=== PATIENT | female | born 1960 | race Caucasian/White ===

== ENCOUNTER 2023-06-22 09:03 | Outpatient (OUT) | payer MEDICARE, SELFPAY ==
--- NOTE | 2023-06-22 09:53 | CA_ITS ---
Patient Name: JOSÉ ANTONIO SY MR#: [id number] : 1960 Exam Date: 06/22/2023 Ordering Doctor: BESS MARTIN ECHOCARDIOGRAM REPORT PROCEDURE: CA ECHO DOPPLER COMPLETE INDICATIONS: Atrial fibrillation, loop recorder, h/o ablation x2 COMPARISON: None. DESCRIPTION: COMPLETE ECHOCARDIOGRAM Real-time transthoracic echocardiography with 2D, M-mode, spectral and color flow Doppler performed. QUALITY: Technical quality was good. 63 , 238#, BSA 2.13 m2 LEFT VENTRICLE: Normal chamber size. Moderate concentric left ventricular hypertrophy. LV EF: Global left ventricular systolic function is normal; visually estimated ejection fraction is 55 to 60%. DIASTOLIC: Normal diastolic function. ATRIAL SEPTUM: Inadequately seen. LEFT ATRIUM: Normal chamber size. RIGHT ATRIUM: Normal chamber size. RIGHT VENTRICLE: Normal chamber size. Normal right ventricular systolic function. TRICUSPID VALVE: Normal mobility and thickness. No stenosis with no regurgitation. Unable to assess right-sided pressures due to lack of measurable tricuspid regurgitation. MITRAL VALVE: Normal mobility and thickness. No evidence of mitral valve stenosis. Mild mitral annular calcification. Trivial mitral regurgitation. AORTIC VALVE: Normal trileaflet appearance. Thickened aortic valve. Normal leaflet mobility. No evidence of aortic valve stenosis. No aortic regurgitation. AORTIC ROOT: Normal diameter and appearance. PULMONIC VALVE: Not well visualized. No stenosis. No regurgitation. PERICARDIUM: No evidence of pericardial effusion. IVC: Collapses with inspirations. CONCLUSION: 1. Global left ventricular systolic function is normal; visually estimated ejection fraction is 55 to 60% 2. Right ventricle is normal size and systolic function 3. Moderately increased left ventricular wall thickness 4. Normal diastolic function 5. No significant valvular abnormalities Adult Echocardiography Procedure Report Left Ventricle LVEDD (3.7 - 5.6 cm): 4.10 cm LVESD (2.2 - 4.0 cm): 3.08 cm LVIVS thickness (0.6 - 1.2 cm): 1.40 cm LVPW thickness (0.5 - 1.0 cm): 1.40 cm e': 0.06 m/s E - e': 9.65 LVOT Max Gradient: 3.05 mm[Hg] LVOT Area (cm2): 0.87 m/s Peak Velocity (LVOT): 0.87 m/s Mean Velocity (LVOT): 0.63 m/s LVOT Diameter 2.70 cm Left Atrium LA Volume Index (2D A2C): 38.49 ml/m2 Left Atrium Systolic Dimension: 3.70 cm Mitral Valve MV E to A Ratio: 0.77 Mitral Valve A-Wave Peak Velocity: 0.81 m/s Mitral Valve E-Wave Peak Velocity: 0.62 m/s Right Ventricle Aorta AO Root Diam: 3.42 cm Ascending Ao Diam: 3.29 cm Aortic Valve AoV Area (Peak Panflio): 3.44 cm2, 3.44 cm2 AoV Area (VTI): 3.60 cm2, 3.60 cm2 Peak Velocity(Antegrade Flow): 1.45 m/s Peak Gradient(Antegrade Flow): 8.44 mm[Hg] Mean Velocity(Antegrade Flow): 0.94 m/s Mean Gradient(Antegrade Flow): 4.10 mm[Hg] Velocity Time Integral: 29.57 cm Tricuspid Valve Pulmonic Valve Mean Gradient: 2.05 mm[Hg] Mean Velocity: 0.67 m/s Peak Velocity: 0.93 m/s, 1.11 m/s Peak Gradient: 4.93 mm[Hg], 3.47 mm[Hg] Right Atrium Dictated by: Manish Walton M.D. on 06/26/2023 at 11:22 Approved by: Manish Walton M.D. on 06/26/2023 at 11:25
== END 2023-06-22 09:04 | disposition home or self-care (01) ==
LOC: CARD 09:03
PROVIDERS: PCP Family Medicine; Visit Provider Nurse Practitioner
DX: I48.0 Paroxysmal atrial fibrillation (principal)
CPT/HCPCS: 93306

== ENCOUNTER 2023-07-25 08:32 | Outpatient (OUT) | payer MEDICARE, SELFPAY ==
--- OUTSIDE RECORDS SUMMARY | 2023-07-25 08:49 | XMS_ITS | CCD ---
Author Name Unknown Address [address] [facility] [address] [place] [id number] Organization [facility] Team Providers Care Netsuite Developer Name Role Phone SONNY ZAID Unavailable Unavailable KUNAL PATEL Unavailable Unavailable [place], EHAB A Attending Unavailable [place], EHAB A Admitting Unavailable SELF, REFERRED Referring Unavailable KUNAL PATEL Primary Care Unavailable Kunal Patel MD Primary Care Provider [phone] CURTIS LIMA Admitting Unavailable CURTIS LIMA Attending Unavailable KUNAL PATEL Primary Care Unavailable GARTH ANDREWS Admitting Unavailable GARTH ANDREWS Consulting Unavailable GARTH ANDREWS Attending Unavailable LEIGHTON Mandel, DR SYED Primary Care Unavailable RAI JAY Admitting Unavailable RAI JAY Attending Unavailable LEIGHTON ., DR SYED Primary Care Unavailable DELIA COKER Admitting Unavailable DELIA COKER Consulting Unavailable DELIA COKER Attending Unavailable LEIGHTON ., DR SYED Primary Care Unavailable RORO BARKLEY Consulting Unavailable SAQIB ANDREWSINDA Admitting Unavailable GARTH ANDREWS Attending Unavailable LEIGHTON ., DR SYED Primary Care Unavailable LEIGHTON ., DR SYED Admitting Unavailable LEIGHTON ., DR SYED Primary Care Unavailable LEIGHTON ., DR SYED Consulting Unavailable LEIGHTON ., DR SYED Attending Unavailable NAYELI FELIZ Attending Unavailable BESS MARTIN Attending Unavailable BESS MARTIN Attending Unavailable RAI JAY Attending Unavailable RAI JAY Admitting Unavailable RAI JAY Attending Unavailable RAI JAY Admitting Unavailable RAI JAY Attending Unavailable RAI JAY Admitting Unavailable RAI JAY Attending Unavailable BESS MARTIN Attending Unavailable BESS MARTIN Attending Unavailable RAI JAY Referring Unavailable RAI JAY Referring Unavailable RAI JAY Referring Unavailable RAI JAY Attending Unavailable RAI JAY Referring Unavailable RAI JAY Referring Unavailable Allergies Allergy Classification Reported Allergen(s) Allergy Type Date of Onset Reaction(s) Facility (2 sources) Acetaminophen / oxyCODONE; Translations: [OXYCODONE-ACETAMI NOPHEN] Drug Allergy 08-19-2013 [facility] Repository (3 sources) Acetaminophen / oxyCODONE Drug Allergy 01-24-2013 [facility] Repository Medications Current Medications Medication Drug Class(es) Dates Sig (Normalized) Sig (Original) apixaban 5 mg oral tablet (1 source) Factor Xa Inhibitor apixaban (EL IQUIS) 5 MG TABS tablet Take by mouth 2 times daily 0 Active atorvastatin 80 mg oral tablet (1 source) HMG-CoA Reductase Inhibitor take 1 tablet by mouth once daily atorvastatin (LIPITOR) 80 MG tablet Take 80 mg by mouth daily 0 Active Calcium Acetate, Phos Binder, (CALCIUM ACETATE PO) (1 source) Calcium Acetate, Phos Binder, (CALCIUM ACETATE PO) Take by mouth 0 Active carvedilol 25 mg oral tablet (1 source) alpha-Adrenergic Grady, beta-Adrenergic Grady take 1 tablet by mouth twice daily at mealtime carvedilol (COREG) 25 MG tablet Take 25 mg by mouth 2 times daily (with meals) 0 Active cetirizine hydrochloride 10 mg oral tablet (1 source) Histamine-1 Receptor Antagonist take 1 tablet by mouth once daily cetirizine (ZYRTEC) 10 MG tablet Take 10 mg by mouth daily 0 Active cloNIDine hydrochloride 0.1 mg oral tablet (1 source) Central alpha-2 Adrenergic Agonist take 1 tablet by mouth twice daily cloNIDine (CATAPRES) 0.1 MG tablet Take 0.1 mg by mouth 2 times daily 0 Active Diclofenac (1 source) Nonsteroidal Anti-inflammatory Drug DICLOFENAC POTASSIUM PO Take by mouth 0 Active 24 hr dilTIAZem hydrochloride 180 mg extended release oral capsule (1 source) Calcium Channel Grady take 1 capsule by mouth once daily dilTIAZem (DILACOR XR) 180 MG extended release capsule Take 180 mg by mouth daily 0 Active furosemide 20 mg oral tablet (1 source) Loop Diuretic take 1 tablet by mouth twice daily furosemide (LASIX) 20 MG tablet Take 20 mg by mouth 2 times daily 0 Active isosorbide dinitrate 20 mg oral tablet (1 source) Nitrate Vasodilator isosorbide dinitrate (ISORDIL) 20 MG tablet Take 30 mg by mouth 3 times daily 0 Active lisinopril 20 mg oral tablet (1 source) Angiotensin Converting Enzyme Inhibitor take 1 tablet by mouth once daily lisinopril (PRINIVIL;ZESTRIL) 20 MG tablet Take 20 mg by mouth daily 0 Active magnesium oxide 400 mg oral tablet (1 source) take 1 tablet by mouth once daily magnesium oxide (MAG-OX) 400 MG tablet Take 400 mg by mouth daily 0 Active Misc Natural Products (AIRBORNE ELDERBERRY) CHEW (1 source) Misc Natural Products (AIRBORNE ELDERBERRY) CHEW Take by mouth 0 Active pantoprazole 40 mg delayed release oral tablet (1 source) Proton Pump Inhibitor take 1 tablet by mouth once daily pantoprazole (PROTONIX) 40 MG tablet Take 40 mg by mouth daily 0 Active pregabalin 100 mg oral capsule (1 source) take 2 capsules by mouth twice daily pregabalin (LYRICA) 100 MG capsule Take 200 mg by mouth 2 times daily. 0 Active zinc gluconate 50 mg oral tablet (1 source) take 1 tablet by mouth once daily zinc gluconate 50 MG tablet Take 50 mg by mouth daily 0 Active Problems Active Problems Problem Classification Problem Date Documented Date Episodic/Chronic Cardiac dysrhythmias (4 sources) Paroxysmal atrial fibrillation; Translations: [Typical atrial flutter] Onset: 03-08-2022 Chronic Congestive heart failure; nonhypertensive (1 source) Unspecified diastolic (congestive) heart failure; Translations: [UNSPECIFIED DIASTOLIC HEART FAILURE] Onset: 07-26-2022 Chronic Coronary atherosclerosis and other heart disease (1 source) 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; Translations: [ASHD [place] W/O ANGINA PECTORIS] Onset: 03-08-2022 Chronic Deficiency and other anemia (1 source) Anemia, unspecified; Translations: [ANEMIA UNSPECIFIED] Onset: 07-26-2022 Episodic Diabetes mellitus without complication (4 sources) Type 2 diabetes mellitus without complications; Translations: [TYPE 2 DM WITHOUT COMPLICATIONS] Onset: 07-24-2022 Chronic Disorders of lipid metabolism (1 source) Hyperlipidemia, unspecified; Translations: [HYPERLIPIDEMIA UNSPECIFIED] Onset: 07-26-2022 Chronic Esophageal disorders (1 source) Gastro-esophageal reflux disease without esophagitis; Translations: [GERD WITHOUT ESOPHAGITIS] Onset: 12-21-2021 Chronic Essential hypertension (3 sources) Essential (primary) hypertension; Translations: [ESSENTIAL PRIMARY HYPERTENSION] Onset: 12-21-2021 Chronic Hypertension with complications and secondary hypertension (1 source) Hypertensive heart disease with heart failure; Translations: [HTN HEART DISEASE W/HEART FAIL] Onset: 07-26-2022 Chronic Mood disorders (1 source) Major depressive disorder, single episode, unspecified; Translations: [GAIL DEPRESS D/O SINGLE EPIS UNS] Onset: 12-21-2021 Chronic Nonspecific chest pain (1 source) Chest pain, unspecified; Translations: [CHEST PAIN UNSPECIFIED] Onset: 07-26-2022 Episodic Nutritional deficiencies (1 source) Vitamin D deficiency, unspecified; Translations: [VITAMIN D DEFICIENCY UNSPECIFIED] Onset: 07-26-2022 Chronic Other lower respiratory disease (1 source) Other forms of dyspnea; Translations: [OTHER FORMS OF DYSPNEA] Onset: 07-26-2022 Episodic Other nutritional; endocrine; and metabolic disorders (1 source) Morbid (severe) obesity due to excess calories; Translations: [MORBID SEVERE OBES D/T EXCESS ABNER] Onset: 12-21-2021 Chronic Other nutritional; endocrine; and metabolic disorders (1 source) Body mass index (BMI) 40.0-44.9, adult; Translations: [BODY MASS INDEX BMI 40.0-44.9 ADULT] Onset: 12-21-2021 Chronic Residual codes; unclassified (2 sources) Sleep apnea, unspecified; Translations: [Sleep apnea, unspecified] Onset: 12-27-2022 Chronic Unclassified (1 source) Unknown / UNK(Unknown) Onset: 06-24-2018 Past or Other Problems Problem Classification Problem Date Documented Da te Episodic/Chronic Cardiac dysrhythmias (2 sources) Palpitations; Translations: [Palpitations] Onset: 09-26-2022 Episodic E Codes: Overexertion (1 source) Slipping, tripping and stumbling without falling due to stepping into hole or opening, initial encounter; Translations: [SLIP STUMBL NO FALL STEP HOLE INIT] Onset: 12-21-2021 Episodic Other aftercare (1 source) 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 (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; Translations: [EMBOSSED OR IMPRESSED LETTERING PAINTER CURRENT USE OF ASPIRIN] Onset: 12-21-2021 Episodic Other aftercare (1 source) Other senior care (current) drug therapy; Translations: [OTH SENIOR CARE CURRENT DRUG THERAPY] Onset: 12-21-2021 Episodic Other circulatory disease (1 source) Personal history of transient ischemic attack (TIA), and cerebral infarction without residual deficits; Translations: [PERS HX TIA AND CI NO RESID DEFICIT] Onset: 12-21-2021 Episodic Other connective tissue disease (3 sources) Pain in right foot; Translations: [PAIN IN RIGHT FOOT] Onset: 12-18-2021 Episodic Residual codes; unclassified (1 source) Acquired absence of both cervix and uterus; Translations: [ACQUIRED ABSENCE BOTH CERVIX AND UTERUS] Onset: 12-21-2021 Episodic Sprains and strains (1 source) Unspecified sprain of right foot, initial encounter; Translations: [UNSPECIFIED SPRAIN RT FOOT INITIAL] Onset: 12-21-2021 Episodic Results Test Name Value Interpretation Reference Range Facility Office Visiton 06-26-2023 Follow-up visit [id number] BarthCarina Moraes 1960 Provider Department Center 06/26/2023 RAI BARROW Family History Problem Relation Age of Onset Heart failure Mother Hyperlipidemia Mother Hypertension Mother Heart failure Father Hypertension Father Heart failure Brother Hyperlipidemia Brother Hypertension Brother Family Status - Relation Status Age at Mother Father Brother Level of Service:96051 SD OFFICE/OUTPATIENT ESTABLISHED MOD MDM 30 MIN Normal [facility] Office Visiton 04-17-2023 Follow-up visit [id number] TabCarina Moraes 1960 Provider Department Center 04/17/2023 BESS PETER Family History Problem Relation Age of Onset Heart failure Mother Hyperlipidemia Mother Hypertension Mother Heart failure Father Hypertension Father Heart failure Brother Hyperlipidemia Brother Hypertension Brother Family Status - Relation Status Age at Mother Father Brother Level of Service:18783 SD OFFICE/OUTPATIENT ESTABLISHED MOD MDM 30-39 MIN Normal [facility] Orders Onlyon 02-12-2023 Orders Only [id number] TabCarina Moraes 1960 Provider Department Center 02/12/2023 BESS PETER [facility] Family History Problem Relation Age of Onset Heart failure Mother Hyperlipidemia Mother Hypertension Mother Heart failure Father Hypertension Father Heart failure Brother Hyperlipidemia Brother Hypertension Brother Family Status - Relation Status Age at Mother Father Brother [facility] Telephoneon 01-18-2023 Telephone [id number] Carina Barth 1960 Date Provider Department Prim 01/18/20231986-PATO CORONADO [facility] VASC LAB NE HeartVAS Family History Problem Relation Age of Onset Heart failure Mother Hyperlipidemia Mother Hypertension Mother Heart failure Father Hypertension Father Heart failure Brother Hyperlipidemia Brother Hypertension Brother Family Status - Relation Status Age at Mother Father Brother Reason for Visit and Comments: 3 week f/u post ablation [Other] [facility] Telephoneon 01-04-2023 Telephone [id number] Carina Barth 1960 Date Provider Department Center 01/04/20231986-PATO CORONADO [facility] CARD NE HeartVAS Family History Problem Relation Age of Onset Heart failure Mother Hyperlipidemia Mother Hypertension Mother Heart failure Father Hypertension Father Heart failure Brother Hyperlipidemia Brother Hypertension Brother Family Status - Relation Status Age at Mother Father Brother Reason for Visit and Comments: week f[facility]u [facility] ablation [facility] ---- -------- Attestation signed by Rai Jay MD at 12/28/2022 9:29 AM By using the attestations below, the signing clinician agrees that I have read and verify that the documentation has been personally reviewed by me and ensure that the documentation accurately reflects the encounter. GC: I personally saw this patient on the day of the encounter, performed the garza portion(s) of the service and participated in the management and confirm the resident's documentation. Please note there may be an additional personal documentation from me. -------- H&P reviewed. The patient was examined and there are no changes to the H&P. Normal [facility] POCT GLUCOSE METER UNSOLICIT ED RESULTSon 12-28-2022 Glucose [Mass/Vol] 219 mg/dL High 70-105 [facility] Comment on above: Order Comment: Waive d Testing in the ED is performed under the ED CLIA certificate #[id number]. Result Comment: aepp ink Performed By: #### L [id number] ####[facility] ([employer])[address] [place] [address] PROTIME-INRon 12-28-2022 INR IN PPP BY COAGULATION ASSAY 1.02 Normal 0.90-1.10 [facility] Comment on above: Result Comment: ACCC P RECOMMENDED INR FOR WARFARIN THERAPY CONDITION INR PROPHYLAXIS OF VENOUS THROMBOSIS 2-3 (HIGH-RISK SURGERY) TREATMENT OF VENOUS THROMBOSIS 2-3 TREATMENT OF PULMONARY EMBOLISM 2-3 PREVENTION OF SYSTEMIC EMBOLISM: 2-3 ACUTE MYOCARDIAL INFARCTION TISSUE HEART VALVES VALVULAR HEART DISEASE ATRIAL FIBRILLATION RECURRENT SYSTEMIC EMBOLISM MECHANICAL HEART VALVE 2.5-3.5 FROM: ORAL ANTICOAGULANTS. MECHANISM OF ACTION, CLINICAL EFFECTIVENESS, AND OPTIMAL THERAPEUTIC RANGE. CHEST 1995;108:231S-246S. Performed By: #### L [id number] ####[facility] ([employer])[address] [place] [place] [address] PROTHROMBIN TIME (PT) IN PPP BY COAGULATION ASSAY 13.4 Seconds Normal 12.3-14.8 [facility] Comment on above: Performed By: #### L [id number] ####[facility] (DANIEL)[address] [place] [address] HPon 12-27-2022 [facility] Electrophysiology Note [facility] Reason for Consultation: Aflutter s/p ablation 07/26/22, AFIB ablation HP and consent HPI: Patient here for A-fib ablation H&P and consent she previously had atrial flutter ablation and subsequently had a loop monitor placed Since loop placement she has had several frequent episodes of A-fib with some lasting up 2 to 3 hours. she has not felt these palpitations like she did with her for, they are very mild and infrequent for her. she was trialed on amiodarone and cannot tolerate side effects such as headaches and lightheadedness and affected her daily level so she discontinued amiodarone She denies chest pain, shortness of breath, PRICE, LE edema, orthopnea, lightheadedness, dizziness. ECG 12/28/2022 sinus rhythm 12/26/22 loop afib event PMH: mild to mod CAD per 07/2020 cath, pHTN, HTN, diastolic dysfunction, hx TIA 2008, atrial flutter s/p ablation 07/2022, atrial fib (was intolerant of amiodarone) [id number] at least 5 for gender, hypertension, TIA, HFpEF - on Eliquis 5mg BID medications. As needed nitroglycerin, lisinopril 20 mg daily, pregabalin, milligram twice daily, Coreg 25 mg twice daily, Cardizem 100 mg daily, Cymbalta, Imdur 30 mg daily, Protonix 40 mg daily, Jardiance 10 mg daily for chronic 0.1 mg twice daily, Lasix 20 mg daily, Lipitor 80 mg daily Prior HPI: Amparo Barth is a 62 y.o. 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 She was seen at [facility] ER with c/o palpitations and chest pain and found to be in a.flutter. She states that she has experienced this on and off for the past 5 years although no EKG was ever taken. She is becoming more active after receiving pain treatment on the back She denies CP, orthopnea, PND, LE edema, dizziness/LH, syncope, bleeding issues. -------- PMH: Past Medical History: Diagnosis Date Abnormal ECG Arrhythmia Atrial flutter (CMS/HCC) Hypertension Obesity BMI 41.10 As above PSH: Past Surgical History: Procedure Laterality Date CARDIAC CATHETERIZATION 07/22/2020 CHOLECYSTECTOMY HAND SURGERY HERNIA REPAIR x 2 HYSTERECTOMY KNEE SURGERY x 3 SH: Social Determinants of Health Tobacco Use: Low Risk (12/21/2022) Patient History Smoking Tobacco Use: Never Smokeless Tobacco Use: Never Passive Exposure: Not on file Alcohol Use: Not on file Financial Resource Strain: Not on file Food Insecurity: Not on file Transportation Needs: Not on file Physical Activity: Not on file Stress: Not on file Social Connections: Not on file Intimate Partner Violence: Not on file Depression: Not on file Housing Stability: Not on file Meds: Current Outpatient Medications on File Prior to Visit Medication Sig Dispense Refill apixaban (Eliquis) 5 mg tablet Take 1 tablet by mouth in the morning and at bedtime. atorvastatin (Lipitor) 80 mg tablet Take 1 tablet (80 mg) by mouth at bedtime. 90 tablet 3 carvedilol (Coreg) 25 mg tablet Take 1 tablet by mouth with breakfast and with evening meal. cloNIDine (Catapres) 0.1 mg tablet Take by mouth in the morning and at bedtime. dilTIAZem ER (Tiazac) 180 mg 24 hr capsule Take 1 tablet by mouth in the morning. DULoxetine (Cymbalta) [address] capsule Take 1 tablet by mouth in the morning. furosemide (Lasix) 20 mg tablet Take 1 tablet (20 mg) by mouth in the morning. 90 tablet 3 isosorbide mononitrate ER (Imdur) 30 mg 24 hr tablet Take 1 tablet by mouth in the morning. Jardiance 10 mg Take 10 mg by mouth in the morning. lisinopril 20 mg tablet Take 1 tablet by mouth in the morning and at bedtime. nitroglycerin (Nitrostat) 0.[address] 1 TABLET IN MOUTH EVERY 5 MINUTES 3 TIMES A DAY NEEDED FOR CHEST PAIN pantoprazole (ProtoNix) 40 mg EC tablet Take 1 tablet by mouth in the morning. pregabalin (Lyrica) 200 mg capsule TAKE 1 CAPSULE BY MOUTH EVERY DAY AT NIGHT amiodarone (Pacerone) 200 mg tablet Take 2 tablets (400 mg) by mouth in the morning and at bedtime for 14 days, THEN 1 tablet (200 mg) in the morning. 146 tablet 0 No current facility-administered medications on file prior to visit. ROS: Cardio Basic Cardiovascular Symptoms: no lightheadedness, no leg edema, no syncope, no orthopnea, no PND, no claudication, +palpitations Constitutional Constitutional: no fever, no night sweats, no significant weight gain, no significant weight loss, no exercise intolerance Eyes Eyes: no dry eyes, no irritation, no vision change ENMT Ears: no difficulty hearing, no ear pain Nose: no frequent nosebleeds, Mouth/Throat: no sore throat, no bleeding gums, no snoring, no dry mouth, no mouth ulcers, no oral abnormalities, no teeth problems Respiratory Respiratory: no cough, no wheezing, no coughing up blood, no sleep apnea Musculos (more content not included)... Normal [facility] Office Visiton 12-27-2022 Follow-up visit [id number] Carina Barth 1960 F Date Provider Department Center 12/27/2022 Torie-BESS MARTIN [facility] Family History Problem Relation Age of Onset Heart failure Mother Hyperlipidemia Mother Hypertension Mother Heart failure Father Hypertension Father Heart failure Brother Hyperlipidemia Brother Hypertension Brother Family Status - Relation Status Age at Mother Father Brother Level of Service:85617 SD OFFICE/OUTPATIENT ESTABLISHED HIGH MDM 40-54 MIN Normal [facility] BASIC METABOLIC PANELon 12-16 Anion gap [Moles/Vol] 12 mmol/L Normal 7-20 [facility] Comment on above: Performed By: #### L [id number] ####[facility] ([facility])[address] [place] [address] Calcium [Mass/Vol] 9.5 mg/dL Normal 8.6-10.3 [facility] Comment on above: Performed By: #### L [id number] ####[facility] ([facility])[address] [place] [address] Chloride [Moles/Vol] 105 mmol/L Normal 98-107 [facility] Comment on above: Performed By: #### L [id number] ####[facility] ([facility])[address] [place] [address] CO2 [Moles/Vol] 26 mmol/L Normal 21-31 [facility] Comment on above: Performed By: #### L [id number] ####[facility] ([facility])[address] [place] [address] Creatinine [Mass/Vol] 0.88 mg/dL Normal 0.60-1.20 [facility] Comment on above: Performed By: #### L [id number] ####[facility] ([facility])[address] [facility] [place] [address] GLOMERULAR FILTRATION RATE ML/MIN/1.73 SQ M.PREDICTED 73.3 mL/min/1.73m*2 Normal >60.0 [facility] Comment on above: Result Comment: The [facility]???s estimated glomerular filtration rate (eGFR) will no longer include consideration of race in its calculation. The National Kidney Foundation???s eGFR Task Force developed new recommendations for the estimation of the glomerular filtration rate in the [place] They recommend immediate implementation of the new equation refit without the race variable in all laboratories because the calculation does not include race. In addition to not including race in the calculation and reporting, it included diversity in its development, and has acceptable performance characteristics and potential consequences that do not disproportionately affect any one group of individuals. Performed By: #### L [id number] ####[facility] ([facility])[address] [place] [address] Glucose [Mass/Vol] 132 mg/dL High 70-100 [facility] Comment on above: Performed By: #### L [id number] ####[facility] ([facility])[address] [place] [address] Potassium [Moles/Vol] 4.1 mmol/L Normal 3.5-5.1 [facility] Comment on above: Performed By: #### L [id number] ####[facility] ([facility])[address] [place] [address] Sodium [Moles/Vol] 139 mmol/L Normal 136-145 [facility] Comment on above: Performed By: #### L [id number] ####[facility] ([facility])[address] [place] [address] Urea nitrogen [Mass/Vol] 11 mg/dL Normal 7-25 [facility] Comment on above: Performed By: #### L [id number] ####[facility] ([facility])[address] [place] [address] UREA NITROGEN/CREATININ E (MASS RATIO) IN SER/PLAS 12.5 Normal [facility] Comment on above: Performed By: #### L [id number] ####[facility] ([facility])[address] [place] [address] CBC WITH AUTO DIFFERENTIALon 12-25-2022 Basophils (Bld) [#/Vol] 0.04 10*3/uL Normal 0.00-0.20 [facility] Comment on above: Performed By: #### L [id number] #### [facility] ([facility]) [address] [place] [address] Basophils/100 WBC (Bld) 0.5 % Normal 0.0-1.0 [facility] Comment on above: Performed By: #### L [id number] #### [facility] ([facility]) [address] [place] [address] Eosinophils (Bld) [#/Vol] 0.19 10*3/uL Normal 0.00-0.50 [facility] Comment on above: Performed By: #### L [id number] #### [facility] ([facility] [address] [place] [address] Eosinophils/100 WBC (Bld) 2.4 % Normal 0.0-6.0 [facility] Comment on above: Performed By: #### L [id number] #### [facility] ([facility]) [address] [place] [address] Erythrocyte distribution width (RBC) [Ratio] 15.1 % High 11.5-15.0 [facility] Comment on above: Performed By: #### L [id number] #### [facility] ([facility]) [address] [place], [place] [address] ERYTHROCYTE MEAN CORPUSCULAR HEMOGLOBIN CONCENTRATION (G/DL) BY AUTOMATED 33.7 g/dL Normal 32.0-35.0 [facility] Comment on above: Performed By: #### L [id number] #### [facility] ([facility]) [address] [place] [address] Hematocrit (Bld) [Volume fraction] 40.9 % Normal 36.0-48.0 [facility] Comment on above: Performed By: #### L [id number] #### [facility] ([facility]) [address] [place] [address] Hemoglobin (Bld) [Mass/Vol] 13.8 g/dL Normal 12.0-15.0 [facility] Comment on above: Performed By: #### L [id number] #### [facility] ([facility]) [address] [place] [address] Immature granulocytes (Bld) [#/Vol] 0.10 10*3/uL Normal 0.00-0.20 [facility] Comment on above: Performed By: #### L [id number] #### [facility] ([facility]) [address] [place] [address] Immature granulocytes/100 WBC (Bld) 1.2 % High 0.0-1.0 [facility] Comment on above: Performed By: #### L [id number] #### [facility] ([facility]) [address] [place] [address] Lymphocytes (Bld) [#/Vol] 2.22 10*3/uL Normal 1.20-4.00 [facility] Comment on above: Performed By: #### L [id number] #### [facility] ([facility]) [address] [place] [address] Lymphocytes/100 WBC (Bld) 27.5 % Normal 20.0-45.0 [facility] Comment on above: Performed By: #### L [id number] #### [facility] ([facility]) [address] [place] [address] MCH (RBC) [Entitic mass] 29.3 pg Normal 27.0-33.0 [facility] Comment on above: Performed By: #### L [id number] #### [facility] ([facility]) [address] [place] [address] MCV (RBC) [Entitic vol] 86.8 fL Normal 82.0-98.0 [facility] Comment on above: Performed By: #### L [id number] #### [facility] ([facility]) [address] [place] [address] Monocytes (Bld) [#/Vol] 0.58 10*3/uL Normal 0.10-1.00 [facility] Comment on above: Performed By: #### L [id number] #### [facility] ([facility]) [address] [place] [address] Monocytes/100 WBC (Bld) 7.2 % Normal 5.0-12.0 [facility] Comment on above: Performed By: #### L [id number] #### [facility] ([facility]) [address] [place] [address] Neutrophils (Bld) [#/Vol] 4.94 10*3/uL Normal 1.60-7.60 [facility] Comment on above: Performed By: #### L [id number] #### [facility] ([facility]) [address] [place] [address] Neutrophils/100 WBC (Bld) 61.2 % Normal 40.0-72.0 [facility] Comment on above: Performed By: #### L [id number] #### [facility] ([facility]) [address] [place] [address] NRBC (PER 100 WBCS) BY AUTOMATED COUNT 0.0 % Normal 0 [facility] Comment on above: Performed By: #### L [id number] #### [facility] ([facility]) [address] [place] [address] PLATELETS (10*3/UL) IN BLOOD AUTOMATED COUNT 245 10*3/uL Normal 150-400 [facility] Comment on above: Performed By: #### L [id number] #### [facility] ([facility]) [address] [place] [address] RBC (Bld) [#/Vol] 4.71 10*6/uL Normal 3.80-5.00 [facility] Comment on above: Performed By: #### L [id number] #### [facility] ([facility]) [address] [place] [address] WBC (Bld) [#/Vol] 8.07 10*3/uL Normal 4.00-10.60 [facility] Comment on above: Performed By: #### L [id number] #### [facility] ([facility]) [address] [address] [place] 12-25-2022 Lab [id number] Carina Barth 1960 F Date Provider Department Prim 12/25/2022 2245-[facility] OPD LAB RESOURCE [facility] OPD [facility] Family History Problem Relation Age of Onset Heart failure Mother Hyperlipidemia Mother Hypertension Mother Heart failure Father Hypertension Father Heart failure Brother Hyperlipidemia Brother Hypertension Brother Family Status - Relation Status Age at Mother Father Brother Normal [facility] [id number] 12-21-2022 [id number] ARRIVAL TIME 0630 GI KRISTA MEDICATIONS TO TAKE DAY OF SURGERY WITH A SIP OF WATER CARVEDILOL CLONIDINE DILTIAZEM DULOXETINE ISOSORBIDE PROTONIX AGREES TO GET LABS DONE AT [facility] ON 12/25 IF YOU ARE GOING HOME AFTER YOUR SURGERY OR PROCEDURE, FOR YOUR SAFETY, YOUR SURGERY WILL BE CANCELLED IF BOTH OF THE FOLLOWING ARE NOT AVAILABLE: An adult trailer driver over the age of 18, that can receive information about your care after surgery, and drive you home. A responsible adult to stay with you for 24 hours in case of an emergency. Can be same as above. The highest risk of complications is within the first 24 hours after sedation/anesthesia. Nothing to eat or drink after midnight the night before surgery. This includes gum, candy, mints, and lozenges. No alcohol, marijuana, or tobacco products including vaping for 24 hours. Please brush your teeth; don't swallow the toothpaste or water. If you use dentures, wear them but do not use paste. Please leave any other removable dental hardware at home. Do not put in contact lenses. Do not wear perfume, make-up, nail tongan, or lotions on the day of your surgery or procedure. Follow skin-prep/wipe instructions as below if required. Bring with you: *Insurance card *Photo ID *Medication list *Co-pay for visit/prescriptions If applicable: *Rescue inhalers *Green bracelet from lab *CPAP or BiPAP machine, if staying overnight *Any braces, splints, or equipment ordered preoperatively *Remote controls for implanted devices Leave at home: *Purse/Wallet/[place]- unless needed for co-pay *Cell phone (can leave with family/friend or place in locker if needed) *Jewelry (including piercings and wedding bands) *If not possible, ask the person who is waiting with you to keep them Children under the age of 12 will not be allowed into patient care areas. We will call you between 3pm and 4pm the day before your surgery to give you an arrival time. If you do not receive this call, have any questions, or need to make any changes, please call [phone]. Notify your surgeon if you develop any illness such as a cold, cough, fever, sore throat or vomiting between now and your surgery. Thank you for entrusting us with your care. [facility] Surgical Services Team Normal [facility] CTA CHEST W AND/OR WO IV CON TRASTon 12-18-2022 CTA CHEST W AND/OR WO IV CONTRAST CTA CHEST W AND/OR WO IV CONTRAST 12/25/2022 3:24 PM CLINICAL INDICATIONS: Paroxysmal atrial fibrillation. Preablation planning CT. PROTOCOL: Gated cardiac CTA examination CONTRAST: 115 mL Omnipaque 350 TECHNIQUE: Multidetector CT axial slices of the chest were obtained with IV contrast. Multiplanar reformats were performed and viewed on a separate workstation and reviewed to further define anatomy and possible pathology. 3-D Volume rendered images of the left atrium, draining pulmonary veins and left atrial appendage are obtained in various projections and saved on the PACS. All CT scans at this facility use dose modulation, iterative reconstruction, and/or weight based dosing when appropriate to reduce radiation dose to as low as reasonably achievable. COMPARISON: None. FINDINGS: Lower neck: Thyroid gland subcentimeter low-attenuation nodule in the anterior left thyroid lobe, no supraclavicle adenopathy. Vessels: Satisfactory contrast opacification of the pulmonary arteries. No atherosclerotic changes in the aorta. and coronary arteries. Mediastinum and Yolanda: Within normal limits. Heart: Normal size. Trace pericardial effusion at the base and at the aortic reflection.. Airways: Within normal limits Lungs: Within normal limits with bilateral mild dependent atelectasis.. Pleura: Within normal limits. Chest Wall: Loop recorder is seen in the medial left upper hemithorax. Upper Abdomen: Within normal limits. Small hiatal hernia. Otherwise, unremarkable with metallic clips seen at the gallbladder fossa from prior cholecystectomy. Bones: Within normal limits. 3-D volume rendered images of the left atrium revealed normal size and configuration. The left atrium measures maximum transverse dimensions of 8.2 x 4.6 cm. The ostium of the left atrial appendage is 1.6 cm in diameter and left atrial appendage length is approximately 5.6 cm. The left superior pulmonary vein ostium is 1.7 cm and diameter and first branch is approximately 2.9 cm from the ostium. The left inferior pulmonary vein ostium is 1.5 cm in diameter and first branch is approximately 2.1 cm from the ostium. The right superior pulmonary vein ostium measures 1.1 cm and first branch is approximately 2.5 cm from the ostium. The right inferior pulmonary vein ostium is 1.4 cm and first branch is approximately one CM from the ostium. The esophagus is immediately posterior to the left inferior pulmonary vein. IMPRESSION: Normal size and configuration of the left atrium and 2 pulmonary veins are seen on each side with the esophagus seen in close proximity to the ostium of the left inferior pulmonary vein. Left atrial appendage is patent and contrast-filled. Otherwise, small low-attenuation lesion in the left thyroid lobe is visualized. Bilateral mild dependent atelectasis and trace pericardial effusion with loop recorder seen in the upper left medial hemithorax. Electronically signed: Azucena N[place]. [facility] Comment on above: Order Comment: Nasim rucker schedule prior to December 28 36on 12-12-2022 36 Patient called to jean paul adkins you aware that she is unable to tolerate amiodarone. She started it around 11/21. It's giving her headaches and lightheadedness. She states she isn't able to function even on 1 tablet daily. She is scheduled on 12/28/2022 for afib ablation. She doesn't plan on taking amiodarone tomorrow. Will this effect her procedure? Should she do something differently? Please advise. Thanks. [facility] Prep for Procedureon 023 Prep for Procedure [id number] Carina Barth 1960 F Date Provider Department Center 11/23/2022 1987-PATO CORONADO [facility] Family History Problem Relation Age of Onset Heart failure Mother Hyperlipidemia Mother Hypertension Mother Heart failure Father Hypertension Father Heart failure Brother Hyperlipidemia Brother Hypertension Brother Family Status - Relation Status Age at Mother Father Brother [facility] Office Visiton 11-21-2022 Follow-up visit [id number] Carina Barth 1960 F Date Provider Department Center 11/21/2022 Caitlyn-RAI JAY GOLD [place] Family History Problem Relation Age of Onset Heart failure Mother Hyperlipidemia Mother Hypertension Mother Heart failure Father Hypertension Father Heart failure Brother Hyperlipidemia Brother Hypertension Brother Family Status - Relation Status Age at Mother Father Brother Level of Service:47310 SD OFFICE/OUTPATIENT ESTABLISHED HIGH MDM 40-54 MIN [facility] Office Visiton 10-20-2022 Follow-up visit [id number] Carina Barth 1960 F Date Provider Department Center 10/20/2022 NAYELI CHAVIRA GOLD [place] Family History Problem Relation Age of Onset Heart failure Mother Hyperlipidemia Mother Hypertension Mother Heart failure Father Hypertension Father Heart failure Brother Hyperlipidemia Brother Hypertension Brother Family Status - Relation Status Age at Mother Father Brother Level of Service:22537 SD POSTOP FOLLOW UP VISIT RELATED TO ORIGINAL PX [facility] HPon 10-11-2022 H&P reviewed. The patient was examined and there are no changes to the H&P. She is S/p Atrial Flutter ablation. she does have history of TIA with no true known etiology. Proceed with Implantable loop monitor [facility] Electrophysiology Note [facility] Reason for Consultation: Aflutter s/p ablation 07/26/22 HPI: she is here for follow-up s/p flutter ablation EKG sinus rhythm. But she states has been feeling palpitations. She has not had a loop monitor per insurance but no appeal has been sent We took care of her flutter and she continues to have palpitations. she does have history of TIA with no true known cause. I discussed with her we should proceed with appealing for her loop monitor considering her history of TIA and continued palpitations. At times the palpitations are associated with lightheadedness but she denies chest pain, shortness of breath, syncope, price, orthopnea. -------- - HPI: Amparo is here for follow-up s/p typical a flutter ablation. She was mistakenly scheduled as a wound check and is here 1 week post ablation. States the first week she felt fatigued with some chest discomfort but that has now resolved and she feels great. She usually knows when she is in a-flutter and has not felt that since the ablation ECG sinus rhythm. Her right groin site has healed well with no concerns for hematoma or bleeding. She states her blood pressure is managed by her PCP. I discussed with her that she will likely need to come back in about 4 to 6 weeks for 1 month follow-up to do a repeat EKG and see how she is doing. She denies chest pain, lightheadedness, dizziness, syncope, palpitations. -------- Previous per Pierre 07/2022 HPI: Amparo Barth is a 62 y.o. 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 She was seen at [facility] ER with c/o palpitations and chest pain and found to be in a.flutter. She states that she has experienced this on and off for the past 5 years although no EKG was ever taken. She is becoming more active after receiving pain treatment on the back She denies CP, orthopnea, PND, LE edema, dizziness/LH, syncope, bleeding issues. -------- PMH: Past Medical History: Diagnosis Date Atrial flutter (CMS/HCC) Hypertension As above PSH: Past Surgical History: Procedure Laterality Date CARDIAC CATHETERIZATION 07/22/2020 CHOLECYSTECTOMY HAND SURGERY HERNIA REPAIR x 2 HYSTERECTOMY KNEE SURGERY x 3 SH: Social Determinants of Health Tobacco Use: Low Risk Smoking Tobacco Use: Never Smokeless Tobacco Use: Never Passive Exposure: Not on file Alcohol Use: Not on file Financial Resource Strain: Not on file Food Insecurity: Not on file Transportation Needs: Not on file Physical Activity: Not on file Stress: Not on file Social Connections: Not on file Intimate Partner Violence: Not on file Depression: Not on file Housing Stability: Not on file Meds: Current Outpatient Medications on File Prior to Visit Medication Sig Dispense Refill apixaban (Eliquis) 5 mg tablet Take 1 tablet by mouth in the morning and at bedtime. atorvastatin (Lipitor) 80 mg tablet Take 1 tablet (80 mg) by mouth at bedtime. 90 tablet 3 carvedilol (Coreg) 25 mg tablet Take 1 tablet by mouth with breakfast and with evening meal. cloNIDine (Catapres) 0.1 mg tablet in the morning, at noon, and at bedtime. diclofenac (Voltaren) 75 mg EC tablet Take 1 tablet every day by oral route for 30 days. dilTIAZem ER (Tiazac) 180 mg 24 hr capsule Take 1 tablet by mouth in the morning. DULoxetine (Cymbalta) [address] capsule Take 1 tablet by mouth in the morning. furosemide (Lasix) 20 mg tablet Take 1 tablet (20 mg) by mouth in the morning. 90 tablet 3 isosorbide mononitrate ER (Imdur) 30 mg 24 hr tablet Take 1 tablet by mouth in the morning. lisinopril 20 mg tablet Take 1 tablet by mouth in the morning and at bedtime. nitroglycerin (Nitrostat) 0.[address] 1 TABLET IN MOUTH EVERY 5 MINUTES 3 TIMES A DAY NEEDED FOR CHEST PAIN pantoprazole (ProtoNix) 40 mg EC tablet Take 1 tablet by mouth in the morning. pregabalin (Lyrica) 200 mg capsule TAKE 1 CAPSULE BY MOUTH EVERY DAY AT NIGHT Jardiance 10 mg Take 10 mg by mouth in the morning. No current facility-administered medications on file prior to visit. ROS: Cardio Basic Cardiovascular Symptoms: no lightheadedness, no leg edema, no syncope, no orthopnea, no PND, no claudication, +palpitations Constitutional Constitutional: no fever, no night sweats, no significant weight gain, no significant weight loss, no exercise intolerance Eyes Eyes: no dry eyes, no irritation, no vision change ENMT Ears: no difficulty hearing, no ear pain Nose: no frequent nosebleeds, Mouth/Throat: no sore throat, no bleeding gums, no snoring, no dry mouth, no m (more content not included)... Normal [facility] Office Visiton 09-12-2022 Follow-up visit [id number] Carina Barth 1960 Date Provider Department Center 09/12/2022 BESS PETER Family History Problem Relation Age of Onset Heart failure Mother Hyperlipidemia Mother Hypertension Mother Heart failure Father Hypertension Father Heart failure Brother Hyperlipidemia Brother Hypertension Brother Family Status - Relation Status Age at Mother Father Brother Level of Service:82604 SD OFFICE/OUTPATIENT ESTABLISHED LOW MDM 20-29 MIN Reason for Visit and Comments: Follow-up [134927] - 1 month follow up [facility] Follow-Upon 08-02-2022 Follow-Up [id number] Carina Barth A 1960 Date Provider Department Center 08/02/2022 BESS PETER Family History Problem Relation Age of Onset Heart failure Mother Hyperlipidemia Mother Hypertension Mother Heart failure Father Hypertension Father Heart failure Brother Hyperlipidemia Brother Hypertension Brother Family Status - Relation Status Age at Mother Father Brother Level of Service:22942 SD OFFICE/OUTPATIENT ESTABLISHED MDM 10-19 MIN [facility] DSon 07-26-2022 DS Admission Admitted 07/26/2022 for Typical atrial flutter (CMS/[facility]) Discharge Diagnosis S/p Atrial flutter ablation Discharge Disposition Home Discharge Medications Your medication list ASK your doctor about these medications Instructions Last Dose Given Next Dose Due apixaban 5 mg tablet Commonly known as: Eliquis atorvastatin 80 mg tablet Commonly known as: Lipitor Ask about: Which instructions should I use? Take 1 tablet (80 mg) by mouth at bedtime. carvedilol 25 mg tablet Commonly known as: Coreg cloNIDine 0.1 mg tablet Commonly known as: Catapres diclofenac 75 mg EC tablet Commonly known as: Voltaren dilTIAZem ER 180 mg 24 hr capsule Commonly known as: Tiazac DULoxetine [address] capsule Commonly known as: Cymbalta furosemide 20 mg tablet Commonly known as: Lasix Take 1 tablet (20 mg) by mouth in the morning. isosorbide mononitrate ER 30 mg 24 hr tablet Commonly known as: Imdur lisinopril 20 mg tablet nitroglycerin 0.4 mg SL tablet Commonly known as: Nitrostat pantoprazole 40 mg EC tablet Commonly known as: ProtoNix pregabalin 200 mg capsule Commonly known as: Lyrica Activity Patient currently has no discharge activity orders Diet Patient currently has no discharge diet orders Allergies Oxycodone-acetaminophen Hospital Course ATRIAL FLUTTER ABLATION PROCEDURE NOTE DATE OF PROCEDURE: 07/26/2022 PERFORMING PHYSICIAN: Dr. Rai Jay CONSENT: Patient NAME OF THE PROCEDURE: Flutter ablation and Comprehensive EP study. INDICATIONS FOR PROCEDURE: Atrial flutter PROCEDURES PERFORMED: 1. Sonosite guided venous access as noted below and images stored in PACS. 2. Comprehensive EP study and catheter ablation for persistent atrial flutter. This includes right atrial recording and pacing, His bundle recording and right ventricular recording and pacing. 3. Intracardiac EP 3D mapping. 4. Intracardiac echocardiogram 5. Left atrial and coronary sinus recording and pacing to assess ablation results. 6. Conscious sedation. PROCEDURAL SEDATION: Versed and Fentanyl. Moderate sedation was administered by the sedation nurse under my supervision and noted in the CVL log. Intraprocedural face to face sedation time: 63min. Monitoring: Cardiac telemetry, Blood pressure, continuous pulse oxymetry. FLUOROSCOPY: NA EBL: 10cc SPECIMEN REMOVED: None INDICATION: 62 y.o. 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 She was seen at [facility] ER with c/o palpitations and chest pain and found to be in a.flutter. She states that she has experienced this on and off for the past 5 years although no EKG was ever taken. She has come for flutter ablation. PROCEDURE NOTE: Risks, benefits and alternatives of the procedure were discussed with the patient and family who agreed to proceed. Please refer to my consult note for details of the discussion and of indications. The patient was brought to the EP lab and a procedural pause was performed identifying the patient, the procedure. The patient presented in sinus rhythm and ICE imaging was used to rule out TOSHA clot. Both the groins were then prepared and draped. Ultrasound was used to determine the course and patency of the femoral veins on both sides and they were noted to be patent and the image stored in PACS. After infiltration with 1% lidocaine, 3 venous sheaths were placed in the right. RFV: 8Fx3 [employer] ThermoCool SF Bi-Directional over SL1/ Vizigo, ICE catheter. CS Catheter (EZ Steer) Heparin 5000U bolus was given followed by continuous intravenous drip to target ACT around 300. An intracardiac ultrasound catheter was inserted into the right atrium to examine the right atrial anatomy, atrial septum, pulmonary vein anatomy and to monitor for pericardial effusion. At baseline, there was mild pericardial effusion and no TOSHA clot. CS os was mapped using the [employer] 3D mapping software. Using ICE, the His and IVC junctions were marked with 3D CARTO mapping software. Vizigo sheath was exchanged for a short 8F sheath. Vizigo sheath was placed instead of short 8F sheath. The ablation catheter was advanced over to the CTI. Ablation was performed on the CTI line starting at the tricuspid valve aspect. 40W was utilized and I extended the ablation to the IVC aspect, but there was a profound sub eustachian pouch with chiari network on topof this. Mapping was performed with CS pacing and this revealed leak adjacent to IVC aspect. Reablation was performed in this area which led to CTI block and bidirectional CTI block was noted with timing of 163ms. Pacing from the proximal CS as well as lateral aspect of RA (172ms) confirmed this. Differential pacing also confirmed CTI block. EP study was then performed. Atrial pacing was performed from CS poles. Burst atrial pacing down to 250ms did not induce any tachycardia. Repeat EP study could no longe (more content not included)... Normal [facility] Orders Onlyon 07-26-2022 Orders Only [id number] Carina Barth 1960 F Date Provider Department Center 07/26/2022 JENIFER DYKES [facility] Family History Problem Relation Age of Onset Heart failure Mother Hyperlipidemia Mother Hypertension Mother Heart failure Father Hypertension Father Heart failure Brother Hyperlipidemia Brother Hypertension Brother Family Status - Relation Status Age at Mother Father Brother [facility] BNPon 07-24-2022 Natriuretic peptide B (Bld) [Mass/Vol] 109.0 pg/mL Normal <=900.0 [facility] Comment on above: Performed By: #### C MP, T7, BNP, LIPID, TSH #### [facility] [address] [place] [address] Dr. Yuliya Jones CBC AUTO DIFFon 07-24-2022 BASO # 0.0 103/ul Normal 0.0-0.1 [facility] Comment on above: Performed By: #### C BC #### [facility] [address] [place] [address] Dr. Yuliya Jones Basophils/100 WBC (Bld) 0.4 % Normal 0.2-2.0 [facility] Comment on above: Performed By: #### C BC #### [facility] [address] [place] [address] Dr. Yuliya Jones EO # 0.2 103/ul Normal 0.0-0.7 [facility] Comment on above: Performed By: #### C BC #### [facility] [address] [place] [address] Dr. Yuliya Jones Eosinophils/100 WBC (Bld) 2.2 % Normal 0.9-7.0 [facility] Comment on above: Performed By: #### C BC #### [facility] [address] [place] [address] Dr. Yuliya Jones Erythrocyte distribution width (RBC) [Ratio] 13.6 % Normal 11.0-15.0 [facility] Comment on above: Performed By: #### C BC #### [facility] [address] [place] [address] Dr. Yuliya Jones Hematocrit (Bld) [Volume fraction] 40.1 % Normal 36.0-48.0 [facility] Comment on above: Performed By: #### C BC #### [facility] [address] [place] [address] Dr. Yuliya Jones Hemoglobin (Bld) [Mass/Vol] 13.1 g/dL Normal 12.0-16.0 [facility] Comment on above: Performed By: #### C BC #### [facility] [address] [place] [address] Dr. Yuliya Jones IG # 0.05 10e3/ul Critically high 0.00-0.03 [facility] Comment on above: Performed By: #### C BC #### [facility] [address] [place] [address] Dr. Yuliya Jones IG % 0.7 % Critically high 0.0-0.5 [facility] [place] [facility] Comment on above: Performed By: #### C BC #### [facility] [address] [place] [address] Dr. Yuliya Jones LYMPH # 2.0 103/ul Normal 1.2-3.8 [facility] Comment on above: Performed By: #### C BC #### [facility] [address] [place] [address] Dr. Yuliya Jones Lymphocytes/100 WBC (Bld) 26.9 % Normal 20.5-60.0 [facility] Comment on above: Performed By: #### C BC #### [facility] [address] [place] [address] Dr. Yuliya Jones MANUAL DIFF REQ NO Normal [facility] [place] [facility] Comment on above: Performed By: #### C BC #### [facility] [address] [place] [address] Dr. Yuliya Jones MCH (RBC) [Entitic mass] 28.5 pg Normal 26.7-34.0 [facility] Comment on above: Performed By: #### C BC #### [facility] [address] [place] [address] Dr. Yuliya Jones MCHC (RBC) [Mass/Vol] 32.7 g/dL Normal 29.9-35.2 [facility] Comment on above: Performed By: #### C BC #### [facility] [address] [place] [address] Dr. Yuliya Jones MCV (RBC) [Entitic vol] 87.4 fL Normal 81.0-99.0 [facility] Comment on above: Performed By: #### C BC #### [facility] [address] [place] [address] Dr. Yuliya Jones MONO # 0.4 103/ul Normal 0.3-0.8 [facility] Comment on above: Performed By: #### C BC #### [facility] [address] [place] [address] Dr. Yuliya Jones Monocytes/100 WBC (Bld) 5.1 % Normal 1.7-12.0 [facility] Comment on above: Performed By: #### C BC #### [facility] [address] [place] [address] Dr. Yuliya Jones NEUT # 4.8 103/ul Normal 1.4-6.5 [facility] Comment on above: Performed By: #### C BC #### [facility] [address] [place] [address] Dr. Yuliya Jones Neutrophils/100 WBC (Bld) 64.7 % Normal 43.0-75.0 [facility] Comment on above: Performed By: #### C BC #### [facility] [address] [place] [address] Dr. Yuliya Jones Platelet mean volume (Bld) [Entitic vol] 10.3 fL Normal 9.5-13.5 [facility] Comment on above: Performed By: #### C BC #### [facility] [address] [place] [address] Dr. Yuliya Jones PLT 244 103/ul Normal 150-450 [facility] Comment on above: Performed By: #### C BC #### [facility] [address] [place] [address] Dr. Yuliya Jones RBC 4.59 106/ul Normal 4.20-5.40 [facility] Comment on above: Performed By: #### C BC #### [facility] [address] [place] [address] Dr. Yuliya Jones WBC 7.4 103/ul Normal 4.0-11.0 [facility] Comment on above: Performed By: #### C BC #### [facility] [address] [place] [address] Dr. Yuliya Jones FREE THYROXINE INDEX T7on FTI 2.66 Normal 1.30-4.50 [facility] Comment on above: Performed By: #### C MP, T7, BNP, LIPID, TSH #### [facility] [address] [place] [address] Dr. Yuliya Jones T3U 35.0 % Normal 30.0-39.0 [facility] Comment on above: Performed By: #### C MP, T7, BNP, LIPID, TSH #### [facility] [address] [address] [address] Yuliya Jones T4 [Mass/Vol] 7.60 ug/dL Normal 4.80-13.90 [facility] Comment on above: Performed By: #### C MP, T7, BNP, LIPID, TSH #### [facility] [address] [address] [address] Yuliya Jones GLYCOHEMOGLOBIN A1Con 2022 ADA RECOMMENDATION SEE BELOW Normal [facility] Comment on above: Result Comment: ADA RECOMMENDED LIMIT 4.0 - 6.0 ADA THERAPEUTIC TARGET < 7.0 ACTION SUGGESTED > 7.0 Performed By: #### A 1C ####[facility] [address] [place] [address]Dr. Yuliya Jones Glucose [Mass/Vol] 146 mg/dL Normal [facility] Comment on above: Performed By: #### A 1C ####[facility] [address] [place] [address]Dr. Yuliya Jones HbA1c (Bld) [Mass fraction] 6.7 % Critically high 4.5-6.2 [facility] Comment on above: Performed By: #### A 1C ####[facility] [address] [place] [place] [address]Dr. Yuliya Jones IRONon 07-24-2022 Iron [Mass/Vol] 74.0 ug/dL Normal 50.0-170.0 [facility] Comment on above: Performed By: #### I LUDWIN, VITB12, VITAD #### [facility] [address] [address] [address] Yuliya Jones LIPID PROFILEon 07-24-2022 CHOL-HDL RATIO NORM SEE BELOW Normal [facility] Comment on above: Result Comment: 3.3 - 4.4 LOW RISK 4.4 - 7.1 AVERAGE RISK 7.1 - 11.0 MODERATE RISK >11.0 HIGH RISK Performed By: #### C MP, T7, BNP, LIPID, TSH #### [facility] [address] [address] [address] Yuliya Jones Cholesterol [Mass/Vol] 215 mg/dL Critically high <=200 [facility] Comment on above: Performed By: #### C MP, T7, BNP, LIPID, TSH #### [facility] [address] [address] [address] Yuliya Jones Cholesterol in HDL [Mass/Vol] 46 mg/dL Normal 40-60 [facility] Comment on above: Performed By: #### C MP, T7, BNP, LIPID, TSH #### [facility] [address] [address] [address] Yuliya Jones Cholesterol in LDL [Mass/Vol] 120.6 mg/dL Normal [facility] Comment on above: Performed By: #### C MP, T7, BNP, LIPID, TSH #### [facility] [address] [address] [address] Yuliya Jones Cholesterol.total/ Cholesterol in HDL [Mass ratio] 4.7 {ratio} Normal [facility] Comment on above: Performed By: #### C MP, T7, BNP, LIPID, TSH #### [facility] [address] [address] [address] Yuliya Jones HDL NORMAL > or = 60 mg/dl - LO W CARDIOVASCULAR RISK <40 mg/dl - HIGH CARDIOVASCULAR RISK Normal [facility] Comment on above: Performed By: #### C MP, T7, BNP, LIPID, TSH #### [facility] [address] [address] [address] Yuliya Jones LDL CALC NORMAL SEE BELOW Normal [facility] Comment on above: Result Comment: <100 mg/dl OPTIMAL 100 - 129 mg/dl NEAR OR ABOVE OPTIMAL 130 - 159 mg/dl BORDERLINE HIGH 160 - 189 mg/dl HIGH >190 mg/dl VERY HIGH Performed By: #### C MP, T7, BNP, LIPID, TSH #### [facility] [address] [address] [address] Yuliya Jones Triglyceride [Mass/Vol] 242 mg/dL Critically high <=150 [facility] Comment on above: Performed By: #### C MP, T7, BNP, LIPID, TSH #### [facility] [address] [place] [address] Dr. Yuliya Jones VLDL CALC 48.4 mg/dL Normal [facility] Comment on above: Performed By: #### C MP, T7, BNP, LIPID, TSH #### [facility] [address] [place] [address] Dr. Yuliya Jones PROF 14(COMP METB)on 023 Albumin [Mass/Vol] 3.3 g/dL Critically low 3.4-5.0 [facility] Comment on above: Performed By: #### C MP, T7, BNP, LIPID, TSH #### [facility] [address] [place] [address] Dr. Yuliya Jones Albumin/Globulin [Mass ratio] 0.8 {ratio} Normal [facility] Comment on above: Performed By: #### C MP, T7, BNP, LIPID, TSH #### [facility] [address] [place] [address] Dr. Yuliya Jones ALP [Catalytic activity/Vol] 148 U/L Critically high 46-116 [facility] Comment on above: Performed By: #### C MP, T7, BNP, LIPID, TSH #### [facility] [address] [place] [address] Dr. Yuliya Jones ALT [Catalytic activity/Vol] 49 U/L Normal 14-59 [facility] Comment on above: Performed By: #### C MP, T7, BNP, LIPID, TSH #### [facility] [address] [place] [address] Dr. Yuliya Jones Anion gap [Moles/Vol] 11.6 mmol/L Normal [facility] Comment on above: Performed By: #### C MP, T7, BNP, LIPID, TSH #### [facility] [address] [place] [address] Dr. Yuliya Jones AST [Catalytic activity/Vol] 26 U/L Normal 15-37 [facility] Comment on above: Performed By: #### C MP, T7, BNP, LIPID, TSH #### [facility] [address] [address] [address] Yuliya Jones Bilirubin [Mass/Vol] 0.8 mg/dL Normal 0.2-1.0 [facility] Comment on above: Performed By: #### C MP, T7, BNP, LIPID, TSH #### [facility] [address] [place] [address] Dr. Yuliya Jones Calcium [Mass/Vol] 9.0 mg/dL Normal 8.5-10.1 [facility] Comment on above: Performed By: #### C MP, T7, BNP, LIPID, TSH #### [facility] [address] [place] [address] Dr. Yuliya Jones Chloride [Moles/Vol] 102 mmol/L Normal 98-107 [facility] Comment on above: Performed By: #### C MP, T7, BNP, LIPID, TSH #### [facility] [address] [place] [address] Dr. Yuliya Jones CO2 [Moles/Vol] 29.1 mmol/L Normal 21.0-32.0 [facility] Comment on above: Performed By: #### C MP, T7, BNP, LIPID, TSH #### [facility] [address] [place] [address] Dr. Yuliya Jonse Creatinine [Mass/Vol] 0.69 mg/dL Normal 0.55-1.02 [facility] Comment on above: Performed By: #### C MP, T7, BNP, LIPID, TSH #### [facility] [address] [place] [address] Dr. Yuliya Jones EGFR-AF MALTESE >60 Normal >=60 [facility] Comment on above: Performed By: #### C MP, T7, BNP, LIPID, TSH #### [facility] [address] [place] [address] Dr. Yuliya Jones EGFR-NON AF MALTESE >60 Normal >=60 [facility] Comment on above: Performed By: #### C MP, T7, BNP, LIPID, TSH #### [facility] [address] [place] [address] Dr. Yuliya Jones Globulin (S) [Mass/Vol] 4.1 g/dL Normal [facility] Comment on above: Performed By: #### C MP, T7, BNP, LIPID, TSH #### [facility] [address] [place] [address] Dr. Yuliya Jones Glucose [Mass/Vol] 151 mg/dL Critically high 74-106 T [facility] Comment on above: Performed By: #### C MP, T7, BNP, LIPID, TSH #### [facility] [address] [place] [address] Dr. Yuliya Jones Potassium [Moles/Vol] 3.7 mmol/L Normal 3.5-5.1 [facility] Comment on above: Performed By: #### C MP, T7, BNP, LIPID, TSH #### [facility] [address] [place] [address] Dr. Yuliya Jones Protein [Mass/Vol] 7.4 g/dL Normal 6.4-8.2 [facility] Comment on above: Performed By: #### C MP, T7, BNP, LIPID, TSH #### [facility] [address] [place] [address] Dr. Yuliya Jones Sodium [Moles/Vol] 139 mmol/L Normal 136-145 [facility] Comment on above: Performed By: #### C MP, T7, BNP, LIPID, TSH #### [facility] [address] [place] [address] Dr. Yuliya Jones Urea nitrogen [Mass/Vol] 8.0 mg/dL Normal 7.0-18.0 [facility] Comment on above: Performed By: #### C MP, T7, BNP, LIPID, TSH #### [facility] [address] [place] [address] Dr. Yuliya Jones Urea nitrogen/Creatinin e [Mass ratio] 11.6 mg/mg Normal [facility] Comment on above: Performed By: #### C MP, T7, BNP, LIPID, TSH #### [facility] [address] [place] [address] Dr. Yuliya Jones TSHon 07-24-2022 TSH 1.903 uIU/mL Normal 0.358-3.740 [facility] Comment on above: Performed By: #### C MP, T7, BNP, LIPID, TSH #### [facility] [address] [place], [place] [address] Dr. Yuliya Jones VITAMIN B12on 07-24-2022 Cobalamin (Vitamin B12) [Mass/Vol] 1085.0 pg/mL Critically high 193.0-986.0 [facility] Comment on above: Performed By: #### I LUDWIN VITB12, VITAD ####[facility] [address] [address]DrMinisterio Jones VITAMIN D 25 OHon 07-24-2022 VIT D 25-OH 36.8 ng/mL Normal [facility] Comment on above: Performed By: #### I LUDWIN VITB12, VITAD ####[facility] [address] [place] [address]DrMinisterio Jones VIT D RANGES SEE BELOW Normal [facility] Comment on above: Result Comment: <20 ng/mL Vit D deficient 20 - <30 ng/mL Vit D insufficient 30 - 100 ng/mL Vit D sufficient >100 ng/mL Potential Toxicity Performed By: #### I LUDWIN VITB12, VITAD ####[facility] [address] [place] [address]DrMinisterio Jones GLYCOHEMOGLOBIN A1Con 2021 ADA RECOMMENDATION SEE BELOW Normal [facility] Comment on above: Result Comment: ADA RECOMMENDED LIMIT 4.0 - 6.0 ADA THERAPEUTIC TARGET < 7.0 ACTION SUGGESTED > 7.0 Performed By: #### A 1C ####[facility] [address] [address]DrMinisterio Jones Glucose [Mass/Vol] 140 mg/dL Normal [facility] Comment on above: Performed By: #### A 1C ####[facility] [address] [place] [address]DrMinisterio Jones HbA1c (Bld) [Mass fraction] 6.5 % Critically high 4.5-6.2 [facility] Comment on above: Performed By: #### A 1C ####[facility] [address] [place], [place] [address]UqDr. Yuliya Jones LIPID PROFILEon 03-07-2022 CHOL-HDL RATIO NORM SEE BELOW Normal [facility] Comment on above: Result Comment: 3.3 - 4.4 LOW RISK 4.4 - 7.1 AVERAGE RISK 7.1 - 11.0 MODERATE RISK >11.0 HIGH RISK Performed By: #### L IPID #### [facility] [address] [address] [address] Yuliya Jones Cholesterol [Mass/Vol] 215 mg/dL Critically high <=200 [facility] Comment on above: Performed By: #### L IPID #### [facility] [address] [address] [address] Yuliya Jones Cholesterol in HDL [Mass/Vol] 42 mg/dL Normal 40-60 [facility] Comment on above: Performed By: #### L IPID #### [facility] [address] [address] [address] Yuliya Jones Cholesterol in LDL [Mass/Vol] 118.4 mg/dL Normal [facility] Comment on above: Performed By: #### L IPID #### [facility] [address] [id number] Yuliya Jones Cholesterol.total/ Cholesterol in HDL [Mass ratio] 5.1 {ratio} Normal [facility] Comment on above: Performed By: #### L IPID #### [facility] [address] [id number] Yuliya Jones HDL NORMAL > or = 60 mg/dl - LO W CARDIOVASCULAR RISK <40 mg/dl - HIGH CARDIOVASCULAR RISK Normal [facility] Comment on above: Performed By: #### L IPID #### [facility] [address] [place], [place] [address] Dr. Yuliya Jones LDL CALC NORMAL SEE BELOW Normal [facility] [place] [facility] Comment on above: Result Comment: <100 mg/dl OPTIMAL 100 - 129 mg/dl NEAR OR ABOVE OPTIMAL 130 - 159 mg/dl BORDERLINE HIGH 160 - 189 mg/dl HIGH >190 mg/dl VERY HIGH Performed By: #### L IPID #### [facility] [address] [address] [address] Yuliya Jones Triglyceride [Mass/Vol] 273 mg/dL Critically high <=150 [facility] Comment on above: Performed By: #### L IPID #### [facility] [address] [address] [address] Yuliya Jones VLDL CALC 54.6 mg/dL Normal [facility] Comment on above: Performed By: #### L IPID #### [facility] [id number] Yuliya Jones XR ANKLE RT MIN 3 VIEWSon XR ANKLE RT MIN 3 VIEWS EXAM: XR ANKLE RT MIN 3 VIEWS, XR FOOT RT MIN 3 VIEWS 12/18/2021. HISTORY: Pain COMPARISON: None. FINDINGS: Frontal, oblique and lateral views of the right ankle and right foot for a total of 6 images were obtained IMPRESSION: 1. There is evidence of mild periarticular soft tissue swelling about the ankle. Tibiotalar joint effusion may be present. 2. Indeterminate subchondral lucency associated with the lateral aspect of the talar dome with transverse diameter of 7 mm may be related to acute osteochondral injury. No acute fracture or dislocation of the right ankle or right foot otherwise identified. 3. 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 At the forefoot this is most apparent at the first MTP articulation. 4. More moderate arthritic changes of the midfoot involving TMT articulations, articulations between the cuneiforms, navicular cuneiform articulation as well as calcaneocuboid and talonavicular articulations. This is most apparent at the third and fourth TMT articulations. 5. Plantar calcaneal enthesophyte. Electronically authenticated by: [employer] Date: 2021-12-18 07:50 Normal [facility] FLUORO FOR SURGICAL PROCEDUR ESon 10-25-2021 FLUORO FOR SURGICAL PROCEDURES Radiology exam is complete. No Radiologist dictation. Please follow up with ordering provider. Final result Normal [facility] Radiology exam is complete. No Radiologist dictation. Please follow up with ordering provider. [facility]SOL[facility] Cardiovascular Lab Reporton 07-22-2020 Cardiovascular Lab Report [facility] Patient Name: [employer] Amparo Moraes MR #: [id number] Department of Physician: Raeann Billy M.D. Division of Service Date: 07/22/2020 Cardiology Birthdate: 1960 Adult Cardiovascular Room #: [place] [address] [address] [place] [id number] Cardiovascular Laboratory Report FINAL IMPRESSIONS: 1. Moderate disease of a moderate size first diagonal branch of the left anterior descending coronary artery. 2. Mild disease of the left anterior descending and right coronary arteries. 3. Moderately elevated right-sided heart pressures with normal pulmonary capillary wedge pressure. 4. Elevated transpulmonary gradient along with a normal wedge would suggest precapillary or pulmonary arterial hypertension. 5. Normal cardiac output/cardiac index. 6. Severe systemic hypertension. RECOMMENDATIONS: 1. Aggressive cardiovascular risk factor modification. 2. Optimization of medical management; aspirin, high-intensity statin therapy, beta grady, and angiotensin-converting enzyme inhibitor are indicated. 3. Will add chlorthalidone 25 mg daily with a follow-up basic metabolic panel in a week. 4. Will initiate investigations for pulmonary hypertension as an outpatient including a sleep study, and a probable CTA of the pulmonary arteries to rule out thromboembolic disease. 5. Follow up with Dr. Walton in the [place] office in the next 1 to 2 months. 6. Follow up with her family physician as scheduled. PROCEDURES: Ultrasound-guided access to the right internal jugular vein, right heart catheterization, bilateral selective coronary angiography via the left radial approach. METHODS: After risks, benefits, and alternatives were explained, written informed consent was obtained. The patient was prepped and draped in usual sterile fashion over the right neck and left wrist. Using 1% lidocaine solution, local infiltration anesthesia was achieved over the right neck. Under ultrasound guidance and using a micropuncture kit, access of the right internal jugular vein was obtained. A 6-Qatari x 11 cm sheath was inserted without difficulty. A Dumont catheter was used for right heart catheterization measuring pressures in the right atrium, right ventricle, pulmonary artery, and pulmonary capillary wedge positions. Oxygen saturations were obtained and cardiac output/cardiac index was calculated using the Susan principle. The Dumont catheter was removed. Local infiltration anesthesia was achieved over the left wrist. A micropuncture kit was used to access the left radial artery. A 6-Qatari glide sheath was inserted without difficulty. Bilateral selective coronary angiography was performed using AR2 and JL4 catheters. After reviewing the images, it was elected to conclude the procedure. All catheters were removed. The radial sheath was removed with application of a TR band per protocol to achieve optimal hemostasis. Overall, the patient tolerated the procedure well. There were no overt complications. She was to be transferred to the holding area in stable condition. FINDINGS: Hemodynamics. RA 5. RV 50/1, 5. PA 50/13 (28). PCWP 11. TPG 17. AO 184/92. Cardiac output 6.89/cardiac index 3.13. AO sat 95%/PA sat 72%. LEFT VENTRICULOGRAPHY: This was not performed. Ejection fraction is normal by noninvasive imaging. CORONARY ARTERIES: Left main coronary artery: This arises from the left coronary cusp. It trifurcates into the left anterior descending ramus intermedius and left circumflex coronary arteries and is free of significant stenosis. Left anterior descending coronary artery: This shows mild plaque proximally. There was a 50% midvessel stenosis out of the trifurcation with a moderate-sized first diagonal. The diagonal shows a 50% ostial stenosis. The adjacent left anterior descending shows a 40% to 50% midvessel stenosis. The septal perforators shows no significant disease. The remainder of the vessel and its branches showed no significant stenoses with mild luminal irregularities. It is a wrap-around vessel. Ramus intermedius: This shows mild plaque at the ostium. Left circumflex coronary artery: This shows no significant disease. Right coronary artery: This arises from a high origin with a superior takeoff. There is a 30% proximal stenosis and diffuse caliber reduction distally. It is a dominant vessel giving rise to the posterior descending and posterolateral branches. INDICATIONS: Chest pain, exertional shortness of breath, abnormal stress test. Electronically Signed by: Manish Walton M.D. 07/27/2020 10:15 A Manish Walton M.D. Date Dict: 07/22/2020/12:24 P/Manish Walton M.D. Date Trans: 07/22/2020 02:58 P/mmo [id number] cc: Kunal Patel M.D. [place] [address] [facility] [place] [address] Normal [facility] Physician Referralon 021 Physician Referral [phone] [id number]: 127 Normal [facility] CNOVon 06-24-2018 CNOV Office Visit (GENSMN) KADE BARTHLIE ([id number]) 1960 FDate Time Provider Department06/24/18 9:00 AM ZAID DENNIS During your visit today, we recorded the following information about you: Temperature Pulse Respiration Blood pressure 98 degrees 62/minute 18/minute 198/94 Weight Height 112.9 kg 1.651 Antwan Muñiz 06/24/2018 9:33 AM SignedWhat is the reason for your visit today? ConsultWho is your referring physician? Dr Kunal Zimmer you having poor oral intake? NOHave you had unintentional weight loss of 15 lbs/7 Kg in the last 3-6 months? NOBowels: regularWound: clean AND dryTemperature: NoDrains: Anton DENNIS MD 06/24/2018 10:13 AM SignedConsultation requested by Dr. Patel for an opinion regarding recurrent ventralhernia. My final recommendations will be communicated back to the requestingphysician by way of shared medical record or letter via US mailI have seen and evaluated the patient and discussed the case with the residentphysician. I agree with the assessment and plan as documented in theresident?s note.Amparo Barth is a 57 year old female who is here for evaluation of arecurrent ventral hernia. She has undergone 2 prior repairs, the last one wasa robotic repair with mesh. She has two points of recurrence. On exam, herBMI is 41. I do believe we can get her hernia repaired; however, she will needto be optimized for surgery. We discussed the importance of weight loss andshe set a goal of 25 lbs over the next three months. I will see her back in 3months so I can follow her progress. Once she has been optimized we can gether scheduled for surgery. She will need an open repair with retro-muscularmesh.Bogdan Antonio MD 06/24/2018 10:11 AM SignedName: Amparo BarthMRN: [id number]: June 24, 2018Patient seen and examined in clinicThi sis a 57 y/o female presenting for initial evaluation of recurrent ventralhernias evident for the last 6 months. In 2015 she underwent lap ccy withprimary repair of umbilical hernia at that time, however when it recurred thenext year, she underwent robot-assisted lap repair with Symbotex mesh. Over thelast 6 months she has developed two recurrences with one at her prior midlineventral hernia site, and the second at her RUQ port site which causesintermittent pain. She denies nausea, vomiting, or bowel obstructions and hasregular bowel movements. She has never smoked and her BMI is 41.4.A/P: 57F with incisional hernias-weight loss with goal BMI < 40, currently 41.4-f/u in clinic 3 months-seen/examined w Dr. DennisBP 198/94 Pulse 62 Temp 36.7 ?C (98 ?F) (Temporal Artery) Resp 18 Ht 165.1 cm (5' 5 ) Wt 112.9 kg (249 lb) BMI 41.44 kg/m?PHYSICAL EXAM:GENERAL: well dressed and well nourishedHEENT: NC and mucous membranes moistNECK: FROMNODES: DeferredSKIN: clean dry and intactBACK: No CVAT, palpable bony abnormalitiesLUNGS: Unlabored respirations on RACV: Regular rate and rhythmABDOMEN: Soft, TTP over RUQ port site hernia, reducible midline ventral herniaGU: DeferredEXTREMITIES: No edema, adequate circulationNEURO: A and O x3 CN II-XII intact, 5/5 motor throughout, grossly normalsensationREVIEW OF SYSTEMS:CONSTITUTIONAL: No fevers, chills, nightsweats, unintended weight lossHEENT: Denies frequent or severe heaches, nasal congestion/sinus symptoms,problematic allergy problems.EYES: No diplopia or blurry vision.CARDIOVASCULAR: Hx HTN, HLDPULM: No dyspnea, unexplained cough.GI: No dysphagia/odynophagia, problematic reflux, constipation, diarrhea,changes in stool habits, hematochezia, melena.: No new urinary complaints, including dysuria, gross hematuria or pyuria.NEURO: No new balance problems, peripheral weakness/paresthesias or numbnessof concern.MUSC-SKEL: No new joint pain, swelling, or erythema.PSY: No concerns regarding depression, anxiety or panic.INTEGUMENTARY: No new skin changes (rash, new or changing mole, new growth)Family HistoryProblem Relation Age of Onset- Cancer Mother- Hypertension Mother- Hypertension Father- Hypertension Brother- Headache SisterPAST MEDICAL HISTORYDiagnosis Date- Chest pain- Dietary noncompliance 05/10/2015- Hypercholesteremia- Hypertension- Iron deficiency anemia- Meniscus tear- Non morbid obesity due to excess calories 05/10/2015- Non morbid obesity due to excess calories 05/10/2015PAST SURGICAL HISTORYProcedure Laterality Date- APPENDECTOMY- DELIVERY ONLY , low transverse- KNEE ARTHROSCOPY rt knee 2013- REMOVAL OF OVARY/TUBE(S) Salpingo-oophorectomy- TOTAL ABDOM HYSTERECTOMY Hysterectomy, TAHSocial History Marital status: Single Spouse name: Years of education: Number of children:Social History Main Topics Smoking status: Never Smoker Smokeless tobacco: Never Used Alcohol use: YesALLERGIESAllergen Reactions- Percocet [Oxycodone* UnknownCurrent Outpatient Prescriptions:LYRICA 200 mg capsule TAKE 1 CAPSULE BY MOUTH EVERYDAY AT BEDTIME Disp: Rfl: 5carvedilol (COREG) 25 mg tablet carvedilol 25 mg tablet Disp: Rfl:cloNIDine HCl (CATAPRES) 0.1 mg tablet clonidine HCl 0.1 mg tablet Disp: Rfl:diclofenac, EC, (VOLTAREN) 75 mg EC tablet Take 75 mg by mouth twice daily.Disp: Rfl: 11simvastatin (ZOCOR) 20 mg tablet simvastatin 20 mg tablet Disp: Rfl:ibuprofen (MOTRIN) 600 mg tablet Take 600 mg by mouth every 8 hours as needed.Disp: Rfl:MULTIVIT ANDMINERALS/FERROUS FUM (MULTI VITAMIN ORAL) Take by mouth once daily.Disp: Rfl:PREGABALIN (LYRICA ORAL) Take 1 tablet by mouth daily at bedtime. Disp: Rfl:DICLOFENAC SODIUM ORAL Take 75 mg by mouth once daily. Disp: Rfl:lisinopril (PRINIVIL) 5 mg tablet Take 1 tablet by mouth once daily. (Patienttaking differently: Take 20 mg by mouth once daily.) Disp: 90 tablet Rfl: 3ALPRAZOLAM (XANAX ORAL) Take 0.25 mg by mouth as needed. Disp: Rfl:carvedilol (COREG) 25 mg tablet Take 1 tablet by mouth twice daily. Disp: 180tablet Rfl: 3CLONIDINE 0.1 mg tablet Take 0.1 mg by mouth once daily. Disp: Rfl:DEXILANT 60 mg CpDM Take 60 mg by mouth once daily. Disp: Rfl:Aspirin 81 mg tab Take 81 mg by mouth once daily. Disp: Rfl:No current facility-administered medications for this visit. Chito Antonio, TERRYGY-6 FellowReferring Provider: KUNAL PATEL [[id number]]Allergies As of Date: 06/24/2018 Noted Allergy ReactionPERCOCET (OXYCODONE-ACETAMINOPHEN )08/19/2013 16 - UnknownDate Reviewed: 06/24/2018Reviewed by: Zaid Dennis - Fully AssessedReason for Visit: Consult [173]Primary Visit Diagnosis:Recurrent ventral hernia [K43.2]Prescriptions as of 06/24/2018 Sig: LYRICA 200 MG CAPSULE TAKE 1 CAPSULE BY MOUTH EVERY* CARVEDILOL 25 MG TABLET carvedilol 25 mg tablet CLONIDINE HCL 0.1 MG TABLET clonidine HCl 0.1 mg tablet DICLOFENAC SODIUM 75 MG TABLE* Take 75 mg by mouth twice he* SIMVASTATIN 20 MG TABLET simvastatin 20 mg tablet IBUPROFEN 600 MG TABLET Take 600 mg by mouth every 8 * MULTI VITAMIN ORAL Take by mouth once daily. LYRICA ORAL Take 1 tablet by mouth daily * DICLOFENAC SODIUM ORAL Take 75 mg by mouth once gary* LISINOPRIL 5 MG TABLET Take 1 tablet by mouth once d* Patient taking differently: Take 20 mg by mouth once gary* XANAX ORAL Take 0.25 mg by mouth as need* CARVEDILOL 25 MG TABLET Take 1 tablet by mouth twice * CLONIDINE HCL 0.1 MG TABLET Take 0.1 mg by mouth once he* DEXILANT 60 MG CAPSULE, DELAY* Take 60 mg by mouth once gary* ASPIRIN 81 MG TABLET Take 81 mg by mouth once gary*Problem List As Of Date 06/24/2018 Noted Resolved HTN (hypertension) [I10] INVALID FOR* Non morbid obesity due to excess calories [E66.*INVALID FOR* Dietary noncompliance [Z91.11] INVALID FOR*Visit Notes:>> Zafar Muñiz [facility] Jun 24, 2018 9:25 AM Status: SignedWhat is the reason for your visit today? ConsultWho is your referring physician? Dr Kunal Zimmer you having poor oral intake? NOHave you had unintentional weight loss of 15 lbs/7 Kg in the last 3-6months? NOBowels: regularWound: clean AND dryTemperature: NoDrains: Escobarounter Number: [id number] Status:Closed by ZAID DENNIS MD on 06/24/[address] [facility] HISTORY PHYSICALon HISTORY PHYSICAL HNO ID: [id number]: Chito (Fel) Jt: (none)Author Type: FellowType: HANDPFiled: 06/24/2018 10:11 AMNote Text:Name: Amparo BarthMRN: [id number]: June 24, 2018Patient seen and examined in clinicThi sis a 57 y/o female presenting for initial evaluation of recurrentventral hernias evident for the last 6 months. In 2016 she underwent lapccy with primary repair of umbilical hernia at that time, however when itrecurred the next year, she underwent robot-assisted lap repair withSymbotex mesh. Over the last 6 months she has developed two recurrenceswith one at her prior midline ventral hernia site, and the second at herRUQ port site which causes intermittent pain. She denies nausea, vomiting,or bowel obstructions and has regular bowel movements. She has neversmoked and her BMI is 41.4.A/P: 57F with incisional hernias-weight loss with goal BMI < 40, currently 41.4-f/u in clinic 3 months-seen/examined w Dr. DennisBP 198/94 Pulse 62 Temp 36.7 ?C (98 ?F) (Temporal Artery) Resp 18 Ht 165.1 cm (5' 5 ) Wt 112.9 kg (249 lb) BMI 41.44 kg/m?PHYSICAL EXAM:GENERAL: well dressed and well nourishedHEENT: NC and mucous membranes moistNECK: FROMNODES: DeferredSKIN: clean dry and intactBACK: No CVAT, palpable bony abnormalitiesLUNGS: Unlabored respirations on RACV: Regular rate and rhythmABDOMEN: Soft, TTP over RUQ port site hernia, reducible midline ventralherniaGU: DeferredEXTREMITIES: No edema, adequate circulationNEURO: A and O x3 CN II-XII intact, 5/5 motor throughout, grossly normalsensationREVIEW OF SYSTEMS:CONSTITUTIONAL: No fevers, chills, nightsweats, unintended weight lossHEENT: Denies frequent or severe heaches, nasal congestion/sinussymptoms , problematic allergy problems.EYES: No diplopia or blurry vision.CARDIOVASCULAR: Hx HTN, HLDPULM: No dyspnea, unexplained cough.GI: No dysphagia/odynophagia, problematic reflux, constipation, diarrhea,changes in stool habits, hematochezia, melena.: No new urinary complaints, including dysuria, gross hematuria orpyuria.NEURO: No new balance problems, peripheral weakness/paresthesias ornumbness of concern.MUSC-SKEL: No new joint pain, swelling, or erythema.PSY: No concerns regarding depression, anxiety or panic.INTEGUMENTARY: No new skin changes (rash, new or changing mole, newgrowth)Family HistoryProblem Relation Age of Onset- Cancer Mother- Hypertension Mother- Hypertension Father- Hypertension Brother- Headache SisterPAST MEDICAL HISTORYDiagnosis Date- Chest pain- Dietary noncompliance 05/10/2015- Hypercholesteremia- Hypertension- Iron deficiency anemia- Meniscus tear- Non morbid obesity due to excess calories 05/10/2015- Non morbid obesity due to excess calories 05/10/2015PAST SURGICAL HISTORYProcedure Laterality Date- APPENDECTOMY- DELIVERY ONLY , low transverse- KNEE ARTHROSCOPY rt knee 2013- REMOVAL OF OVARY/TUBE(S) Salpingo-oophorectomy- TOTAL ABDOM HYSTERECTOMY Hysterectomy, TAHSocial History Marital status: Single Spouse name: Years of education: Number of children:Social History Main Topics Smoking status: Never Smoker Smokeless tobacco: Never Used Alcohol use: YesALLERGIESAllergen Reactions- Percocet [Oxycodone* UnknownCurrent Outpatient Prescriptions:LYRICA 200 mg capsule TAKE 1 CAPSULE BY MOUTH EVERYDAY AT BEDTIME Disp:Rfl: 5carvedilol (COREG) 25 mg tablet carvedilol 25 mg tablet Disp: Rfl:cloNIDine HCl (CATAPRES) 0.1 mg tablet clonidine HCl 0.1 mg tablet Disp:Rfl:diclofenac, EC, (VOLTAREN) 75 mg EC tablet Take 75 mg by mouth twicedaily. Disp: Rfl: 11simvastatin (ZOCOR) 20 mg tablet simvastatin 20 mg tablet Disp: Rfl:ibuprofen (MOTRIN) 600 mg tablet Take 600 mg by mouth every 8 hours asneeded. Disp: Rfl:MULTIVIT ANDMINERALS/FERROUS FUM (MULTI VITAMIN ORAL) Take by mouth oncedaily. Disp: Rfl:PREGABALIN (LYRICA ORAL) Take 1 tablet by mouth daily at bedtime. Disp:Rfl:DICLOFENAC SODIUM ORAL Take 75 mg by mouth once daily. Disp: Rfl:lisinopril (PRINIVIL) 5 mg tablet Take 1 tablet by mouth once daily.(Patient taking differently: Take 20 mg by mouth once daily.) Disp: 90 tablet Rfl: 3ALPRAZOLAM (XANAX ORAL) Take 0.25 mg by mouth as needed. Disp: Rfl:carvedilol (COREG) 25 mg tablet Take 1 tablet by mouth twice daily. Disp:180 tablet Rfl: 3CLONIDINE 0.1 mg tablet Take 0.1 mg by mouth once daily. Disp: Rfl:DEXILANT 60 mg CpDM Take 60 mg by mouth once daily. Disp: Rfl:Aspirin 81 mg tab Take 81 mg by mouth once daily. Disp: Rfl:No current facility-administered medications for this visit. TERRY SheffieldGY-[address] [facility] PROGRESSon 06-24-2018 Protein mass conc HNO ID: [id number]: Zaid Baptiste: (none)Author Type: PhysicianType: Progress NotesFiled: 06/24/2018 10:13 AMNote Text:Consultation requested by Dr. Patel for an opinion regarding recurrentventral hernia. My final recommendations will be communicated back to therequesting physician by way of shared medical record or letter via [place] mailI have seen and evaluated the patient and discussed the case with theresident physician. I agree with the assessment and plan as documented inthe resident?s note.Amparo Barth is a 57 year old female who is here for evaluation of arecurrent ventral hernia. She has undergone 2 prior repairs, the last onewas a robotic repair with mesh. She has two points of recurrence. Onexam, her BMI is 41. I do believe we can get her hernia repaired; however,she will need to be optimized for surgery. We discussed the importance ofweight loss and she set a goal of 25 lbs over the next three months. Iwill see her back in 3 months so I can follow her progress. Once she hasbeen optimized we can get her scheduled for surgery. She will need anopen repair with retro-muscular mesh. Normal [facility] SR-CT ABD/PELVIS W CON IMPOR Ton 12-03-2017 SR-CT ABD/PELVIS W CON IMPORT Images were obtained outside of [facility] [id number] Normal [facility] Vital Signs Date Time Vital Sign Value Performing Clinician Karen frank 10-25-2021 14:26-0400 Diastolic blood pressure 138 mm[Hg] Curtis Lima MD Work Phone: [facility] 10-25-2021 14:26-0400 Systolic blood pressure 239 mm[Hg] Curtis Lima MD Work Phone: [facility] 10-25-2021 13:53-0400 Body temperature 97.81 [degF] Curtis Lima MD Work Phone: [facility] 10-25-2021 13:53-0400 Heart rate 62 /min Curtis Lima MD Work Phone: [facility] 10-25-2021 13:53-0400 Respiratory rate 18 /min Curtis Lima MD Work Phone: [facility] 10-25-2021 13:53-0400 SaO2% (BldA) [Mass fraction] 96 % Curtis Lima MD Work Phone: [facility] 10-13-2021 08:17-0400 Body height 165.1 cm Curtis Lima MD Work Phone: [facility] Encounters Encounter Date Encounter Type Care Provider Facility Start: 06-26-2023 ambulatory [facility] Start: 04-17-2023 End: 04-17-2023 ambulatory [facility] Start: 12-28-2022 ambulatory [facility] Start: 12-28-2022 End: 12-28-2022 ambulatory [facility] Start: 12-27-2022 End: 12-27-2022 ambulatory [facility] Start: 12-25-2022 Encounter for other preprocedural examination [facility] Start: 12-25-2022 End: 12-26-2022 ambulatory [facility] Start: 12-18-2022 End: 12-19-2022 ambulatory [facility] Start: 11-21-2022 End: 11-21-2022 ambulatory [facility] Start: 10-20-2022 End: 10-20-2022 ambulatory [facility] Start: 10-11-2022 End: 10-11-2022 ambulatory [facility] Start: 09-12-2022 End: 09-12-2022 ambulatory [facility] Start: 08-02-2022 End: 08-02-2022 ambulatory [facility] Start: 07-26-2022 End: 07-26-2022 ambulatory [facility] Start: 07-24-2022 End: 07-25-[address] KUNAL PATEL . Facility:[facility] Start: 03-28-2022 ambulatory GARTH ANDREWS Facility :[facility] Start: 03-08-2022 Encounter for genera l adult medical examination without abnormal findings GARTH ANDREWS [facility] Start: 03-07-2022 End: 03-08-2022 ambulatory GARTH ANDREWS Facility:[facility] Start: 03-07-2022 End: 03-08-2022 Encounter for general adult medical examination without abnormal findings GARTH ANDREWS Facility:[facility] Start: 12-18-2021 End: 12-18-2021 ambulatory DELIA COKER Facility:[facility] Start: 10-25-2021 End: 10-25-2021 ambulatory CURTIS LIMA [facility] Start: 10-25-2021 End: 10-25-2021 Subsequent hospital visit by physician Curtis Lima MD Work Phone: [facility] Start: 07-22-2020 End: 07-23-2020 Patient encounter procedure [facility] Facility:[facility] Start: 06-24-2018 Patient encounter procedure ZAID DENNIS [facility] Procedures Date Procedure Procedure Detail Performing Clinician Start: 10-25-2021 Fluoroscopy during operation Curtis Lima MD Work Phone: Plan of Treatment Date Care Activity Detail Author Start: 02-16-2022 Influenza vaccination Flu vacc ine (Season Ended) [facility] Start: 10-25-2021 End: 10-25-2021 Njx dx/ther sbst intrlmnr lmbr/sac w/img gdn EPIDURAL STEROID INJECTION LUMBAR SACRAL RAD LUMBAR RAD 10/25/2021 2:21 PM EDT [facility] Start: 2008 Screening for malign ant neoplasm of breast Breast cancer screen [facility] Start: 2008 Shingles vaccine (1 of 2) Shingles vaccine (1 of 2) [facility] Start: 2003 Screening for malign ant neoplasm of colon [facility] Start: 1988 Screening for malign ant neoplasm of cervix [facility] Start: 1979 Screening for malign ant neoplasm of cervix Pap smear [facility] Start: 1977 DTaP/Tdap/Td vaccine (1 - Tdap) DTaP/Tdap/Td vaccine (1 - Tdap) [facility] Start: 1976 Creatinine measurement Creatinine [facility] Start: 1976 Hepatitis C screening Hepatitis C [facility] [place] [facility] Start: 1976 Potassium [Moles/vol ume] in Serum or Plasma Potassium [facility] Start: 1973 HIV screening HIV screen Rosemary Martinez [facility] Start: 1970 Depression Screen Depression Screen [facility] Start: 1968 Lipid panel Lipids [facility] Start: 1963 COVID-19 Vaccine (1) COVID-19 Vaccin e (1) [facility] Start: 1960 Annual Wellness Visi t (AWV) Annual Wellness Visit (AWV) [facility] Payers Date Payer Category Payer Medicare [id number] 1961 Medicaid [id number] 1961 Medicare [id number]. [id number] 1961 Self-pay [id number] 1960 Unknown [id number] 2.16.8 [id number] 1960 Unknown [id number] 2.16.8 [id number] 1960 Unknown [id number] 2.16.84 [id number] 1960 Unknown [id number] 2.16.84 [id number] 1960 Unknown [id number] 2.16.84 [id number] 1960 Unknown [id number] 2.16.84 [id number] 1960 Unknown [id number] 2.16.84 [id number] Medicare [id number] Social History Date Type Detail Facility Start: 10-13-2021 [facility] Start: 10-13-2021 Tobacco use and exposure Smokeless tobacco non-user [employer] Phone: Start: 10-25-2021 Alcohol intake Current drinke r of alcohol (finding) [employer] Phone: Start: 10-13-2021 History SDOH Alcohol Comment socially [employer] Phone: Start: 1960 Sex Assigned At Not on file [employer] Phone: Clinical Notes 10-25-2021 to 06-26-2023 Radha Estevez RN - 10/25/2021 2:41 PM EDTSdilip Estevez RN - 10/25/2021 2:31 PM EDTInstructionsAuth/Cert Note Date & Type Note Facility 06-26-2023 Note Patient here for 3 m o follow up echo done last week. Denies chest pain, SOB, palpitations, and lightheadedness/syncope. Denies bleeding on Eliquis. Says she feels good, as she's just getting over a sinus infection. Review of Systems Musculoskeletal: Positive for arthritis and myalgias. All other systems reviewed and are negative. [place] Electrophysiology Note [facility] Reason for Consultation: Aflutter s/p ablation 07/26/22, AFIB ablation 12/28/22 06/26/23 There is recurrence of atrial fibrillation with the last one noted on 06/13/2023 where lasted for about 1 hour and converted to sinus sinus rhythm. Other episodes was noted on June 14. She is wanting to proceed with ablation. LOOP HPI: Patient here for A-fib ablation follow up She has been feeling great and has no complaints She denies chest pain, shortness of breath, PRICE, LE edema, orthopnea, lightheadedness, dizziness. Despite no symptoms she has had several AF events on loop monitor, she is having shorter episodes and is self-converting ECG 04/17/23 SR 12/28/2022 sinus rhythm 12/26/22 loop afib event PMH: mild to mod CAD per 07/2020 cath, pHTN, HTN, diastolic dysfunction, hx TIA 2008, atrial flutter s/p ablation 07/2022, atrial fib (was intolerant of amiodarone) [id number] at least 5 for gender, hypertension, TIA, HFpEF - on Eliquis 5mg BID medications. As needed nitroglycerin, lisinopril 20 mg daily, pregabalin, milligram twice daily, Coreg 25 mg twice daily, Cardizem 100 mg daily, Cymbalta, Imdur 30 mg daily, Protonix 40 mg daily, Jardiance 10 mg daily for chronic 0.1 mg twice daily, Lasix 20 mg daily, Lipitor 80 mg daily Prior HPI: Amparo Barth is a 62 y.o. 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 She was seen at [facility] ER with c/o palpitations and chest pain and found to be in a.flutter. She states that she has experienced this on and off for the past 5 years although no EKG was ever taken. She is becoming more active after receiving pain treatment on the back She denies CP, orthopnea, PND, LE edema, dizziness/LH, syncope, bleeding issues. PMH: Past Medical History: Diagnosis Date Abnormal ECG Arrhythmia Atrial flutter (CMS/HCC) Hypertension Obesity BMI 41.10 As above PSH: Past Surgical History: Procedure Laterality Date CARDIAC CATHETERIZATION 07/22/2020 CHOLECYSTECTOMY HAND SURGERY HERNIA REPAIR x 2 HYSTERECTOMY KNEE SURGERY x 3 SH: Social Determinants of Health Tobacco Use: Low Risk (04/17/2023) Patient History Smoking Tobacco Use: Never Smokeless Tobacco Use: Never Passive Exposure: Not on file Alcohol Use: Not on file Financial Resource Strain: Not on file Food Insecurity: Not on file Transportation Needs: Not on file Physical Activity: Not on file Stress: Not on file Social Connections: Not on file Intimate Partner Violence: Not on file Depression: Not on file Housing Stability: Not on file Utilities: Not on file Meds: Current Outpatient Medications on File Prior to Visit Medication Sig Dispense Refill apixaban (Eliquis) 5 mg tablet Take 1 tablet by mouth in the morning and at bedtime. atorvastatin (Lipitor) 80 mg tablet Take 1 tablet (80 mg) by mouth at bedtime. 90 tablet 3 carvedilol (Coreg) 25 mg tablet Take 1 tablet by mouth with breakfast and with evening meal. cloNIDine (Catapres) 0.1 mg tablet Take by mouth in the morning and at bedtime. dexlansoprazole (Dexilant) [address] capsule Take 60 mg by mouth in the morning. dilTIAZem ER (Tiazac) 180 mg 24 hr capsule Take 1 tablet by mouth in the morning. DULoxetine (Cymbalta) [address] capsule Take 1 tablet by mouth in the morning. furosemide (Lasix) 20 mg tablet TAKE 1 TABLET BY MOUTH EVERY DAY IN THE MORNING 90 tablet 3 isosorbide mononitrate ER (Imdur) 30 mg 24 hr tablet Take 1 tablet by mouth in the morning. Jardiance 10 mg Take 10 mg by mouth in the morning. lisinopril 20 mg tablet Take 1 tablet by mouth in the morning. multivitamin tablet Take 1 tablet by mouth in the morning. nitroglycerin (Nitrostat) 0.[address] TABLET IN MOUTH EVERY 5 MINUTES 3 TIMES A DAY NEEDED FOR CHEST PAIN pantoprazole (ProtoNix) 40 mg EC tablet Take 1 tablet by mouth in the morning. pregabalin (Lyrica) 200 mg capsule TAKE 1 CAPSULE BY MOUTH EVERY DAY AT NIGHT famotidine (Pepcid) 20 mg tablet Take 1 tablet (20 mg) by mouth in the morning and at bedtime. (Patient not taking: Reported on 04/17/2023) 60 tablet 0 No current facility-administered medications on file prior to visit. ROS: Cardio Basic Cardiovascular Symptoms: no lightheadedness, no leg edema, no syncope, no orthopnea, no PND, no claudication, +palpitations Constitutional Constitutional: no fever, no night sweats, no significant antony (more content not included)... [facility] 04-17-2023 Note Patient here for 3 m o follow up afib ablation. Had some palpitations last week she says. Denies chest pain, SOB, lightheadedness, and bleeding on Eliquis. Review of Systems Cardiovascular: Positive for palpitations. Musculoskeletal: Positive for arthritis and myalgias. All other systems reviewed and are negative. [facility] 04-17-2023 Note [place] Electrophysiology Note [facility] Reason for Consultation: Aflutter s/p ablation 07/26/22, AFIB ablation 12/28/22 HPI: Patient here for A-fib ablation follow up She has been feeling great and has no complaints She denies chest pain, shortness of breath, PRICE, LE edema, orthopnea, lightheadedness, dizziness. Despite no symptoms she has had several AF events on loop monitor, she is having shorter episodes and is self-converting ECG 04/17/23 SR 12/28/2022 sinus rhythm 12/26/22 loop afib event PMH: mild to mod CAD per 07/2020 cath, pHTN, HTN, diastolic dysfunction, hx TIA 2008, atrial flutter s/p ablation 07/2022, atrial fib (was intolerant of amiodarone) [id number] at least 5 for gender, hypertension, TIA, HFpEF - on Eliquis 5mg BID medications. As needed nitroglycerin, lisinopril 20 mg daily, pregabalin, milligram twice daily, Coreg 25 mg twice daily, Cardizem 100 mg daily, Cymbalta, Imdur 30 mg daily, Protonix 40 mg daily, Jardiance 10 mg daily for chronic 0.1 mg twice daily, Lasix 20 mg daily, Lipitor 80 mg daily Prior HPI: Amparo Barth is a 62 y.o. 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 She was seen at [facility] ER with c/o palpitations and chest pain and found to be in a.flutter. She states that she has experienced this on and off for the past 5 years although no EKG was ever taken. She is becoming more active after receiving pain treatment on the back She denies CP, orthopnea, PND, LE edema, dizziness/LH, syncope, bleeding issues. PMH: Past Medical History: Diagnosis Date Abnormal ECG Arrhythmia Atrial flutter (CMS/HCC) Hypertension Obesity BMI 41.10 As above PSH: Past Surgical History: Procedure Laterality Date CARDIAC CATHETERIZATION 07/22/2020 CHOLECYSTECTOMY HAND SURGERY HERNIA REPAIR x 2 HYSTERECTOMY KNEE SURGERY x 3 SH: Social Determinants of Health Tobacco Use: Low Risk (12/28/2022) Patient History Smoking Tobacco Use: Never Smokeless Tobacco Use: Never Passive Exposure: Not on file Alcohol Use: Not on file Financial Resource Strain: Not on file Food Insecurity: Not on file Transportation Needs: Not on file Physical Activity: Not on file Stress: Not on file Social Connections: Not on file Intimate Partner Violence: Not on file Depression: Not on file Housing Stability: Not on file Meds: Current Outpatient Medications on File Prior to Visit Medication Sig Dispense Refill apixaban (Eliquis) 5 mg tablet Take 1 tablet by mouth in the morning and at bedtime. atorvastatin (Lipitor) 80 mg tablet Take 1 tablet (80 mg) by mouth at bedtime. 90 tablet 3 carvedilol (Coreg) 25 mg tablet Take 1 tablet by mouth with breakfast and with evening meal. cloNIDine (Catapres) 0.1 mg tablet Take by mouth in the morning and at bedtime. dexlansoprazole (Dexilant) [address] capsule Take 60 mg by mouth in the morning. dilTIAZem ER (Tiazac) 180 mg 24 hr capsule Take 1 tablet by mouth in the morning. DULoxetine (Cymbalta) [address] capsule Take 1 tablet by mouth in the morning. furosemide (Lasix) 20 mg tablet Take 1 tablet (20 mg) by mouth in the morning. 90 tablet 3 isosorbide mononitrate ER (Imdur) 30 mg 24 hr tablet Take 1 tablet by mouth in the morning. Jardiance 10 mg Take 10 mg by mouth in the morning. lisinopril 20 mg tablet Take 1 tablet by mouth in the morning. multivitamin tablet Take 1 tablet by mouth in the morning. nitroglycerin (Nitrostat) 0.[address] 1 TABLET IN MOUTH EVERY 5 MINUTES 3 TIMES A DAY NEEDED FOR CHEST PAIN pregabalin (Lyrica) 200 mg capsule TAKE 1 CAPSULE BY MOUTH EVERY DAY AT NIGHT famotidine (Pepcid) 20 mg tablet Take 1 tablet (20 mg) by mouth in the morning and at bedtime. (Patient not taking: Reported on 04/17/2023) 60 tablet 0 pantoprazole (ProtoNix) 40 mg EC tablet Take 1 tablet by mouth in the morning. No current facility-administered medications on file prior to visit. ROS: Cardio Basic Cardiovascular Symptoms: no lightheadedness, no leg edema, no syncope, no orthopnea, no PND, no claudication, +palpitations Constitutional Constitutional: no fever, no night sweats, no significant weight gain, no significant weight loss, no exercise intolerance Eyes Eyes: no dry eyes, no irritation, no vision change ENMT Ears: no difficulty hearing, no ear pain Nose: no frequent nosebleeds, Mouth/Throat: no sore throat, no bleeding gums, no snoring, no dry mouth, no mouth ulcers, no oral abnormalities, no teeth problems Respiratory Respiratory: no cough, no wheezing, no coughing up blood, no sleep apnea Musculoskeletal Musculoskeletal: no muscle aches, no muscle weakness, joint pain+, no back pain, no swelling in the extremities Integumentary Skin no rash, no ulcer, no varicosities, (more content not included)... [facility] 02-12-2023 Note Ordering remote loop check to confirm rhythm as patient has not showed to post ablation appointments Device is showing episodes of AF --- appears like flutter on some strips, had prior CTI done in past Ablation PVI done 12/2022 Clinic attempted to reach out to patient to reschedule and notify of loop findings, no answer. She is noted to be on eliquis 5mg BID [facility] 12-28-2022 Note Patient: Amparo evangelista Procedure Summary Date: 12/28/22 Room / Location: [facility] 1 EP / [facility] (Cath) Anesthesia Start: 0856 Anesthesia Stop: 1223 Procedure: Ablation a-fib paroxysmal Diagnosis: Paroxysmal atrial fibrillation (CMS/HCC) (Paroxysmal atrial fibrillation (CMS/HCC) [I48.0]) Providers: Rai Jay MD Responsible Provider: Rosalia Apodaca MD Anesthesia Type: general ASA Status: 3 Anesthesia Type: general Vitals Value Taken Time BP 154/79 12/28/22 1227 Temp 36.4 ???C (97.5 ???F) 12/28/22 1227 Pulse 68 12/28/22 1245 Resp 18 12/28/22 1245 SpO2 98 % 12/28/22 1245 Anesthesia Post Evaluation Patient location during evaluation: bedside Patient participation: complete - patient participated Level of consciousness: awake and alert Pain score: 0 Pain management: adequate Multimodal analgesia pain management approach Airway patency: patent Cardiovascular status: acceptable Respiratory status: acceptable Hydration status: acceptable Patient is hemodynamically stable and is able to be discharged from PACU per anesthesia protocol. There were no known notable events for this encounter. [facility] 12-28-2022 Note ATRIAL FIBRILLATION ABLATION PROCEDURE NOTE DATE OF PROCEDURE: 12/28/2022 PERFORMING PHYSICIAN: Dr. Rai Jay MAKEUP EDITOR: Dr Trice Conklin CONSENT: Patient NAME OF THE PROCEDURE: Pulmonary Vein Isolation and Comprehensive EP study. INDICATIONS FOR PROCEDURE: 1. Persistent atrial fibrillation. PROCEDURES PERFORMED: 1. Sonosite guided venous access as noted below and images stored. 2. Comprehensive EP study and catheter ablation for persistent atrial fibrillation through the pulmonary vein isolation technique. This includes right atrial recording and pacing, His bundle recording and right ventricular recording and pacing. 3. Intracardiac EP 3D mapping. 4. Intracardiac echocardiogram 5. Left atrial and coronary sinus recording and pacing to assess ablation results. 6. Left heart pressure measurements and LV pacing and recording. 7. Induction of arrhythmia and testing of ablation results using intravenous adenosine infusion. 8. Fluroscopy. FLUROSCOPY: 1min 15s/15mGray EBL: 15cc INDICATIONS: 62 year old with past medical history of mild to mod CAD per 07/2020 cath, pHTN, HTN, diastolic dysfunction, hx TIA 2008. She was seen at [facility] ER with c/o palpitations and chest pain and found to be in a.flutter. She underwent Aflutter ablation on 07/26/22 and subsequently had a loop monitor placed which revealed frequent episodes of A-fib with some lasting up 2 to 3 hours. She opted for catheter ablation. PROCEDURE NOTE: Pt was brought to EP lab and she was in sinus rhythm, so JULY was deferred. Thereafter, we proceeded to do atrial fibrillation ablation. Both the groins were then prepared and draped. Ultrasound was used to determine the course and patency of the femoral veins on both sides and they were noted to be patent and the image stored in PACS. After infiltration with 1% lidocaine, 4 venous sheaths were placed in the right as noted below. RFV: 8Fx3 ThermoCool SF Bi-Directional over SL1/ Vizigo, SL1:Pentaray, 8Fx1 CS Catheter (EZ Steer) 9Fx1: ICE catheter. Heparin bolus was given followed by additional bolus and continuous intravenous drip to target ACT around 350. An intracardiac ultrasound catheter was inserted into the right atrium to examine the right atrial anatomy, atrial septum, pulmonary vein anatomy and to monitor for pericardial effusion and guide transseptal access. ICE revealed that the patient had a significantly mildy dilated right atrium and left atrium and minimal pericardial effusion. At this point I decided to proceed with the transseptal puncture to perform A. fib ablation. Double transseptal access technique was used to cross to the left side. Following the first transeptal access, which was achieved via puncture of the thinner aspect of the septum using Genie needle, Pentaray catheter was placed in the left atrium. Second transseptal access was acquired and SL1 sheath was exchanged over a wire to 8.5F Vizigo sheath. Pulmonary vein and left atrial anatomic mapping were performed using a 3-D CARTO computer-based mapping system. Identification of the pulmonary vein ostia was assisted by the left atrial signals on the ablation catheter, the ICE catheter and the Pentaray catheter placed in the individual pulmonary veins. Esophagus was mapped using the CARTOSOUND 3D mapping software and noted to lie towards the left side along the WACA. A temperature probe was placed in the esophagus to monitor and avoid rise of temperature by more than a degree Celsius (Baseline 35.7C). Wide area circumferential ablation technique (WACA) was then performed with irrigated ST/SF catheter. Power settings were 40watts of 10-12s in the anterior aspect of WACA and 5-8s while ablating on the posterior wall as well as the roof. Following left WACA, isolation was noted. Following left WACA, entrance block was observed. There was change in temperature from baseline to 37.4C. Right sided PVI was then performed using a WACA approach with care to pace the anterior aspect of WACA and delaney to ensure there was no phrenic capture. LV pacing revealed no VA conduction. Phrenic pacing was performed whileablating on the anterior aspect. In the end, all pulmonary veins were isolated. Adenosine did not reveal any reconnection. Burst pacing at 250ms idid not induce any Afib. Phrenic nerve capture was documented. The ICE catheter was used to reexamine the intracardiac anatomy and this showed mild increase in pericardial effusion. Since no flutter could be induced, I did not proceed with any further ablation. Prior CTI line ablation was noted to be intact with bidirectional block of timing of 154ms. I reinforced this line. Protamine was given and phrenic nerve capture was documented at the end of the case. ICE catheter and all catheters were removed. Venous sheaths were pulled, and hemostasis noted. She was transferred to observation bay and then to hospital room for observation. LA baseline (more content not included)... [facility] 12-28-2022 Note Airway Date/Time: 12/28/2022 9:12 AM Urgency: elective General Information and Staff Patient location during procedure: OR Resident/WAITER/WAITRESS CABIN CLASS/CAA: Kenneth Nunez MD Performed: resident/WAITER/WAITRESS CABIN CLASS/CAA Indications and Patient Condition Indications for airway management: anesthesia Spontaneous Ventilation: absent Sedation level: deep Preoxygenated: yes Mask difficulty assessment: 1 - vent by mask Final Airway Details Final airway type: endotracheal airway Successful airway: ETT Cuffed: yes Successful intubation technique: direct laryngoscopy Endotracheal tube insertion site: oral Blade: Heladio Blade size: #3 ETT size (mm): 7.5 Cormack-Lehane Classification: grade I - full view of glottis Placement verified by: chest auscultation and capnometry Measured from: lips Number of attempts at approach: 1 Number of other approaches attempted: 0 [facility] 12-28-2022 Note Arterial Line: Date/Time: 12/28/2022 7:34 AM An arterial line was placed Procedure performed using ultrasound guidance and surface landmarks.in the PACU for the following indication(s): continuous blood pressure monitoring and blood sampling needed. A 20 G (size), 2 inch (length), (type) catheter was placed, Seldinger technique used , into thesecured by Tegaderm and tape. Events: patient tolerated procedure well with no complications. Medications Administered Lidocaine (XYLOCAINE) 1 % SubQ, 5 mL Staffing Performed: resident/WAITER/WAITRESS CABIN CLASS/BLANCA Resident/WAITER/WAITRESS CABIN CLASS: Kenneth Nunez MD Performed by: Kenneth Nunez MD Authorized by: Rosalia Apodaca MD [facility] 12-28-2022 Note Patient: Amparo evangelista Procedure Information Date/Time: 12/28/22 0800 Procedure: Ablation a-fib paroxysmal Location: [facility] 1 EP / [facility] (Cath) Providers: Rai Jay MD Relevant Problems Cardio (+) Hypertensive disorder (+) Paroxysmal atrial fibrillation (CMS/HCC) (+) Pulmonary hypertension (CMS/HCC) (+) Typical atrial flutter (CMS/HCC) GI (+) Gastroesophageal reflux disease Neuro/Psych (+) Status post placement of implantable loop recorder Clinical information reviewed: Tobacco Allergies Meds Med Hx Surg Hx Fam Hx Soc Hx Physical Exam Airway Mallampati: II TM distance: >3 FB Neck ROM: full Cardiovascular Rhythm: irregular Dental Pulmonary - normal exam Abdominal (+) obese Other findings: afib and flutter. Sp flutter ablation, now for fib ablation. Anesthesia Plan ASA 3 general (GETA. ) intravenous induction Postoperative administration of opioids is intended. Anesthetic plan and risks discussed with patient. Use of blood products discussed with patient who. Plan discussed with resident, BLANCA and WAITER/WAITRESS CABIN CLASS. Additional Equipment Requests [facility] 12-27-2022 Note Patient here for H&P prior to afib ablation scheduled for tomorrow with Dr. Jay. Review of Systems Musculoskeletal: Positive for arthritis and myalgias. All other systems reviewed and are negative. [facility] 12-27-2022 Note NE Electrophysiology Note [facility] Reason for Consultation: Aflutter s/p ablation 07/26/22, AFIB ablation HP and consent HPI: Patient here for A-fib ablation H&P and consent she previously had atrial flutter ablation and subsequently had a loop monitor placed Since loop placement she has had several frequent episodes of A-fib with some lasting up 2 to 3 hours. she has not felt these palpitations like she did with her for, they are very mild and infrequent for her. she was trialed on amiodarone and cannot tolerate side effects such as headaches and lightheadedness and affected her daily level so she discontinued amiodarone She denies chest pain, shortness of breath, PRICE, LE edema, orthopnea, lightheadedness, dizziness. ECG 12/28/2022 sinus rhythm 12/26/22 loop afib event PMH: mild to mod CAD per 07/2020 cath, pHTN, HTN, diastolic dysfunction, hx TIA 2008, atrial flutter s/p ablation 07/2022, atrial fib (was intolerant of amiodarone) [id number] at least 5 for gender, hypertension, TIA, HFpEF - on Eliquis 5mg BID medications. As needed nitroglycerin, lisinopril 20 mg daily, pregabalin, milligram twice daily, Coreg 25 mg twice daily, Cardizem 100 mg daily, Cymbalta, Imdur 30 mg daily, Protonix 40 mg daily, Jardiance 10 mg daily for chronic 0.1 mg twice daily, Lasix 20 mg daily, Lipitor 80 mg daily Prior HPI: Amparo Barth is a 62 y.o. 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 She was seen at [facility] ER with c/o palpitations and chest pain and found to be in a.flutter. She states that she has experienced this on and off for the past 5 years although no EKG was ever taken. She is becoming more active after receiving pain treatment on the back She denies CP, orthopnea, PND, LE edema, dizziness/LH, syncope, bleeding issues. PMH: Past Medical History: Diagnosis Date Abnormal ECG Arrhythmia Atrial flutter (CMS/HCC) Hypertension Obesity BMI 41.10 As above PSH: Past Surgical History: Procedure Laterality Date CARDIAC CATHETERIZATION 07/22/2020 CHOLECYSTECTOMY HAND SURGERY HERNIA REPAIR x 2 HYSTERECTOMY KNEE SURGERY x 3 SH: Social Determinants of Health Tobacco Use: Low Risk (12/21/2022) Patient History Smoking Tobacco Use: Never Smokeless Tobacco Use: Never Passive Exposure: Not on file Alcohol Use: Not on file Financial Resource Strain: Not on file Food Insecurity: Not on file Transportation Needs: Not on file Physical Activity: Not on file Stress: Not on file Social Connections: Not on file Intimate Partner Violence: Not on file Depression: Not on file Housing Stability: Not on file Meds: Current Outpatient Medications on File Prior to Visit Medication Sig Dispense Refill apixaban (Eliquis) 5 mg tablet Take 1 tablet by mouth in the morning and at bedtime. atorvastatin (Lipitor) 80 mg tablet Take 1 tablet (80 mg) by mouth at bedtime. 90 tablet 3 carvedilol (Coreg) 25 mg tablet Take 1 tablet by mouth with breakfast and with evening meal. cloNIDine (Catapres) 0.1 mg tablet Take by mouth in the morning and at bedtime. dilTIAZem ER (Tiazac) 180 mg 24 hr capsule Take 1 tablet by mouth in the morning. DULoxetine (Cymbalta) [address] capsule Take 1 tablet by mouth in the morning. furosemide (Lasix) 20 mg tablet Take 1 tablet (20 mg) by mouth in the morning. 90 tablet 3 isosorbide mononitrate ER (Imdur) 30 mg 24 hr tablet Take 1 tablet by mouth in the morning. Jardiance 10 mg Take 10 mg by mouth in the morning. lisinopril 20 mg tablet Take 1 tablet by mouth in the morning and at bedtime. nitroglycerin (Nitrostat) 0.[address] 1 TABLET IN MOUTH EVERY 5 MINUTES 3 TIMES A DAY NEEDED FOR CHEST PAIN pantoprazole (ProtoNix) 40 mg EC tablet Take 1 tablet by mouth in the morning. pregabalin (Lyrica) 200 mg capsule TAKE 1 CAPSULE BY MOUTH EVERY DAY AT NIGHT amiodarone (Pacerone) 200 mg tablet Take 2 tablets (400 mg) by mouth in the morning and at bedtime for 14 days, THEN 1 tablet (200 mg) in the morning. 146 tablet 0 No current facility-administered medications on file prior to visit. ROS: Cardio Basic Cardiovascular Symptoms: no lightheadedness, no leg edema, no syncope, no orthopnea, no PND, no claudication, +palpitations Constitutional Constitutional: no fever, no night sweats, no significant weight gain, no significant weight loss, no exercise intolerance Eyes Eyes: no dry eyes, no irritation, no vision change ENMT Ears: no difficulty hearing, no ear pain Nose: no frequent nosebleeds, Mouth/Throat: no sore throat, no bleeding gums, no snoring, no dry mouth, no mouth ulcers, no oral abnormalities, no teeth problems Respiratory Respiratory: no cough, no wheezing, no coughing up blood, no sleep apnea Musculos (more content not included)... [facility] 11-21-2022 Note e [facility] 11-21-2022 Note Patient here for 1 m o follow up. She had loop recorder implanted in September 2022. Doing very well. Denies chest pain, SOB, palpitations, lightheadedness, and bleeding on Eliquis. Review of Systems Constitutional: Positive for malaise/fatigue. All other systems reviewed and are negative. NE Electrophysiology Note [facility] Reason for Consultation: Aflutter s/p ablation 07/26/22 Patient had a loop monitor placed on 10/11/2022 for palpiation after her atrial flutter ablation. since then there have been frequent episodes of A-fib noted in November. She wants to pursue ablation. She is on DOAC. Prior HPI: Amparo Barth is a 62 y.o. 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 She was seen at [facility] ER with c/o palpitations and chest pain and found to be in a.flutter. She states that she has experienced this on and off for the past 5 years although no EKG was ever taken. She is becoming more active after receiving pain treatment on the back She denies CP, orthopnea, PND, LE edema, dizziness/LH, syncope, bleeding issues. PMH: Past Medical History: Diagnosis Date Abnormal ECG Arrhythmia Atrial flutter (CMS/HCC) Hypertension As above PSH: Past Surgical History: Procedure Laterality Date CARDIAC CATHETERIZATION 07/22/2020 CHOLECYSTECTOMY HAND SURGERY HERNIA REPAIR x 2 HYSTERECTOMY KNEE SURGERY x 3 SH: Social Determinants of Health Tobacco Use: Low Risk Smoking Tobacco Use: Never Smokeless Tobacco Use: Never Passive Exposure: Not on file Alcohol Use: Not on file Financial Resource Strain: Not on file Food Insecurity: Not on file Transportation Needs: Not on file Physical Activity: Not on file Stress: Not on file Social Connections: Not on file Intimate Partner Violence: Not on file Depression: Not on file Housing Stability: Not on file Meds: Current Outpatient Medications on File Prior to Visit Medication Sig Dispense Refill apixaban (Eliquis) 5 mg tablet Take 1 tablet by mouth in the morning and at bedtime. atorvastatin (Lipitor) 80 mg tablet Take 1 tablet (80 mg) by mouth at bedtime. 90 tablet 3 carvedilol (Coreg) 25 mg tablet Take 1 tablet by mouth with breakfast and with evening meal. cloNIDine (Catapres) 0.1 mg tablet Take by mouth in the morning and at bedtime. dilTIAZem ER (Tiazac) 180 mg 24 hr capsule Take 1 tablet by mouth in the morning. DULoxetine (Cymbalta) [address] capsule Take 1 tablet by mouth in the morning. furosemide (Lasix) 20 mg tablet Take 1 tablet (20 mg) by mouth in the morning. 90 tablet 3 isosorbide mononitrate ER (Imdur) 30 mg 24 hr tablet Take 1 tablet by mouth in the morning. Jardiance 10 mg Take 10 mg by mouth in the morning. lisinopril 20 mg tablet Take 1 tablet by mouth in the morning and at bedtime. nitroglycerin (Nitrostat) 0.[address] 1 TABLET IN MOUTH EVERY 5 MINUTES 3 TIMES A DAY NEEDED FOR CHEST PAIN pantoprazole (ProtoNix) 40 mg EC tablet Take 1 tablet by mouth in the morning. pregabalin (Lyrica) 200 mg capsule TAKE 1 CAPSULE BY MOUTH EVERY DAY AT NIGHT No current facility-administered medications on file prior to visit. ROS: Cardio Basic Cardiovascular Symptoms: no lightheadedness, no leg edema, no syncope, no orthopnea, no PND, no claudication, +palpitations Constitutional Constitutional: no fever, no night sweats, no significant weight gain, no significant weight loss, no exercise intolerance Eyes Eyes: no dry eyes, no irritation, no vision change ENMT Ears: no difficulty hearing, no ear pain Nose: no frequent nosebleeds, Mouth/Throat: no sore throat, no bleeding gums, no snoring, no dry mouth, no mouth ulcers, no oral abnormalities, no teeth problems Respiratory Respiratory: no cough, no wheezing, no coughing up blood, no sleep apnea Musculoskeletal Musculoskeletal: no muscle aches, no muscle weakness, joint pain+, no back pain, no swelling in the extremities Integumentary Skin no rash, no ulcer, no varicosities, no discoloration, no pruritus Neurologic Neurologic: no loss of consciousness, no weakness, no numbness, no seizures, no dizziness, no headaches Psychiatric Psych: no depression, feeling safe in relationship, no alcohol abuse, Hematologic/Lymphatic Hematologic/Lymphatic no swollen glands, no bruising Physical Exam: Constitutional General Appearance: well-nourished, well-developed, appears stated age Level of Distress: comfortable Psychiatric Mental Status: alert, normal affect Orientation: oriented to time, place, and person Insight: good judgement Eyes Lids and Conjunctivae: non-injected, no xanthelasma ENMT Ears: no lesions on external ear Nose: no lesions on external nose Oropharynx: no cyanosis, no pallor Neck Neck: supple, trache (more content not included)... [facility] 10-20-2022 Note continue all medicat ions RTC as scheduled with Dr Jay in November [facility] 10-20-2022 Note Incision well healed , approximated and no s/s of infection [facility] 10-20-2022 Note [facility]TP CARDIOLOGY PROGR ESS NOTE HPI: Amparo Barth is a 62 y.o. female here for wound check s/p recent loop recorder implantion Denied fever, chills, Pain at incision site, palpitations. Overall states she feels well,. Review of Systems Constitutional: Negative. Respiratory: Negative. Cardiovascular: Negative. Neurological: Negative. All other systems reviewed and are negative. Visit Vitals OB Status Postmenopausal Smoking Status Never Allergies Allergen Reactions Oxycodone-Acetaminophen Nausea Only Other reaction(s): vomiting Medications: Current Outpatient Medications on File Prior to Visit Medication Sig Dispense Refill apixaban (Eliquis) 5 mg tablet Take 1 tablet by mouth in the morning and at bedtime. atorvastatin (Lipitor) 80 mg tablet Take 1 tablet (80 mg) by mouth at bedtime. 90 tablet 3 carvedilol (Coreg) 25 mg tablet Take 1 tablet by mouth with breakfast and with evening meal. cloNIDine (Catapres) 0.1 mg tablet in the morning, at noon, and at bedtime. dilTIAZem ER (Tiazac) 180 mg 24 hr capsule Take 1 tablet by mouth in the morning. DULoxetine (Cymbalta) [address] capsule Take 1 tablet by mouth in the morning. furosemide (Lasix) 20 mg tablet Take 1 tablet (20 mg) by mouth in the morning. 90 tablet 3 isosorbide mononitrate ER (Imdur) 30 mg 24 hr tablet Take 1 tablet by mouth in the morning. Jardiance 10 mg Take 10 mg by mouth in the morning. lisinopril 20 mg tablet Take 1 tablet by mouth in the morning and at bedtime. nitroglycerin (Nitrostat) 0.[address] 1 TABLET IN MOUTH EVERY 5 MINUTES 3 TIMES A DAY NEEDED FOR CHEST PAIN pantoprazole (ProtoNix) 40 mg EC tablet Take 1 tablet by mouth in the morning. pregabalin (Lyrica) 200 mg capsule TAKE 1 CAPSULE BY MOUTH EVERY DAY AT NIGHT No current facility-administered medications on file prior to visit. Physical Exam: Constitutional: Appearance: Normal appearance. Without apparent distress Skin: General: Skin is warm and dry. Lt chest incisions C/D/I, no hematoma, ecchymosis, erythema or calor. Capillary Refill: Capillary refill takes less than 2 seconds. Psychiatric: Mood and Affect: Mood normal. Behavior: Behavior normal. Thought Content: Thought content normal. Judgment: Judgment normal. Labs: Last lab values have been reviewed CV Testin10/11/[address] Jay No echocardiogram results found for the past 12 months Assessment/Plan: Status post placement of implantable loop recorder Incision well healed, approximated and no s/s of infection Typical atrial flutter (CMS/HCC) continue all medications RTC as scheduled with Dr Jay in November [facility] 10-20-2022 Note Patient here for wou nd check s/p loop implant. [facility] 10-11-2022 Note LOOP IMPLANT PROCEDU RE NOTE DATE OF PROCEDURE: 10/11/2022 PERFORMING PHYSICIAN: Dr. Rai Jay MAKEUP EDITOR: Dr Joanne Olivares INDICATIONS FOR PROCEDURE: 1. SVT/AF surveillance CONSENT: Patient LOCATION: EP lab PROCEDURAL SEDATION: None FLUOROSCOPY TIME: 0min PREPARATION: Preoperative antibiotics was administered. EBL:5cc SPECIMEN REMOVED: None PROCEDURES PERFORMED: 1. LOOP implant PROCEDURE NOTE: Patient was brought to the EP lab in the post absorptive state. A procedural pause was performed verifying the patient, the procedure. Sterile prep and drape were performed over the left precordium and anesthesia with 1% lidocaine was followed by a small incision was made between 2nd and 3rd intercostal space near the sternum on the left using the [employer] tool. The loop recorder was then injected subcutaneously and noted to have poor sensing parameters. So I retrieved the device and decided to go one space lower between 3rd and 4th space. Technical details of the device as noted below. The skin was then closed with 3-0 absorbable monofilament suture and glue applied to hold the edges together. Tegaderm was applied to cover the wound. The patient appeared to tolerate the procedure well and was returned to the room in stable condition. No complications were immediately observed. Sensin.17mV. IMPRESSION: Successful placement of LOOP implant with excellent sensing parameters. COMPLICATIONS: None RECOMMENDATIONS: 1. Occlusive dressing to be changed after 7 days. 2. Do not wet the incision. Rai Jay MD Cardiac Electrophysiology. [facility] 09-14-2022 Note -managed per PCP -ct current medications [facility] 09-14-2022 Note -HFpEF/diastolic dys function. Compensated today, no concerns for fluid overload, continue lasix [facility] 09-14-2022 Note - continues to have palpitations despite being post ablation - ECG sinus rhythm - will proceed with appeal for loop monitor - she has history of TIA and continued palpitations [facility] 09-14-2022 Note -[id number] 3 - s/p CTI ablation - continues to have palpitations despite being post ablation - ECG is sinus rhythm - I will proceed with appeal for loop monitor regarding palpitations [facility] 09-14-2022 Note -chronic issue for h er since she has been in her 20s due to having multiple respiratory infections she states [facility] 09-14-2022 Note -Likely the result o f bronchitis in the past, undiagnosed sleep apnea and obesity related hypoventilation. She is seeing pulmonary, noted abnormal PFTs [facility] 09-12-2022 Note Review of Systems Cardiovascular: Positive for chest pain. All other systems reviewed and are negative. [facility] 09-12-2022 Note [place] Electrophysiology Note [facility] Reason for Consultation: Aflutter s/p ablation 07/26/22 HPI: she is here for follow-up s/p flutter ablation EKG sinus rhythm. But she states has been feeling palpitations. She has not had a loop monitor per insurance but no appeal has been sent We took care of her flutter and she continues to have palpitations. she does have history of TIA with no true known cause. I discussed with her we should proceed with appealing for her loop monitor considering her history of TIA and continued palpitations. At times the palpitations are associated with lightheadedness but she denies chest pain, shortness of breath, syncope, price, orthopnea. HPI: Amparo is here for follow-up s/p typical a flutter ablation. She was mistakenly scheduled as a wound check and is here 1 week post ablation. States the first week she felt fatigued with some chest discomfort but that has now resolved and she feels great. She usually knows when she is in a-flutter and has not felt that since the ablation ECG sinus rhythm. Her right groin site has healed well with no concerns for hematoma or bleeding. She states her blood pressure is managed by her PCP. I discussed with her that she will likely need to come back in about 4 to 6 weeks for 1 month follow-up to do a repeat EKG and see how she is doing. She denies chest pain, lightheadedness, dizziness, syncope, palpitations. Previous per Pierre 07/2022 HPI: Amparo Barth is a 62 y.o. 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 She was seen at [facility] ER with c/o palpitations and chest pain and found to be in a.flutter. She states that she has experienced this on and off for the past 5 years although no EKG was ever taken. She is becoming more active after receiving pain treatment on the back She denies CP, orthopnea, PND, LE edema, dizziness/LH, syncope, bleeding issues. PMH: Past Medical History: Diagnosis Date Atrial flutter (CMS/HCC) Hypertension As above PSH: Past Surgical History: Procedure Laterality Date CARDIAC CATHETERIZATION 07/22/2020 CHOLECYSTECTOMY HAND SURGERY HERNIA REPAIR x 2 HYSTERECTOMY KNEE SURGERY x 3 SH: Social Determinants of Health Tobacco Use: Low Risk Smoking Tobacco Use: Never Smokeless Tobacco Use: Never Passive Exposure: Not on file Alcohol Use: Not on file Financial Resource Strain: Not on file Food Insecurity: Not on file Transportation Needs: Not on file Physical Activity: Not on file Stress: Not on file Social Connections: Not on file Intimate Partner Violence: Not on file Depression: Not on file Housing Stability: Not on file Meds: Current Outpatient Medications on File Prior to Visit Medication Sig Dispense Refill apixaban (Eliquis) 5 mg tablet Take 1 tablet by mouth in the morning and at bedtime. atorvastatin (Lipitor) 80 mg tablet Take 1 tablet (80 mg) by mouth at bedtime. 90 tablet 3 carvedilol (Coreg) 25 mg tablet Take 1 tablet by mouth with breakfast and with evening meal. cloNIDine (Catapres) 0.1 mg tablet in the morning, at noon, and at bedtime. diclofenac (Voltaren) 75 mg EC tablet Take 1 tablet every day by oral route for 30 days. dilTIAZem ER (Tiazac) 180 mg 24 hr capsule Take 1 tablet by mouth in the morning. DULoxetine (Cymbalta) [address] capsule Take 1 tablet by mouth in the morning. furosemide (Lasix) 20 mg tablet Take 1 tablet (20 mg) by mouth in the morning. 90 tablet 3 isosorbide mononitrate ER (Imdur) 30 mg 24 hr tablet Take 1 tablet by mouth in the morning. lisinopril 20 mg tablet Take 1 tablet by mouth in the morning and at bedtime. nitroglycerin (Nitrostat) 0.[address] 1 TABLET IN MOUTH EVERY 5 MINUTES 3 TIMES A DAY NEEDED FOR CHEST PAIN pantoprazole (ProtoNix) 40 mg EC tablet Take 1 tablet by mouth in the morning. pregabalin (Lyrica) 200 mg capsule TAKE 1 CAPSULE BY MOUTH EVERY DAY AT NIGHT Jardiance 10 mg Take 10 mg by mouth in the morning. No current facility-administered medications on file prior to visit. ROS: Cardio Basic Cardiovascular Symptoms: no lightheadedness, no leg edema, no syncope, no orthopnea, no PND, no claudication, +palpitations Constitutional Constitutional: no fever, no night sweats, no significant weight gain, no significant weight loss, no exercise intolerance Eyes Eyes: no dry eyes, no irritation, no vision change ENMT Ears: no difficulty hearing, no ear pain Nose: no frequent nosebleeds, Mouth/Throat: no sore throat, no bleeding gums, no snoring, no dry mouth, no m (more content not included)... [facility] 08-02-2022 Note [place] [facility] Consul t Note [facility] Reason for Consultation: Aflutter s/p ablation 07/26/22 HPI: Amparo is here for follow-up s/p typical a flutter ablation. She was mistakenly scheduled as a wound check and is here 1 week post ablation. States the first week she felt fatigued with some chest discomfort but that has now resolved and she feels great. She usually knows when she is in a-flutter and has not felt that since the ablation ECG sinus rhythm. Her right groin site has healed well with no concerns for hematoma or bleeding. She states her blood pressure is managed by her PCP. I discussed with her that she will likely need to come back in about 4 to 6 weeks for 1 month follow-up to do a repeat EKG and see how she is doing. She denies chest pain, lightheadedness, dizziness, syncope, palpitations. Previous per Pierre 07/2022 HPI: Amparo Barth is a 62 y.o. 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 She was seen at [facility] ER with c/o palpitations and chest pain and found to be in a.flutter. She states that she has experienced this on and off for the past 5 years although no EKG was ever taken. She is becoming more active after receiving pain treatment on the back She denies CP, orthopnea, PND, LE edema, dizziness/LH, syncope, bleeding issues. PMH: Past Medical History: Diagnosis Date Atrial flutter (CMS/HCC) Hypertension As above PSH: Past Surgical History: Procedure Laterality Date CARDIAC CATHETERIZATION 07/22/2020 CHOLECYSTECTOMY HAND SURGERY HERNIA REPAIR x 2 HYSTERECTOMY KNEE SURGERY x 3 SH: Social Determinants of Health Tobacco Use: Low Risk Smoking Tobacco Use: Never Smokeless Tobacco Use: Never Passive Exposure: Not on file Alcohol Use: Not on file Financial Resource Strain: Not on file Food Insecurity: Not on file Transportation Needs: Not on file Physical Activity: Not on file Stress: Not on file Social Connections: Not on file Intimate Partner Violence: Not on file Depression: Not on file Housing Stability: Not on file Meds: Current Outpatient Medications on File Prior to Visit Medication Sig Dispense Refill apixaban (Eliquis) 5 mg tablet Take 1 tablet by mouth in the morning and at bedtime. atorvastatin (Lipitor) 80 mg tablet Take 1 tablet (80 mg) by mouth at bedtime. 90 tablet 3 carvedilol (Coreg) 25 mg tablet Take 1 tablet by mouth with breakfast and with evening meal. cloNIDine (Catapres) 0.1 mg tablet in the morning, at noon, and at bedtime. diclofenac (Voltaren) 75 mg EC tablet Take 1 tablet every day by oral route for 30 days. dilTIAZem ER (Tiazac) 180 mg 24 hr capsule Take 1 tablet by mouth in the morning. DULoxetine (Cymbalta) [address] capsule Take 1 tablet by mouth in the morning. furosemide (Lasix) 20 mg tablet Take 1 tablet (20 mg) by mouth in the morning. 90 tablet 3 isosorbide mononitrate ER (Imdur) 30 mg 24 hr tablet Take 1 tablet by mouth in the morning. lisinopril 20 mg tablet Take 1 tablet by mouth in the morning and at bedtime. nitroglycerin (Nitrostat) 0.[address] 1 TABLET IN MOUTH EVERY 5 MINUTES 3 TIMES A DAY NEEDED FOR CHEST PAIN pantoprazole (ProtoNix) 40 mg EC tablet Take 1 tablet by mouth in the morning. pregabalin (Lyrica) 200 mg capsule TAKE 1 CAPSULE BY MOUTH EVERY DAY AT NIGHT No current facility-administered medications on file prior to visit. ROS: Cardio Basic Cardiovascular Symptoms: no lightheadedness, no leg edema, no syncope, no orthopnea, no PND, no claudication, Constitutional Constitutional: no fever, no night sweats, no significant weight gain, no significant weight loss, no exercise intolerance Eyes Eyes: no dry eyes, no irritation, no vision change ENMT Ears: no difficulty hearing, no ear pain Nose: no frequent nosebleeds, Mouth/Throat: no sore throat, no bleeding gums, no snoring, no dry mouth, no mouth ulcers, no oral abnormalities, no teeth problems Respiratory Respiratory: no cough, no wheezing, no coughing up blood, no sleep apnea Musculoskeletal Musculoskeletal: no muscle aches, no muscle weakness, joint pain+, no back pain, no swelling in the extremities Integumentary Skin no rash, no ulcer, no varicosities, no discoloration, no pruritus Neurologic Neurologic: no loss of consciousness, no weakness, no numbness, no seizures, no dizziness, no headaches Psychiatric Psych: no depression, feeling safe in relationship, no alcohol abuse, Hematologic/Lymphatic Hematologic/Lymphatic no swollen glands, no bruising Physical Exam: Constitutional General Appearance: well-nourished, well-developed, appears stated age Level of Distress: comfortable P (more content not included)... [facility] 08-02-2022 Note Patient here for fol low up atrial flutter ablation on 07/[address] Jay. Denies chest pain and bleeding on Eliquis. Review of Systems Constitutional: Positive for malaise/fatigue. Cardiovascular: Positive for dyspnea on exertion. Respiratory: Positive for shortness of breath. All other systems reviewed and are negative. [facility] 07-26-2022 Note ATRIAL FLUTTER ABLAT ION PROCEDURE NOTE DATE OF PROCEDURE: 07/26/2022 PERFORMING PHYSICIAN: Dr. Rai Jay CONSENT: Patient NAME OF THE PROCEDURE: Flutter ablation and Comprehensive EP study. INDICATIONS FOR PROCEDURE: Atrial flutter PROCEDURES PERFORMED: 1. Sonosite guided venous access as noted below and images stored in PACS. 2. Comprehensive EP study and catheter ablation for persistent atrial flutter. This includes right atrial recording and pacing, His bundle recording and right ventricular recording and pacing. 3. Intracardiac EP 3D mapping. 4. Intracardiac echocardiogram 5. Left atrial and coronary sinus recording and pacing to assess ablation results. 6. Conscious sedation. PROCEDURAL SEDATION: Versed and Fentanyl. Moderate sedation was administered by the sedation nurse under my supervision and noted in the CVL log. Intraprocedural face to face sedation time: 63min. Monitoring: Cardiac telemetry, Blood pressure, continuous pulse oxymetry. FLUOROSCOPY: NA EBL: 10cc SPECIMEN REMOVED: None INDICATION: 62 y.o. 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 She was seen at [facility] ER with c/o palpitations and chest pain and found to be in a.flutter. She states that she has experienced this on and off for the past 5 years although no EKG was ever taken. She has come for flutter ablation. PROCEDURE NOTE: Risks, benefits and alternatives of the procedure were discussed with the patient and family who agreed to proceed. Please refer to my consult note for details of the discussion and of indications. The patient was brought to the EP lab and a procedural pause was performed identifying the patient, the procedure. The patient presented in sinus rhythm and ICE imaging was used to rule out TOSHA clot. Both the groins were then prepared and draped. Ultrasound was used to determine the course and patency of the femoral veins on both sides and they were noted to be patent and the image stored in PACS. After infiltration with 1% lidocaine, 3 venous sheaths were placed in the right. RFV: 8Fx3 [employer] Thermo[employer] SF Bi-Directional over SL1/ Vizigo, ICE catheter. CS Catheter (EZ Steer) Heparin 5000U bolus was given followed by continuous intravenous drip to target ACT around 300. An intracardiac ultrasound catheter was inserted into the right atrium to examine the right atrial anatomy, atrial septum, pulmonary vein anatomy and to monitor for pericardial effusion. At baseline, there was mild pericardial effusion and no TOSHA clot. CS os was mapped using the [employer] 3D mapping software. Using ICE, the His and IVC junctions were marked with 3D CARTO mapping software. Vizigo sheath was exchanged for a short 8F sheath. Vizigo sheath was placed instead of short 8F sheath. The ablation catheter was advanced over to the CTI. Ablation was performed on the CTI line starting at the tricuspid valve aspect. 40W was utilized and I extended the ablation to the IVC aspect, but there was a profound sub eustachian pouch with chiari network on topof this. Mapping was performed with CS pacing and this revealed leak adjacent to IVC aspect. Reablation was performed in this area which led to CTI block and bidirectional CTI block was noted with timing of 163ms. Pacing from the proximal CS as well as lateral aspect of RA (172ms) confirmed this. Differential pacing also confirmed CTI block. EP study was then performed. Atrial pacing was performed from CS poles. Burst atrial pacing down to 250ms did not induce any tachycardia. Repeat EP study could no longer demonstrate any tachycardia. EP study and ablation were then stopped at this time. ICE imaging confirmed the same extent of pericardial effusion. Sheaths were pulled and hemostasis was confirmed with manual compression. ICE catheter and all catheters were removed. Venous sheaths were pulled and hemostasis noted. She was transferred to observation bay. AHms 111 HVms 54 VERPms 600/330 No VA conduction at 500ms but present at 600ms AV Wenkebach ms 460ms AH jump ms NA AVNERP ms 600/350 AERP ms 600/250 POST PROCEDURE DIAGNOSIS 1. Symptomatic atrial flutter s/p CTI ablation. 2. EP study revealing no retrograde accessory conduction. 3. Baseline pericardial effusion which is noted in prior studies. PLAN: 1. Anticoagulation after 6 hrs of sheath removal with DOAC 2. Groin precautions. Rai Jay MD Cardiac Electrophysiology [facility] 07-26-2022 Note [place] [facility] Consul t Note Reason for Consultation: Aflutter HPI: Amparo Barth is a 62 y.o. 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 She was seen at [facility] ER with c/o palpitations and chest pain and found to be in a.flutter. She states that she has experienced this on and off for the past 5 years although no EKG was ever taken. She is becoming more active after receiving pain treatment on the back She denies CP, orthopnea, PND, LE edema, dizziness/LH, syncope, bleeding issues. PMH: Past Medical History: Diagnosis Date Atrial flutter (CMS/HCC) Hypertension As above PSH: Past Surgical History: Procedure Laterality Date CARDIAC CATHETERIZATION 07/22/2020 CHOLECYSTECTOMY HAND SURGERY HERNIA REPAIR x 2 HYSTERECTOMY KNEE SURGERY x 3 SH: Social Determinants of Health Tobacco Use: Low Risk Smoking Tobacco Use: Never Smokeless Tobacco Use: Never Passive Exposure: Not on file Alcohol Use: Not on file Financial Resource Strain: Not on file Food Insecurity: Not on file Transportation Needs: Not on file Physical Activity: Not on file Stress: Not on file Social Connections: Not on file Intimate Partner Violence: Not on file Depression: Not on file Housing Stability: Not on file Meds: No current facility-administered medications on file prior to encounter. Current Outpatient Medications on File Prior to Encounter Medication Sig Dispense Refill apixaban (Eliquis) 5 mg tablet Take 1 tablet by mouth in the morning and at bedtime. atorvastatin (Lipitor) 80 mg tablet Take 1 tablet (80 mg) by mouth at bedtime. 90 tablet 3 carvedilol (Coreg) 25 mg tablet Take 1 tablet by mouth in the morning and at bedtime. cloNIDine (Catapres) 0.1 mg tablet in the morning, at noon, and at bedtime. diclofenac (Voltaren) 75 mg EC tablet Take 1 tablet every day by oral route for 30 days. dilTIAZem ER (Tiazac) 180 mg 24 hr capsule Take 1 tablet by mouth in the morning. DULoxetine (Cymbalta) [address] capsule Take 1 tablet by mouth in the morning. furosemide (Lasix) 20 mg tablet Take 1 tablet (20 mg) by mouth in the morning. 90 tablet 3 isosorbide mononitrate ER (Imdur) 30 mg 24 hr tablet Take 1 tablet by mouth in the morning. lisinopril 20 mg tablet Take 1 tablet by mouth in the morning and at bedtime. pantoprazole (ProtoNix) 40 mg EC tablet Take 1 tablet by mouth in the morning. pregabalin (Lyrica) 200 mg capsule TAKE 1 CAPSULE BY MOUTH EVERY DAY AT NIGHT nitroglycerin (Nitrostat) 0.[address] 1 TABLET IN MOUTH EVERY 5 MINUTES 3 TIMES A DAY NEEDED FOR CHEST PAIN [DISCONTINUED] atorvastatin (Lipitor) 20 mg tablet Take 1 tablet (20 mg) by mouth in the morning. 90 tablet 3 ROS: Cardio Basic Cardiovascular Symptoms: no lightheadedness, no leg edema, no syncope, no orthopnea, no PND, no claudication, Positive for dyspnea on exertion. Constitutional Constitutional: no fever, no night sweats, no significant weight gain, no significant weight loss, no exercise intolerance Eyes Eyes: no dry eyes, no irritation, no vision change ENMT Ears: no difficulty hearing, no ear pain Nose: no frequent nosebleeds, Mouth/Throat: no sore throat, no bleeding gums, no snoring, no dry mouth, no mouth ulcers, no oral abnormalities, no teeth problems Respiratory Respiratory: no cough, no wheezing, no coughing up blood, no sleep apnea Musculoskeletal Musculoskeletal: no muscle aches, no muscle weakness, joint pain+, no back pain, no swelling in the extremities Integumentary Skin no rash, no ulcer, no varicosities, no discoloration, no pruritus Neurologic Neurologic: no loss of consciousness, no weakness, no numbness, no seizures, no dizziness, no headaches Psychiatric Psych: no depression, feeling safe in relationship, no alcohol abuse, Hematologic/Lymphatic Hematologic/Lymphatic no swollen glands, no bruising Physical Exam: Constitutional General Appearance: well-nourished, well-developed, appears stated age Level of Distress: comfortable Psychiatric Mental Status: alert, normal affect Orientation: oriented to time, place, and person Insight: good judgement Eyes Lids and Conjunctivae: non-injected, no xanthelasma ENMT Ears: no lesions on external ear Nose: no lesions on external nose Oropharynx: no cyanosis, no pallor Neck Neck: supple, trachea midline Carotid Arteries: bilateral normal upstroke, no bruits Jugular Veins: normal jugular venous pressure Thyroid: not enlarged Lungs Respiratory Effort: unlabored Chest Exam: normal curvature, no thoracic deformity Auscultation: clear, no wheezing, no rales, no rhonchi Cardiovascular Rate And Rhythm: regular Heart Sounds: normal S1, normal s2, no gallop Systolic Murmur: not heard Diastolic Murmur: not heard Extremities: no cyanosis, no edema, no peripheral signs of emboli Peripheral Pulses R (more content not included)... [facility] 07-26-2022 Note Patient: Amparo Anand omegayesi Procedure Information Date/Time: 07/26/22 1130 Procedures: Ablation atrial flutter Loop insertion [place] (Right) Location: [facility] / [facility] (Cath) Providers: Rai Jay MD Clinical information reviewed: Allergies Meds OB Status Physical Exam Airway Mallampati: II TM distance: >3 FB Neck ROM: full Cardiovascular Dental Pulmonary Abdominal Anesthesia Plan ASA 2 CSE Anesthetic plan and risks discussed with patient. Use of blood products discussed with patient who. Additional Equipment Requests [facility] 10-25-2021 History of Present illness Narrative Discharge instructions reviewed with patient. Had no sedation. Signed for self. To recovery. Denies pain complaints. Injection site clean and dry. BP 190/95. P 63. Oxygen 98%. Resp 18. updated on elevated pressure. documented in this encounter [employer] Phone: 10-25-2021 Hospital Discharge instructions Radha Estevez RN - 10/25/2021 PAIN MANAGEMENT DISCHARGE INSTRUCTIONS 1. Continue normal activities. 2. Notify your doctor immediately of any of the following: Excessive swelling of , or around the wound area. Redness. Temperature of 100 degrees (F) or above. Excessive pain. Any questions regarding your surgery. 3. Dr. Lima's office will call you to schedule a follow-up visit. documented in this encounter [employer] Phone: Reason for visit Narrative Specialty Diagnoses / Procedures Referred By Contac t Referred To Contact Diagnoses LUMBAR SACRAL RAD LUMBAR RAD Procedures SD NJX DX/THER SBST INTRLMNR LMBR/SAC W/IMG GDN EPIDURAL STEROID INJECTION- L4-5 Curtis Lima MD [address] [place] [address] [employer] [id number] [place] [address] Referral ID Status Reason Start Date Expiration Date Visits Re quested Visits Authorized 1 1 [employer] Phone: Summary Purpose Family History No Family History Records FoundNo Family History Records FoundNo Family History Records FoundNo Family History Records FoundNo Family History Records FoundNo Family History Records Found Advance Directives No Advanced Directives Records FoundNo Advanced Directives Records FoundNo Advanced Directives Records FoundNo Advanced Directives Records FoundNo Advanced Directives Records FoundNo Advanced Directives Records Found Additional Source Comments INFORMATION SOURCE (unrecogn ized section and content) DATE CREATED AUTHOR 06/26/2018 [facility] DATE CREATED AUTHOR AUTHOR'S ORGANIZ ATION 07/13/2020 [facility] DATE CREATED AUTHOR AUTHOR'S ORGANIZ ATION 08/05/2020 [facility] DATE CREATED AUTHOR AUTHOR'S ORGANIZ ATION 10/26/2021 [facility] DATE CREATED AUTHOR AUTHOR'S ORGANIZ ATION 09/29/2022 [facility] DATE CREATED AUTHOR AUTHOR'S ORGANIZ ATION 07/01/2023 [facility] PRN Active and Recently Administ ered Medications (unrecognized section and content) Medication Order 10/23/2021 10/24/2021 10/25/2021 dexamethasone (DECADRON) injection (CANCELED) PRN, Starting on Sun10/25/21 at 1425, Until 10/25/21 at 1431, Intra-op 1425 (Given - Provid er: Curtis Lima MD) iohexol (OMNIPAQUE 240) injection (CANCELED) PRN, Starting on Sun10/25/21 at 1425, Until 10/25/21 at 1431, Intra-op 1425 (Given - Provid er: Curtis Lima MD) lidocaine PF 1 % injection (CANCELED) PRN, Starting on Sun10/25/21 at 1425, Until 10/25/21 at 1431, Intra-op 1425 (Given - Provid er: Curtis Lima MD) methylPREDNISolone acetate (DEPO-MEDROL) injection (CANCELED) PRN, Starting on Sun10/25/21 at 1425, Until Tu10/25/21 at 1431, Intra-op 1425 (Given - Provid er: Curtis Lima MD) sodium chloride (PF) 0.9 % injection (CANCELED) PRN, Starting on Sun10/25/21 at 1424, Until Sun10/25/21 at 1431, Intra-op 1424 (Given - Provid er: Curtis Lima MD) Care Teams (unrecognized sec tion and content) Netsuite Developer Relationship Specialty Start Date End Date Kunal Patel MD [address] [place] [address] PCP - General Family Medicine 10/24/21 FOR RECORDS PERTAINING TO PATIENTS WHO ARE OR HAVE BEEN ENROLLED IN A CHEMICAL DEPENDENCY/SUBSTANCEABUSE PROGRAM, SOME INFORMATION MAY BE OMITTED. This clinical summary was aggregated from multiple sources. Caution should be exercised in using it in the provision of clinical care. This summary normalizes information from multiple sources, and as a consequence, information in this document may materially change the coding, format and clinical context of patient data. In addition, data may be omitted in some cases. CLINICAL DECISIONS SHOULD BE BASED ON THE PRIMARY CLINICAL RECORDS. [employer] [facility] provides no warranty or guarantee of the accuracy or completeness of information in this document.
[2023-07-25 09:19] LABS: Basophils Percent Auto 0.5 % (0.2-2.0); Eosinophils Absolute Auto 0.1 10^3/uL (0.0-0.7); Eosinophils Percent Auto 0.6 % (0.9-7.0); Hematocrit 39.8 % (36.0-48.0); Hemoglobin 13.4 g/dL (12.0-16.0); Immature Granulocytes Abs Auto 0.08 10^3/uL (0.00-0.03); Immature Granulocytes Pct Auto 0.9 % (0.0-0.5); Lymphocytes Absolute Auto 2.3 10^3/uL (1.2-3.8); Lymphocytes Percent Auto 26.4 % (20.5-60.0); Mean Corpuscular HGB Conc 33.7 g/dL (29.9-35.2); Mean Corpuscular Hemoglobin 29.4 pg (26.7-34.0); Mean Corpuscular Volume 87.3 fL (81.0-99.0); Mean Platelet Volume 10.4 fL (9.5-13.5); Monocytes Absolute Auto 0.4 10^3/uL (0.3-0.8); Monocytes Percent Auto 4.8 % (1.7-12.0); Neutrophils Absolute Auto 5.9 10^3/uL (1.4-6.5); Neutrophils Percent Auto 66.8 % (43.0-75.0); Platelet Count 198 10^3/uL (150-450); Red Blood Count 4.56 10^6/uL (4.20-5.40); Red Cell Distribution Width 14.5 % (11.0-15.0); White Blood Count 8.9 10^3/uL (4.0-11.0)
[2023-07-25 10:20] LABS: Alanine Aminotransferase 52 U/L (14-59); Albumin Globulin Ratio 0.8; Albumin Level 3.3 g/dL (3.4-5.0); Alkaline Phosphatase 125 U/L (46-116); Aspartate Amino Transferase 13 U/L (15-37); BUN Creatinine Ratio 15.1; Bilirubin Total 0.7 mg/dL (0.2-1.0); Calcium 8.7 mg/dL (8.5-10.1); Carbon Dioxide 28.5 mmol/L (21.0-32.0); Chloride 103 mmol/L (98-107); Chol HDL Ratio 4.1; Cholesterol 202 mg/dL (<=200); Estimated GFR (African America >60 (>=60); Estimated GFR (Non-African Ame >60 (>=60); Free T3 1.31 pg/mL (2.18-3.98); Globulin 3.9 g/dL; Glucose 180 mg/dL (74-106); HDL Cholesterol 49 mg/dL (40-60); Potassium 3.5 mmol/L (3.5-5.1); Sodium 140 mmol/L (136-145); Thyroid Stimulating Hormone 1.964 uIU/mL (0.358-3.740); Total Protein 7.2 g/dL (6.4-8.2); Triglycerides 178 mg/dL (<=150); VLDL CHOLESTEROL 35.6 mg/dL
[2023-07-25 10:51] LABS: Estimated Average Glucose 154 mg/dL
[2023-07-26 11:09] LABS: Insulin 26.2 uIU/mL (2.6-24.9)
== END 2023-07-25 08:33 | disposition home or self-care (01) ==
LOC: LAB 08:35
PROVIDERS: PCP Family Medicine; Visit Provider Family Medicine
DX: K43.9 Ventral hernia without obstruction or gangrene (principal); E78.5 Hyperlipidemia, unspecified; I48.91 Unspecified atrial fibrillation; M43.07 Spondylolysis, lumbosacral region; R73.09 Other abnormal glucose; Z12.12 Encounter for screening for malignant neoplasm of rectum; D64.9 Anemia, unspecified; E55.9 Vitamin D deficiency, unspecified
CPT/HCPCS: 36415; 80053; 80061; 82306; 83036; 83525; 83540; 84436; 84443; 84481; 85025

== ENCOUNTER 2023-09-18 09:29 | Outpatient (OUT) | payer MEDICARE, SELFPAY ==
--- OUTSIDE RECORDS SUMMARY | 2023-09-18 09:51 | XMS_ITS | CCD ---
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 Name Role Phone ZAID DENNIS Unavailable Unavailable KUNAL PATEL Unavailable Unavailable ELTAHAWY, EHAB A Attending Unavailable ELTAHAWY, EHAB A Admitting Unavailable SELF, REFERRED Referring Unavailable KUNAL PATEL Primary Care Unavailable Kunal Patel MD Primary Care Provider [phone] CURTIS LIMA Admitting Unavailable CURTIS LIMA Attending Unavailable KUNAL PATEL Primary Care Unavailable DARRYL, GARTH Admitting Unavailable DARRYLJASON DISLAA Consulting Unavailable GARTH ANDREWS Attending Unavailable LEIGHTON ., DR SYED Primary Care Unavailable RAI JAY Admitting Unavailable LOGANRAI Callahan Attending Unavailable HOY ., DR SYED Primary Care Unavailable DELIA COKER Admitting Unavailable JOHN PAULDELIA Consulting Unavailable DELIA COKER Attending Unavailable LEIGHTON ., DR SEYD Primary Care Unavailable RUBIA, RORO Consulting Unavailable DARRYL, GARTH Admitting Unavailable DARRYL, GARTH Attending Unavailable LEIGHTON ., DR SYED Primary Care Unavailable LEIGHTON ., DR SYED Admitting Unavailable HOY ., DR SYED Primary Care Unavailable JOANNAY ., DR SYED Consulting Unavailable LEIGHTON ., DR SYED Attending Unavailable RAI JAY Attending Unavailable BESS MARTIN Attending Unavailable BESS MARTIN Attending Unavailable LOGANRAI Callahan Referring Unavailable LOGAN, RAI Referring Unavailable LOGAN, RAI Attending Unavailable BESS MARTIN Attending Unavailable RAI JAY Referring Unavailable LOGAN, RAI Attending Unavailable LOGAN, RAI Admitting Unavailable LOGAN, RAI Admitting Unavailable LOGAN, RAI Attending Unavailable LOGAN RAI Referring Unavailable NAYELI FELIZ Attending Unavailable Allergies Allergy Classification Reported Allergen(s) Allergy Type Date of Onset Reaction(s) Facility (2 sources) Acetaminophen / oxyCODONE; Translations: [OXYCODONE-ACETAMI NOPHEN] Drug Allergy 08-19-2013 F [facility] Repository (3 sources) Acetaminophen / oxyCODONE Drug Allergy 01-24-2013 [facility] Repository Medications Current Medications Medication Drug Class(es) [...] disease (1 source) Atherosclerotic heart disease of [place] coronary artery without angina pectoris; Translations: [ASHD SANTO DOMINGO CA W/O ANGINA PECTORIS] Onset: 03-08-2022 Chronic [...] WITHOUT ESOPHAGITIS] Onset: 12-21-2021 Chronic Essential hypertension (1 source) Essential (primary) hypertension; Translations: [ESSENTIAL PRIMARY HYPERTENSION] [...] Onset: 12-21-2021 Episodic Other aftercare (1 source) senior care (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; Translations: [OR DIRECTOR CURRENT USE OF ASPIRIN] Onset: 12-21-2021 Episodic Other aftercare (1 source) Other supervisor intermediates (current) drug therapy; Translations: [OTH LONGTERM CURRENT DRUG THERAPY] Onset: 12-21-2021 Episodic Other [...] Test Name Value Interpretation Reference Range Facility Prep for Procedureon 024 Prep for Procedure [id number] BarthCarina anglehumaira Aleisha 1960 Date Provider Department Center 09/05/2023 Jeremías-PATO CORONADO [facility] Family History Problem Relation Age of Onset Heart failure Mother Hyperlipidemia Mother Hypertension Mother Heart failure Father Hypertension Father Heart failure Brother Hyperlipidemia Brother Hypertension Brother Family Status - Relation Status Age at Mother Father Brother Normal [facility] Office Visiton 06-26-2023 Follow-up visit [id number] Carina Barth 1960 F Date Provider Department Center 06/26/2023 241-RAI JAY CARD [facility] Family History Problem Relation Age of Onset Heart failure Mother Hyperlipidemia Mother Hypertension Mother Heart failure Father Hypertension Father Heart failure Brother Hyperlipidemia Brother Hypertension Brother Family Status - Relation Status Age at Mother Father Brother Level of Service:64639 RI OFFICE/OUTPATIENT ESTABLISHED MOD MDM 30 MIN Normal [facility] Office Visiton 04-17-2023 Follow-up visit [id number] Carina Barth 1960 F Date Provider Department Center 04/17/2023 BESS PETER GOLD [facility] Family History Problem Relation Age of Onset Heart failure Mother Hyperlipidemia Mother Hypertension Mother Heart failure Father Hypertension Father Heart failure Brother Hyperlipidemia Brother Hypertension Brother Family Status - Relation Status Age at Mother Father Brother Level of Service:74634 RI OFFICE/OUTPATIENT ESTABLISHED MOD MDM 30-39 MIN Normal [facility] Orders Onlyon 02-12-2023 Orders Only [id number] Carina Barth 1960 F Date Provider Department Center 02/12/2023 BESS PETER CARD [facility] Family History Problem Relation Age of Onset Heart failure Mother Hyperlipidemia Mother Hypertension Mother Heart failure Father Hypertension Father Heart failure Brother Hyperlipidemia Brother Hypertension Brother Family Status - Relation Status Age at Mother Father Brother [facility] Telephoneon 01-18-2023 Telephone [id number] Carina Barth A 1960 F Date Provider Department [place] 01/18/2023 JeremíasPATO CORONADO [facility] Family History Problem Relation Age of Onset Heart failure Mother Hyperlipidemia Mother Hypertension Mother Heart failure Father Hypertension Father Heart failure Brother Hyperlipidemia Brother Hypertension Brother Family Status - Relation Status Age at Mother Father Brother Reason for Visit and Comments: 3 week f/u post ablation [Other] [facility] Telephoneon 01-04-2023 Telephone [id number] Carina Barth 1960 Date Provider Department [place] 01/04/2023 JeremíasPATO CORONADO [facility] CARD [facility] Family History Problem Relation Age of Onset Heart failure Mother Hyperlipidemia Mother Hypertension Mother Heart failure Father Hypertension Father Heart failure Brother Hyperlipidemia Brother Hypertension Brother Family Status - Relation Status Age at Mother Father Brother Reason for Visit and Comments: week f/u post ablation [Other] [facility] 12-28-2022 ---- -------- Attestation signed by Rai Jay [...] are no changes to the H&P. Normal [facility] POCT GLUCOSE METER UNSOLICIT ED RESULTSon 12-28-2022 Glucose [Mass/Vol] 219 mg/dL High 70-105 [facility] Comment on above: Order Comment: Waive d Testing in the ED is performed under the ED CLIA certificate #[id number]. Result Comment: aepp ink Performed By: #### L [id number] #### [facility] Yakimbi) [address] [place] [address] PROTIME-INRon 12-28-2022 INR IN PPP BY COAGULATION ASSAY 1.02 Normal 0.90-1.10 [facility] Comment on above: Result Comment: ACCC P [...] CHEST 1995;108:231S-246S. Performed By: #### L [id number] ####[facility] (BEAKER)[address] [place] [address] PROTHROMBIN TIME (PT) IN PPP BY COAGULATION ASSAY 13.4 Seconds Normal 12.3-14.8 [facility] Comment on above: Performed By: #### L [id number] ####[facility] (DANIEL)[address] [place] [address] HPon 12-27-2022 [facility] Electrophysiology Note [facility] Reason for Consultation: Aflutter s/p [...] 07/2022, atrial fib (was intolerant of amiodarone) [id number] at least 5 for gender, hypertension, TIA, [...] hx TIA 2008. She was seen at [facility] ER with c/o palpitations and chest [...] apnea Musculos (more content not included)... Normal [facility] Office Visiton 12-27-2022 Follow-up visit [id number] Carina Barth 1960 F Date Provider Department Center 12/27/2022 Torie-BESS MARTIN CARD [facility] Family History Problem Relation Age of Onset Heart failure Mother Hyperlipidemia Mother Hypertension Mother Heart failure Father Hypertension Father Heart failure Brother Hyperlipidemia Brother Hypertension Brother Family Status - Relation Status Age at Mother Father Brother Level of Service:78565 RI OFFICE/OUTPATIENT ESTABLISHED HIGH MDM 40-54 MIN Normal [facility] BASIC METABOLIC PANELon 07- Anion gap [Moles/Vol] 12 mmol/L Normal 7-20 [facility] Comment on above: Performed By: #### L [id number] ####[facility] (BEAKER)[address] [place] [address] Calcium [Mass/Vol] 9.5 mg/dL Normal 8.6-10.3 [facility] Comment on above: Performed By: #### L [id number] ####[facility] (BEAKER)[address] [place] [address] Chloride [Moles/Vol] 105 mmol/L Normal 98-107 [facility] Comment on above: Performed By: #### L [id number] ####[facility] (BEAKER)[address] [place] [address] CO2 [Moles/Vol] 26 mmol/L Normal 21-31 [facility] Comment on above: Performed By: #### L [id number] ####[facility] [place] [address] Creatinine [Mass/Vol] 0.88 mg/dL Normal 0.60-1.20 [facility] Comment on above: Performed By: #### L [id number] ####[facility] (BANNER)[address] [place] [address] GLOMERULAR FILTRATION RATE ML/MIN/1.73 SQ M.PREDICTED 73.3 mL/min/1.73m*2 Normal >60.0 [facility] Comment on above: Result Comment: [facility]???s estimated glomerular filtration rate (eGFR) will no [...] of individuals. Performed By: #### L [id number] ####[facility] ([facility] [place] [address] Glucose [Mass/Vol] 132 mg/dL High 70-100 [facility] Comment on above: Performed By: #### L [id number] ####[facility] ([facility]NER)[address] [place] [address] Potassium [Moles/Vol] 4.1 mmol/L Normal 3.5-5.1 [facility] Comment on above: Performed By: #### L [id number] ####[facility] ([facility]NER)[address] [place] [address] Sodium [Moles/Vol] 139 mmol/L Normal 136-145 [facility] Comment on above: Performed By: #### L [id number] ####[facility] ([facility]NER)[address] [place] [address] Urea nitrogen [Mass/Vol] 11 mg/dL Normal 7-25 [facility] Comment on above: Performed By: #### L [id number] ####[facility] ([facility])[address] [place] [address] UREA NITROGEN/CREATININ E (MASS RATIO) IN SER/PLAS 12.5 Normal [facility] Comment on above: Performed By: #### L [id number] ####[facility] ([facility])[address] [place] [address] CBC WITH AUTO DIFFERENTIALon 12-25-2022 Basophils (Bld) [#/Vol] 0.04 10*3/uL Normal 0.00-0.20 [facility] Comment on above: Performed By: #### L [id number] ####[facility] ([facility]NER)[address] [place] [address] Basophils/100 WBC (Bld) 0.5 % Normal 0.0-1.0 [facility] Comment on above: Performed By: #### L [id number] ####[facility] ([facility])[address] [place] [address] Eosinophils (Bld) [#/Vol] 0.19 10*3/uL Normal 0.00-0.50 [facility] Comment on above: Performed By: #### L [id number] ####[facility] (BEAKER)[address] [place] [address] Eosinophils/100 WBC (Bld) 2.4 % Normal 0.0-6.0 [facility] Comment on above: Performed By: #### L [id number] ####[facility] ([facility] [place] [address] Erythrocyte distribution width (RBC) [Ratio] 15.1 % High 11.5-15.0 [facility] Comment on above: Performed By: #### L [id number] ####[facility] ([facility])[address] [place] [address] ERYTHROCYTE MEAN CORPUSCULAR HEMOGLOBIN CONCENTRATION (G/DL) BY AUTOMATED 33.7 g/dL Normal 32.0-35.0 [facility] Comment on above: Performed By: #### L [id number] ####[facility] ([facility])[address] [place] [address] Hematocrit (Bld) [Volume fraction] 40.9 % Normal 36.0-48.0 [facility] Comment on above: Performed By: #### L [id number] ####[facility] ([facility])[address] [place] [address] Hemoglobin (Bld) [Mass/Vol] 13.8 g/dL Normal 12.0-15.0 [facility] Comment on above: Performed By: #### L [id number] ####[facility] ([facility] [place] [address] Immature granulocytes (Bld) [#/Vol] 0.10 10*3/uL Normal 0.00-0.20 [facility] Comment on above: Performed By: #### L [id number] ####[facility] (BEAKER)[address] [place] [address] Immature granulocytes/100 WBC (Bld) 1.2 % High 0.0-1.0 [facility] Comment on above: Performed By: #### L [id number] ####[facility] (BEAKER)[address] [place] [address] Lymphocytes (Bld) [#/Vol] 2.22 10*3/uL Normal 1.20-4.00 [facility] Comment on above: Performed By: #### L [id number] ####[facility] (BEAKER)[address] [place] [address] Lymphocytes/100 WBC (Bld) 27.5 % Normal 20.0-45.0 [facility] Comment on above: Performed By: #### L [id number] ####[facility] (BEAKER)[address] [place] [address] MCH (RBC) [Entitic mass] 29.3 pg Normal 27.0-33.0 [facility] Comment on above: Performed By: #### L [id number] ####[facility] (BEAKER)[address] [place] [address] MCV (RBC) [Entitic vol] 86.8 fL Normal 82.0-98.0 [facility] Comment on above: Performed By: #### L [id number] ####[facility] (BEAKER)[address] [place] [address] Monocytes (Bld) [#/Vol] 0.58 10*3/uL Normal 0.10-1.00 [facility] Comment on above: Performed By: #### L [id number] ####[facility] (BEAKER)[address] [place] [address] Monocytes/100 WBC (Bld) 7.2 % Normal 5.0-12.0 [facility] Comment on above: Performed By: #### L [id number] ####[facility] (BEAKER)[address] [place] [address] Neutrophils (Bld) [#/Vol] 4.94 10*3/uL Normal 1.60-7.60 [facility] Comment on above: Performed By: #### L [id number] ####[facility] (BEAKER)[address] [place] [address] Neutrophils/100 WBC (Bld) 61.2 % Normal 40.0-72.0 [facility] Comment on above: Performed By: #### L [id number] ####[facility] ([facility])[address] [place] [address] NRBC (PER 100 WBCS) BY AUTOMATED COUNT 0.0 % Normal 0 [facility] Comment on above: Performed By: #### L [id number] ####[facility] ([facility])[address] [place] [address] PLATELETS (10*3/UL) IN BLOOD AUTOMATED COUNT 245 10*3/uL Normal 150-400 [facility] Comment on above: Performed By: #### L [id number] ####[facility] ([facility])[address] [place] [address] RBC (Bld) [#/Vol] 4.71 10*6/uL Normal 3.80-5.00 [facility] Comment on above: Performed By: #### L [id number] ####[facility] ([facility])[address] [place] [address] WBC (Bld) [#/Vol] 8.07 10*3/uL Normal 4.00-10.60 [facility] Comment on above: Performed By: #### L [id number] ####[facility] [place] [address] Labon 12-25-2022 Lab [id number] Carina Barth 1960 F Date Provider Department Center 12/25/2022 2245-[facility] OPD LAB RESOURCE [facility] OPD IA Medical C Family History Problem Relation Age of Onset Heart failure Mother Hyperlipidemia Mother Hypertension Mother Heart failure Father Hypertension Father Heart failure Brother Hyperlipidemia Brother Hypertension Brother Family Status - Relation Status Age at Mother Father Brother Normal [facility] [id number] 12-21-2022 [id number] ARRIVAL TIME 0630 GI KRISTA MEDICATIONS TO TAKE DAY OF SURGERY WITH A SIP OF WATER CARVEDILOL CLONIDINE DILTIAZEM DULOXETINE ISOSORBIDE PROTONIX AGREES TO GET LABS DONE AT [facility] ON 12/25 IF YOU ARE GOING HOME AFTER YOUR SURGERY OR PROCEDURE, FOR YOUR SAFETY, YOUR SURGERY WILL BE CANCELLED IF BOTH OF THE FOLLOWING ARE NOT AVAILABLE: 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 Do not wear perfume, make-up, nail albanian, or lotions on the day of your [...] need to make any changes, please call [phone]. Notify your surgeon if you develop any illness such as a cold, cough, fever, sore throat or vomiting between now and your surgery. Thank you for entrusting us with your care. [facility] Surgical Services Team Normal [facility] CTA CHEST W AND/OR WO IV CON [...] left medial hemithorax. Electronically signed: Azucena Nj. [facility] Comment on above: Order Comment: Nasim rucker schedule prior to December 28 36on 12-12-2022 36 Patient called to [facility] aware that she is unable to tolerate amiodarone. She started it around 11/21. It's giving her headaches and lightheadedness. She states she isn't able to function even on 1 tablet daily. She is scheduled on 12/28/2022 for afib ablation. She doesn't plan on taking amiodarone tomorrow. Will this effect her procedure? Should she do something differently? Please advise. Thanks. [facility] Prep for Procedureon 023 Prep for Procedure [id number] Carina Barth 1960 F Date Provider Department Center 11/23/2022 1987-PATO CORONADO [facility] Family History Problem Relation Age of Onset Heart failure Mother Hyperlipidemia Mother Hypertension Mother Heart failure Father Hypertension Father Heart failure Brother Hyperlipidemia Brother Hypertension Brother Family Status - Relation Status Age at Mother Father Brother [facility] Office Visiton 11-21-2022 Follow-up visit [id number] Carina Barth 1960 F Date Provider Department Center 11/21/2022 241-RAI JAY [facility] Family History Problem Relation Age of Onset Heart failure Mother Hyperlipidemia Mother Hypertension Mother Heart failure Father Hypertension Father Heart failure Brother Hyperlipidemia Brother Hypertension Brother Family Status - Relation Status Age at Mother Father Brother Level of Service:53496 RI OFFICE/OUTPATIENT ESTABLISHED HIGH MDM 40-54 MIN [facility] Office Visiton 10-20-2022 Follow-up visit [id number] Carina Barth 1960 F Date Provider Department Center 10/20/[address] [facility] Family History Problem Relation Age of Onset Heart failure Mother Hyperlipidemia Mother Hypertension Mother Heart failure Father Hypertension Father Heart failure Brother Hyperlipidemia Brother Hypertension Brother Family Status - Relation Status Age at Mother Father Brother Level of Service:25036 RI POSTOP FOLLOW UP VISIT RELATED TO ORIGINAL PX Normal [facility] HPon 10-11-2022 H&P reviewed. The patient was examined and there are no changes to the H&P. She is S/p Atrial Flutter ablation. she does have history of TIA with no true known etiology. Proceed with Implantable loop monitor for Afib surveillance. Normal [facility] HPon 09-12-2022 [facility] Electrophysiology Note [facility] Reason for Consultation: Aflutter s/p [...] lightheadedness, dizziness, syncope, palpitations. -------- Previous per Logan 07/2022 HPI: Amparo Barth is a 62 y.o. 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 She was seen at [facility] ER with c/o palpitations and chest [...] no m (more content not included)... Normal [facility] Office Visiton 09-12-2022 Follow-up visit [id number] BarthCarina anglehumaira Aleisha 1960 F Date Provider Department Center 09/12/2022 Smita6-BESS MARTIN CARD [facility] Family History Problem Relation Age of Onset Heart failure Mother Hyperlipidemia Mother Hypertension Mother Heart failure Father Hypertension Father Heart failure Brother Hyperlipidemia Brother Hypertension Brother Family Status - Relation Status Age at Mother Father Brother Level of Service:46377 RI OFFICE/OUTPATIENT ESTABLISHED LOW MDM 20-29 MIN Reason for Visit and Comments: Follow-up [[id number]] - 1 month follow up Normal [facility] BNPon 07-24-2022 Natriuretic peptide B (Bld) [Mass/Vol] 109.0 pg/mL Normal <=900.0 [facility] Comment on above: Performed By: #### C MP, T7, BNP, LIPID, TSH #### [facility] [address] [place] [address] Dr. Yuliya Jones CBC AUTO DIFFon 07-24-2022 BASO # 0.0 103/ul Normal 0.0-0.1 [facility] Comment on above: Performed By: #### C BC #### [facility] [address] [place] [address] Dr. Yuliya Jones Basophils/100 WBC (Bld) 0.4 % Normal 0.2-2.0 [facility] Comment on above: Performed By: #### C BC #### [facility] [address] [place] [address] Dr. Yuliya Jones EO # 0.2 103/ul Normal 0.0-0.7 [facility] Comment on above: Performed By: #### C BC #### [facility] [address] [place] [address] Dr. Yuliya Jones Eosinophils/100 WBC (Bld) 2.2 % Normal 0.9-7.0 [facility] Comment on above: Performed By: #### C BC #### [facility] [address] [place] [address] Dr. Yuliya Jones Erythrocyte distribution width (RBC) [Ratio] 13.6 % Normal 11.0-15.0 [facility] Comment on above: Performed By: #### C BC #### [facility] [address] [place] [address] Dr. Yuliya Jones Hematocrit (Bld) [Volume fraction] 40.1 % Normal 36.0-48.0 [facility] Comment on above: Performed By: #### C BC #### [facility] [address] [place] [address] Dr. Yuliya Jones Hemoglobin (Bld) [Mass/Vol] 13.1 g/dL Normal 12.0-16.0 [facility] Comment on above: Performed By: #### C BC #### [facility] [address] [place] [address] Dr. Yuliya Jones IG # 0.05 10e3/ul Critically high 0.00-0.03 [facility] Comment on above: Performed By: #### C BC #### [facility] [address] [place] [address] Dr. Yuliya Jones IG % 0.7 % Critically high 0.0-0.5 [facility] Comment on above: Performed By: #### C BC #### [facility] [address] [place] [address] Dr. Yuliya Jones LYMPH # 2.0 103/ul Normal 1.2-3.8 [facility] Comment on above: Performed By: #### C BC #### [facility] [address] [place] [address] Dr. Yuliya Jones Lymphocytes/100 WBC (Bld) 26.9 % Normal 20.5-60.0 [facility] Comment on above: Performed By: #### C BC #### [facility] [address] [place] [address] Dr. Yuliya Jones MANUAL DIFF REQ NO Normal [facility] Comment on above: Performed By: #### C BC #### [facility] [address] [place] [address] Dr. Yuliya Jones MCH (RBC) [Entitic mass] 28.5 pg Normal 26.7-34.0 [facility] Comment on above: Performed By: #### C BC #### [facility] [address] [place] [address] Dr. Yuliya Jones MCHC (RBC) [Mass/Vol] 32.7 g/dL Normal 29.9-35.2 [facility] Comment on above: Performed By: #### C BC #### [facility] [address] [place] [address] Dr. Yuliya Jones MCV (RBC) [Entitic vol] 87.4 fL Normal 81.0-99.0 [facility] Comment on above: Performed By: #### C BC #### [facility] [address] [place] [address] Dr. Yuliya Jones MONO # 0.4 103/ul Normal 0.3-0.8 [facility] Comment on above: Performed By: #### C BC #### [facility] [address] [place] [address] Dr. Yuliya Jones Monocytes/100 WBC (Bld) 5.1 % Normal 1.7-12.0 [facility] Comment on above: Performed By: #### C BC #### [facility] [address] [place] [address] Dr. Yuliya Jones NEUT # 4.8 103/ul Normal 1.4-6.5 [facility] Comment on above: Performed By: #### C BC #### [facility] [address] [place] [address] Dr. Yuliya Jones Neutrophils/100 WBC (Bld) 64.7 % Normal 43.0-75.0 [facility] Comment on above: Performed By: #### C BC #### [facility] [address] [place] [address] Dr. Yuliya Jones Platelet mean volume (Bld) [Entitic vol] 10.3 fL Normal 9.5-13.5 [facility] Comment on above: Performed By: #### C BC #### [facility] [address] [place] [address] Dr. Yuliya Jones PLT 244 103/ul Normal 150-450 [facility] Comment on above: Performed By: #### C BC #### [facility] [address] [address] [address] Yuliya Jones RBC 4.59 106/ul Normal 4.20-5.40 [facility] Comment on above: Performed By: #### C BC #### [facility] [address] [address] [address] Yuliya Jones WBC 7.4 103/ul Normal 4.0-11.0 [facility] Comment on above: Performed By: #### C BC #### [facility] [address] [address] [address] Yuliya Jones FREE THYROXINE INDEX T7on FTI 2.66 Normal 1.30-4.50 [facility] Comment on above: Performed By: #### C MP, T7, BNP, LIPID, TSH #### [facility] [address] [address] [address] Yuliya Jones T3U 35.0 % Normal 30.0-39.0 [facility] Comment on above: Performed By: #### C MP, T7, BNP, LIPID, TSH #### [facility] [address] [address] [address] Yuliya Jones T4 [Mass/Vol] 7.60 ug/dL Normal 4.80-13.90 [facility] Comment on above: Performed By: #### C MP, T7, BNP, LIPID, TSH #### [facility] [address] [place] [address] Dr. Yuliya Jones GLYCOHEMOGLOBIN A1Con 2022 ADA RECOMMENDATION SEE BELOW Normal [facility] Comment on above: Result Comment: ADA RECOMMENDED LIMIT 4.0 - 6.0 ADA THERAPEUTIC TARGET < 7.0 ACTION SUGGESTED > 7.0 Performed By: #### A 1C ####[facility] [address] [address]Dr. Yuliya Jones Glucose [Mass/Vol] 146 mg/dL Normal [facility] Comment on above: Performed By: #### A 1C ####[facility] [address] [place], [place] [address]MyDr. Yuliya Jones HbA1c (Bld) [Mass fraction] 6.7 % Critically high 4.5-6.2 [facility] Comment on above: Performed By: #### A 1C ####[facility] [address] [place], [place] [address]SkDr. Yuliya Jones IRONon 07-24-2022 Iron [Mass/Vol] 74.0 ug/dL Normal 50.0-170.0 [facility] Comment on above: Performed By: #### I LUDWIN, VITB12, VITAD #### [facility] [address] [address] [address] Yuliya Jones LIPID PROFILEon 07-24-2022 CHOL-HDL RATIO NORM SEE BELOW Normal [facility] Comment on above: Result Comment: 3.3 - 4.4 LOW RISK 4.4 - 7.1 AVERAGE RISK 7.1 - 11.0 MODERATE RISK >11.0 HIGH RISK Performed By: #### C MP, T7, BNP, LIPID, TSH #### [facility] [address] [address] [address] Yuliya Jones Cholesterol [Mass/Vol] 215 mg/dL Critically high <=200 [facility] Comment on above: Performed By: #### C MP, T7, BNP, LIPID, TSH #### [facility] [address] [address] [address] Yuliya Jones Cholesterol in HDL [Mass/Vol] 46 mg/dL Normal 40-60 [facility] Comment on above: Performed By: #### C MP, T7, BNP, LIPID, TSH #### [facility] [address] [address] [address] Yuliya Jones Cholesterol in LDL [Mass/Vol] 120.6 mg/dL Normal [facility] Comment on above: Performed By: #### C MP, T7, BNP, LIPID, TSH #### [facility] [address] [address] [address] Yuliya Jones Cholesterol.total/ Cholesterol in HDL [Mass ratio] 4.7 {ratio} Normal [facility] Comment on above: Performed By: #### C MP, T7, BNP, LIPID, TSH #### [facility] [address] [address] [address] Yuliya Jones HDL NORMAL > or = 60 mg/dl - LO W CARDIOVASCULAR RISK <40 mg/dl - HIGH CARDIOVASCULAR RISK Normal [facility] Comment on above: Performed By: #### C MP, T7, BNP, LIPID, TSH #### [facility] [address] [address] [address] Yuliya Jones LDL CALC NORMAL SEE BELOW Normal [facility] Comment on above: Result Comment: <100 mg/dl OPTIMAL 100 - 129 mg/dl NEAR OR ABOVE OPTIMAL 130 - 159 mg/dl BORDERLINE HIGH 160 - 189 mg/dl HIGH >190 mg/dl VERY HIGH Performed By: #### C MP, T7, BNP, LIPID, TSH #### [facility] [address] [address] [address] Yuliya Jones Triglyceride [Mass/Vol] 242 mg/dL Critically high <=150 [facility] Comment on above: Performed By: #### C MP, T7, BNP, LIPID, TSH #### [facility] [address] [address] [address] Yuliya Jones VLDL CALC 48.4 mg/dL Normal [facility] Comment on above: Performed By: #### C MP, T7, BNP, LIPID, TSH #### [facility] [address] [place] [address] Dr. Yuliya Jones PROF 14(COMP METB)on 023 Albumin [Mass/Vol] 3.3 g/dL Critically low 3.4-5.0 Th e [facility] Comment on above: Performed By: #### C MP, T7, BNP, LIPID, TSH #### [facility] [address] [place] [address] Dr. Yuliya Jones Albumin/Globulin [Mass ratio] 0.8 {ratio} Normal [facility] Comment on above: Performed By: #### C MP, T7, BNP, LIPID, TSH #### [facility] [address] [place] [address] Dr. Yuliya Jones ALP [Catalytic activity/Vol] 148 U/L Critically high 46-116 [facility] Comment on above: Performed By: #### C MP, T7, BNP, LIPID, TSH #### [facility] [address] [address] [address] Yuliya Jones ALT [Catalytic activity/Vol] 49 U/L Normal 14-59 [facility] Comment on above: Performed By: #### C MP, T7, BNP, LIPID, TSH #### [facility] [address] [address] [address] Yuliya Jones Anion gap [Moles/Vol] 11.6 mmol/L Normal [facility] Comment on above: Performed By: #### C MP, T7, BNP, LIPID, TSH #### [facility] [address] [place] [address] Dr. Yuliya oJnes AST [Catalytic activity/Vol] 26 U/L Normal 15-37 [facility] Comment on above: Performed By: #### C MP, T7, BNP, LIPID, TSH #### [facility] [address] [place] [address] Dr. Yuliya Jones Bilirubin [Mass/Vol] 0.8 mg/dL Normal 0.2-1.0 [facility] Comment on above: Performed By: #### C MP, T7, BNP, LIPID, TSH #### [facility] [address] [place] [address] Dr. Yuliya Jones Calcium [Mass/Vol] 9.0 mg/dL Normal 8.5-10.1 [facility] Comment on above: Performed By: #### C MP, T7, BNP, LIPID, TSH #### [facility] [address] [place] [address] Dr. Yuliya Jones Chloride [Moles/Vol] 102 mmol/L Normal 98-107 [facility] Comment on above: Performed By: #### C MP, T7, BNP, LIPID, TSH #### [facility] [address] [place] [address] Dr. Yuliya Jones CO2 [Moles/Vol] 29.1 mmol/L Normal 21.0-32.0 [facility] Comment on above: Performed By: #### C MP, T7, BNP, LIPID, TSH #### [facility] [address] [place] [address] Dr. Yuliya Jones Creatinine [Mass/Vol] 0.69 mg/dL Normal 0.55-1.02 [facility] Comment on above: Performed By: #### C MP, T7, BNP, LIPID, TSH #### [facility] [address] [place] [address] Dr. Yuliya Jones EGFR-AF CROATIAN >60 Normal >=60 [facility] Comment on above: Performed By: #### C MP, T7, BNP, LIPID, TSH #### [facility] [address] [place] [address] Dr. Yuliya Jones EGFR-NON AF CROATIAN >60 Normal >=60 [facility] Comment on above: Performed By: #### C MP, T7, BNP, LIPID, TSH #### [facility] [address] [place] [address] Dr. Yuliya Jones Globulin (S) [Mass/Vol] 4.1 g/dL Normal [facility] Comment on above: Performed By: #### C MP, T7, BNP, LIPID, TSH #### [facility] [address] [place] [address] Dr. Yuliya Jones Glucose [Mass/Vol] 151 mg/dL Critically high 74-106 T [facility] Comment on above: Performed By: #### C MP, T7, BNP, LIPID, TSH #### [facility] [address] [place] [address] Dr. Yuliya Jones Potassium [Moles/Vol] 3.7 mmol/L Normal 3.5-5.1 [facility] Comment on above: Performed By: #### C MP, T7, BNP, LIPID, TSH #### [facility] [address] [place] [address] Dr. Yuliya Jones Protein [Mass/Vol] 7.4 g/dL Normal 6.4-8.2 [facility] Comment on above: Performed By: #### C MP, T7, BNP, LIPID, TSH #### [facility] [address] [address] [address] Yuliya Jones Sodium [Moles/Vol] 139 mmol/L Normal 136-145 [facility] Comment on above: Performed By: #### C MP, T7, BNP, LIPID, TSH #### [facility] [address] [address] [address] Yuliya Jones Urea nitrogen [Mass/Vol] 8.0 mg/dL Normal 7.0-18.0 [facility] Comment on above: Performed By: #### C MP, T7, BNP, LIPID, TSH #### [facility] [address] [address] [address] Yuliya Jones Urea nitrogen/Creatinin e [Mass ratio] 11.6 mg/mg Normal [facility] Comment on above: Performed By: #### C MP, T7, BNP, LIPID, TSH #### [facility] [address] [address] [address] Yuliya Jones TSHon 07-24-2022 TSH 1.903 uIU/mL Normal 0.358-3.740 [facility] Comment on above: Performed By: #### C MP, T7, BNP, LIPID, TSH #### [facility] [address] [address] [address] Yuliya Jones VITAMIN B12on 07-24-2022 Cobalamin (Vitamin B12) [Mass/Vol] 1085.0 pg/mL Critically high 193.0-986.0 [facility] Comment on above: Performed By: #### I LUDWIN VITB12, VITAD ####[facility] [address] [id number]. Yuliya Jones VITAMIN D 25 OHon 07-24-2022 VIT D 25-OH 36.8 ng/mL Normal [facility] Comment on above: Performed By: #### I LUDWIN VITB12, VITAD ####[facility] [address] [place] [id number]. Yuliya Jones VIT D RANGES SEE BELOW Normal [facility] Comment on above: Result Comment: <20 ng/mL Vit D deficient 20 - <30 ng/mL Vit D insufficient 30 - 100 ng/mL Vit D sufficient >100 ng/mL Potential Toxicity Performed By: #### I LUDWIN, VITB12, VITAD ####[facility] [address] [id number]. Yuliya Jones GLYCOHEMOGLOBIN A1Con 2021 ADA RECOMMENDATION SEE BELOW Normal [facility] Comment on above: Result Comment: ADA RECOMMENDED LIMIT 4.0 - 6.0 ADA THERAPEUTIC TARGET < 7.0 ACTION SUGGESTED > 7.0 Performed By: #### A 1C ####[facility] [address] [address]DrMinisterio Jones Glucose [Mass/Vol] 140 mg/dL Normal [facility] Comment on above: Performed By: #### A 1C ####[facility] [address] [address]Dr. Yuliya Jones HbA1c (Bld) [Mass fraction] 6.5 % Critically high 4.5-6.2 [facility] Comment on above: Performed By: #### A 1C ####[facility] [address] [address]DrMinisterio Jones LIPID PROFILEon 03-07-2022 CHOL-HDL RATIO NORM SEE BELOW Normal [facility] Comment on above: Result Comment: 3.3 - 4.4 LOW RISK 4.4 - 7.1 AVERAGE RISK 7.1 - 11.0 MODERATE RISK >11.0 HIGH RISK Performed By: #### L IPID #### [facility] [address] [address] [address] Yuliya Jones Cholesterol [Mass/Vol] 215 mg/dL Critically high <=200 [facility] Comment on above: Performed By: #### L IPID #### [facility] [address] [address] [address] Yuliya Jones Cholesterol in HDL [Mass/Vol] 42 mg/dL Normal 40-60 [facility] Comment on above: Performed By: #### L IPID #### [facility] [address] [address] [address] Yuliya Jones Cholesterol in LDL [Mass/Vol] 118.4 mg/dL Normal [facility] Comment on above: Performed By: #### L IPID #### [facility] [address] [address] [address] Yuliya Jones Cholesterol.total/ Cholesterol in HDL [Mass ratio] 5.1 {ratio} Normal [facility] Comment on above: Performed By: #### L IPID #### [facility] [address] [address] [address] Yuliya Jones HDL NORMAL > or = 60 mg/dl - LO W CARDIOVASCULAR RISK <40 mg/dl - HIGH CARDIOVASCULAR RISK Normal [facility] Comment on above: Performed By: #### L IPID #### [facility] [address] [address] [address] Yuliya Jones LDL CALC NORMAL SEE BELOW Normal [facility] Comment on above: Result Comment: <100 mg/dl OPTIMAL 100 - 129 mg/dl NEAR OR ABOVE OPTIMAL 130 - 159 mg/dl BORDERLINE HIGH 160 - 189 mg/dl HIGH >190 mg/dl VERY HIGH Performed By: #### L IPID #### [facility] [address] [address] [address] Yuliya Jones Triglyceride [Mass/Vol] 273 mg/dL Critically high <=150 [facility] Comment on above: Performed By: #### L IPID #### [facility] [id number] Yuliya Jones VLDL CALC 54.6 mg/dL Normal [facility] Comment on above: Performed By: #### L IPID #### [facility] [address] [address] [address] Yuliya Jones XR ANKLE RT MIN [...] 5. Plantar calcaneal enthesophyte. Electronically authenticated by: RORO RUBIA Date: 2021-12-18 07:50 Normal [facility] FLUORO FOR SURGICAL PROCEDUR ESon 10-25-2021 FLUORO FOR SURGICAL PROCEDURES Radiology exam is complete. No Radiologist dictation. Please follow up with ordering provider. Final result Normal [facility] Radiology exam is complete. No Radiologist dictation. Please follow up with ordering provider. [facility] Cardiovascular Lab Reporton 07-22-2020 Cardiovascular Lab Report [facility] Patient Name: [facility] Amparo Moraes MR #: [id number] Department of Physician: Raeann Billy M.D. Division of Service Date: 07/22/2020 Cardiology Birthdate: 1960 Adult Cardiovascular Room #: [address] [place] [address] Cardiovascular Laboratory Report FINAL IMPRESSIONS: 1. Moderate [...] Follow up with Dr. Walton in the [place] office in the next 1 to 2 [...] right internal jugular vein was obtained. A 6-Prydeinig x 11 cm sheath was inserted without [...] to access the left radial artery. A 6-Prydeinig glide sheath was inserted without difficulty. Bilateral [...] P/Manish Walton M.D. Date Trans: 07/22/2020 02:58 P/dinesh [id number] cc: Kunal Patel M.D. [address], [facility] [address] Normal [facility] Physician Referralon 021 Physician Referral [phone] [id number]: 127 Normal [facility] CNOVon 06-24-2018 CNOV Office Visit (LIVIA) AMPARO BARTH ([id number]) 1960 FDate Time Provider Department06/24/18 9:00 AM [...] MD 06/24/2018 10:11 AM SignedName: Amparo BarthMRN: [id number]: June 24, 2018Patient seen and examined in [...] facility-administered medications for this visit. Chito Antonio, MDPGY-6 FellowReferring Provider: KUNAL PATEL [[id number]]Allergies As of Date: 06/24/2018 Noted Allergy ReactionPERCOCET [...] Dietary noncompliance [Z91.11] INVALID FOR*Visit Notes:>> Zafar Antonino Mon Jun 24, 2018 9:25 AM Status: SignedWhat is the reason for your visit today? ConsultWho is your referring physician? Dr Kunal Zimmer you having poor oral intake? NOHave you had unintentional weight loss of 15 lbs/7 Kg in the last 3-6months? NOBowels: regularWound: clean AND dryTemperature: NoDrains: NoEncounter Number: [id number] Status:Closed by ZAID DENNIS MD on 06/24/18 [facility] HISTORY PHYSICALon 9 HISTORY PHYSICAL HNO ID: [id number]: Chito (Ronn) Jt: (none)Author Type: FellowType: HANDPFiled: 06/24/2018 10:11 AMNote Text:Name: Amparo BarthMRN: [id number]: June 24, 2018Patient seen and examined in clinicThi sis a 57 y/o female presenting for initial evaluation of recurrentventral hernias evident for the last 6 months. In 2015 she underwent lapccy with primary repair of [...] facility-administered medications for this visit. Chito Antonio, MDPGY-6 Fellow Normal [facility] PROGRESSon 06-24-2018 Protein mass conc HNO ID: [id number]: Zaid Baptiste: (none)Author Type: PhysicianType: Progress NotesFiled: [...] need anopen repair with retro-muscular mesh. Normal [facility] SR-CT ABD/PELVIS W CON IMPOR Ton 12-03-2017 SR-CT ABD/PELVIS W CON IMPORT Images were obtained outside of [facility] [id number] Normal [facility] Vital Signs Date Time Vital Sign Value Performing Clinician Karen frank 10-25-2021 14:26-0400 Diastolic blood pressure 138 mm[Hg] Curtis Lima MD Work Phone: [facility] [employer] 10-25-2021 14:26-0400 Systolic blood pressure 239 mm[Hg] Curtis Lima MD Work Phone: [facility] [employer] 10-25-2021 13:53-0400 Body temperature 97.81 [degF] Curtis Lima MD Work Phone: [email or web address] 10-25-2021 13:53-0400 Heart rate 62 /min Curtis Lima MD Work Phone: [email or web address] 10-25-2021 13:53-0400 Respiratory rate 18 /min Curtis Lima MD Work Phone: [facility] [employer] 10-25-2021 13:53-0400 SaO2% (BldA) [Mass fraction] 96 % Curtis Lima MD Work Phone: [facility] [employer] 10-13-2021 08:17-0400 Body height 165.1 cm Curtis Lima MD Work Phone: [facility] [employer] Encounters Encounter Date Encounter Type Care Provider Facility Start: 06-26-2023 ambulatory [facility] Start: 04-17-2023 End: 04-17-2023 ambulatory [facility] Start: 12-28-2022 ambulatory [facility] Start: 12-28-2022 End: 12-28-2022 ambulatory [facility] Start: 12-27-2022 End: 12-27-2022 ambulatory [facility] Start: 12-25-2022 Encounter for other preprocedural examination [facility] Start: 12-25-2022 End: 12-26-2022 ambulatory [facility] Start: 12-18-2022 End: 12-19-2022 ambulatory RAI [facility] Start: 11-21-2022 End: 11-21-2022 ambulatory [facility] Start: 10-20-2022 End: 10-20-2022 ambulatory NYAELI FELIZ [facility] Start: 10-11-2022 End: 10-11-2022 ambulatory [facility] Start: 09-12-2022 End: [facility]12[facility] Start: 07-24-2022 End: 07-25-[address] KUNAL PATEL . Facility:[facility] Start: 03-28-2022 ambulatory GARTH MCCARTHYCKER Facility :[facility] Start: 03-08-2022 Encounter for genera l adult medical examination without abnormal findings GARTH ANDREWS [facility] Start: 03-07-2022 End: 03-08-2022 ambulatory GARTH DARRYL Facility:[facility] Start: 03-07-2022 End: 03-08-2022 Encounter for general adult medical examination without abnormal findings GARTH DARRYL Facility:[facility] Start: 12-18-2021 End: 12-18-2021 ambulatory DELIA COKER Facility:[facility] Start: 10-25-2021 End: 10-25-2021 [facility] Start: 10-25-2021 End: 10-25-2021 Subsequent hospital visit by physician Curtis Lima MD Work Phone: [facility] Start: 07-22-2020 End: 07-23-2020 Patient encounter procedure EHAB A EVY Facility:[facility] Start: 06-24-2018 Patient encounter procedure ZAID DENNIS [facility] Procedures Date Procedure Procedure Detail Performing Clinician Start: 10-25-2021 Fluoroscopy during operation Curtis Lima MD Work Phone: Plan of Treatment Date Care Activity Detail Author Start: 02-16-2022 Influenza vaccination Flu vacc ine (Season Ended) [facility] Start: 10-25-2021 End: 10-25-2021 Njx dx/ther sbst intrlmnr lmbr/sac w/img gdn EPIDURAL STEROID INJECTION LUMBAR SACRAL RAD LUMBAR RAD 10/25/2021 2:21 PM EDT [facility] Start: 2008 Screening for malign ant neoplasm of breast Breast cancer screen [facility] Start: 2008 Shingles vaccine (1 of 2) Shingles vaccine (1 of 2) [facility] Start: 2003 Screening for malign ant neoplasm of colon [facility] Start: 1988 Screening for malign ant neoplasm of cervix [facility] Start: 1979 Screening for malign ant neoplasm of cervix Pap smear [facility] Start: 1977 DTaP/Tdap/Td vaccine (1 - Tdap) DTaP/Tdap/Td vaccine (1 - Tdap) [facility] Start: 1976 Creatinine measurement Creatinine [facility] Start: 1976 Hepatitis C screening Hepatitis C sc reen [facility] Start: 1976 Potassium [Moles/vol ume] in Serum or Plasma Potassium [facility] Start: 1973 HIV screening HIV screen [facility] Start: 1970 Depression Screen Depression Screen [facility] Start: 1968 Lipid panel Lipids [facility] Start: 1963 COVID-19 Vaccine (1) COVID-19 Vaccin e (1) [facility] Start: 1960 Annual Wellness Visi t (AWV) Annual Wellness Visit (AWV) [facility] Payers Date Payer Category Payer Medicare [id number] 1961 Medicaid [id number] 1961 Medicare [id number]. [id number] 1961 Self-pay [id number] 1960 Unknown [id number] [id number] 1960 Unknown [id number] 2.16.8 [id number] 1960 Unknown [id number] 2.16.84 [id number] 1960 Unknown [id number] 2.16.84 [id number] 1960 Unknown [id number] 2.16.84 [id number] 1960 Unknown [id number] 2.16.84 [id number] 1960 Unknown [id number] 2.16.84 [id number] Medicare [id number] Social History Date Type Detail Facility Start: 10-13-2021 Tobacco smoking stat [facility] Never smoked tobacco [facility] Start: 10-13-2021 Tobacco use and exposure Smokeless tobacco non-user [employer] Phone: Start: 10-25-2021 Alcohol intake Current drinke r of alcohol (finding) [employer] Phone: Start: 10-13-2021 History SDOH Alcohol Comment socially [employer] Phone: Start: 1960 Sex Assigned At Not on file [employer] Phone: Clinical Notes 10-25-2021 to 06-26-2023 Radha Estevez RN - 10/25/2021 2:41 PM Edward Estevez RN - 10/25/2021 2:31 PM EDTInstructionsAuth/Cert [...] All other systems reviewed and are negative. [place] Electrophysiology Note [facility] Reason for Consultation: Aflutter s/p [...] 07/2022, atrial fib (was intolerant of amiodarone) [id number] at least 5 for gender, hypertension, TIA, [...] hx TIA 2008. She was seen at [facility] ER with c/o palpitations and chest [...] no significant antony (more content not included)... [facility] 04-17-2023 Note [place] Electrophysiology Note [facility] Reason for Consultation: Aflutter s/p [...] 07/2022, atrial fib (was intolerant of amiodarone) [id number] at least 5 for gender, hypertension, TIA, [...] hx TIA 2008. She was seen at [facility] ER with c/o palpitations and chest [...] ulcer, no varicosities, (more content not included)... [facility] 04-17-2023 Note Patient here for 3 m o follow up afib ablation. Had some palpitations last week she says. Denies chest pain, SOB, lightheadedness, and bleeding on Eliquis. Review of Systems Cardiovascular: Positive for palpitations. Musculoskeletal: Positive for arthritis and myalgias. All other systems reviewed and are negative. [facility] 02-12-2023 Note Ordering remote loop check to [...] noted to be on eliquis 5mg BID [facility] 12-28-2022 Note Patient: Amparo evangelista Procedure Summary Date: 12/28/22 Room / Location: [facility] [employer]PER[employer] 1 EP / [facility] (Cath) Anesthesia Start: 855 Anesthesia Stop: 1222 Procedure: Ablation a-fib paroxysmal Diagnosis: Paroxysmal atrial [...] no known notable events for this encounter. [facility] 12-28-2022 Note ATRIAL FIBRILLATION ABLATION PROCEDURE NOTE DATE OF PROCEDURE: 12/28/2022 PERFORMING PHYSICIAN: Dr. Rai Jay DIRECTOR DATA: Dr Trice Conklin CONSENT: Patient NAME OF [...] hx TIA 2008. She was seen at [facility] ER with c/o palpitations and chest [...] pulmonary veins. Esophagus was mapped using the [employer] 3D mapping software and noted to lie [...] observation. LA baseline (more content not included)... [facility] 12-28-2022 Note Airway Date/Time: 12/28/2022 9:12 AM Urgency: elective General Information and Staff Patient location during procedure: OR Resident/JUICE BAR TEAM MEMBER/CAA: Kenneth Nunez MD Performed: resident/JUICE BAR TEAM MEMBER/CAA Indications and Patient Condition Indications for airway [...] 1 Number of other approaches attempted: 0 [facility] 12-28-2022 Note Arterial Line: Date/Time: 12/28/2022 7:34 [...] 1 % SubQ, 5 mL Staffing Performed: resident/JUICE BAR TEAM MEMBER/CAA Resident/JUICE BAR TEAM MEMBER: Kenneth Nunez MD Performed by: Kenneth Nunez MD Authorized by: Rosalia Apodaca MD [facility] 12-28-2022 Note Patient: Amparo evangelista Procedure Information Date/Time: 12/28/22 0800 Procedure: Ablation a-fib paroxysmal Location: [facility] / [facility] (Cath) Providers: Rai [...] with patient who. Plan discussed with resident, CAA and JUICE BAR TEAM MEMBER. Additional Equipment Requests [facility] 12-27-2022 Note [place] Electrophysiology Note [facility] Reason for Consultation: Aflutter s/p [...] 07/2022, atrial fib (was intolerant of amiodarone) [id number] at least 5 for gender, hypertension, TIA, [...] hx TIA 2008. She was seen at [facility] ER with c/o palpitations and chest [...] sleep apnea Musculos (more content not included)... [facility] 12-27-2022 Note Patient here for H&P prior to afib ablation scheduled for tomorrow with Dr. Jay. Review of Systems Musculoskeletal: Positive for arthritis and myalgias. All other systems reviewed and are negative. [facility] 11-21-2022 Note e [facility] 11-21-2022 Note Patient here for 1 m o follow up. She had loop recorder implanted in September 2022. Doing very well. Denies chest pain, SOB, palpitations, lightheadedness, and bleeding on Eliquis. Review of Systems Constitutional: Positive for malaise/fatigue. All other systems reviewed and are negative. [place] Electrophysiology Note [facility] Reason for Consultation: Aflutter s/p [...] hx TIA 2008. She was seen at [facility] ER with c/o palpitations and chest [...] Neck: supple, trache (more content not included)... [facility] 10-20-2022 Note continue all medicat ions RTC as scheduled with Dr Jay in November [facility] 10-20-2022 Note Incision well healed , approximated and no s/s of infection [facility] 10-20-2022 Note UTP CARDIOLOGY PROGR ESS NOTE [...] as scheduled with Dr Jay in November [facility] 10-20-2022 Note Patient here for wou nd check s/p loop implant. [facility] 10-11-2022 Note LOOP IMPLANT PROCEDU RE NOTE DATE OF PROCEDURE: 10/11/2022 PERFORMING PHYSICIAN: Dr. Rai Jay DIRECTOR DATA: Dr Joanne Olivares INDICATIONS FOR PROCEDURE: 1. [...] the sternum on the left using the [employer] tool. The loop recorder was then injected [...] the incision. Rai Jay MD Cardiac Electrophysiology. [facility] 09-14-2022 Note -managed per PCP -ct current medications [facility] 09-14-2022 Note -HFpEF/diastolic dys function. Compensated today, no concerns for fluid overload, continue lasix [facility] 09-14-2022 Note - continues to have palpitations despite being post ablation - ECG sinus rhythm - will proceed with appeal for loop monitor - she has history of TIA and continued palpitations [facility] 09-14-2022 Note -[id number] 3 - s/p CTI ablation - continues to have palpitations despite being post ablation - ECG is sinus rhythm - I will proceed with appeal for loop monitor regarding palpitations [facility] 09-14-2022 Note -chronic issue for h er since she has been in her 20s due to having multiple respiratory infections she states [facility] 09-14-2022 Note -Likely the result o f bronchitis in the past, undiagnosed sleep apnea and obesity related hypoventilation. She is seeing pulmonary, noted abnormal PFTs [facility] 09-12-2022 Note Review of Systems Cardiovascular: Positive for chest pain. All other systems reviewed and are negative. [facility] 09-12-2022 Note [place] Electrophysiology Note [facility] Reason for Consultation: Aflutter s/p [...] pain, lightheadedness, dizziness, syncope, palpitations. Previous per [place] 07/2022 HPI: Amparo Barth is a 62 y.o. 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 She was seen at [facility] ER with c/o palpitations and chest [...] mouth, no m (more content not included)... [facility] 10-25-2021 History of Present illness Narrative Discharge instructions reviewed with patient. Had no sedation. Signed for self. To recovery. Denies pain complaints. Injection site clean and dry. BP 190/95. P 63. Oxygen 98%. Resp 18. updated on elevated pressure. documented in this encounter [employer] Phone: 10-25-2021 Hospital Discharge instructions Radha Estevez [...] a follow-up visit. documented in this encounter [employer] Phone: Reason for visit Narrative Specialty Diagnoses / Procedures Referred By Contac t Referred To Contact Diagnoses LUMBAR SACRAL RAD LUMBAR RAD Procedures RI NJX DX/THER SBST INTRLMNR LMBR/SAC W/IMG GDN EPIDURAL STEROID INJECTION- L4-5 Curtis Lima MD [address] [place] [address] [employer] [address] [place] [address] Referral ID Status Reason Start Date Expiration Date Visits Re quested Visits Authorized 1 1 [employer] Phone: Summary Purpose Family History No Family [...] section and content) DATE CREATED AUTHOR 06/26/2018 [facility] DATE CREATED AUTHOR AUTHOR'S ORGANIZ ATION 07/13/2020 [facility] DATE CREATED AUTHOR AUTHOR'S ORGANIZ ATION 08/05/2020 [facility] DATE CREATED AUTHOR AUTHOR'S ORGANIZ ATION [facility] DATE CREATED AUTHOR AUTHOR'S ORGANIZ ATION 09/29/2022 [facility] DATE CREATED AUTHOR AUTHOR'S ORGANIZ ATION 09/10/2023 [facility] PRN Active and Recently Administ ered Medications (unrecognized section and content) Medication Order 10/23/2021 10/24/2021 10/25/2021 dexamethasone (DECADRON) injection (CANCELED) PRN, Starting on Sun10/25/21 at 1425, Until Sun10/25/21 at 1431, Intra-op 1425 (Given - Provid er: Curtis Lima MD) iohexol (OMNIPAQUE 240) injection (CANCELED) PRN, Starting on Sun10/25/21 at 1425, Until Sun10/25/21 at 1431, Intra-op 1425 (Given - Provid er: Curtis Lima MD) lidocaine PF 1 % injection (CANCELED) PRN, Starting on Sun10/25/21 at 1425, Until Tu10/25/21 at 1431, Intra-op 1425 (Given - Provid er: Curtis Lima MD) methylPREDNISolone acetate (DEPO-MEDROL) injection (CANCELED) PRN, Starting on Sun10/25/21 at 1425, Until Sun10/25/21 at 1431, Intra-op 1425 (Given - Provid er: Curtis Lima MD) sodium chloride (PF) 0.9 % injection (CANCELED) PRN, Starting on Sun10/25/21 at 1424, Until Sun10/25/21 at 1431, Intra-op 1424 (Given - Provid er: Curtis Lima MD) Care Teams (unrecognized sec tion and content) 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 [facility]. provides no warranty or guarantee of the accuracy or completeness of information in this document.
[2023-09-18 09:57] LABS: Basophils Percent Auto 0.4 % (0.2-2.0); Eosinophils Absolute Auto 0.2 10^3/uL (0.0-0.7); Eosinophils Percent Auto 2.6 % (0.9-7.0); Hematocrit 38.7 % (36.0-48.0); Hemoglobin 12.6 g/dL (12.0-16.0); Immature Granulocytes Abs Auto 0.05 10^3/uL (0.00-0.03); Immature Granulocytes Pct Auto 0.7 % (0.0-0.5); Lymphocytes Absolute Auto 1.8 10^3/uL (1.2-3.8); Lymphocytes Percent Auto 26.4 % (20.5-60.0); Mean Corpuscular HGB Conc 32.6 g/dL (29.9-35.2); Mean Corpuscular Hemoglobin 29.3 pg (26.7-34.0); Mean Platelet Volume 10.5 fL (9.5-13.5); Monocytes Absolute Auto 0.4 10^3/uL (0.3-0.8); Monocytes Percent Auto 6.5 % (1.7-12.0); Neutrophils Absolute Auto 4.3 10^3/uL (1.4-6.5); Neutrophils Percent Auto 63.4 % (43.0-75.0); Platelet Count 185 10^3/uL (150-450); Red Cell Distribution Width 13.2 % (11.0-15.0); White Blood Count 6.8 10^3/uL (4.0-11.0)
[2023-09-18 10:51] LABS: Anion Gap 12.6; BUN Creatinine Ratio 11.2; Calcium 8.8 mg/dL (8.5-10.1); Carbon Dioxide 26.9 mmol/L (21.0-32.0); Chloride 106 mmol/L (98-107); Estimated GFR (African America >60 (>=60); Estimated GFR (Non-African Ame >60 (>=60); Glucose 193 mg/dL (74-106); Potassium 3.5 mmol/L (3.5-5.1); Sodium 142 mmol/L (136-145)
== END 2023-09-18 09:30 | disposition home or self-care (01) ==
LOC: LAB 09:34
PROVIDERS: PCP Family Medicine; Visit Provider Internal Medicine Cardiovascular Disease
DX: I48.0 Paroxysmal atrial fibrillation (principal)
CPT/HCPCS: 36415; 80048; 85025

== ENCOUNTER 2024-03-12 10:06 | Outpatient (OUT) | payer MEDICARE, SELFPAY ==
--- OUTSIDE RECORDS SUMMARY | 2024-03-12 10:11 | XMS_ITS | CCD ---
Author Organization [facility] [place] [facility] Care Team Providers Care Hunting Sales Associate Name Role Phone ZAID DENNIS Unavailable Unavailable KUNAL PATEL Unavailable Unavailable ELTAHAWY, EHAB A Attending Unavailable ELTAHAWY, EHAB A Admitting Unavailable SELF, REFERRED Referring Unavailable KUNAL PATEL Primary Care Unavailable Kunal Patel MD Primary Care Provider [phone] ANNABEL LIMA Admitting Unavailable ANNABEL LIMA Attending Unavailable KUNAL PATEL Primary Care Unavailable SAQIB ANDREWSINDA Admitting Unavailable GARTH ANDREWS Consulting Unavailable GARTH ANDREWS Attending Unavailable LEIGHTON ., DR SYED Primary Care Unavailable RAI JAY Admitting Unavailable RAI JAY Attending Unavailable LEIGHTON ., DR SYED Primary Care Unavailable DELIA COKER Admitting Unavailable DELIA COKER Consulting Unavailable DELIA COKER Attending Unavailable LEIGHTON ., DR SYED Primary Care Unavailable RUBIARORO Ash Consulting Unavailable DARRYL, GARTH Admitting Unavailable GARTH ANDREWS Attending Unavailable LEIGHTON ., DR SYED Primary Care Unavailable LEIGHTON ., DR SYED Admitting Unavailable LEIGHTON ., DR SYED Primary Care Unavailable LEIGHTON ., DR SYED Consulting Unavailable LEIGHTON ., DR SYED Attending Unavailable EMILY LUZ Attending Unavailable FERNANDO, CHIARA Referring Unavailable FERNANDO, CHIARA Referring Unavailable FERNANDO, CHIARA Referring Unavailable FERNANDO, CHIARA Referring Unavailable FERNANDO, CHIARA Referring Unavailable RAI JAY Referring Unavailable FERNANDO, CHIARA Referring Unavailable BESS MARTIN Attending Unavailable RAI JAY Attending Unavailable RAI JAY Attending Unavailable RAI JAY Referring Unavailable RAI JAY Admitting Unavailable RIA JAY Attending Unavailable RAI JAY Referring Unavailable FERNANDO, CHIARA Referring Unavailable Allergies Allergy Classification Reported Allergen(s) Allergy Type Date of Onset Reaction(s) Facility (2 sources) Acetaminophen / oxyCODONE; Translations: [OXYCODONE-ACETAMI NOPHEN] Drug Allergy 08-19-2013 [facility] Repository (3 sources) Acetaminophen / oxyCODONE Drug Allergy 01-24-2013 [facility] Repository Medications Current Medications Medication Drug Class(es) [...] 25 mg oral tablet (1 source) alpha-Adrenergic Armando, beta-Adrenergic Armando take 1 tablet by mouth twice daily [...] release oral capsule (1 source) Calcium Channel Armando take 1 capsule by mouth once daily [...] Problem Date Documented Date Episodic/Chronic Cardiac dysrhythmias (2 sources) Paroxysmal atrial fibrillation; Translations: [Paroxysmal atrial fibrillation] Onset: 07-04-2023 Chronic Cardiac dysrhythmias (2 sources) Palpitations; Translations: [Palpitations] Onset: 12-05-2023 Episodic Congestive heart failure; nonhypertensive (1 source) Unspecified diastolic (congestive) heart failure; Translations: [UNSPECIFIED DIASTOLIC HEART FAILURE] Onset: 07-26-2022 Chronic Coronary atherosclerosis and other heart disease (1 source) Atherosclerotic heart disease of [place] coronary artery without angina pectoris; Translations: [ASHD KAKE CA W/O ANGINA PECTORIS] Onset: 03-08-2022 Chronic [...] INDEX BMI 40.0-44.9 ADULT] Onset: 12-21-2021 Chronic Unclassified (1 source) Unknown / UNK(Unknown) Onset: 06-24-2018 Past or Other Problems Problem Classification Problem Date Documented Da te Episodic/Chronic E Codes: Overexertion (1 source) Slipping, tripping and stumbling without falling due to stepping into hole or opening, initial encounter; Translations: [SLIP STUMBL NO FALL STEP HOLE INIT] Onset: 12-21-2021 Episodic Other aftercare (1 source) 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; Translations: [FCI CURRENT USE OF ASPIRIN] Onset: 12-21-2021 Episodic Other aftercare (1 source) 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; Translations: [OTH [facility] CURRENT DRUG THERAPY] Onset: 12-21-2021 Episodic Other [...] Test Name Value Interpretation Reference Range Facility Telephoneon 10-18-2023 Telephone [id number] BarthCarina buck A 1960 F Date Provider Department Center 10/18/2023 1987[facility] Family History Problem Relation Age of Onset Heart failure Mother Hyperlipidemia Mother Hypertension Mother Heart failure Father Hypertension Father Heart failure Brother Hyperlipidemia Brother Hypertension Brother Family Status - Relation Status Age at Mother Father Brother Reason for Visit and Comments: 3 week f/u post ablation [Other] Normal [facility] Telephoneon 10-05-2023 Telephone [id number] TabCarina buck A 1960 F Date Provider Department Center 10/05/2023[facility] Family History Problem Relation Age of Onset Heart failure Mother Hyperlipidemia Mother Hypertension Mother Heart failure Father Hypertension Father Heart failure Brother Hyperlipidemia Brother Hypertension Brother Family Status - Relation Status Age at Mother Father Brother Reason for Visit and Comments: week f/u post ablation [Other] Normal [facility] Telephoneon 10-04-2023 Telephone [id number] Carina Barth A 1960 F Date Provider Department Center 10/04/2023[facility] Family History Problem Relation Age of Onset Heart failure Mother Hyperlipidemia Mother Hypertension Mother Heart failure Father Hypertension Father Heart failure Brother Hyperlipidemia Brother Hypertension Brother Family Status - Relation Status Age at Mother Father Brother Reason for Visit and Comments: post ablation f/u [Other] [facility] Electrophysiology Note [facility] Reason for Consultation: Aflutter s/p ablation 07/26/22, AFIB ablation 12/28/22 09/26/23 Pt here for Afib ablation. EKG SR 06/26/23 There is recurrence of atrial fibrillation [...] She denies chest pain, shortness of breath, REID, LE edema, orthopnea, lightheadedness, dizziness. Despite no symptoms she has had several AF events on loop monitor, she is having shorter episodes and is self-converting ECG 04/17/23 SR 12/28/2022 sinus rhythm 12/26/22 loop afib event PMH: mild to mod CAD per 07/2020 cath, pHTN, HTN, diastolic dysfunction, hx TIA 2008, atrial flutter s/p ablation 07/2022, atrial fib (was intolerant of amiodarone) [id number] at least 5 for gender, hypertension, TIA, [...] daily Prior HPI: Amparo Barth is a 63 y.o. 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 She was seen at [facility] ER with c/o palpitations and chest [...] Medical History: Diagnosis Date Abnormal ECG Arrhythmia ATRIAL FIB Arthritis Atrial flutter (CMS/HCC) Coronary artery disease Hypertension Obesity BMI 41.10 TIA (transient ischemic attack) 2009 As above PSH: Past Surgical History: Procedure Laterality Date CARDIAC CATHETERIZATION 07/22/2020 CHOLECYSTECTOMY HAND SURGERY HERNIA REPAIR x 2 HYSTERECTOMY KNEE SURGERY x 3 OTHER SURGICAL HISTORY N/A 07/2022 ATRIAL FLUTTER ABLATION SH: Social Determinants of Health Tobacco Use: Low Risk (09/26/2023) Patient History Smoking Tobacco Use: Never Smokeless Tobacco Use: Never Passive Exposure: Not on file Alcohol Use: Not on file Financial Resource Strain: Not on file Food Insecurity: Not on file Transportation Needs: Not on file Physical Activity: Not on file Stress: Not on file Social Connections: Not on file Intimate Partner Violence: Unknown (08/09/2023) SD Safety & Environment Fear of Current or Ex-Partner: Not on file Emotionally Abused: Not on file Physically Abused: Not on file Sexually Abused: Not on file Physically or Sexually Abused: Not on file Depression: Not on file Housing Stability: Not on file Utilities: Not on file Meds: No current facility-administered medications on file prior to encounter. Current Outpatient Medications on File Prior to Encounter Medication Sig Dispense Refill ALPRAZolam (Xanax) 0.5 mg tablet Take 0.5 mg by mouth if needed for anxiety or sleep. apixaban (Eliquis) 5 mg tablet Take 1 [...] mouth in the morning and at bedtime. 60 tablet 0 nitroglycerin (Nitrostat) 0.[address] 1 TABLET IN MOUTH EVERY 5 MINUTES 3 TIMES A DAY NEEDED FOR CHEST PAIN pantoprazole (ProtoNix) 40 mg EC tablet Take 1 tablet by mouth in the morning. ROS: Cardio Basic Cardiovascular Symptoms: no lightheadedness, no leg edema, no syncope, no (more content not included)... Normal [facility] POCT GLUCOSE METER UNSOLICIT ED RESULTSon 09-26-2023 Glucose [Mass/Vol] 173 mg/dL High 70-105 [facility] Comment on above: Order Comment: Waive d Testing in the ED is performed under the ED CLIA certificate #[id number]. Result Comment: dspe ars Performed By: #### L [id number] ####[facility] [place] [address] Glucose [Mass/Vol] 164 mg/dL High 70-105 [facility] Comment on above: Order Comment: Waive d Testing in the ED is performed under the ED CLIA certificate #[id number]. Result Comment: eyou ng12 Performed By: #### L [id number] ####[facility] [place] [address] PROTIME-INRon 09-26-2023 INR IN PPP BY COAGULATION ASSAY 1.01 Normal 0.90-1.10 [facility] Comment on above: Result Comment: ACCC P [...] CHEST 1995;108:[id number]. Performed By: #### L [id number] ####[facility] [place] [address] PROTHROMBIN TIME (PT) IN PPP BY COAGULATION ASSAY 13.3 Seconds Normal 12.3-14.8 [facility] Comment on above: Performed By: #### L [id number] ####[facility] [place] [address] Prep for Procedureon 024 Prep for Procedure [id number] Carina Barth 1960 F Date Provider Department Center 09/26/2023[facility] Family History Problem Relation Age of Onset Heart failure Mother Hyperlipidemia Mother Hypertension Mother Heart failure Father Hypertension Father Heart failure Brother Hyperlipidemia Brother Hypertension Brother Family Status - Relation Status Age at Mother Father Brother Normal [facility] [id number] 09-18-2023 [id number] ARRIVAL TIME 0700 HOLD ELIQUIS 4/8 MULTI VITAMIN 4/5 MEDICATIONS TO TAKE DAY OF SURGERY WITH SIP OF WATER XANAX IF NEEDED COREG DILTIAZEM CYMBALTA ISOSORBIDE HOLD VITAMINS AND SUPPLEMENTS 5 DAYS PRIOR TO PROCEDURE HOLD ALL ANTI INFLAMMATORIES ETC:MOTRIN, ADVIL, ALEVE, FOR 5 DAYS PRIOR TO PROCEDURE IF YOU ARE GOING HOME AFTER YOUR SURGERY OR PROCEDURE, FOR YOUR SAFETY, YOUR SURGERY WILL BE CANCELLED IF BOTH OF THE FOLLOWING ARE NOT AVAILABLE: 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 Do not wear perfume, make-up, nail hungarian, or lotions on the day of your [...] need to make any changes, please call [phone]. Notify your surgeon if you develop any illness such as a cold, cough, fever, sore throat or vomiting between now and your surgery. Thank you for entrusting us with your care. [facility] Surgical Services Team Normal [facility] Office Visiton 09-18-2023 Follow-up visit [id number] Carina Barth 1960 F Date Provider Department Center 09/18/2023 CaitlynRAI MASSEY [facility] Family History Problem Relation Age of Onset Heart failure Mother Hyperlipidemia Mother Hypertension Mother Heart failure Father Hypertension Father Heart failure Brother Hyperlipidemia Brother Hypertension Brother Family Status - Relation Status Age at Mother Father Brother Level of Service:40711 NE OFFICE/OUTPATIENT ESTABLISHED HIGH MDM 40 MIN Reason for Visit and Comments: Follow-up [153801] Normal [facility] Prep for Procedureon 024 Prep for Procedure [id number] Carina Barth A 1960 Date Provider Department Center 09/05/20231986-[facility] Family History Problem Relation Age of Onset Heart failure Mother Hyperlipidemia Mother Hypertension Mother Heart failure Father Hypertension Father Heart failure Brother Hyperlipidemia Brother Hypertension Brother Family Status - Relation Status Age at Mother Father Brother Normal [facility] Office Visiton 06-26-2023 Follow-up visit [id number] BarthCarina Aleisha 1960 Date Provider Department Center 06/26/2023 GrupoRAI JAY [facility] Family History Problem Relation Age of Onset Heart failure Mother Hyperlipidemia Mother Hypertension Mother Heart failure Father Hypertension Father Heart failure Brother Hyperlipidemia Brother Hypertension Brother Family Status - Relation Status Age at Mother Father Brother Level of Service:57549 NE OFFICE/OUTPATIENT ESTABLISHED MOD MDM 30 MIN [facility] Office Visiton 04-17-2023 Follow-up visit [id number] BarthCarina Aleisha 1960 Date Provider Department Center 04/17/2023 BESS PETER [facility] Family History Problem Relation Age of Onset Heart failure Mother Hyperlipidemia Mother Hypertension Mother Heart failure Father Hypertension Father Heart failure Brother Hyperlipidemia Brother Hypertension Brother Family Status - Relation Status Age at Mother Father Brother Level of Service:33247 NE OFFICE/OUTPATIENT ESTABLISHED MOD MDM 30-39 MIN [facility] Orders Onlyon 02-12-2023 Orders Only [id number] Carina Barth Aleisha 1960 F Date Provider Department Center 02/12/2023 BESS PETER GOLD [facility]. Family History Problem Relation Age of Onset Heart failure Mother Hyperlipidemia Mother Hypertension Mother Heart failure Father Hypertension Father Heart failure Brother Hyperlipidemia Brother Hypertension Brother Family Status - Relation Status Age at Mother Father Brother Normal [facility] BNPon 07-24-2022 Natriuretic peptide B (Bld) [Mass/Vol] 109.0 pg/mL Normal <=900.0 [facility] Comment on above: Performed By: #### C MP, T7, BNP, LIPID, TSH #### [facility] [address] [place] [address] Dr. Yuliya Jones CBC AUTO DIFFon 07-24-2022 BASO # 0.0 103/ul Normal 0.0-0.1 [facility] Comment on above: Performed By: #### C BC #### [facility] [address] [place] [address] Dr. Yuliya Jones Basophils/100 WBC (Bld) 0.4 % Normal 0.2-2.0 [facility] Comment on above: Performed By: #### C BC #### [facility] [address] [place] [address] Dr. Yuliya Jones EO # 0.2 103/ul Normal 0.0-0.7 [facility] Comment on above: Performed By: #### C BC #### [facility] [address] [place] [address] Dr. Yuliya Jones Eosinophils/100 WBC (Bld) 2.2 % Normal 0.9-7.0 [facility] Comment on above: Performed By: #### C BC #### [facility] [address] [place] [address] Dr. Yuliya Jones Erythrocyte distribution width (RBC) [Ratio] 13.6 % Normal 11.0-15.0 [facility] Comment on above: Performed By: #### C BC #### [facility] [address] [place] [address] Dr. Yuliya Jones Hematocrit (Bld) [Volume fraction] 40.1 % Normal 36.0-48.0 [facility] Comment on above: Performed By: #### C BC #### [facility] [address] [place] [address] Dr. Yuliya Jones Hemoglobin (Bld) [Mass/Vol] 13.1 g/dL Normal 12.0-16.0 [facility] Comment on above: Performed By: #### C BC #### [facility] [address] [place] [address] Dr. Yuliya Jones IG # 0.05 10e3/ul Critically high 0.00-0.03 [facility] Comment on above: Performed By: #### C BC #### [facility] [address] [place] [address] Dr. Yuliya Jones IG % 0.7 % Critically high 0.0-0.5 [facility] Comment on above: Performed By: #### C BC #### [facility] [address] [place] [address] Dr. Yuliya Jones LYMPH # 2.0 103/ul Normal 1.2-3.8 [facility] Comment on above: Performed By: #### C BC #### [facility] [address] [place] [address] Dr. Yuliay Jones Lymphocytes/100 WBC (Bld) 26.9 % Normal 20.5-60.0 [facility] Comment on above: Performed By: #### C BC #### [facility] [address] [place] [address] Dr. Yuliya Jones MANUAL DIFF REQ NO Normal [facility] Comment on above: Performed By: #### C BC #### [facility] [address] [place] [address] Dr. Yuliya Jones MCH (RBC) [Entitic mass] 28.5 pg Normal 26.7-34.0 [facility] Comment on above: Performed By: #### C BC #### [facility] [address] [place] [address] Dr. Yuliya Jones MCHC (RBC) [Mass/Vol] 32.7 g/dL Normal 29.9-35.2 [facility] Comment on above: Performed By: #### C BC #### [facility] [address] [place] [address] Dr. Yuliya Jones MCV (RBC) [Entitic vol] 87.4 fL Normal 81.0-99.0 [facility] Comment on above: Performed By: #### C BC #### [facility] [address] [place] [address] Dr. Yuliya Jones MONO # 0.4 103/ul Normal 0.3-0.8 [facility] Comment on above: Performed By: #### C BC #### [facility] [address] [place] [address] Dr. Yuliya Jones Monocytes/100 WBC (Bld) 5.1 % Normal 1.7-12.0 [facility] Comment on above: Performed By: #### C BC #### [facility] [address] [place] [address] Dr. Yuliya Jones NEUT # 4.8 103/ul Normal 1.4-6.5 [facility] Comment on above: Performed By: #### C BC #### [facility] [address] [place] [address] Dr. Yuliya Jones Neutrophils/100 WBC (Bld) 64.7 % Normal 43.0-75.0 [facility] Comment on above: Performed By: #### C BC #### [facility] [address] [place] [address] Dr. Yuliya Jones Platelet mean volume (Bld) [Entitic vol] 10.3 fL Normal 9.5-13.5 [facility] Comment on above: Performed By: #### C BC #### [facility] [address] [place] [address] Dr. Yuliya Jones PLT 244 103/ul Normal 150-450 [facility] Comment on above: Performed By: #### C BC #### [facility] [address] [place] [address] Dr. Yuliya Jones RBC 4.59 106/ul Normal 4.20-5.40 [facility] Comment on above: Performed By: #### C BC #### [facility] [address] [place] [address] Dr. Yuliya Jones WBC 7.4 103/ul Normal 4.0-11.0 [facility] Comment on above: Performed By: #### C BC #### [facility] [address] [address] [address] Yuliya Jones FREE THYROXINE INDEX T7on FTI 2.66 Normal 1.30-4.50 [facility] Comment on above: Performed By: #### C MP, T7, BNP, LIPID, TSH #### [facility] [address] [address] [address] Yuliya Jones T3U 35.0 % Normal 30.0-39.0 [facility] Comment on above: Performed By: #### C MP, T7, BNP, LIPID, TSH #### [facility] [address] [address] [address] Yuliya Jones T4 [Mass/Vol] 7.60 ug/dL Normal 4.80-13.90 [facility] Comment on above: Performed By: #### C MP, T7, BNP, LIPID, TSH #### [facility] [address] [address] [address] Yuliya Jones GLYCOHEMOGLOBIN A1Con 2022 ADA RECOMMENDATION SEE BELOW Normal [facility] Comment on above: Result Comment: ADA RECOMMENDED LIMIT 4.0 - 6.0 ADA THERAPEUTIC TARGET < 7.0 ACTION SUGGESTED > 7.0 Performed By: #### A 1C ####[facility] [id number] [address]Dr. Yuliya Jones Glucose [Mass/Vol] 146 mg/dL Normal [facility] Comment on above: Performed By: #### A 1C ####[facility] [id number] [id number]. Yuliya Jones HbA1c (Bld) [Mass fraction] 6.7 % Critically high 4.5-6.2 [facility] Comment on above: Performed By: #### A 1C ####[facility] [id number] [address]Dr. Yuliya oJnes IRONon 07-24-2022 Iron [Mass/Vol] 74.0 ug/dL Normal 50.0-170.0 [facility] Comment on above: Performed By: #### I LUDWIN, VITB12, VITAD #### [facility] [address] [address] [address] Yuliya Jones LIPID PROFILEon 07-24-2022 CHOL-HDL RATIO NORM SEE BELOW Normal [facility] Comment on above: Result Comment: 3.3 - 4.4 LOW RISK 4.4 - 7.1 AVERAGE RISK 7.1 - 11.0 MODERATE RISK >11.0 HIGH RISK Performed By: #### C MP, T7, BNP, LIPID, TSH #### [facility] [address] [address] [address] Yuliya Jones Cholesterol [Mass/Vol] 215 mg/dL Critically high <=200 [facility] Comment on above: Performed By: #### C MP, T7, BNP, LIPID, TSH #### [facility] [address] [address] [address] Yuliya Jones Cholesterol in HDL [Mass/Vol] 46 mg/dL Normal 40-60 [facility] Comment on above: Performed By: #### C MP, T7, BNP, LIPID, TSH #### [facility] [address] [address] [address] Yuliya Jones Cholesterol in LDL [Mass/Vol] 120.6 mg/dL Normal [facility] Comment on above: Performed By: #### C MP, T7, BNP, LIPID, TSH #### [facility] [address] [address] [address] Yuliya Jones Cholesterol.total/ Cholesterol in HDL [Mass ratio] 4.7 {ratio} Normal [facility] Comment on above: Performed By: #### C MP, T7, BNP, LIPID, TSH #### [facility] [address] [address] [address] Yuliya Jones HDL NORMAL > or = 60 mg/dl - LO W CARDIOVASCULAR RISK <40 mg/dl - HIGH CARDIOVASCULAR RISK Normal [facility] Comment on above: Performed By: #### C MP, T7, BNP, LIPID, TSH #### [facility] [address] [address] [address] Yuliya Jones LDL CALC NORMAL SEE BELOW Normal [facility] Comment on above: Result Comment: <100 mg/dl OPTIMAL 100 - 129 mg/dl NEAR OR ABOVE OPTIMAL 130 - 159 mg/dl BORDERLINE HIGH 160 - 189 mg/dl HIGH >190 mg/dl VERY HIGH Performed By: #### C MP, T7, BNP, LIPID, TSH #### [facility] [address] [address] [address] Yuliya Jones Triglyceride [Mass/Vol] 242 mg/dL Critically high <=150 [facility] Comment on above: Performed By: #### C MP, T7, BNP, LIPID, TSH #### [facility] [address] [address] [address] Yuliya Jones VLDL CALC 48.4 mg/dL Normal [facility] Comment on above: Performed By: #### C MP, T7, BNP, LIPID, TSH #### [facility] [address] [place] [address] Dr. Yuliya Jones PROF 14(COMP METB)on 023 Albumin [Mass/Vol] 3.3 g/dL Critically low 3.4-5.0 [facility] Comment on above: Performed By: #### C MP, T7, BNP, LIPID, TSH #### [facility] [address] [place] [address] Dr. Yuliya Jones Albumin/Globulin [Mass ratio] 0.8 {ratio} Normal [facility] Comment on above: Performed By: #### C MP, T7, BNP, LIPID, TSH #### [facility] [address] [place] [address] Dr. Yuliya Jones ALP [Catalytic activity/Vol] 148 U/L Critically high 46-116 [facility] Comment on above: Performed By: #### C MP, T7, BNP, LIPID, TSH #### [facility] [address] [place] [address] Dr. Yuliya Jones ALT [Catalytic activity/Vol] 49 U/L Normal 14-59 [facility] Comment on above: Performed By: #### C MP, T7, BNP, LIPID, TSH #### [facility] [address] [place] [address] Dr. Yuliya Jones Anion gap [Moles/Vol] 11.6 mmol/L Normal [facility] Comment on above: Performed By: #### C MP, T7, BNP, LIPID, TSH #### [facility] [address] [address] [address] Yuliya Jones AST [Catalytic activity/Vol] 26 U/L Normal 15-37 [facility] Comment on above: Performed By: #### C MP, T7, BNP, LIPID, TSH #### [facility] [address] [address] [address] Yuliya Jones Bilirubin [Mass/Vol] 0.8 mg/dL Normal 0.2-1.0 [facility] Comment on above: Performed By: #### C MP, T7, BNP, LIPID, TSH #### [facility] [address] [address] [address] Yuliya Jones Calcium [Mass/Vol] 9.0 mg/dL Normal 8.5-10.1 [facility] Comment on above: Performed By: #### C MP, T7, BNP, LIPID, TSH #### [facility] [address] [address] [address] Yuliya Jones Chloride [Moles/Vol] 102 mmol/L Normal 98-107 [facility] Comment on above: Performed By: #### C MP, T7, BNP, LIPID, TSH #### [facility] [address] [address] [address] Yuliya Jones CO2 [Moles/Vol] 29.1 mmol/L Normal 21.0-32.0 [facility] Comment on above: Performed By: #### C MP, T7, BNP, LIPID, TSH #### [facility] [address] [address] [address] Yuliya Jones Creatinine [Mass/Vol] 0.69 mg/dL Normal 0.55-1.02 [facility] Comment on above: Performed By: #### C MP, T7, BNP, LIPID, TSH #### [facility] [address] [address] [address] Yuliya Jones EGFR-AF URUGUAYAN >60 Normal >=60 [facility] Comment on above: Performed By: #### C MP, T7, BNP, LIPID, TSH #### [facility] [address] [address] [address] Yuliya Jones EGFR-NON AF URUGUAYAN >60 Normal >=60 [facility] Comment on above: Performed By: #### C MP, T7, BNP, LIPID, TSH #### [facility] [address] [place] [address] Dr. uYliya Jones Globulin (S) [Mass/Vol] 4.1 g/dL Normal [facility] Comment on above: Performed By: #### C MP, T7, BNP, LIPID, TSH #### [facility] [address] [place] [address] Dr. Yuliya Jones Glucose [Mass/Vol] 151 mg/dL Critically high 74-106 T [facility] Comment on above: Performed By: #### C MP, T7, BNP, LIPID, TSH #### [facility] [address] [place] [address] Dr. Yuliya Jones Potassium [Moles/Vol] 3.7 mmol/L Normal 3.5-5.1 [facility] Comment on above: Performed By: #### C MP, T7, BNP, LIPID, TSH #### [facility] [address] [place] [address] Dr. Yuliya Jones Protein [Mass/Vol] 7.4 g/dL Normal 6.4-8.2 [facility] Comment on above: Performed By: #### C MP, T7, BNP, LIPID, TSH #### [facility] [address] [place] [address] Dr. Yuliya Jones Sodium [Moles/Vol] 139 mmol/L Normal 136-145 [facility] Comment on above: Performed By: #### C MP, T7, BNP, LIPID, TSH #### [facility] [address] [place] [address] Dr. Yuliya Jones Urea nitrogen [Mass/Vol] 8.0 mg/dL Normal 7.0-18.0 [facility] Comment on above: Performed By: #### C MP, T7, BNP, LIPID, TSH #### [facility] [address] [address] [address] Yuliya Jones Urea nitrogen/Creatinin e [Mass ratio] 11.6 mg/mg Normal [facility] Comment on above: Performed By: #### C MP, T7, BNP, LIPID, TSH #### [facility] [address] [address] [address] Yuliya Jones TSHon 07-24-2022 TSH 1.903 uIU/mL Normal 0.358-3.740 [facility] Comment on above: Performed By: #### C MP, T7, BNP, LIPID, TSH #### [facility] [address] [address] [address] Yuliya Jones VITAMIN B12on 07-24-2022 Cobalamin (Vitamin B12) [Mass/Vol] 1085.0 pg/mL Critically high 193.0-986.0 [facility] Comment on above: Performed By: #### I LUDWIN VITB12, VITAD ####[facility] [address] [address]DrMinisterio Jones VITAMIN D 25 OHon 07-24-2022 VIT D 25-OH 36.8 ng/mL Normal [facility] Comment on above: Performed By: #### I LUDWIN VITB12, VITAD ####[facility] [address] [place], [place] [address]DrMinisterio Jones VIT D RANGES SEE BELOW Normal [facility] Comment on above: Result Comment: <20 ng/mL Vit D deficient 20 - <30 ng/mL Vit D insufficient 30 - 100 ng/mL Vit D sufficient >100 ng/mL Potential Toxicity Performed By: #### I LUDWIN VITB12, VITAD ####[facility] [address] [address]DrMinisterio Jones GLYCOHEMOGLOBIN A1Con 2021 ADA RECOMMENDATION SEE BELOW Normal [facility] Comment on above: Result Comment: ADA RECOMMENDED LIMIT 4.0 - 6.0 ADA THERAPEUTIC TARGET < 7.0 ACTION SUGGESTED > 7.0 Performed By: #### A 1C ####[facility] [address] [place], [place] [address]YyDr. Yuliya Jones Glucose [Mass/Vol] 140 mg/dL Normal [facility] Comment on above: Performed By: #### A 1C ####[facility] [address] [place], [place] [address]ApDr. Yuliya Jones HbA1c (Bld) [Mass fraction] 6.5 % Critically high 4.5-6.2 [facility] Comment on above: Performed By: #### A 1C ####[facility] [address] [place], [place] [address]CmDr. Yuliya Jones LIPID PROFILEon 03-07-2022 CHOL-HDL RATIO NORM SEE BELOW Normal [facility] Comment on above: Result Comment: 3.3 - 4.4 LOW RISK 4.4 - 7.1 AVERAGE RISK 7.1 - 11.0 MODERATE RISK >11.0 HIGH RISK Performed By: #### L IPID #### [facility] [address] [address] [address] Yuliya Jones Cholesterol [Mass/Vol] 215 mg/dL Critically high <=200 [facility] Comment on above: Performed By: #### L IPID #### [facility] [address] [address] [address] Yuliya Jones Cholesterol in HDL [Mass/Vol] 42 mg/dL Normal 40-60 [facility] Comment on above: Performed By: #### L IPID #### [facility] [address] [address] [address] Yuliya Jones Cholesterol in LDL [Mass/Vol] 118.4 mg/dL Normal [facility] Comment on above: Performed By: #### L IPID #### [facility] [address] [address] [address] Yuliya Jones Cholesterol.total/ Cholesterol in HDL [Mass ratio] 5.1 {ratio} Normal [facility] Comment on above: Performed By: #### L IPID #### [facility] [address] [address] [address] Yuliya Jones HDL NORMAL > or = 60 mg/dl - LO W CARDIOVASCULAR RISK <40 mg/dl - HIGH CARDIOVASCULAR RISK Normal [facility] Comment on above: Performed By: #### L IPID #### [facility] [address] [address] [address] Yuliya Jones LDL CALC NORMAL SEE BELOW Normal [facility] Comment on above: Result Comment: <100 mg/dl OPTIMAL 100 - 129 mg/dl NEAR OR ABOVE OPTIMAL 130 - 159 mg/dl BORDERLINE HIGH 160 - 189 mg/dl HIGH >190 mg/dl VERY HIGH Performed By: #### L IPID #### [facility] [address] [address] [address] Yuliya Jones Triglyceride [Mass/Vol] 273 mg/dL Critically high <=150 [facility] Comment on above: Performed By: #### L IPID #### [facility] [address] [address] [address] Yuliya Jones VLDL CALC 54.6 mg/dL Normal [facility] Comment on above: Performed By: #### L IPID #### [facility] [address] [address] [address] Yuliya Jones XR ANKLE RT MIN [...] Plantar calcaneal enthesophyte. Electronically authenticated by: RORO BARKLEY Date: 2021-12-18 07:50 Normal [facility] FLUORO FOR SURGICAL PROCEDUR ESon 10-25-2021 FLUORO FOR SURGICAL PROCEDURES Radiology exam is complete. No Radiologist dictation. Please follow up with ordering provider. Final result Normal [facility] Radiology exam is complete. No Radiologist dictation. Please follow up with ordering provider. [facility] RIS CONSOLIDATED Cardiovascular Lab Reporton 07-22-2020 Cardiovascular Lab Report [facility] Patient Name: [facility] Amparo Moraes MR #: [id number] Department of Physician: Manish Walton [facility] Division of Service Date: 07/22/2020 Cardiology Birthdate: 1960 Adult Cardiovascular Room #: [facility] [address] [facility] [place] [address] Cardiovascular Laboratory Report FINAL IMPRESSIONS: 1. Moderate [...] medical management; aspirin, high-intensity statin therapy, beta armando, and angiotensin-converting enzyme inhibitor are indicated. 3. Will add chlorthalidone 25 mg daily with a follow-up basic metabolic panel in a week. 4. Will initiate investigations for pulmonary hypertension as an outpatient including a sleep study, and a probable CTA of the pulmonary arteries to rule out thromboembolic disease. 5. Follow up with Dr. Walton in the [place] office in the next 1 to 2 [...] right internal jugular vein was obtained. A 6-Irish x 11 cm sheath was inserted without [...] to access the left radial artery. A 6-Irish glide sheath was inserted without difficulty. Bilateral [...] Walton M.D. Date Trans: 07/22/2020 02:58 P/mmo [id number] cc: Kunal Patel M.D. [address], [facility] [address] [facility] Physician Referralon 021 Physician Referral [phone] [id number]: 127 Normal [facility] [place] CNOVon 06-24-2018 CNOV Office Visit (LIVIA) AMPARO BARTH ([id number]) 1960 FDate Time Provider Department06/24/18 9:00 AM [...] MD 06/24/2018 10:11 AM SignedName: Amparo BarthMRN: [id number]: June 24, 2018Patient seen and examined in clinicThi sis a 57 y/o female presenting for initial evaluation of recurrent ventralhernias evident for the last 6 months. In 2016 she underwent lap ccy withprimary repair of [...] Chito Antonio, TERRYGY-6 FellowReferring Provider: KUNAL PATEL [[id number]]Allergies As of Date: 06/24/2018 Noted Allergy ReactionPERCOCET [...] noncompliance [Z91.11] INVALID FOR*Visit Notes:>> Zafar Muñiz Mon Jun 24, 2018 9:25 AM Status: SignedWhat is the reason for your visit today? ConsultWho is your referring physician? Dr Kunal Zimmer you having poor oral intake? NOHave you had unintentional weight loss of 15 lbs/7 Kg in the last 3-6months? NOBowels: regularWound: clean AND dryTemperature: NoDrains: Escobarountmaria guadalupe Number: [id number] Status:Closed by ZAID DENNIS MD on 06/24/18 Normal [facility] HISTORY PHYSICALon 9 HISTORY PHYSICAL HNO ID: [id number]: Chito (Ronn) Jt: (none)Author Type: FellowType: HANDPFiled: 06/24/2018 10:11 AMNote Text:Name: Amparo BarthMRN: [id number]: June 24, 2018Patient seen and examined in [...] this visit. Chito Antonio, MDPGY-6 Fellow Normal [facility] PROGRESSon 06-24-2018 Protein mass conc HNO ID: [id number]: Zaid Baptiste: (none)Author Type: PhysicianType: Progress NotesFiled: [...] need anopen repair with retro-muscular mesh. Normal [facility] SR-CT ABD/PELVIS W CON IMPOR Ton 12-03-2017 SR-CT ABD/PELVIS W CON IMPORT Images were obtained outside of [facility] [id number] Normal [facility] Vital Signs Date Time Vital Sign Value Performing Clinician Faci monika 10-25-2021 14:26-0400 Diastolic blood pressure 138 mm[Hg] Annabel Lima MD Work Phone: [facility] 10-25-2021 14:26-0400 Systolic blood pressure 239 mm[Hg] Annabel Lima MD Work Phone: [facility] 10-25-2021 13:53-0400 Body temperature 97.81 [degF] Annabel Lima MD Work Phone: [facility] 10-25-2021 13:53-0400 Heart rate 62 /min Annabel Lima MD Work Phone: [facility] 10-25-2021 13:53-0400 Respiratory rate 18 /min Annabel Lima MD Work Phone: [facility] 10-25-2021 13:53-0400 SaO2% (BldA) [Mass fraction] 96 % Annabel Lima MD Work Phone: [facility] 10-13-2021 08:17-0400 Body height 165.1 cm Annabel Lima MD Work Phone: [facility] Encounters Encounter Date Encounter Type Care Provider Facility Start: 02-08-2024 ambulatory [facility] Start: 01-21-2024 ambulatory [facility] Start: 01-15-2024 End: 01-15-2024 ambulatory EMILY LUZ Not Available Start: 12-05-2023 ambulatory [facility] Start: 09-26-2023 ambulatory [facility] Start: 09-26-2023 End: 09-26-2023 ambulatory [facility] Start: 09-18-2023 End: 09-18-2023 ambulatory [facility] Start: 06-26-2023 ambulatory [facility] Start: 04-17-2023 End: 04-17-2023 ambulatory [facility] Start: 07-24-2022 End: 07-25-[address] KUNAL PATEL . Facility:[facility] Start: 03-28-2022 ambulatory GARTH ANDREWS Facility :[facility] Start: 03-08-2022 Encounter for genera l adult medical examination without abnormal findings GARTH ANDREWS [facility] Start: 03-07-2022 End: 03-08-2022 ambulatory GARTH ANDREWS Facility:[facility] Start: 03-07-2022 End: 03-08-2022 Encounter for general adult medical examination without abnormal findings GARTH ANDREWS Facility:[facility] Start: 12-18-2021 End: 12-18-2021 ambulatory DELIA COKER Facility:[facility] Start: 10-25-2021 End: 10-25-2021 ambulatory ANNABEL LIMA [facility] Start: 10-25-2021 End: 10-25-2021 Subsequent hospital visit by physician Annabel Lima MD Work Phone: [facility] Start: 07-22-2020 End: 07-23-2020 Patient encounter procedure EHAB A [facility] Facility:[facility] Start: 06-24-2018 Patient encounter procedure ZAID PHILLLIV [facility] [place] Procedures Date Procedure Procedure Detail Performing Clinician Start: 10-25-2021 Fluoroscopy during operation Annabel Lima MD Work Phone: Plan of Treatment Date Care Activity Detail Author Start: 02-16-2022 Influenza vaccination Flu vacc ine (Season Ended) [facility] Start: 10-25-2021 End: 10-25-2021 Njx dx/ther sbst intrlmnr lmbr/sac w/img gdn EPIDURAL STEROID INJECTION LUMBAR SACRAL RAD LUMBAR RAD 10/25/2021 2:21 PM EDT [facility] Start: 2008 Screening for malign ant neoplasm of breast Breast cancer screen [facility] Start: 2008 Shingles vaccine (1 of 2) Shingles vaccine (1 of 2) [facility] Start: 2003 Screening for malign ant neoplasm of colon [facility] Start: 1988 Screening for malign ant neoplasm of cervix [facility] Start: 1979 Screening for malign ant neoplasm of cervix Pap smear [facility] Start: 1977 DTaP/Tdap/Td vaccine (1 - Tdap) DTaP/Tdap/Td vaccine (1 - Tdap) [facility] Start: 1976 Creatinine measurement Creatinine [facility] Start: 1976 Hepatitis C screening Hepatitis C sc reen [facility] Start: 1976 Potassium [Moles/vol ume] in Serum or Plasma Potassium [facility] Start: 1973 HIV screening HIV screen Rosemary Martinez [facility] Start: 1970 Depression Screen Depression Screen [facility] Start: 1968 Lipid panel Lipids [facility] Start: 1963 COVID-19 Vaccine (1) COVID-19 Vaccin e (1) [facility] Start: 1960 Annual Wellness Visi t (AWV) Annual Wellness Visit (AWV) [facility] Payers Date Payer Category Payer Medicare [id number] 1961 Medicaid [id number] 1961 Medicare [id number]. [id number] 1961 Self-pay [id number] 1960 Unknown [id number] [id number] [id number] 1960 Unknown [id number] 2.16.8 [id number] 1960 Unknown [id number] 2.16.84 [id number] 1960 Unknown [id number] 2.16.84 [id number] 1960 Unknown [id number] 2.16.84 [id number] 1960 Unknown [id number] 2.16.84 [id number] 1960 Unknown [id number] 2.16.84 [id number] Medicare [id number] Social History Date Type Detail Facility Start: [facility]-13-2021 [facility] [email or web address] Start: 10-13-2021 Tobacco use and exposure Smokeless tobacco non-user [employer] Phone: Start: 10-25-2021 Alcohol intake Current drinke r of alcohol (finding) [employer] Phone: Start: 10-13-2021 History SDOH Alcohol Comment socially [employer] Phone: Start: 1960 Sex Assigned At Not on file [employer] Phone: Clinical Notes 10-25-2021 to 09-26-2023 Radha Estevez RN - 10/25/2021 2:41 PM Edward Estevez RN - 10/25/2021 2:31 PM EDTInstructionsAuth/Cert Note Date & Type Note Facility 09-26-2023 Note Patient: Amparo evangelista Procedure Summary Date: 09/26/23 Room / Location: [facility] RIFFLER TENDER 1 EP / [facility] (Cath) Anesthesia Start: 829 Anesthesia Stop: 1207 Procedure: Ablation atrial fibrillation Diagnosis: Paroxysmal atrial fibrillation (CMS/HCC) (Paroxysmal atrial fibrillation (CMS/HCC) [I48.0]) Providers: Rai Jay MD Responsible Provider: Damion Coronado MD Anesthesia Type: general ASA Status: 3 Anesthesia Type: general Vitals Value Taken Time BP 170/87 09/26/23 1208 Temp 36.2 09/26/23 1208 Pulse 72 09/26/23 1208 Resp 16 09/26/23 1208 SpO2 95 09/26/23 1208 Anesthesia Post Evaluation Patient location during evaluation: PACU Patient participation: complete - patient participated Level of consciousness: awake and alert Pain management: adequate Airway patency: patent Cardiovascular status: acceptable Respiratory status: acceptable Hydration status: acceptable Patient is hemodynamically stable and is able to be discharged from PACU per anesthesia protocol. There were no known notable events for this encounter. [facility] 09-26-2023 Note ATRIAL FIBRILLATION ABLATION PROCEDURE NOTE DATE OF PROCEDURE: 09/26/2023 PERFORMING PHYSICIAN: Dr. Rai Jay COSTUME MAKER: SAJI CONSENT: Patient NAME OF THE PROCEDURE: Pulmonary [...] using intravenous adenosine infusion. 8. Fluroscopy. FLUROSCOPY: 5.3min/48mGray EBL: 15cc INDICATIONS: 63 year old with past medical history of mild to mod CAD per 07/2020 cath, pHTN, HTN, diastolic dysfunction, hx TIA 2008. She underwent Aflutter ablation on 07/26/22 and subsequently had a loop monitor placed which revealed frequent episodes of A-fib with some lasting up 2 to 3 hours. She opted for catheter ablation which was done in 12/2022. LOOP revealed further symptomatic episodes and so she opted to proceed with posterior box isolation. PROCEDURE NOTE: Pt was brought to EP [...] pulmonary veins. Esophagus was mapped using the [employer] 3D mapping software and noted to lie towards the left side along the WACA. A temperature probe was placed in the esophagus to monitor and avoid rise of temperature by more than a degree Celsius (Baseline 34.7C). Mapping revealed isolation of the pulmonary veins in both left and right side with some carinal signals. Pacing the veins revealed exit block. Wide area circumferential ablation technique (WACA) was then performed with irrigated ST/SF catheter. Power settings were 40watts of 10-12s in the anterior aspect of WACA and 5-8s while ablating on the posterior wall as well as the roof. Right sided PVI was then performed using a WACA approach with care to pace the anterior aspect of WACA and delaney to ensure there was no phrenic capture. This was done to anchor the posterior box lesion set. I then proceeded to perform a linear ablation connecting from LSPV to RSPV. Following this an inferior line was done connecting LIPV to RIPV. However posterior wall was not isolated. I had to perform repeat ablation and reinforcement over the prior line did not achieve isolation. I then performed substrate modification predominantly on the right quadrant so as to avoid the esophagus. There was change in temperature from baseline to 36.2C. I felt the tissue in the superior aspect of the line was thick and harder to ablate and as well as the right inferior aspect. With more ablation, isolation was obtained. LV pacing revealed no VA conduction. Adenosine did not reveal any reconnection. Burst pacing at 280ms idid not induce any Afib. Phrenic nerve capture was documented. Mapping was performed (more content not included)... [facility] 09-26-2023 Note Arterial Line: Date/Time: 09/26/2023 8:15 AM An arterial line was placed Procedure performed using surface landmarks.in the pre-op for the following indication(s): continuous blood pressure monitoring and blood sampling needed. A 20 G (size), 2 inch (length), Angiocath (type) catheter was placed, Seldinger technique used , into the Left radial artery, secured by Tegaderm and tape. Events: patient tolerated procedure well with no complications. Medications Administered Lidocaine (XYLOCAINE) 1 % SubQ, 0.5 mL Staffing Performed: resident/FBI INVESTIGATOR/CAA Anesthesiologist: Damion Coronado MD Resident/FBI INVESTIGATOR: Tameka Westbrook MD Performed by: Tameka Westbrook MD Authorized by: Damion Coronado MD [facility] 09-26-2023 Note Airway Date/Time: 09/26/2023 8:53 AM Urgency: elective Airway not difficult General Information and Staff Patient location during procedure: [place] Anesthesiologist: Damion Coronado MD Resident/FBI INVESTIGATOR/CAA: Tameka Westbrook MD Performed: resident/FBI INVESTIGATOR/CAA Indications and Patient Condition Indications for airway management: anesthesia Spontaneous Ventilation: absent Sedation level: deep Preoxygenated: yes Patient position: sniffing Mask difficulty assessment: 1 - vent by mask Planned trial extubation Final Airway Details Final airway type: endotracheal airway Successful airway: ETT Cuffed: yes Successful intubation technique: video laryngoscopy Facilitating devices/methods: intubating stylet Endotracheal tube insertion site: oral Blade: Howard Blade size: #3 ETT size (mm): 7.5 Cormack-Lehane Classification: grade I - full view of glottis Placement verified by: chest auscultation and capnometry Measured from: lips ETT to lips (cm): 21 Number of attempts at approach: 1 [facility] 09-26-2023 Note Patient: Amparo evangelista Procedure Information Date/Time: 09/26/23 0830 Procedure: Ablation a-fib paroxysmal Location: [facility] RIFFLER TENDER 1 EP / [facility] (Cath) Providers: Rai Jay MD Relevant Problems Anesthesia denies anes issues or RICKI Cardio can walk a city block (+) Hypertensive disorder (+) Paroxysmal atrial fibrillation (CMS/HCC) (+) Pulmonary hypertension (CMS/HCC) (+) Typical atrial flutter (CMS/HCC) Endo fsbs 164 (+) Diabetes mellitus, type 2 (CMS/HCC) GI (+) Gastroesophageal reflux disease /Renal denies renal issues Neuro/Psych TIA 30 yrs ago Pulmonary never smoked Clinical information reviewed: Tobacco Allergies Meds Med Hx Surg Hx Fam Hx Soc Hx Physical Exam Airway Mallampati: I TM distance: >3 FB Neck ROM: full Cardiovascular Rhythm: regular Rate: normal Dental Comments: edentulous Pulmonary - normal exam Abdominal (+) obese Anesthesia Plan ASA 3 general (Discussed preinduction A-line, GA/OETT with pt who agrees to proceed.) The patient is not a current smoker. Medical exclusion for perioperative obstructive sleep apnea risk education: denies RICKI. intravenous induction Postoperative administration of opioids is intended. Trial extubation is planned. Anesthetic plan and risks discussed with patient. Use of blood products discussed with patient who consented to blood products. Plan discussed with resident. Additional Equipment Requests [facility] 09-18-2023 Note SD Electrophysiology Note [facility] Reason for Consultation: Aflutter s/p ablation 07/26/22, AFIB ablation 12/28/22 09/18/23 Pt here to discuss about Afib ablation. She had another episode in August 31, 2023 when data was reviewed from June to September. 06/26/23 There is recurrence of atrial fibrillation [...] She denies chest pain, shortness of breath, REID, LE edema, orthopnea, lightheadedness, dizziness. Despite no symptoms she has had several AF events on loop monitor, she is having shorter episodes and is self-converting ECG 04/17/23 SR 12/28/2022 sinus rhythm 12/26/22 loop afib event PMH: mild to mod CAD per 07/2020 cath, pHTN, HTN, diastolic dysfunction, hx TIA 2008, atrial flutter s/p ablation 07/2022, atrial fib (was intolerant of amiodarone) [id number] at least 5 for gender, hypertension, TIA, [...] daily Prior HPI: Amparo Barth is a 63 y.o. 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 She was seen at [facility] ER with c/o palpitations and chest [...] Determinants of Health Tobacco Use: Low Risk (09/18/2023) Patient History Smoking Tobacco Use: Never Smokeless Tobacco Use: Never Passive Exposure: Not on file Alcohol Use: Not on file Financial Resource Strain: Not on file Food Insecurity: Not on file Transportation Needs: Not on file Physical Activity: Not on file Stress: Not on file Social Connections: Not on file Intimate Partner Violence: Unknown (08/09/2023) [place] Safety & Environment Fear of Current or Ex-Partner: Not on file Emotionally Abused: Not on file Physically Abused: Not on file Sexually Abused: Not on file Physically or Sexually Abused: Not on file Depression: Not on file [...] mouth with breakfast and with evening meal. cholecalciferol, vitamin D3, 50 mcg (2,000 unit) capsule 1 capsule 1 (one) time each day at the same time. cloNIDine (Catapres) 0.1 mg tablet Take by mouth in the morning and at bedtime. dexlansoprazole (Dexilant) [address] capsule Take 60 mg by mouth in the morning. dilTIAZem ER (Tiazac) 180 mg 24 hr capsule Take 1 tablet by mouth in the morning. DULoxetine (Cymbalta) [address] capsule Take 1 tablet by mouth in the morning. isosorbide mononitrate ER (Imdur) 30 mg 24 [...] mouth in the morning and at bedtime. 60 tablet 0 furosemide (Lasix) 20 mg tablet TAKE 1 TABLET BY MOUTH EVERY DAY IN THE MORNING 90 tablet 3 No current facility-administered medications on file prior to visit. ROS: Review of Systems Musculoskeletal: Positive for arthritis and myalgias. All other systems reviewed and are negative. Physical Exam: (more content not included)... [facility] 06-26-2023 Note Patient here for 3 m o follow up echo done last week. Denies chest pain, SOB, palpitations, and lightheadedness/syncope. Denies bleeding on Eliquis. Says she feels good, as she's just getting over a sinus infection. Review of Systems Musculoskeletal: Positive for arthritis and myalgias. All other systems reviewed and are negative. [place] [facility] Note [facility] Reason for Consultation: Aflutter s/p [...] She denies chest pain, shortness of breath, REID, LE edema, orthopnea, lightheadedness, dizziness. Despite no symptoms she has had several AF events on loop monitor, she is having shorter episodes and is self-converting ECG 04/17/23 SR 12/28/2022 sinus rhythm 12/26/22 loop afib event PMH: mild to mod CAD per 07/2020 cath, pHTN, HTN, diastolic dysfunction, hx TIA 2008, atrial flutter s/p ablation 07/2022, atrial fib (was intolerant of amiodarone) [id number] at least 5 for gender, hypertension, TIA, [...] hx TIA 2008. She was seen at [facility] ER with c/o palpitations and chest [...] no significant antony (more content not included)... [facility] 04-17-2023 Note Patient here for 3 m o follow up afib ablation. Had some palpitations last week she says. Denies chest pain, SOB, lightheadedness, and bleeding on Eliquis. Review of Systems Cardiovascular: Positive for palpitations. Musculoskeletal: Positive for arthritis and myalgias. All other systems reviewed and are negative. [facility] 04-17-2023 Note [place] Electrophysiology Note [facility] Reason for Consultation: Aflutter s/p ablation 07/26/22, AFIB ablation 12/28/22 HPI: Patient here for A-fib ablation follow up She has been feeling great and has no complaints She denies chest pain, shortness of breath, REID, LE edema, orthopnea, lightheadedness, dizziness. Despite no symptoms she has had several AF events on loop monitor, she is having shorter episodes and is self-converting ECG 04/17/23 SR 12/28/2022 sinus rhythm 12/26/22 loop afib event PMH: mild to mod CAD per 07/2020 cath, pHTN, HTN, diastolic dysfunction, hx TIA 2008, atrial flutter s/p ablation 07/2022, atrial fib (was intolerant of amiodarone) [id number] at least 5 for gender, hypertension, TIA, [...] hx TIA 2008. She was seen at [facility] ER with c/o palpitations and chest [...] ulcer, no varicosities, (more content not included)... [facility] 02-12-2023 Note Ordering remote loop check to [...] noted to be on eliquis 5mg BID [facility] 10-25-2021 History of Present illness Narrative Discharge instructions reviewed with patient. Had no sedation. Signed for self. To recovery. Denies pain complaints. Injection site clean and dry. BP 190/95. P 63. Oxygen 98%. Resp 18. updated on elevated pressure. documented in this encounter [place] Phone: 10-25-2021 Hospital Discharge instructions Radha Estevez [...] a follow-up visit. documented in this encounter [place] Phone: Reason for visit Narrative Specialty Diagnoses / Procedures Referred By Heydi t Referred To Contact Diagnoses LUMBAR SACRAL RAD LUMBAR RAD Procedures NE NJX DX/THER SBST INTRLMNR LMBR/SAC W/IMG GDN EPIDURAL STEROID INJECTION- L4-5 Annabel Lima MD [address] [place] [address] Private Outlet [address] [place] [address] Referral ID Status Reason Start Date Expiration Date Visits Re quested Visits Authorized 1 [place] Phone: Summary Purpose Family History No Family [...] section and content) DATE CREATED AUTHOR 06/26/2018 [facility] DATE CREATED AUTHOR AUTHOR'S ORGANIZ ATION 07/13/2020 [facility] DATE CREATED AUTHOR AUTHOR'S ORGANIZ ATION 08/05/2020 [facility] DATE CREATED AUTHOR AUTHOR'S ORGANIZ ATION 10/26/2021 [facility] DATE CREATED AUTHOR AUTHOR'S ORGANIZ ATION 09/29/2022 [facility] DATE CREATED AUTHOR AUTHOR'S ORGANIZ ATION 01/18/2024 [facility] dical [facility] DATE CREATED AUTHOR AUTHOR'S ORGANIZ ATION 02/10/2024 [facility] PRN Active and Recently Administ ered Medications (unrecognized section and content) Medication Order 10/23/2021 10/24/2021 10/25/2021 dexamethasone (DECADRON) injection (CANCELED) PRN, Starting on Sun10/25/21 at 1425, Until Tu10/25/21 at 1431, Intra-op 1425 (Given - Provid er: Annabel Lima MD) iohexol (OMNIPAQUE 240) injection (CANCELED) PRN, Starting on Sun10/25/21 at 1425, Until 10/25/21 at 1431, Intra-op 1425 (Given - Provid er: Annabel Lima MD) lidocaine PF 1 % injection (CANCELED) PRN, Starting on Sun10/25/21 at 1425, Until Sun10/25/21 at 1431, Intra-op 1425 (Given - Provid er: Annabel Lima MD) methylPREDNISolone acetate (DEPO-MEDROL) injection (CANCELED) PRN, Starting on Sun10/25/21 at 1425, Until Tu10/25/21 at 1431, Intra-op 1425 (Given - Provid er: Annabel Lima MD) sodium chloride (PF) 0.9 % injection (CANCELED) PRN, Starting on Sun10/25/21 at 1424, Until Sun10/25/21 at 1431, Intra-op 1424 (Given - Provid er: Annabel Lima MD) Care Teams (unrecognized sec tion and content) [employer] Relationship Specialty Start Date End Date Kunal Patel MD [address] [place] [address] PCP - General Family Medicine 10/24/21 FOR [...] BE BASED ON THE PRIMARY CLINICAL RECORDS. [employer] provides no warranty or guarantee of the accuracy or completeness of information in this document.
--- NOTE | 2024-03-12 10:30 | XR_ITS ---
The [address] [address] Patient Name: JOSÉ ANTONIO SY MRN: [id number] date: 1960 Sex: F Assigned Patient Location: [facility] Current Patient Location: Accession/Order Number: [id number] Exam Date: 03/12/2024 10:20 Report Date: 03/14/2024 05:56 At the request of: KUNAL MANZANARES Procedure: XR cervical spine 2-3V EXAMINATION: XR cervical spine 2-3V HISTORY: M54.2 neck pain ; right thumb pain COMPARISON: XR C-spine 05/26/2018 FINDINGS: BONES: Reversal normal lordotic curvature extending from C5 to T1. Minimal grade 1 anterior listhesis of C4 on 5; unchanged. Multilevel moderate degenerative facet arthropathy. DISC SPACES: Moderate narrowing C5-C6, C6-C7 with posterior endplate osteophytes. PARASPINOUS: Negative. No paraspinous abnormality is seen. OTHER: Negative. XR/XR cervical spine 2-3V IMPRESSION: 1. No appreciable acute abnormality or progression of moderate-marked degenerative changes. Electronically authenticated by: NGUYEN MENESES Date: 03/14/2024 05:56
--- NOTE | 2024-03-12 10:30 | XR_ITS ---
The [address] [address] Patient Name: JOSÉ ANTONIO SY MRN: [id number] date: 1960 Sex: F Assigned Patient Location: [facility] Current Patient Location: [facility] Accession/Order Number: [id number] Exam Date: 03/12/2024 10:20 Report Date: 03/14/2024 05:58 At the request of: KUNAL MANZANARES Procedure: XR hand RT min 3V PROCEDURE: XR hand RT min 3V HISTORY: [id number] hand pain, right ; right thumb pain; no known injury COMPARISON: None. FINDINGS: BONES:No fracture, acute abnormality, or significant arthropathy. SOFT TISSUES:No visible soft tissue swelling. EFFUSION:None visible. OTHER: Negative. XR/XR hand RT min 3V IMPRESSION: 1. Multifocal very mild degenerative joint disease. 2. No acute or suspicious bone abnormality with specific attention to the thumb. Electronically authenticated by: NGUYEN MENESES Date: 03/14/2024 05:58
== END 2024-03-12 10:07 | disposition home or self-care (01) ==
LOC: RAD 10:08
PROVIDERS: PCP Family Medicine; Visit Provider Family Medicine
DX: M79.641 Pain in right hand (principal); M54.2 Cervicalgia
CPT/HCPCS: 72040; 73130

== ENCOUNTER 2024-03-21 12:50 | Outpatient (RCR) | payer MEDICARE, SELFPAY | END 2024-03-22 15:51 | disposition home or self-care (01) | LOC: OT 12:50 | PROVIDERS: PCP Family Medicine; Visit Provider Family Medicine | DX: M79.641 Pain in right hand (principal) | CPT/HCPCS: 97035; 97165 ==

== ENCOUNTER 2024-07-12 09:03 | Outpatient (OUT) | payer MEDICARE, SELFPAY ==
--- OUTSIDE RECORDS SUMMARY | 2024-07-12 09:11 | XMS_ITS | CCD ---
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 Role Phone PHILLLIVZAID Unavailable Unavailable KUNAL PATEL Unavailable Unavailable ELTAHAWY, EHAB A Attending Unavailable ELTAHAWY, EHAB A Admitting Unavailable SELF, REFERRED Referring Unavailable KUNAL PATEL Primary Care Unavailable Kunal Patel MD Primary Care Provider [phone] [place]NAB[place]A Admitting Unavailable ANNABEL LIMA Attending Unavailable KUNAL PATEL Primary Care Unavailable JASON ANDREWSA Admitting Unavailable GARTH ANDREWS Consulting Unavailable GARTH [...] LEIGHTON ., DR SYED Primary Care Unavailable LEIGHOTN ., DR SYED Admitting Unavailable LEIGHTON ., DR SYED Primary Care Unavailable LEIGHTON ., DR SYED Consulting Unavailable LEIGHTON ., DR SYED Attending Unavailable EMILY LUZ Attending Unavailable FERNANDO, CHIARA Referring Unavailable FERNANDO, CHIARA Referring Unavailable FERNANDO, CHIARA Referring Unavailable FERNANDO, CHIARA Referring Unavailable FERNANDO, CHIARA Referring Unavailable FERNANDO, CHIARA Referring Unavailable FERNANDO, CHIARA Referring Unavailable RAI JAY Referring Unavailable RAI JAY Attending Unavailable RAI JAY Attending Unavailable RAI JAY Referring Unavailable RAI JAY Referring Unavailable BESS MARTIN Attending Unavailable RAI JAY Admitting Unavailable RAI JAY Attending Unavailable FERNANDO, CHIARA Referring Unavailable FERNANDO, CHIARA Referring Unavailable Shelton MD, Antoine Resendiz Attending Unavail able Allergies Allergy Classification Reported Allergen(s) Allergy Type Date of Onset Reaction(s) Facility (2 sources) Acetaminophen / oxyCODONE; Translations: [OXYCODONE-ACETAMI NOPHEN] Drug Allergy 08-19-2013 [facility] Repository (3 sources) Acetaminophen / oxyCODONE Drug Allergy 01-24-2013 [facility] Repository Medications Current Medications Medication Drug [...] Translations: [Paroxysmal atrial fibrillation] Onset: 07-04-2023 Chronic Congestive heart failure; nonhypertensive (1 source) Unspecified diastolic (congestive) heart failure; Translations: [UNSPECIFIED DIASTOLIC HEART FAILURE] Onset: 07-26-2022 Chronic Coronary atherosclerosis and other heart disease (1 source) Atherosclerotic heart disease of [place] coronary artery without angina pectoris; Translations: [ASHD [place] CA W/O ANGINA PECTORIS] Onset: 03-08-2022 Chronic [...] sources) Palpitations; Translations: [Palpitations] Onset: 12-05-2023 Episodic E Codes: Overexertion (1 source) Slipping, tripping and stumbling without falling due to stepping into hole or opening, initial encounter; Translations: [SLIP STUMBL NO FALL STEP HOLE INIT] Onset: 12-21-2021 Episodic Other aftercare (1 source) 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; Translations: [NURSING HOME CURRENT USE OF ASPIRIN] Onset: 12-21-2021 Episodic Other aftercare (1 source) 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; Translations: [OTH NURSING HOME CURRENT DRUG THERAPY] Onset: 12-21-2021 Episodic Other [...] Interpretation Reference Range Facility Telephoneon 10-18-2023 Telephone [id number] Carina Barth A 1960 F Date Provider Department Center 10/18/2023 1987-[facility] [place] [facility] Family History Problem Relation Age of Onset Heart failure Mother Hyperlipidemia Mother Hypertension Mother Heart failure Father Hypertension Father Heart failure Brother Hyperlipidemia Brother Hypertension Brother Family Status - Relation Status Age at Mother Father Brother Reason for Visit and Comments: 3 week f/u post ablation [Other] Normal [facility] Telephoneon 10-05-2023 Telephone [id number] Carina Barth A 1960 F Date Provider Department Center 10/05/20231986-[facility] [place] [facility] Family History Problem Relation Age of Onset Heart failure Mother Hyperlipidemia Mother Hypertension Mother Heart failure Father Hypertension Father Heart failure Brother Hyperlipidemia Brother Hypertension Brother Family Status - Relation Status Age at Mother Father Brother Reason for Visit and Comments: week f/u post ablation [Other] Normal [facility] Telephoneon 10-04-2023 Telephone [id number] Carina Barth A 1960 F Date Provider Department Center 10/04/20231986-[facility] [place] [facility] Family History Problem Relation Age of Onset Heart failure Mother Hyperlipidemia Mother Hypertension Mother Heart failure Father Hypertension Father Heart failure Brother Hyperlipidemia Brother Hypertension Brother Family Status - Relation Status Age at Mother Father Brother Reason for Visit and Comments: post ablation f/u [Other] [facility] Electrophysiology Note [facility] Reason for Consultation: Aflutter s/p [...] 07/2022, atrial fib (was intolerant of amiodarone) [id number] at least 5 for gender, hypertension, TIA, [...] hx TIA 2008. She was seen at [facility] ER with c/o palpitations and [...] on file Intimate Partner Violence: Unknown (08/09/2023) [place] Safety & [place] Fear of Current or [...] syncope, no (more content not included)... Normal [facility] POCT GLUCOSE METER UNSOLICIT ED RESULTSon 09-26-2023 Glucose [Mass/Vol] 173 mg/dL High 70-105 [facility] Comment on above: Order Comment: Waive d Testing in the ED is performed under the ED CLIA certificate #[id number]. Result Comment: dspe ars Performed By: #### L [id number] ####[facility] ([facility])[address] [place] [address] Glucose [Mass/Vol] 164 mg/dL High 70-105 [facility] Comment on above: Order Comment: Waive d Testing in the ED is performed under the ED CLIA certificate #[id number]. Result Comment: eyou ng12 Performed By: #### L [id number] ####[facility] ([facility])[address] [place] [address] PROTIME-INRon 09-26-2023 INR IN PPP BY COAGULATION ASSAY 1.01 Normal 0.90-1.10 [facility] Comment on above: Result Comment: ACCC [...] CHEST 1995;108:[id number]. Performed By: #### L [id number] ####[facility] ([facility])[address] [place] [address] PROTHROMBIN TIME (PT) IN PPP BY COAGULATION ASSAY 13.3 Seconds Normal 12.3-14.8 [facility] Comment on above: Performed By: #### L [id number] ####[facility] ([facility])[address] [place] [address] Prep for Procedureon 024 Prep for Procedure [id number] Carina Barth 1960 F Date Provider Department Center 09/26/20231986-[facility] [place] [facility] Family History Problem Relation Age of Onset Heart failure Mother Hyperlipidemia Mother Hypertension Mother Heart failure Father Hypertension Father Heart failure Brother Hyperlipidemia Brother Hypertension Brother Family Status - Relation Status Age at Mother Father Brother Normal [facility] [id number] 09-18-2023 [id number] ARRIVAL TIME 0700 HOLD ELIQUIS 4/8 MULTI [...] THE FOLLOWING ARE NOT AVAILABLE: 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 Do not wear perfume, make-up, nail uzbek, or lotions on the day of your [...] need to make any changes, please call [phone]. Notify your surgeon if you develop any illness such as a cold, cough, fever, sore throat or vomiting between now and your surgery. Thank you for entrusting us with your care. [facility] Surgical Services Team Normal [facility] Office Visiton 09-18-2023 Follow-up visit [id number] Carina Barth A 1960 F Date Provider Department Center 09/18/2023 RAI BARROW GOLD [place] Family History Problem Relation Age of Onset Heart failure Mother Hyperlipidemia Mother Hypertension Mother Heart failure Father Hypertension Father Heart failure Brother Hyperlipidemia Brother Hypertension Brother Family Status - Relation Status Age at Mother Father Brother Level of Service:46059 [place] OFFICE/OUTPATIENT ESTABLISHED HIGH MDM 40 MIN Reason for Visit and Comments: Follow-up [705245] Normal [facility] Prep for Procedureon 024 Prep for Procedure [id number] Carina Barth A 1960 F Date Provider Department Center 09/05/2023 1987-[facility] [place] [facility] Family History Problem Relation Age of Onset Heart failure Mother Hyperlipidemia Mother Hypertension Mother Heart failure Father Hypertension Father Heart failure Brother Hyperlipidemia Brother Hypertension Brother Family Status - Relation Status Age at Mother Father Brother Normal [facility] Office Visiton 06-26-2023 Follow-up visit [id number] Carina Barth A 1960 F Date Provider Department Center 06/26/2023 241-RAI JAY GOLD [place] Family History Problem Relation Age of Onset Heart failure Mother Hyperlipidemia Mother Hypertension Mother Heart failure Father Hypertension Father Heart failure Brother Hyperlipidemia Brother Hypertension Brother Family Status - Relation Status Age at Mother Father Brother Level of Service:24447 [place] OFFICE/OUTPATIENT ESTABLISHED MOD MDM 30 MIN [facility] Office Visiton 04-17-2023 Follow-up visit [id number] Carina Barth A 1960 F Date Provider Department Center 04/17/2023 1596-BESS MARTIN GOLD [facility] Family History Problem Relation Age of Onset Heart failure Mother Hyperlipidemia Mother Hypertension Mother Heart failure Father Hypertension Father Heart failure Brother Hyperlipidemia Brother Hypertension Brother Family Status - Relation Status Age at Mother Father Brother Level of Service:96429 [place] OFFICE/OUTPATIENT ESTABLISHED MOD MDM 30-39 MIN Normal [facility] BNPon 07-24-2022 Natriuretic peptide B (Bld) [Mass/Vol] 109.0 pg/mL Normal <=900.0 [facility] Comment on above: Performed By: #### C MP, T7, BNP, LIPID, TSH #### [facility] [address] [place] [address] Dr. Yuliya Jones CBC AUTO DIFFon 07-24-2022 BASO # 0.0 103/ul Normal 0.0-0.1 [facility] Comment on above: Performed By: #### C BC #### [facility] [address] [place] [address] Dr. Yuliya Jones Basophils/100 WBC (Bld) 0.4 % Normal 0.2-2.0 [facility] Comment on above: Performed By: #### C BC #### [facility] [address] [place] [address] Dr. Yuliya Jones EO # 0.2 103/ul Normal 0.0-0.7 [facility] Comment on above: Performed By: #### C BC #### [facility] [address] [place] [address] Dr. Yuliya Jones Eosinophils/100 WBC (Bld) 2.2 % Normal 0.9-7.0 [facility] Comment on above: Performed By: #### C BC #### [facility] [address] [place] [address] Dr. Yuliya Jones Erythrocyte distribution width (RBC) [Ratio] 13.6 % Normal 11.0-15.0 [facility] Comment on above: Performed By: #### C BC #### [facility] [address] [place] [address] Dr. Yuliya Jones Hematocrit (Bld) [Volume fraction] 40.1 % Normal 36.0-48.0 [facility] Comment on above: Performed By: #### C BC #### [facility] [address] [place] [address] Dr. Yuliya Jones Hemoglobin (Bld) [Mass/Vol] 13.1 g/dL Normal 12.0-16.0 [facility] Comment on above: Performed By: #### C BC #### [facility] [address] [place] [address] Dr. Yuliya Jones IG # 0.05 10e3/ul Critically high 0.00-0.03 [facility] Comment on above: Performed By: #### C BC #### [facility] [address] [place] [address] Dr. Yuliya Jones IG % 0.7 % Critically high 0.0-0.5 [facility] Comment on above: Performed By: #### C BC #### [facility] [address] [place] [address] Dr. Yuliya Jones LYMPH # 2.0 103/ul Normal 1.2-3.8 [facility] Comment on above: Performed By: #### C BC #### [facility] [address] [place] [address] Dr. Yuliya Jones Lymphocytes/100 WBC (Bld) 26.9 % Normal 20.5-60.0 [facility] Comment on above: Performed By: #### C BC #### [facility] [address] [place] [address] Dr. Yuliya Jones MANUAL DIFF REQ NO Normal [facility] Comment on above: Performed By: #### C BC #### [facility] [address] [place] [address] Dr. Yuliya Jones MCH (RBC) [Entitic mass] 28.5 pg Normal 26.7-34.0 [facility] Comment on above: Performed By: #### C BC #### [facility] [address] [place] [address] Dr. Yuliya Jones MCHC (RBC) [Mass/Vol] 32.7 g/dL Normal 29.9-35.2 [facility] Comment on above: Performed By: #### C BC #### [facility] [address] [place] [address] Dr. Yuliya Jones MCV (RBC) [Entitic vol] 87.4 fL Normal 81.0-99.0 [facility] Comment on above: Performed By: #### C BC #### [facility] [address] [place] [address] Dr. Yuliya Jones MONO # 0.4 103/ul Normal 0.3-0.8 [facility] Comment on above: Performed By: #### C BC #### [facility] [address] [place] [address] Dr. Yuliya Jones Monocytes/100 WBC (Bld) 5.1 % Normal 1.7-12.0 [facility] Comment on above: Performed By: #### C BC #### [facility] [address] [place] [address] Dr. Yuliya Jones NEUT # 4.8 103/ul Normal 1.4-6.5 [facility] Comment on above: Performed By: #### C BC #### [facility] [address] [place] [address] Dr. Yuliay Jones Neutrophils/100 WBC (Bld) 64.7 % Normal 43.0-75.0 [facility] Comment on above: Performed By: #### C BC #### [facility] [address] [place] [address] Dr. Yuliya Jones Platelet mean volume (Bld) [Entitic vol] 10.3 fL Normal 9.5-13.5 [facility] Comment on above: Performed By: #### C BC #### [facility] [address] [place] [address] Dr. Yuliya Jones PLT 244 103/ul Normal 150-450 [facility] Comment on above: Performed By: #### C BC #### [facility] [address] [place] [address] Dr. Yuliya Jones RBC 4.59 106/ul Normal 4.20-5.40 [facility] Comment on above: Performed By: #### C BC #### [facility] [address] [place] [address] Dr. Yuliya Jones WBC 7.4 103/ul Normal 4.0-11.0 [facility] Comment on above: Performed By: #### C BC #### [facility] [address] [place] [address] Dr. Yuliya Jones FREE THYROXINE INDEX T7on FTI 2.66 Normal 1.30-4.50 [facility] Comment on above: Performed By: #### C MP, T7, BNP, LIPID, TSH #### [facility] [address] [address] [address] Yuliya Jones T3U 35.0 % Normal 30.0-39.0 [facility] Comment on above: Performed By: #### C MP, T7, BNP, LIPID, TSH #### [facility] [address] [address] [address] Yuliya Jones T4 [Mass/Vol] 7.60 ug/dL Normal 4.80-13.90 [facility] Comment on above: Performed By: #### C MP, T7, BNP, LIPID, TSH #### [facility] [address] [address] [address] Yuliya Jones GLYCOHEMOGLOBIN A1Con 2022 ADA RECOMMENDATION SEE BELOW Normal [facility] Comment on above: Result Comment: ADA RECOMMENDED LIMIT 4.0 - 6.0 ADA THERAPEUTIC TARGET < 7.0 ACTION SUGGESTED > 7.0 Performed By: #### A 1C ####[facility] [address] [address]Dr. Yuliya Jones Glucose [Mass/Vol] 146 mg/dL Normal [facility] Comment on above: Performed By: #### A 1C ####[facility] [id number] [id number]. Yuliya Jones HbA1c (Bld) [Mass fraction] 6.7 % Critically high 4.5-6.2 [facility] Comment on above: Performed By: #### A 1C ####[facility] [address] [address]Dr. Yuliya Jones IRONon 07-24-2022 Iron [Mass/Vol] 74.0 ug/dL Normal 50.0-170.0 [facility] Comment on above: Performed By: #### I LUDWIN, VITB12, VITAD #### [facility] [address] [address] [address] Yuliya Jones LIPID PROFILEon 07-24-2022 CHOL-HDL RATIO NORM SEE BELOW Normal [facility] Comment on above: Result Comment: 3.3 - 4.4 LOW RISK 4.4 - 7.1 AVERAGE RISK 7.1 - 11.0 MODERATE RISK >11.0 HIGH RISK Performed By: #### C MP, T7, BNP, LIPID, TSH #### [facility] [address] [place] [address] Dr. Yuliya Jones Cholesterol [Mass/Vol] 215 mg/dL Critically high <=200 [facility] Comment on above: Performed By: #### C MP, T7, BNP, LIPID, TSH #### [facility] [address] [place] [address] Dr. Yuliya Jones Cholesterol in HDL [Mass/Vol] 46 mg/dL Normal 40-60 [facility] Comment on above: Performed By: #### C MP, T7, BNP, LIPID, TSH #### [facility] [address] [place] [address] Dr. Yuliya Jones Cholesterol in LDL [Mass/Vol] 120.6 mg/dL Normal [facility] Comment on above: Performed By: #### C MP, T7, BNP, LIPID, TSH #### [facility] [address] [place] [address] Dr. Yuliya Jones Cholesterol.total/ Cholesterol in HDL [Mass ratio] 4.7 {ratio} Normal [facility] Comment on above: Performed By: #### C MP, T7, BNP, LIPID, TSH #### [facility] [address] [place] [address] Dr. Yuliya Jones HDL NORMAL > or = 60 mg/dl - LO W CARDIOVASCULAR RISK <40 mg/dl - HIGH CARDIOVASCULAR RISK Normal [facility] Comment on above: Performed By: #### C MP, T7, BNP, LIPID, TSH #### [facility] [address] [place] [address] Dr. Yuliya Jones LDL CALC NORMAL SEE BELOW Normal [facility] Comment on above: Result Comment: <100 mg/dl OPTIMAL 100 - 129 mg/dl NEAR OR ABOVE OPTIMAL 130 - 159 mg/dl BORDERLINE HIGH 160 - 189 mg/dl HIGH >190 mg/dl VERY HIGH Performed By: #### C MP, T7, BNP, LIPID, TSH #### [facility] [address] [place] [address] Dr. Yuliya Jones Triglyceride [Mass/Vol] 242 mg/dL Critically high <=150 [facility] Comment on above: Performed By: #### C MP, T7, BNP, LIPID, TSH #### [facility] [address] [address] [address] Yuliya Jones VLDL CALC 48.4 mg/dL Normal [facility] Comment on above: Performed By: #### C MP, T7, BNP, LIPID, TSH #### [facility] [address] [place] [address] Dr. Yuliya Jnoes PROF 14(COMP METB)on 023 Albumin [Mass/Vol] 3.3 g/dL Critically low 3.4-5.0 [facility] Comment on above: Performed By: #### C MP, T7, BNP, LIPID, TSH #### [facility] [address] [place] [address] Dr. Yuliya Jones Albumin/Globulin [Mass ratio] 0.8 {ratio} Normal [facility] Comment on above: Performed By: #### C MP, T7, BNP, LIPID, TSH #### [facility] [address] [address] [address] Yuliya Jones ALP [Catalytic activity/Vol] 148 U/L Critically high 46-116 [facility] Comment on above: Performed By: #### C MP, T7, BNP, LIPID, TSH #### [facility] [address] [address] [address] Yuliya Jones ALT [Catalytic activity/Vol] 49 U/L Normal 14-59 [facility] Comment on above: Performed By: #### C MP, T7, BNP, LIPID, TSH #### [facility] [address] [address] [address] Yuliya Jones Anion gap [Moles/Vol] 11.6 mmol/L Normal [facility] Comment on above: Performed By: #### C MP, T7, BNP, LIPID, TSH #### [facility] [address] [place] [address] Dr. Yuliya Jones AST [Catalytic activity/Vol] 26 U/L Normal 15-37 [facility] Comment on above: Performed By: #### C MP, T7, BNP, LIPID, TSH #### [facility] [address] [place] [address] Dr. Yuliya Jones Bilirubin [Mass/Vol] 0.8 mg/dL Normal 0.2-1.0 [facility] Comment on above: Performed By: #### C MP, T7, BNP, LIPID, TSH #### [facility] [address] [place] [address] Dr. Yuliya Jones Calcium [Mass/Vol] 9.0 mg/dL Normal 8.5-10.1 [facility] Comment on above: Performed By: #### C MP, T7, BNP, LIPID, TSH #### [facility] [address] [place] [address] Dr. Yuliya Jones Chloride [Moles/Vol] 102 mmol/L Normal 98-107 [facility] Comment on above: Performed By: #### C MP, T7, BNP, LIPID, TSH #### [facility] [address] [place] [address] Dr. Yuliya Jones CO2 [Moles/Vol] 29.1 mmol/L Normal 21.0-32.0 [facility] Comment on above: Performed By: #### C MP, T7, BNP, LIPID, TSH #### [facility] [address] [place] [address] Dr. Yuliya Jones Creatinine [Mass/Vol] 0.69 mg/dL Normal 0.55-1.02 [facility] Comment on above: Performed By: #### C MP, T7, BNP, LIPID, TSH #### [facility] [address] [place] [address] Dr. Yuliya Jones EGFR-AF CHINESE >60 Normal >=60 [facility] Comment on above: Performed By: #### C MP, T7, BNP, LIPID, TSH #### [facility] [address] [place] [address] Dr. Yuliya Jones EGFR-NON AF [place] >60 Normal >=60 [facility] Comment on above: Performed By: #### C MP, T7, BNP, LIPID, TSH #### [facility] [address] [place] [address] Dr. Yuliya Jones Globulin (S) [Mass/Vol] 4.1 g/dL Normal [facility] Comment on above: Performed By: #### C MP, T7, BNP, LIPID, TSH #### [facility] [address] [place] [address] Dr. Yuliya Jones Glucose [Mass/Vol] 151 mg/dL Critically high 74-106 [facility] Comment on above: Performed By: #### C MP, T7, BNP, LIPID, TSH #### [facility] [address] [place] [address] Dr. Yuliya Jones Potassium [Moles/Vol] 3.7 mmol/L Normal 3.5-5.1 [facility] Comment on above: Performed By: #### C MP, T7, BNP, LIPID, TSH #### [facility] [address] [place] [address] Dr. Yuliya Jones Protein [Mass/Vol] 7.4 g/dL Normal 6.4-8.2 [facility] Comment on above: Performed By: #### C MP, T7, BNP, LIPID, TSH #### [facility] [address] [place] [address] Dr. Yuliya Jones Sodium [Moles/Vol] 139 mmol/L Normal 136-145 [facility] Comment on above: Performed By: #### C MP, T7, BNP, LIPID, TSH #### [facility] [address] [place] [address] Dr. Yuliya Jones Urea nitrogen [Mass/Vol] 8.0 mg/dL Normal 7.0-18.0 [facility] Comment on above: Performed By: #### C MP, T7, BNP, LIPID, TSH #### [facility] [address] [place] [address] Dr. Yuliya Jones Urea nitrogen/Creatinin e [Mass ratio] 11.6 mg/mg Normal [facility] Comment on above: Performed By: #### C MP, T7, BNP, LIPID, TSH #### [facility] [address] [address] [address] Yuliya Jones TSHon 07-24-2022 TSH 1.903 uIU/mL Normal 0.358-3.740 [facility] Comment on above: Performed By: #### C MP, T7, BNP, LIPID, TSH #### [facility] [address] [address] [address] Yuliya Jones VITAMIN B12on 07-24-2022 Cobalamin (Vitamin B12) [Mass/Vol] 1085.0 pg/mL Critically high 193.0-986.0 [facility] Comment on above: Performed By: #### I LUDWIN VITB12, VITAD ####[facility] [id number] [place], [place] [address]DrMinisterio Jones VITAMIN D 25 OHon 07-24-2022 VIT D 25-OH 36.8 ng/mL Normal [facility] Comment on above: Performed By: #### I LUDWIN VITB12, VITAD ####[facility] [address] [place], [place] [address]DrMinisterio Jones VIT D RANGES SEE BELOW Normal [facility] Comment on above: Result Comment: <20 ng/mL Vit D deficient 20 - <30 ng/mL Vit D insufficient 30 - 100 ng/mL Vit D sufficient >100 ng/mL Potential Toxicity Performed By: #### I LUDWIN VITB12, VITAD ####[facility] [address] [place], [place] [address]DrMinisterio Jones GLYCOHEMOGLOBIN A1Con 2021 ADA RECOMMENDATION SEE BELOW Normal [facility] Comment on above: Result Comment: ADA RECOMMENDED LIMIT 4.0 - 6.0 ADA THERAPEUTIC TARGET < 7.0 ACTION SUGGESTED > 7.0 Performed By: #### A 1C ####[facility] [address] [place], [place] [address]DrMinisterio Jones Glucose [Mass/Vol] 140 mg/dL Normal [facility] Comment on above: Performed By: #### A 1C ####[facility] [address] [place], [place] [address]DrMinisterio Jones HbA1c (Bld) [Mass fraction] 6.5 % Critically high 4.5-6.2 [facility] Comment on above: Performed By: #### A 1C ####[facility] [address] [place], [place] [id number]. Yuliya Jones LIPID PROFILEon 03-07-2022 CHOL-HDL RATIO NORM SEE BELOW Normal [facility] Comment on above: Result Comment: 3.3 - 4.4 LOW RISK 4.4 - 7.1 AVERAGE RISK 7.1 - 11.0 MODERATE RISK >11.0 HIGH RISK Performed By: #### L IPID #### [facility] [address] [place], [place] [address] Dr. Yuliya Jones Cholesterol [Mass/Vol] 215 mg/dL Critically high <=200 [facility] Comment on above: Performed By: #### L IPID #### [facility] [address] [place], [place] [address] Dr. Yuliya Jones Cholesterol in HDL [Mass/Vol] 42 mg/dL Normal 40-60 [facility] Comment on above: Performed By: #### L IPID #### [facility] [address] [place], [place] [address] Dr. Yuliya Jones Cholesterol in LDL [Mass/Vol] 118.4 mg/dL Normal [facility] Comment on above: Performed By: #### L IPID #### [facility] [address] [place], [place] [address] Dr. Yuliya Jones Cholesterol.total/ Cholesterol in HDL [Mass ratio] 5.1 {ratio} Normal [facility] Comment on above: Performed By: #### L IPID #### [facility] [address] [place], [place] [address] Dr. Yuliya Jones HDL NORMAL > or = 60 mg/dl - LO W CARDIOVASCULAR RISK <40 mg/dl - HIGH CARDIOVASCULAR RISK Normal [facility] Comment on above: Performed By: #### L IPID #### [facility] [address] [place], [place] [address] Dr. Yuliya Jones LDL CALC NORMAL SEE BELOW Normal [facility] Comment on above: Result Comment: <100 mg/dl OPTIMAL 100 - 129 mg/dl NEAR OR ABOVE OPTIMAL 130 - 159 mg/dl BORDERLINE HIGH 160 - 189 mg/dl HIGH >190 mg/dl VERY HIGH Performed By: #### L IPID #### [facility] [address] [place] [address] [address] Yuliya Jones Triglyceride [Mass/Vol] 273 mg/dL Critically high <=150 [facility] Comment on above: Performed By: #### L IPID #### [facility] [address] [place] [address] [address] Yuliya Jones VLDL CALC 54.6 mg/dL Normal [facility] Comment on above: Performed By: #### L IPID #### [facility] [address] [place] [id number] Yuliya Jones XR ANKLE RT MIN [...] by: RORO BARKLEY Date: 2021-12-18 07:50 Normal [facility] FLUORO FOR SURGICAL PROCEDUR ESon 10-25-2021 FLUORO FOR SURGICAL PROCEDURES Radiology exam is complete. No Radiologist dictation. Please follow up with ordering provider. Final result Normal [facility] Radiology exam is complete. No Radiologist dictation. Please follow up with ordering provider. [facility] Cardiovascular Lab Reporton 07-22-2020 Cardiovascular Lab Report [facility] Patient Name: Tab [facility] Tami Moraes MR #: [id number] Department of Physician: Raeann Billy M.D. Division of Service Date: 07/22/2020 Cardiology Birthdate: 1960 Adult Cardiovascular Room #: [facility] [address] [place] [address] Cardiovascular Laboratory Report FINAL IMPRESSIONS: 1. Moderate [...] Follow up with Dr. Walton in the [place] office in the next 1 to 2 [...] right internal jugular vein was obtained. A 6-Welsh x 11 cm sheath was inserted without [...] to access the left radial artery. A 6-Welsh glide sheath was inserted without difficulty. Bilateral [...] Walton M.D. Date Trans: 07/22/2020 02:58 P/mmo [id number] cc: Kunal Patel M.D. [address] [place] [address] Normal [facility] [place] Physician Referralon 021 Physician Referral [phone] [phone] [id number]: 127 Normal [facility] CNOVon 06-24-2018 CNOV Office Visit (GENN) AMPARO BARTH ([id number]) 1960 FDate Time Provider Department06/24/18 9:00 AM ZAID DENNIS During your visit today, we recorded the following information about you: Temperature Pulse Respiration Blood pressure 98 degrees 62/minute 18/minute 198/94 Weight Height 112.9 kg 1.651 [place] Antonino 06/24/2018 9:33 AM SignedWhat is the reason [...] MD 06/24/2018 10:11 AM SignedName: Amparo BarthMRN: [id number]: June 24, 2018Patient seen and examined in [...] Chito Antonio, MDPGY-6 FellowReferring Provider: KUNAL PATEL [[id number]]Allergies As of Date: 06/24/2018 Noted Allergy ReactionPERCOCET [...] regularWound: clean AND dryTemperature: NoDrains: NoEncounter Number: [id number] Status:Closed by ZAID DENNIS MD on 06/24/18 Normal [facility] HISTORY PHYSICALon HISTORY PHYSICAL HNO ID: [id number]: Chito (Ronn) Jt: (none)Author Type: FellowType: HANDPFiled: 06/24/2018 10:11 AMNote Text:Name: Amparo BarthMRN: [id number]: June 24, 2018Patient seen and examined in [...] Rfl:No current facility-administered medications for this visit. MEAGAN Sheffield-6 Fellow [facility] PROGRESSyesi 06-24-2018 Protein mass conc HNO ID: [id number]: Zaid Baptiste: (none)Author Type: PhysicianType: Progress NotesFiled: [...] need anopen repair with retro-muscular mesh. Normal [facility] SR-CT ABD/PELVIS W CON IMPOR Ton 12-03-2017 SR-CT ABD/PELVIS W CON IMPORT Images were obtained outside of [facility] [id number] Normal [facility] Vital Signs Date Time Vital Sign Value Performing Clinician Faci monika 10-25-2021 14:26-0400 Diastolic blood pressure 138 mm[Hg] Annabel Lima MD Work Phone: [facility] 10-25-2021 14:26-0400 Systolic blood pressure 239 mm[Hg] Annabel Lima MD Work Phone: [facility] Ayannah 10-25-2021 13:53-0400 Body temperature 97.81 [degF] Annabel Lima MD Work Phone: [facility] 10-25-2021 13:53-0400 Heart rate 62 /min Annabel Lima MD Work Phone: [employer] 10-25-2021 13:53-0400 Respiratory rate 18 /min Annabel Lima MD Work Phone: [facility] 10-25-2021 13:53-0400 SaO2% (BldA) [Mass fraction] 96 % Annabel Lima MD Work Phone: [facility] 10-13-2021 08:17-0400 Body height 165.1 cm Annabel Lima MD Work Phone: [facility] Encounters Encounter Date Encounter Type Care Provider Facility Start: 04-04-2024 End: 04-04-2024 ambulatory Antoine Peoples MD Facility:[facility] Start: 04-02-2024 ambulatory [facility] Start: 03-19-2024 ambulatory [facility] Start: 02-08-[address] [facility] Start: 01-21-2024 ambulatory [facility] Start: 01-15-2024 End: 01-15-2024 ambulatory EMILY LUZ Not Available Start: 12-05-2023 ambulatory [facility] Start: 09-26-[address] [facility] Start: 09-26-2023 End: 09-26-[address] [facility] Start: 09-18-2023 End: 09-18-[address] [facility] Start: 06-26-[address] [facility] Start: 04-17-2023 End: 04-17-2023 ambulatory BESS [facility] Start: 07-24-2022 End: 07-25-[address] KUNAL PATEL . Facility:[facility] Start: 03-28-2022 ambulatory GARTH ANDREWS Facility :[facility] Start: 03-08-2022 Encounter for genera l adult medical examination without abnormal findings GARTH ANDREWS [facility] Start: 03-07-2022 End: 03-08-2022 ambulatory GARTH ANDREWS Facility:[facility] Start: 03-07-2022 End: 03-08-2022 Encounter for general adult medical examination without abnormal findings GARTH ANDREWS Facility:[facility] Start: 12-18-2021 End: 12-18-2021 ambulatory DELIA COKER Facility:[facility] Start: 10-25-2021 End: 10-25-2021 ambulatory ANNABEL LIMA [facility] Start: 10-25-2021 End: 10-25-2021 Subsequent hospital visit by physician Annabel Lima MD Work Phone: [facility] [place] Start: 07-22-2020 End: 07-23-2020 Patient encounter procedure [facility] Facility:[facility] Start: 06-24-2018 Patient encounter procedure ZAID DENNIS [facility] Procedures Date Procedure Procedure Detail Performing Clinician Start: 10-25-2021 Fluoroscopy during operation Annabel Lima MD Work Phone: Plan of Treatment Date Care Activity Detail Author Start: 02-16-2022 Influenza vaccination Flu vacc ine (Season Ended) [facility] Start: 10-25-2021 End: 10-25-2021 Njx dx/ther sbst intrlmnr lmbr/sac w/img gdn EPIDURAL STEROID INJECTION LUMBAR SACRAL RAD LUMBAR RAD 10/25/2021 2:21 PM EDT [facility] Start: 2008 Screening for malign ant neoplasm of breast Breast cancer screen [facility] Start: 2008 Shingles vaccine (1 of 2) Shingles vaccine (1 of 2) [facility] Start: 2003 Screening for malign ant neoplasm of colon [facility] Start: 1988 Screening for malign ant neoplasm of cervix [facility] Start: 1979 Screening for malign ant neoplasm of cervix Pap smear [facility] Start: 1977 DTaP/Tdap/Td vaccine (1 - Tdap) DTaP/Tdap/Td vaccine ( - Tdap) [facility] Start: 1976 Creatinine measurement Creatinine [facility] Start: 1976 Hepatitis C screening Hepatitis C sc reen [facility] Start: 1976 Potassium [Moles/vol ume] in Serum or Plasma Potassium [facility] Start: 1973 HIV screening HIV screen [facility] Start: 1970 Depression Screen Depression Screen [facility] Start: 1968 Lipid panel Lipids [facility] Start: 1963 COVID-19 Vaccine (1) COVID-19 Vaccin e (1) [facility] Start: 1960 Annual Wellness Visi t (AWV) Annual Wellness Visit (AWV) [facility] Payers Date Payer Category Payer Private Health Insurance 2023 Medicare [id number] 1961 Medicaid [id number] 1961 Medicare [id number] 1961 Self-pay [id number] 1960 Unknown [id number] 2.16.8 [id number] 1960 Unknown [id number] 2.16.8 [id number] 1960 Unknown [id number] 2.16.84 [id number] 1960 Unknown [id number] 2.16.84 [id number] 1960 Unknown [id number] 2.16.84 [id number] 1960 Unknown [id number] 2.16.84 [id number] 1960 Unknown [id number] 2.16.84 [id number] 1960 Unknown [id number] 2.16. [id number] Medicare [id number] Social History Date Type Detail Facility Start: [facility]-13[facility]21 [facility] Start: 10-13-2021 Tobacco use and exposure Smokeless tobacco non-user [employer] Phone: Start: 10-25-2021 Alcohol intake Current drinke r of alcohol (finding) [employer] Phone: Start: 10-13-2021 History SDOH Alcohol Comment socially [employer] Phone: Start: 1960 Sex Assigned At Not on file M [employer] Phone: Clinical Notes 10-25-2021 to 09-26-2023 Radha Estevez RN - 10/25/2021 2:41 PM Edward Estevez RN - 10/25/2021 2:31 PM EDTInstructionsAuth/Cert Note Date & Type Note Facility 09-26-2023 Note Patient: Amparo evangelista Procedure Summary Date: 09/26/23 Room / Location: [facility] 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 [facility] 09-26-2023 Note ATRIAL FIBRILLATION ABLATION PROCEDURE NOTE DATE OF PROCEDURE: 09/26/2023 PERFORMING PHYSICIAN: Dr. Rai Jay TOWBOAT PILOT: SAJI CONSENT: Patient NAME OF THE PROCEDURE: [...] aspect of the septum using Genie needle, Holli catheter was placed in the left atrium. [...] pulmonary veins. Esophagus was mapped using the [employer] 3D mapping software and noted to lie [...] Mapping was performed (more content not included)... [facility] 09-26-2023 Note Arterial Line: Date/Time: 09/26/2023 8:15 [...] 1 % SubQ, 0.5 mL Staffing Performed: resident/INDEPENDENT FREIGHT AGENT/CAA Anesthesiologist: Damion Coronado MD Resident/INDEPENDENT FREIGHT AGENT: Tameka Westbrook MD Performed by: Tameka Westbrook MD Authorized by: Damion Coronado MD [facility] 09-26-2023 Note Airway Date/Time: 09/26/2023 8:53 AM Urgency: elective Airway not difficult General Information and Staff Patient location during procedure: [place] Anesthesiologist: Damion Coronado MD Resident/INDEPENDENT FREIGHT AGENT/CAA: Tameka Westbrook MD Performed: resident/INDEPENDENT FREIGHT AGENT/CAA Indications and Patient Condition Indications for airway [...] 21 Number of attempts at approach: 1 [facility] 09-26-2023 Note Patient: Amparo evangelista Procedure Information Date/Time: 09/26/23 0830 Procedure: Ablation a-fib paroxysmal Location: [facility] 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 Additional Equipment Requests [facility] 09-18-2023 Note [place] Electrophysiology Note [facility] Reason for Consultation: Aflutter s/p ablation [...] 07/2022, atrial fib (was intolerant of amiodarone) [id number] at least 5 for gender, hypertension, TIA, [...] hx TIA 2008. She was seen at [facility] ER with c/o palpitations and [...] on file Intimate Partner Violence: Unknown (08/09/2023) [place] Fear of Current or [...] negative. Physical Exam: (more content not included)... [facility] 06-26-2023 Note Patient here for 3 m o follow up echo done last week. Denies chest pain, SOB, palpitations, and lightheadedness/syncope. Denies bleeding on Eliquis. Says she feels good, as she's just getting over a sinus infection. Review of Systems Musculoskeletal: Positive for arthritis and myalgias. All other systems reviewed and are negative. [place] Electrophysiology Note [facility] Reason for Consultation: Aflutter s/p ablation [...] 07/2022, atrial fib (was intolerant of amiodarone) [id number] at least 5 for gender, hypertension, TIA, [...] hx TIA 2008. She was seen at [facility] ER with c/o palpitations and [...] no significant antony (more content not included)... [facility] 04-17-2023 Note Patient here for 3 m o follow up afib ablation. Had some palpitations last week she says. Denies chest pain, SOB, lightheadedness, and bleeding on Eliquis. Review of Systems Cardiovascular: Positive for palpitations. Musculoskeletal: Positive for arthritis and myalgias. All other systems reviewed and are negative. [facility] 04-17-2023 Note [place] Electrophysiology Note [facility] Reason for Consultation: Aflutter s/p ablation [...] 07/2022, atrial fib (was intolerant of amiodarone) [id number] at least 5 for gender, hypertension, TIA, [...] hx TIA 2008. She was seen at [facility] ER with c/o palpitations and [...] ulcer, no varicosities, (more content not included)... [facility] 10-25-2021 History of Present illness Narrative Discharge instructions reviewed with patient. Had no sedation. Signed for self. To recovery. Denies pain complaints. Injection site clean and dry. BP 190/95. P 63. Oxygen 98%. Resp 18. updated on elevated pressure. documented in this encounter [employer] Phone: 10-25-2021 Hospital Discharge instructions Radha Estevez [...] a follow-up visit. documented in this encounter [employer] Phone: Reason for visit Narrative Specialty Diagnoses / Procedures Referred By Heydi t Referred To Contact Diagnoses LUMBAR SACRAL RAD LUMBAR RAD Procedures [place] NJX DX/THER SBST INTRLMNR LMBR/SAC W/IMG GDN EPIDURAL STEROID INJECTION- L4-5 Annabel Lima MD [address] [place] [address] [employer] [address] [place] [address] Referral ID Status Reason Start Date Expiration Date Visits Re quested Visits Authorized 1 1 [employer] Work Phone: Summary Purpose Family History No Family [...] section and content) DATE CREATED AUTHOR 06/26/2018 [facility] DATE CREATED AUTHOR AUTHOR'S ORGANIZ ATION 07/13/2020 [facility] DATE CREATED AUTHOR AUTHOR'S ORGANIZ ATION 08/05/2020 [facility] DATE CREATED AUTHOR AUTHOR'S ORGANIZ ATION 10/26/2021 [facility] DATE CREATED AUTHOR AUTHOR'S ORGANIZ ATION 09/29/2022 [facility] DATE CREATED AUTHOR AUTHOR'S ORGANIZ ATION 01/18/2024 [facility] DATE CREATED AUTHOR AUTHOR'S ORGANIZ ATION 04/05/2024 [facility] DATE CREATED AUTHOR AUTHOR'S ORGANIZ ATION 04/10/2024 [facility] PRN Active and Recently Administ [...] Care Teams (unrecognized sec tion and content) 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 [employer] [facility]. provides no warranty or guarantee of the accuracy or completeness of information in this document.
[2024-07-12 09:57] LABS: Basophils Percent Auto 0.4 % (0.2-2.0); Eosinophils Absolute Auto 0.2 10^3/uL (0.0-0.7); Eosinophils Percent Auto 2.8 % (0.9-7.0); Hematocrit 43.6 % (36.0-48.0); Hemoglobin 14.9 g/dL (12.0-16.0); Immature Granulocytes Abs Auto 0.08 10^3/uL (0.00-0.03); Lymphocytes Percent Auto 25.3 % (20.5-60.0); Mean Corpuscular HGB Conc 34.2 g/dL (29.9-35.2); Mean Corpuscular Hemoglobin 28.7 pg (26.7-34.0); Mean Corpuscular Volume 83.8 fL (81.0-99.0); Mean Platelet Volume 10.1 fL (9.5-13.5); Monocytes Absolute Auto 0.4 10^3/uL (0.3-0.8); Monocytes Percent Auto 5.6 % (1.7-12.0); Neutrophils Absolute Auto 5.1 10^3/uL (1.4-6.5); Neutrophils Percent Auto 64.9 % (43.0-75.0); Platelet Count 185 10^3/uL (150-450); Red Cell Distribution Width 13.7 % (11.0-15.0); White Blood Count 7.9 10^3/uL (4.0-11.0)
[2024-07-12 10:43] LABS: Alanine Aminotransferase 36 U/L (14-59); Albumin Globulin Ratio 0.9; Albumin Level 3.5 g/dL (3.4-5.0); Alkaline Phosphatase 160 U/L (46-116); Anion Gap 13.6; Aspartate Amino Transferase 19 U/L (15-37); BUN Creatinine Ratio 11.4; Bilirubin Total 1.1 mg/dL (0.2-1.0); Calcium 9.2 mg/dL (8.5-10.1); Carbon Dioxide 26.3 mmol/L (21.0-32.0); Chloride 103 mmol/L (98-107); Cholesterol 190 mg/dL (<=200); Estimated GFR (African America >60 (>=60 mL/min/1.73m^2); Estimated GFR (Non-African Ame >60 (>=60 mL/min/1.73m^2); Free T3 2.66 pg/mL (2.18-3.98); Glucose 189 mg/dL (74-106); HDL Cholesterol 48 mg/dL (40-60); Potassium 3.9 mmol/L (3.5-5.1); Sodium 139 mmol/L (136-145); Thyroid Stimulating Hormone 1.762 uIU/mL (0.358-3.740); Total Protein 7.5 g/dL (6.4-8.2); Triglycerides 226 mg/dL (<=150); VLDL CHOLESTEROL 45.2 mg/dL
[2024-07-12 17:35] LABS: Estimated Average Glucose 194 mg/dL; Glycohemoglobin A1C 8.4 % (4.5-6.2)
== END 2024-07-12 09:04 | disposition home or self-care (01) ==
LOC: LAB 09:09
PROVIDERS: PCP Family Medicine; Visit Provider Family Medicine
DX: K43.9 Ventral hernia without obstruction or gangrene (principal); E11.9 Type 2 diabetes mellitus without complications; E78.5 Hyperlipidemia, unspecified; E03.9 Hypothyroidism, unspecified; I25.10 Atherosclerotic heart disease of native coronary artery without angina pectoris; K21.9 Gastro-esophageal reflux disease without esophagitis; Z12.12 Encounter for screening for malignant neoplasm of rectum; D64.9 Anemia, unspecified; E55.9 Vitamin D deficiency, unspecified
CPT/HCPCS: 36415; 80053; 80061; 82306; 83036; 83540; 84436; 84443; 84481; 85025

== ENCOUNTER 2024-07-16 08:47 | Outpatient (OUT) | payer MEDICARE, SELFPAY ==
--- NOTE | 2024-07-16 08:50 | MM_ITS ---
Patient Name: JOSÉ ANTONIO SY MR#: [id number] : 1960 Exam Date: 07/16/2024 Ordering Doctor: DR Humble Patel . RADIOLOGY REPORT PROCEDURE: MM TOMOSYNTHESIS SCREENING BI COMPARISON: MG MAMM SCREEN 3D DAMASO CAD, 07/28/2021. MG MAMM SCREEN DAMASO W CAD, 09/05/2019. MG MAMM SCREEN DAMASO W CAD, 08/02/2018. MAMMO DAMASO SCREEN, 01/29/2009. INDICATIONS: Screening Calculator Name NCI Breast Cancer Risk Assessment Tool 5 Year Breast Cancer Risk 1.20% Lifetime Breast Cancer Risk 4.60% Personal Breast Cancer No Personal Ovarian Cancer No Treatments None Family Cancers Mother with lung cancer at age 56. LOCATION: [facility] BREAST COMPOSITION: There are scattered areas of fibroglandular density. FINDINGS: DIAGNOSTIC CATEGORY 2--BENIGN FINDING: RIGHT BREAST: No significant suspicious finding. Scattered benign-appearing lymph nodes are present. No significant change has occurred. LEFT BREAST: No significant suspicious finding. Scattered benign-appearing lymph nodes are present. No significant change has occurred. Loop recorder projecting over the posterior- medial breast. RECOMMENDATIONS: ROUTINE MAMMOGRAM AND CLINICAL EVALUATION IN 12 MONTHS. PLEASE NOTE: A NORMAL MAMMOGRAM DOES NOT EXCLUDE THE POSSIBILITY OF BREAST CANCER. A CLINICALLY SUSPICIOUS PALPABLE LUMP SHOULD BE BIOPSIED. Dictated by: Senthil Lucero M.D. on 07/17/2024 at 15:43 Approved by: Senthil Lucero M.D. on 07/17/2024 at 15:46
--- OUTSIDE RECORDS SUMMARY | 2024-07-16 08:52 | XMS_ITS | CCD ---
Author Organization [facility] Care Team Providers Care Cylinder Checker Name Role Phone PHILLLIVZAID Unavailable Unavailable KUNAL PATEL Unavailable Unavailable ELTAHAWY, EHAB A Attending Unavailable ELTAHAWY, EHAB A Admitting Unavailable SELF, REFERRED Referring Unavailable KUNAL PATEL Primary Care Unavailable Kunal Patel MD Primary Care Provider [phone] ANNABEL LIMA Admitting Unavailable ANNABEL LIMA Attending [...] LEIGHTON ., DR SYED Attending Unavailable EMILY ULZ Attending Unavailable FERNANDO, CHIARA Referring Unavailable FERNANDO, [...] Translations: [OXYCODONE-ACETAMI NOPHEN] Drug Allergy 08-19-2013 [facility] Repository (3 sources) Acetaminophen / oxyCODONE Drug Allergy 01-24-2013 [facility] Repository Medications Current Medications Medication [...] disease (1 source) Atherosclerotic heart disease of [place] coronary artery without angina pectoris; Translations: [ASHD [place] W/O ANGINA [place]] Onset: 03-08-2022 Chronic [...] Onset: 12-21-2021 Episodic Other aftercare (1 source) 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; Translations: [LONGTERM CURRENT USE OF ASPIRIN] Onset: 12-21-2021 Episodic Other aftercare (1 source) 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; Translations: [OTH LONGTERM CURRENT [...] Interpretation Reference Range Facility Telephoneon 10-18-2023 Telephone [id number] Carina Barth A 1960 F Date Provider Department Center 10/18/2023 [facility] Family History Problem Relation Age of Onset Heart failure Mother Hyperlipidemia Mother Hypertension Mother Heart failure Father Hypertension Father Heart failure Brother Hyperlipidemia Brother Hypertension Brother Family Status - Relation Status Age at Mother Father Brother Reason for Visit and Comments: 3 week f/u post ablation [Other] Normal [facility] Telephoneon 10-05-2023 Telephone [id number] Carina Barth A 1960 F Date Provider Department Center 10/05/2023[facility] Family History Problem Relation Age of Onset Heart failure Mother Hyperlipidemia Mother Hypertension Mother Heart failure Father Hypertension Father Heart failure Brother Hyperlipidemia Brother Hypertension Brother Family Status - Relation Status Age at Mother Father Brother Reason for Visit and Comments: week f/u post ablation [Other] Normal [facility] Telephoneon 10-04-2023 Telephone [id number] Carina Barth A 1960 F Date Provider Department Center 10/04/2023[facility] Family History Problem Relation Age of Onset Heart failure Mother Hyperlipidemia Mother Hypertension Mother Heart failure Father Hypertension Father Heart failure Brother Hyperlipidemia Brother Hypertension Brother Family Status - Relation Status Age at Mother Father Brother Reason for Visit and Comments: post ablation f/u [Other] [facility] Elect[facility] Reason for Consultation: Aflutter s/p [...] 07/2022, atrial fib (was intolerant of amiodarone) [id number] at least 5 for gender, hypertension, TIA, [...] hx TIA 2008. She was seen at [facility] ER with c/o palpitations and chest pain [...] on file Intimate Partner Violence: Unknown (08/09/2023) [place] Safety & Environment Fear of Current or [...] syncope, no (more content not included)... Normal [facility] POCT GLUCOSE METER UNSOLICIT ED RESULTSon 09-26-2023 Glucose [Mass/Vol] 173 mg/dL High 70-105 [facility] Comment on above: Order Comment: Waive d Testing in the ED is performed under the ED CLIA certificate #[id number]. Result Comment: dspe ars Performed By: #### L [id number] ####[facility] ([facility])[address] [place] [address] Glucose [Mass/Vol] 164 mg/dL High 70-105 [facility] Comment on above: Order Comment: Waive d Testing in the ED is performed under the ED CLIA certificate #[id number]. Result Comment: eyou ng12 Performed By: #### L [id number] ####[facility] ([facility])[address] [place] [address] PROTIME-INRon 09-26-2023 INR IN PPP BY COAGULATION ASSAY 1.01 Normal 0.90-1.10 [facility] Comment on above: Result Comment: [...] CHEST 1995;108:231S-246S. Performed By: #### L [id number] ####[facility] ([facility])[address] [place] [address] PROTHROMBIN TIME (PT) IN PPP BY COAGULATION ASSAY 13.3 Seconds Normal 12.3-14.8 [facility] Comment on above: Performed By: #### L [id number] ####[facility] ([facility])[address] [place] [address] Prep for Procedureon 024 Prep for Procedure [id number] Carina Barth 1960 F Date Provider Department Center 09/26/2023[facility] Family History Problem Relation Age of Onset Heart failure Mother Hyperlipidemia Mother Hypertension Mother Heart failure Father Hypertension Father Heart failure Brother Hyperlipidemia Brother Hypertension Brother Family Status - Relation Status Age at Mother Father Brother Normal [facility] [id number] 09-18-2023 [id number] ARRIVAL TIME 0700 HOLD ELIQUIS 4/8 MULTI [...] THE FOLLOWING ARE NOT AVAILABLE: 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 Do not wear perfume, make-up, nail italian, or lotions on the day of your [...] need to make any changes, please call [phone]. Notify your surgeon if you develop any illness such as a cold, cough, fever, sore throat or vomiting between now and your surgery. Thank you for entrusting us with your care. [facility] Surgical Services Team Normal [facility] Office Visiton 09-18-2023 Follow-up visit [id number] Carina Barth A 1960 F Date Provider Department Center 09/18/2023 RAI BARROW GOLD [place] Family History Problem Relation Age of Onset Heart failure Mother Hyperlipidemia Mother Hypertension Mother Heart failure Father Hypertension Father Heart failure Brother Hyperlipidemia Brother Hypertension Brother Family Status - Relation Status Age at Mother Father Brother Level of Service:19536 [place] OFFICE/OUTPATIENT ESTABLISHED HIGH MDM 40 MIN Reason for Visit and Comments: Follow-up [[id number]] Normal [facility] Prep for Procedureon 024 Prep for Procedure [id number] Carina Barth A 1960 F Date Provider Department Center 09/05/2023 1987[facility] Family History Problem Relation Age of Onset Heart failure Mother Hyperlipidemia Mother Hypertension Mother Heart failure Father Hypertension Father Heart failure Brother Hyperlipidemia Brother Hypertension Brother Family Status - Relation Status Age at Mother Father Brother Normal [facility] Office Visiton 06-26-2023 Follow-up visit [id number] Carina Barth A 1960 F Date Provider Department Center 06/26/2023 241-RAI JAY GOLD [place] Family History Problem Relation Age of Onset Heart failure Mother Hyperlipidemia Mother Hypertension Mother Heart failure Father Hypertension Father Heart failure Brother Hyperlipidemia Brother Hypertension Brother Family Status - Relation Status Age at Mother Father Brother Level of Service:67352 [place] OFFICE/OUTPATIENT ESTABLISHED MOD MDM 30 MIN [facility] Office Visiton 04-17-2023 Follow-up visit [id number] Carina Barth A 1960 F Date Provider Department Center 04/17/2023 1596-BESS MARTIN [facility] Family History Problem Relation Age of Onset Heart failure Mother Hyperlipidemia Mother Hypertension Mother Heart failure Father Hypertension Father Heart failure Brother Hyperlipidemia Brother Hypertension Brother Family Status - Relation Status Age at Mother Father Brother Level of Service:57768 [place] OFFICE/OUTPATIENT ESTABLISHED MOD MDM 30-39 MIN Normal [facility] BNPon 07-24-2022 Natriuretic peptide B (Bld) [Mass/Vol] 109.0 pg/mL Normal <=900.0 [facility] Comment on above: Performed By: #### C MP, T7, BNP, LIPID, TSH #### [facility] [address] [place] [address] Dr. Yuliya Jones CBC AUTO DIFFon 07-24-2022 BASO # 0.0 103/ul Normal 0.0-0.1 [facility] Comment on above: Performed By: #### C BC #### [facility] [address] [place] [address] Dr. Yuliya Jones Basophils/100 WBC (Bld) 0.4 % Normal 0.2-2.0 [facility] Comment on above: Performed By: #### C BC #### [facility] [address] [place] [address] Dr. Yuliya Jones EO # 0.2 103/ul Normal 0.0-0.7 [facility] Comment on above: Performed By: #### C BC #### [facility] [address] [place] [address] Dr. Yuliya Jones Eosinophils/100 WBC (Bld) 2.2 % Normal 0.9-7.0 [facility] Comment on above: Performed By: #### C BC #### [facility] [address] [place] [address] Dr. Yuliya Jones Erythrocyte distribution width (RBC) [Ratio] 13.6 % Normal 11.0-15.0 [facility] Comment on above: Performed By: #### C BC #### [facility] [address] [place] [address] Dr. Yuliya Jones Hematocrit (Bld) [Volume fraction] 40.1 % Normal 36.0-48.0 [facility] Comment on above: Performed By: #### C BC #### [facility] [address] [place] [address] Dr. Yuliya Jones Hemoglobin (Bld) [Mass/Vol] 13.1 g/dL Normal 12.0-16.0 [facility] Comment on above: Performed By: #### C BC #### [facility] [address] [place] [address] Dr. Yuliya Jones IG # 0.05 10e3/ul Critically high 0.00-0.03 [facility] Comment on above: Performed By: #### C BC #### [facility] [address] [place] [address] Dr. Yuliya Jones IG % 0.7 % Critically high 0.0-0.5 [facility] Comment on above: Performed By: #### C BC #### [facility] [address] [place] [address] Dr. Yuliya Jones LYMPH # 2.0 103/ul Normal 1.2-3.8 [facility] Comment on above: Performed By: #### C BC #### [facility] [address] [place] [address] Dr. Yuliya Jones Lymphocytes/100 WBC (Bld) 26.9 % Normal 20.5-60.0 [facility] Comment on above: Performed By: #### C BC #### [facility] [address] [place] [address] Dr. Yuliya Jones MANUAL DIFF REQ NO Normal [facility] Comment on above: Performed By: #### C BC #### [facility] [address] [place] [address] Dr. Yuliya Jones MCH (RBC) [Entitic mass] 28.5 pg Normal 26.7-34.0 [facility] Comment on above: Performed By: #### C BC #### [facility] [address] [place] [address] Dr. Yuliya Jones MCHC (RBC) [Mass/Vol] 32.7 g/dL Normal 29.9-35.2 [facility] Comment on above: Performed By: #### C BC #### [facility] [address] [place] [address] Dr. Yuliya Jones MCV (RBC) [Entitic vol] 87.4 fL Normal 81.0-99.0 [facility] Comment on above: Performed By: #### C BC #### [facility] [address] [place] [address] Dr. Yuliya Jones MONO # 0.4 103/ul Normal 0.3-0.8 [facility] Comment on above: Performed By: #### C BC #### [facility] [address] [place] [address] Dr. Yuliya Jones Monocytes/100 WBC (Bld) 5.1 % Normal 1.7-12.0 [facility] Comment on above: Performed By: #### C BC #### [facility] [address] [place] [address] Dr. Yuliya Jones NEUT # 4.8 103/ul Normal 1.4-6.5 [facility] Comment on above: Performed By: #### C BC #### [facility] [address] [place] [address] Dr. Yuliya Jones Neutrophils/100 WBC (Bld) 64.7 % Normal 43.0-75.0 [facility] Comment on above: Performed By: #### C BC #### [facility] [address] [place] [address] Dr. Yuliya Jones Platelet mean volume (Bld) [Entitic vol] 10.3 fL Normal 9.5-13.5 [facility] Comment on above: Performed By: #### C BC #### [facility] [address] [place] [address] Dr. Yuliya Jones PLT 244 103/ul Normal 150-450 [facility] Comment on above: Performed By: #### C BC #### [facility] [address] [place] [address] Dr. Yuliya Jones RBC 4.59 106/ul Normal 4.20-5.40 [facility] Comment on above: Performed By: #### C BC #### [facility] [address] [place] [address] Dr. Yuliya Jones WBC 7.4 103/ul Normal 4.0-11.0 [facility] Comment on above: Performed By: #### C BC #### [facility] [address] [place] [address] Dr. Yuliya Jones FREE THYROXINE INDEX T7on FTI 2.66 Normal 1.30-4.50 [facility] Comment on above: Performed By: #### C MP, T7, BNP, LIPID, TSH #### [facility] [address] [address] [address] Yuliya Jones T3U 35.0 % Normal 30.0-39.0 [facility] Comment on above: Performed By: #### C MP, T7, BNP, LIPID, TSH #### [facility] [address] [address] [address] Yuliya Jones T4 [Mass/Vol] 7.60 ug/dL Normal 4.80-13.90 [facility] Comment on above: Performed By: #### C MP, T7, BNP, LIPID, TSH #### [facility] [address] [address] [address] Yuliya Jones GLYCOHEMOGLOBIN A1Con 2022 ADA RECOMMENDATION SEE BELOW Normal [facility] Comment on above: Result Comment: ADA RECOMMENDED LIMIT 4.0 - 6.0 ADA THERAPEUTIC TARGET < 7.0 ACTION SUGGESTED > 7.0 Performed By: #### A 1C ####[facility] [address] [address]Dr. Yuliya Jones Glucose [Mass/Vol] 146 mg/dL Normal [facility] Comment on above: Performed By: #### A 1C ####[facility] [address] [id number]. Yuliya Jones HbA1c (Bld) [Mass fraction] 6.7 % Critically high 4.5-6.2 [facility] Comment on above: Performed By: #### A 1C ####[facility] [address] [address]Dr. Yuliya Jones IRONon 07-24-2022 Iron [Mass/Vol] 74.0 ug/dL Normal 50.0-170.0 [facility] Comment on above: Performed By: #### I LUDWIN, VITB12, VITAD #### [facility] [address] [address] [address] Yuliya Jones LIPID PROFILEon 07-24-2022 CHOL-HDL RATIO NORM SEE BELOW Normal [facility] Comment on above: Result Comment: 3.3 - 4.4 LOW RISK 4.4 - 7.1 AVERAGE RISK 7.1 - 11.0 MODERATE RISK >11.0 HIGH RISK Performed By: #### C MP, T7, BNP, LIPID, TSH #### [facility] [address] [place] [address] Dr. Yuliya Jones Cholesterol [Mass/Vol] 215 mg/dL Critically high <=200 [facility] Comment on above: Performed By: #### C MP, T7, BNP, LIPID, TSH #### [facility] [address] [place] [address] Dr. Yuliya Jones Cholesterol in HDL [Mass/Vol] 46 mg/dL Normal 40-60 [facility] Comment on above: Performed By: #### C MP, T7, BNP, LIPID, TSH #### [facility] [address] [place] [address] Dr. Yuliya Jones Cholesterol in LDL [Mass/Vol] 120.6 mg/dL Normal [facility] Comment on above: Performed By: #### C MP, T7, BNP, LIPID, TSH #### [facility] [address] [place] [address] Dr. Yuliya Jones Cholesterol.total/ Cholesterol in HDL [Mass ratio] 4.7 {ratio} Normal [facility] Comment on above: Performed By: #### C MP, T7, BNP, LIPID, TSH #### [facility] [address] [place] [address] Dr. Yuliya Jonse HDL NORMAL > or = 60 mg/dl - LO W CARDIOVASCULAR RISK <40 mg/dl - HIGH CARDIOVASCULAR RISK Normal [facility] Comment on above: Performed By: #### C MP, T7, BNP, LIPID, TSH #### [facility] [address] [place] [address] Dr. Yuliya Jones LDL CALC NORMAL SEE BELOW Normal [facility] Comment on above: Result Comment: <100 mg/dl OPTIMAL 100 - 129 mg/dl NEAR OR ABOVE OPTIMAL 130 - 159 mg/dl BORDERLINE HIGH 160 - 189 mg/dl HIGH >190 mg/dl VERY HIGH Performed By: #### C MP, T7, BNP, LIPID, TSH #### [facility] [address] [place] [address] Dr. Yuliya Jones Triglyceride [Mass/Vol] 242 mg/dL Critically high <=150 [facility] Comment on above: Performed By: #### C MP, T7, BNP, LIPID, TSH #### [facility] [address] [address] [address] Yuliya Jones VLDL CALC 48.4 mg/dL Normal [facility] Comment on above: Performed By: #### C MP, T7, BNP, LIPID, TSH #### [facility] [address] [place] [address] Dr. Yuliya Jones PROF 14(COMP METB)on 023 Albumin [Mass/Vol] 3.3 g/dL Critically low 3.4-5.0 [facility] Comment on above: Performed By: #### C MP, T7, BNP, LIPID, TSH #### [facility] [address] [place] [address] Dr. Yuliya Jones Albumin/Globulin [Mass ratio] 0.8 {ratio} Normal [facility] Comment on above: Performed By: #### C MP, T7, BNP, LIPID, TSH #### [facility] [address] [address] [address] Yuliya Jones ALP [Catalytic activity/Vol] 148 U/L Critically high 46-116 [facility] Comment on above: Performed By: #### C MP, T7, BNP, LIPID, TSH #### [facility] [address] [address] [address] Yuliya Jones ALT [Catalytic activity/Vol] 49 U/L Normal 14-59 [facility] Comment on above: Performed By: #### C MP, T7, BNP, LIPID, TSH #### [facility] [address] [address] [address] Yuliya Jones Anion gap [Moles/Vol] 11.6 mmol/L Normal [facility] Comment on above: Performed By: #### C MP, T7, BNP, LIPID, TSH #### [facility] [address] [place] [address] Dr. Yuliya Jones AST [Catalytic activity/Vol] 26 U/L Normal 15-37 [facility] Comment on above: Performed By: #### C MP, T7, BNP, LIPID, TSH #### [facility] [address] [place] [address] Dr. Yuliya Jones Bilirubin [Mass/Vol] 0.8 mg/dL Normal 0.2-1.0 [facility] Comment on above: Performed By: #### C MP, T7, BNP, LIPID, TSH #### [facility] [address] [place] [address] Dr. Yuliya Jones Calcium [Mass/Vol] 9.0 mg/dL Normal 8.5-10.1 [facility] Comment on above: Performed By: #### C MP, T7, BNP, LIPID, TSH #### [facility] [address] [place] [address] Dr. Yuliya Jones Chloride [Moles/Vol] 102 mmol/L Normal 98-107 [facility] Comment on above: Performed By: #### C MP, T7, BNP, LIPID, TSH #### [facility] [address] [place] [address] Dr. Yuliya Jones CO2 [Moles/Vol] 29.1 mmol/L Normal 21.0-32.0 [facility] Comment on above: Performed By: #### C MP, T7, BNP, LIPID, TSH #### [facility] [address] [place] [address] Dr. Yuliya Jones Creatinine [Mass/Vol] 0.69 mg/dL Normal 0.55-1.02 [facility] Comment on above: Performed By: #### C MP, T7, BNP, LIPID, TSH #### [facility] [address] [place] [address] Dr. Yuliya Jones EGFR-AF ANDORRAN >60 Normal >=60 [facility] Comment on above: Performed By: #### C MP, T7, BNP, LIPID, TSH #### [facility] [address] [place] [address] Dr. Yuliya Jones EGFR-NON AF ANDORRAN >60 Normal >=60 [facility] Comment on above: Performed By: #### C MP, T7, BNP, LIPID, TSH #### [facility] [address] [place] [address] Dr. Yuliya Jones Globulin (S) [Mass/Vol] 4.1 g/dL Normal [facility] Comment on above: Performed By: #### C MP, T7, BNP, LIPID, TSH #### [facility] [address] [place] [address] Dr. Yuliya Jones Glucose [Mass/Vol] 151 mg/dL Critically high 74-106 [facility] Comment on above: Performed By: #### C MP, T7, BNP, LIPID, TSH #### [facility] [address] [place] [address] Dr. Yuliya Jones Potassium [Moles/Vol] 3.7 mmol/L Normal 3.5-5.1 [facility] Comment on above: Performed By: #### C MP, T7, BNP, LIPID, TSH #### [facility] [address] [place] [address] Dr. Yuliya Jones Protein [Mass/Vol] 7.4 g/dL Normal 6.4-8.2 [facility] Comment on above: Performed By: #### C MP, T7, BNP, LIPID, TSH #### [facility] [address] [place] [address] Dr. Yuliya Jones Sodium [Moles/Vol] 139 mmol/L Normal 136-145 [facility] Comment on above: Performed By: #### C MP, T7, BNP, LIPID, TSH #### [facility] [address] [place] [address] Dr. Yuliya Jones Urea nitrogen [Mass/Vol] 8.0 mg/dL Normal 7.0-18.0 [facility] Comment on above: Performed By: #### C MP, T7, BNP, LIPID, TSH #### [facility] [address] [place] [address] Dr. Yuliya Jones Urea nitrogen/Creatinin e [Mass ratio] 11.6 mg/mg Normal [facility] Comment on above: Performed By: #### C MP, T7, BNP, LIPID, TSH #### [facility] [address] [address] [address] Yuliya Jones TSHon 07-24-2022 TSH 1.903 uIU/mL Normal 0.358-3.740 [facility] Comment on above: Performed By: #### C MP, T7, BNP, LIPID, TSH #### [facility] [address] [address] [address] Yuliya Jones VITAMIN B12on 07-24-2022 Cobalamin (Vitamin B12) [Mass/Vol] 1085.0 pg/mL Critically high 193.0-986.0 [facility] Comment on above: Performed By: #### I LUDWIN VITB12, VITAD ####[facility] [address] [place], [place] [address]DrMinisterio Jones VITAMIN D 25 OHon 07-24-2022 VIT D 25-OH 36.8 ng/mL Normal [facility] Comment on above: Performed By: #### I LUDWIN VITB12, VITAD ####[facility] [address] [place], [place] [address]DrMinisterio Jones VIT D RANGES SEE BELOW Normal [facility] Comment on above: Result Comment: <20 ng/mL Vit D deficient 20 - <30 ng/mL Vit D insufficient 30 - 100 ng/mL Vit D sufficient >100 ng/mL Potential Toxicity Performed By: #### I LUDWIN VITB12, VITAD ####[facility] [address] [place], [place] [address]DrMinisterio Jones GLYCOHEMOGLOBIN A1Con 2021 ADA RECOMMENDATION SEE BELOW Normal [facility] Comment on above: Result Comment: ADA RECOMMENDED LIMIT 4.0 - 6.0 ADA THERAPEUTIC TARGET < 7.0 ACTION SUGGESTED > 7.0 Performed By: #### A 1C ####[facility] [address] [place], [place] [address]DrMinisterio Jones Glucose [Mass/Vol] 140 mg/dL Normal [facility] Comment on above: Performed By: #### A 1C ####[facility] [address] [place], [place] [address]DrMinisterio Jones HbA1c (Bld) [Mass fraction] 6.5 % Critically high 4.5-6.2 [facility] Comment on above: Performed By: #### A 1C ####[facility] [address] [place], [place] [address]OoDr. Yuliya Jones LIPID PROFILEon 03-07-2022 CHOL-HDL RATIO NORM SEE BELOW Normal [facility] Comment on above: Result Comment: 3.3 - 4.4 LOW RISK 4.4 - 7.1 AVERAGE RISK 7.1 - 11.0 MODERATE RISK >11.0 HIGH RISK Performed By: #### L IPID #### [facility] [address], [place] [address] Dr. Yuliya Jones Cholesterol [Mass/Vol] 215 mg/dL Critically high <=200 [facility] Comment on above: Performed By: #### L IPID #### [facility] [address], [place] [address] Dr. Yuliya Jones Cholesterol in HDL [Mass/Vol] 42 mg/dL Normal 40-60 [facility] Comment on above: Performed By: #### L IPID #### [facility] [address], [place] [address] Dr. Yuliya Jones Cholesterol in LDL [Mass/Vol] 118.4 mg/dL Normal [facility] Comment on above: Performed By: #### L IPID #### [facility] [address], [place] [address] Dr. Yuliya Jones Cholesterol.total/ Cholesterol in HDL [Mass ratio] 5.1 {ratio} Normal [facility] Comment on above: Performed By: #### L IPID #### [facility] [address], [place] [address] Dr. Yuliya Jones HDL NORMAL > or = 60 mg/dl - LO W CARDIOVASCULAR RISK <40 mg/dl - HIGH CARDIOVASCULAR RISK Normal [facility] Comment on above: Performed By: #### L IPID #### [facility] [address], [place] [address] Dr. Yuliya Jones LDL CALC NORMAL SEE BELOW Normal [facility] Comment on above: Result Comment: <100 mg/dl OPTIMAL 100 - 129 mg/dl NEAR OR ABOVE OPTIMAL 130 - 159 mg/dl BORDERLINE HIGH 160 - 189 mg/dl HIGH >190 mg/dl VERY HIGH Performed By: #### L IPID #### [facility] [address] [address] [address] Yuliya Jones Triglyceride [Mass/Vol] 273 mg/dL Critically high <=150 [facility] Comment on above: Performed By: #### L IPID #### [facility] [address] [address] [address] Yuliya Jones VLDL CALC 54.6 mg/dL Normal [facility] Comment on above: Performed By: #### L IPID #### [facility] [id number] Yuliya Jones XR ANKLE RT MIN [...] by: RORO BARKLEY Date: 2021-12-18 07:50 Normal [facility] FLUORO FOR SURGICAL PROCEDUR ESon 10-25-2021 FLUORO FOR SURGICAL PROCEDURES Radiology exam is complete. No Radiologist dictation. Please follow up with ordering provider. Final result Normal [facility] Radiology exam is complete. No Radiologist dictation. Please follow up with ordering provider. [facility] Cardiovascular Lab Reporton 07-22-2020 Cardiovascular Lab Report [facility] Patient Name: Tab [facility] Tami Moraes MR #: [id number] Department of Physician: Raeann Billy M.D. Division of Service Date: 07/22/2020 Cardiology Birthdate: 1960 Adult Cardiovascular Room #: [facility] [address]. [place] [address] Cardiovascular Laboratory Report FINAL IMPRESSIONS: 1. Moderate [...] Follow up with Dr. Walton in the [place] office in the next 1 to 2 [...] right internal jugular vein was obtained. A 6-Cambodian x 11 cm sheath was inserted without [...] to access the left radial artery. A 6-Cambodian glide sheath was inserted without difficulty. Bilateral [...] Walton M.D. Date Trans: 07/22/2020 02:58 P/mmo [id number] cc: Kunal Patel M.D. [address] [place] [address] Normal [facility] Physician Referralon 021 Physician Referral [phone] [id number]: 127 Normal [facility] CNOVon 06-24-2018 CNOV Office Visit (GENN) AMPARO BARTH ([id number]) 1960 FDate Time Provider Department06/24/18 9:00 AM [...] MD 06/24/2018 10:11 AM SignedName: Amparo BarthMRN: [id number]: June 24, 2018Patient seen and examined in [...] Chito Antonio, MDPGY-6 FellowReferring Provider: KUNAL PATEL [[id number]]Allergies As of Date: 06/24/2018 Noted Allergy ReactionPERCOCET [...] regularWound: clean AND dryTemperature: NoDrains: NoEncounter Number: [id number] Status:Closed by ZAID DENNIS MD on 06/24/18 Normal [facility] HISTORY PHYSICALon HISTORY PHYSICAL HNO ID: [id number]: Chito (Ronn) Jt: (none)Author Type: FellowType: HANDPFiled: 06/24/2018 10:11 AMNote Text:Name: Amparo BarthMRN: [id number]: June 24, 2018Patient seen and examined in [...] medications for this visit. MEAGAN Sheffield-6 Fellow [facility] PROGRESSyesi 06-24-2018 Protein mass conc HNO ID: [id number]: Zaid Baptiste: (none)Author Type: PhysicianType: Progress NotesFiled: [...] need anopen repair with retro-muscular mesh. Normal [facility] SR-CT ABD/PELVIS W CON IMPOR Ton 12-03-2017 SR-CT ABD/PELVIS W CON IMPORT Images were obtained outside of [facility] [id number] Normal [facility] Vital Signs Date Time Vital Sign Value Performing Clinician Faci monika 10-25-2021 14:26-0400 Diastolic blood pressure 138 mm[Hg] Annabel Lima MD Work Phone: [place] [facility] 10-25-2021 14:26-0400 Systolic blood pressure 239 mm[Hg] Annabel Lima MD Work Phone: [facility] 10-25-2021 13:53-0400 Body temperature 97.81 [degF] Annabel Lima MD Work Phone: [place] [facility] 10-25-2021 13:53-0400 Heart rate 62 /min Annabel Lima MD Work Phone: [employer] 10-25-2021 13:53-0400 Respiratory rate 18 /min Annabel Lima MD Work Phone: [place] [facility] 10-25-2021 13:53-0400 SaO2% (BldA) [Mass fraction] 96 % Annabel Lima MD Work Phone: [place] [facility] 10-13-2021 08:17-0400 Body height 165.1 cm Annabel Lima MD Work Phone: [place] [facility] Encounters Encounter Date Encounter Type Care Provider Facility Start: 04-04-2024 End: 04-04-2024 ambulatory Antoine Peoples MD Facility:[facility] Start: 04-02-2024 ambulatory [facility] Start: 03-19-2024 ambulatory [facility] Start: 02-08-2024 ambulatory [facility] Start: 01-21-2024 ambulatory [facility] Start: 01-15-2024 End: 01-15-2024 ambulatory EMILY LUZ Not Available Start: 12-05-2023 ambulatory [facility] Start: 09-26-2023 ambulatory [facility] Start: 09-26-2023 End: 09-26-2023 ambulatory [facility] Start: 09-18-2023 End: 09-18-2023 ambulatory [facility] Start: 06-26-2023 ambulatory [facility] Start: 04-17-2023 End: 04-17-2023 ambulatory BESS [facility] Start: 07-24-2022 End: 07-25-[address] KUNAL PATEL . Facility:[facility] Start: 03-28-2022 ambulatory GARTH ANDREWS Facility :[facility] Start: 03-08-2022 Encounter for genera l adult medical examination without abnormal findings GARTH ANDREWS [facility] Start: 03-07-2022 End: 03-08-2022 ambulatory GARTH ANDREWS Facility:[facility] Start: 03-07-2022 End: 03-08-2022 Encounter for general adult medical examination without abnormal findings GARTH ANDREWS Facility:[facility] Start: 12-18-2021 End: 12-18-2021 ambulatory DELIA COKER Facility:[facility] Start: 10-25-2021 End: 10-25-2021 ambulatory ANNABEL LIMA [facility] Start: 10-25-2021 End: 10-25-2021 Subsequent hospital visit by physician Annabel Lima MD Work Phone: [facility] Start: 07-22-2020 End: 07-23-2020 Patient encounter procedure EHAB A [facility] Facility:[facility] Start: 06-24-2018 Patient encounter procedure ZAID DENNIS [facility] Procedures Date Procedure Procedure Detail Performing Clinician Start: 10-25-2021 Fluoroscopy during operation Annabel Lima MD Work Phone: Plan of Treatment Date Care Activity Detail Author Start: 02-16-2022 Influenza vaccination Flu vacc ine (Season Ended) [facility] Start: 10-25-2021 End: 10-25-2021 Njx dx/ther sbst intrlmnr lmbr/sac w/img gdn EPIDURAL STEROID INJECTION LUMBAR SACRAL RAD LUMBAR RAD 10/25/2021 2:21 PM EDT [facility] Start: 2008 Screening for malign ant neoplasm of breast Breast cancer screen [facility] Start: 2008 Shingles vaccine (1 of 2) Shingles vaccine (1 of 2) [facility] Start: 2003 Screening for malign ant neoplasm of colon [facility] Start: 1988 Screening for malign ant neoplasm of cervix [facility] Start: 1979 Screening for malign ant neoplasm of cervix Pap smear [facility] Start: 1977 DTaP/Tdap/Td vaccine (1 - Tdap) DTaP/Tdap/Td vaccine ( - Tdap) [facility] Start: 1976 Creatinine measurement Creatinine [facility] Start: 1976 Hepatitis C screening Hepatitis C sc reen [facility] Start: 1976 Potassium [Moles/vol ume] in Serum or Plasma Potassium [facility] Start: 1973 HIV screening HIV screen Rosemary Martinez [facility] Start: 1970 Depression Screen Depression Screen [facility] Start: 1968 Lipid panel Lipids Rose[facility] Start: 1963 COVID-19 Vaccine (1) COVID-19 Vaccin e (1) [facility] Start: 1960 Annual Wellness Visi t (AWV) Annual Wellness Visit (AWV) [facility] Payers Date Payer Category Payer Private Health Insurance 2023 Medicare [id number] 1961 Medicaid [id number] 1961 Medicare [id number] 1961 Self-pay [id number] 1960 Unknown [id number] [id number] 1960 Unknown [id number] 2.16.8 [id number] 1960 Unknown [id number] 2.16.84 [id number] 1960 Unknown [id number] 2.16.84 [id number] 1960 Unknown [id number] 2.16.84 [id number] 1960 Unknown [id number] 2.16.84 [id number] 1960 Unknown [id number] 2.16.84 [id number] 1960 Unknown [id number] 2.16. [id number] Medicare [id number] Social History Date Type Detail Facility [facility]: [facility] Start: 10-13-2021 Tobacco use and exposure Smokeless tobacco non-user [employer] Phone: Start: 10-25-2021 Alcohol intake Current drinke r of alcohol (finding) [facility] Phone: Start: 10-13-2021 History SDOH Alcohol Comment socially [facility] Phone: Start: 1960 Sex Assigned At Not on file [facility] Phone: Clinical Notes 10-25-2021 to 09-26-2023 Radha Estevez RN - 10/25/2021 2:41 PM Edward Estevez RN - 10/25/2021 2:31 PM EDTInstructionsAuth/Cert Note Date & Type Note Facility 09-26-2023 Note Patient: Amparo evangelista Procedure Summary Date: 09/26/23 Room / Location: [facility] BOAT OFFICER 1 EP / [facility] HV VASCULAR LAB (Cath) Anesthesia Start: 829 [...] no known notable events for this encounter. [facility] 09-26-2023 Note ATRIAL FIBRILLATION ABLATION PROCEDURE NOTE DATE OF PROCEDURE: 09/26/2023 PERFORMING PHYSICIAN: Dr. Rai Jay RESIDENT CARE MANAGER RN: SAJI CONSENT: Patient NAME OF THE PROCEDURE: [...] pulmonary veins. Esophagus was mapped using the [employer]ellar[employer] 3D mapping software and noted to lie [...] Mapping was performed (more content not included)... 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/CAA Anesthesiologist: Damion Coronado MD Resident/PLUMBING HARDWARE ASSEMBLER: Tameka Westbrook MD Performed by: Tameka Westbrook MD Authorized by: Damion Coronado MD [facility] 09-26-2023 Note Airway Date/Time: 09/26/2023 8:53 AM Urgency: elective Airway not difficult General Information and Staff Patient location during procedure: [place] Anesthesiologist: Damion Coronado MD Resident/PLUMBING HARDWARE ASSEMBLER/CAA: Tameka Westbrook MD Performed: resident/PLUMBING HARDWARE ASSEMBLER/CAA Indications and Patient Condition Indications for airway [...] 21 Number of attempts at approach: 1 [facility] 09-26-2023 Note Patient: Amparo evangelista Procedure Information Date/Time: 09/26/23 0830 Procedure: Ablation a-fib paroxysmal Location: [facility] BOAT OFFICER 1 EP / [facility] VASCULAR LAB (Cath) Providers: Rai Jay MD [...] Plan discussed with resident. Additional Equipment Requests [facility] 09-18-2023 Note [place] Electrophysiology Note [facility] Reason for Consultation: Aflutter s/p [...] 07/2022, atrial fib (was intolerant of amiodarone) [id number] at least 5 for gender, hypertension, TIA, [...] hx TIA 2008. She was seen at [facility] ER with c/o palpitations and chest pain [...] negative. Physical Exam: (more content not included)... [facility] 06-26-2023 Note Patient here for 3 m o follow up echo done last week. Denies chest pain, SOB, palpitations, and lightheadedness/syncope. Denies bleeding on Eliquis. Says she feels good, as she's just getting over a sinus infection. Review of Systems Musculoskeletal: Positive for arthritis and myalgias. All other systems reviewed and are negative. [place] Electrophysiology Note [facility] Reason for Consultation: Aflutter s/p [...] 07/2022, atrial fib (was intolerant of amiodarone) [id number] at least 5 for gender, hypertension, TIA, [...] hx TIA 2008. She was seen at [facility] ER with c/o palpitations and chest pain [...] no significant antony (more content not included)... [facility] 04-17-2023 Note Patient here for 3 m o follow up afib ablation. Had some palpitations last week she says. Denies chest pain, SOB, lightheadedness, and bleeding on Eliquis. Review of Systems Cardiovascular: Positive for palpitations. Musculoskeletal: Positive for arthritis and myalgias. All other systems reviewed and are negative. [facility] 04-17-2023 Note [place] Electrophysiology Note [facility] Reason for Consultation: Aflutter s/p [...] 07/2022, atrial fib (was intolerant of amiodarone) [id number] at least 5 for gender, hypertension, TIA, [...] hx TIA 2008. She was seen at [facility] ER with c/o palpitations and chest pain [...] ulcer, no varicosities, (more content not included)... [facility] 10-25-2021 History of Present illness Narrative Discharge instructions reviewed with patient. Had no sedation. Signed for self. To recovery. Denies pain complaints. Injection site clean and dry. BP 190/95. P 63. Oxygen 98%. Resp 18. updated on elevated pressure. documented in this encounter [facility] [employer] Phone: 10-25-2021 Hospital Discharge instructions Radha Estevez [...] a follow-up visit. documented in this encounter [facility] [employer] Phone: Reason for visit Narrative Specialty Diagnoses / Procedures Referred By Heydi t Referred To Contact Diagnoses LUMBAR SACRAL RAD LUMBAR RAD Procedures [place] NJX DX/THER SBST INTRLMNR LMBR/SAC W/IMG GDN EPIDURAL STEROID INJECTION- L4-5 Annabel Lima MD [address] [place] [address] [employer] [address] [place] [address] Referral ID Status Reason Start Date Expiration Date Visits Re quested Visits Authorized 1 1 [employer] Work Phone: Summary Purpose Family History No [...] section and content) DATE CREATED AUTHOR 06/26/2018 [facility] DATE CREATED AUTHOR AUTHOR'S ORGANIZ ATION 07/13/2020 [facility] DATE CREATED AUTHOR AUTHOR'S ORGANIZ ATION 08/05/2020 [facility] DATE CREATED AUTHOR AUTHOR'S ORGANIZ ATION 10/26/2021 [facility] DATE CREATED AUTHOR AUTHOR'S ORGANIZ ATION 09/29/2022 [facility] DATE CREATED AUTHOR AUTHOR'S ORGANIZ ATION 01/18/2024 [facility] DATE CREATED AUTHOR AUTHOR'S ORGANIZ ATION 04/05/2024 [facility] DATE CREATED AUTHOR AUTHOR'S ORGANIZ ATION 04/10/2024 [facility] [place] [facility] PRN Active and Recently Administ [...] Care Teams (unrecognized sec tion and content) Cylinder Checker Relationship Specialty Start Date End Date Kunal Patel MD [address] [place] [address] PCP - General Family Medicine 10/24/21 FOR [...] BE BASED ON THE PRIMARY CLINICAL RECORDS. [employer] [email or web address]. provides no warranty or guarantee of the accuracy or completeness of information in this document.
== END 2024-07-16 08:48 | disposition home or self-care (01) ==
LOC: MAMMO 08:47
PROVIDERS: PCP Family Medicine; Visit Provider Family Medicine
DX: Z12.31 Encounter for screening mammogram for malignant neoplasm of breast (principal); Z80.1 Family history of malignant neoplasm of trachea, bronchus and lung
CPT/HCPCS: 77063; 77067

== ENCOUNTER 2024-07-22 15:18 | Outpatient (RCR) | payer MEDICARE, SELFPAY | END 2024-08-15 13:15 | disposition home or self-care (01) | LOC: MM 15:18 | PROVIDERS: PCP Family Medicine; Visit Provider Internal Medicine | DX: Z51.81 Encounter for therapeutic drug level monitoring (principal); Z79.01 Long term (current) use of anticoagulants; I48.91 Unspecified atrial fibrillation | CPT/HCPCS: 85610; G0463 ==

== ENCOUNTER 2024-08-14 15:26 | Outpatient (OUT) | payer MEDICARE, SELFPAY ==
--- OUTSIDE RECORDS SUMMARY | 2024-08-14 15:35 | XMS_ITS | CCD ---
Author Organization 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 Name Role Phone PIHLLLIVZAID Unavailable Unavailable KUNAL PATEL Unavailable Unavailable ELTAHAWY, EHAB A Attending Unavailable ELTAHAWY, EHAB A Admitting Unavailable SELF, REFERRED Referring Unavailable KUNAL PATEL Primary Care Unavailable Kunal Patel MD Primary Care Provider [phone] [place]NAB[place]A Admitting Unavailable ANNABEL LIMA Attending [...] Translations: [OXYCODONE-ACETAMI NOPHEN] Drug Allergy 08-19-2013 [facility] Repository (3 sources) Acetaminophen / oxyCODONE Drug Allergy 01-24-2013 [facility] Repository Medications Current Medications Medication Drug [...] disease (1 source) Atherosclerotic heart disease of [place] coronary artery without angina pectoris; Translations: [ASHD [place] CA W/O ANGINA PECTORIS] Onset: 03-08-2022 Chronic [...] Onset: 12-21-2021 Episodic Other aftercare (1 source) FPC (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; Translations: [RETIREMENT CURRENT USE OF ASPIRIN] Onset: 12-21-2021 Episodic Other aftercare (1 source) Other terminal gauger (current) drug therapy; Translations: [OTH RETIREMENT CURRENT DRUG THERAPY] Onset: 12-21-2021 Episodic Other [...] Interpretation Reference Range Facility Telephoneon 10-18-2023 Telephone [id number] Carina Barth A 1960 F Date Provider Department Center 10/18/2023 1987-PATO [facility] VASC LAB IN HeartVAS Family History Problem Relation Age of Onset Heart failure Mother Hyperlipidemia Mother Hypertension Mother Heart failure Father Hypertension Father Heart failure Brother Hyperlipidemia Brother Hypertension Brother Family Status - Relation Status Age at Mother Father Brother Reason for Visit and Comments: 3 week f/u post ablation [Other] Normal [facility] Telephoneon 10-05-2023 Telephone [id number] Carina Barth A 1960 F Date Provider Department Center 10/05/20231986-PAT[facility] V[facility] LAB IN HeartVAS Family History Problem Relation Age of Onset Heart failure Mother Hyperlipidemia Mother Hypertension Mother Heart failure Father Hypertension Father Heart failure Brother Hyperlipidemia Brother Hypertension Brother Family Status - Relation Status Age at Mother Father Brother Reason for Visit and Comments: week f/u post ablation [Other] Normal [facility] Telephoneon 10-04-2023 Telephone [id number] Carina Barth A 1960 F Date Provider Department Center 10/04/20231986-PATO [facility] VASC LAB IN HeartVAS Family History Problem Relation Age of Onset Heart failure Mother Hyperlipidemia Mother Hypertension Mother Heart failure Father Hypertension Father Heart failure Brother Hyperlipidemia Brother Hypertension Brother Family Status - Relation Status Age at Mother Father Brother Reason for Visit and Comments: post ablation f/u [Other] [facility] Electrophysiology Note [facility] Reason [...] 07/2022, atrial fib (was intolerant of amiodarone) [id number] at least 5 for gender, hypertension, TIA, [...] hx TIA 2008. She was seen at [facility] ER with c/o palpitations and chest [...] on file Intimate Partner Violence: Unknown (08/09/2023) [place] Safety & Environment Fear of Current or [...] syncope, no (more content not included)... Normal [facility] POCT GLUCOSE METER UNSOLICIT ED RESULTSon 09-26-2023 Glucose [Mass/Vol] 173 mg/dL High 70-105 [facility] Comment on above: Order Comment: Waive d Testing in the ED is performed under the ED CLIA certificate #[id number]. Result Comment: dspe ars Performed By: #### L [id number] ####[facility] LAB (BEAKER)[address] [place] [address] Glucose [Mass/Vol] 164 mg/dL High 70-105 [facility] Comment on above: Order Comment: Waive d Testing in the ED is performed under the ED CLIA certificate #[id number]. Result Comment: eyou ng12 Performed By: #### L [id number] ####[facility] (BEAKER)[address] [place] [address] PROTIME-INRon 09-26-2023 INR IN PPP BY COAGULATION ASSAY 1.01 Normal 0.90-1.10 [facility] Comment on above: Result Comment: ACCC [...] CHEST 1995;108:231S-246S. Performed By: #### L [id number] ####[facility] (BEAKER)[address] [place] [address] PROTHROMBIN TIME (PT) IN PPP BY COAGULATION ASSAY 13.3 Seconds Normal 12.3-14.8 [facility] Comment on above: Performed By: #### L [id number] ####[facility] (BEAKER)[address] [place] [address] Prep for Procedureon 024 Prep for Procedure [id number] Carina Barth 1960 F Date Provider Department Center 09/26/20231986-PATO [facility] VASC LAB IN HeartVAS Family History Problem Relation Age of Onset Heart failure Mother Hyperlipidemia Mother Hypertension Mother Heart failure Father Hypertension Father Heart failure Brother Hyperlipidemia Brother Hypertension Brother Family Status - Relation Status Age at Mother Father Brother Normal [facility] [id number] 09-18-2023 [id number] ARRIVAL TIME 0700 HOLD ELIQUIS 4/8 MULTI [...] THE FOLLOWING ARE NOT AVAILABLE: 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 Do not wear perfume, make-up, nail wolof, or lotions on the day of your [...] need to make any changes, please call [phone]. Notify your surgeon if you develop any illness such as a cold, cough, fever, sore throat or vomiting between now and your surgery. Thank you for entrusting us with your care. [facility] Surgical Services Team Normal [facility] Office Visiton 09-18-2023 Follow-up visit [id number] Carina Barth A 1960 F Date Provider Department Center 09/18/2023 RAI BARROW GOLD [place] Family History Problem Relation Age of Onset Heart failure Mother Hyperlipidemia Mother Hypertension Mother Heart failure Father Hypertension Father Heart failure Brother Hyperlipidemia Brother Hypertension Brother Family Status - Relation Status Age at Mother Father Brother Level of Service:90794 MT OFFICE/OUTPATIENT ESTABLISHED HIGH MDM 40 MIN Reason for Visit and Comments: Follow-up [846973] Normal [facility] Prep for Procedureon 024 Prep for Procedure [id number] Carina Barth A 1960 F Date Provider Department Center 09/05/2023 1987-PATO [facility] VASC LAB IN HeartVAS Family History Problem Relation Age of Onset Heart failure Mother Hyperlipidemia Mother Hypertension Mother Heart failure Father Hypertension Father Heart failure Brother Hyperlipidemia Brother Hypertension Brother Family Status - Relation Status Age at Mother Father Brother Normal [facility] Office Visiton 06-26-2023 Follow-up visit [id number] Carina Barth A 1960 F Date Provider Department Center 06/26/2023 241-RAI JAY GOLD [place] Family History Problem Relation Age of Onset Heart failure Mother Hyperlipidemia Mother Hypertension Mother Heart failure Father Hypertension Father Heart failure Brother Hyperlipidemia Brother Hypertension Brother Family Status - Relation Status Age at Mother Father Brother Level of Service:05818 MT OFFICE/OUTPATIENT ESTABLISHED MOD MDM [address] [facility] Office Visiton 04-17-2023 Follow-up visit [id number] Carina Barth A 1960 F Date Provider Department Center 04/17/2023 1596-BESS MARTIN [facility] Family History Problem Relation Age of Onset Heart failure Mother Hyperlipidemia Mother Hypertension Mother Heart failure Father Hypertension Father Heart failure Brother Hyperlipidemia Brother Hypertension Brother Family Status - Relation Status Age at Mother Father Brother Level of Service:14629 MT OFFICE/OUTPATIENT ESTABLISHED MOD MDM 30-39 MIN Normal [facility] BNPon 07-24-2022 Natriuretic peptide B (Bld) [Mass/Vol] 109.0 pg/mL Normal <=900.0 [facility] Comment on above: Performed By: #### C MP, T7, BNP, LIPID, TSH #### [facility] [address] [place] [address] Dr. Yuliya Jones CBC AUTO DIFFon 07-24-2022 BASO # 0.0 103/ul Normal 0.0-0.1 [facility] Comment on above: Performed By: #### C BC #### [facility] [address] [place] [address] Dr. Yuliya Jones Basophils/100 WBC (Bld) 0.4 % Normal 0.2-2.0 [facility] Comment on above: Performed By: #### C BC #### [facility] [address] [place] [address] Dr. Yuliya Jones EO # 0.2 103/ul Normal 0.0-0.7 [facility] Comment on above: Performed By: #### C BC #### [facility] [address] [place] [address] Dr. Yuliya Jones Eosinophils/100 WBC (Bld) 2.2 % Normal 0.9-7.0 [facility] Comment on above: Performed By: #### C BC #### [facility] [address] [place] [address] Dr. Yuliya Jones Erythrocyte distribution width (RBC) [Ratio] 13.6 % Normal 11.0-15.0 [facility] Comment on above: Performed By: #### C BC #### [facility] [address] [place] [address] Dr. Yuliya Jones Hematocrit (Bld) [Volume fraction] 40.1 % Normal 36.0-48.0 [facility] Comment on above: Performed By: #### C BC #### [facility] [address] [place] [address] Dr. Yuliya Jones Hemoglobin (Bld) [Mass/Vol] 13.1 g/dL Normal 12.0-16.0 [facility] Comment on above: Performed By: #### C BC #### [facility] [address] [place] [address] Dr. Yuliya Jones IG # 0.05 10e3/ul Critically high 0.00-0.03 [facility] Comment on above: Performed By: #### C BC #### [facility] [address] [place] [address] Dr. Yuliya Jones IG % 0.7 % Critically high 0.0-0.5 [facility] Comment on above: Performed By: #### C BC #### [facility] [address] [place] [address] Dr. Yuliya Jones LYMPH # 2.0 103/ul Normal 1.2-3.8 [facility] Comment on above: Performed By: #### C BC #### [facility] [address] [place] [address] Dr. Yuliya Jones Lymphocytes/100 WBC (Bld) 26.9 % Normal 20.5-60.0 [facility] Comment on above: Performed By: #### C BC #### [facility] [address] [place] [address] Dr. Yuliya Jones MANUAL DIFF REQ NO Normal [facility] Comment on above: Performed By: #### C BC #### [facility] [address] [place] [address] Dr. Yuliya Jones MCH (RBC) [Entitic mass] 28.5 pg Normal 26.7-34.0 [facility] Comment on above: Performed By: #### C BC #### [facility] [address] [place] [address] Dr. Yuliya Jones MCHC (RBC) [Mass/Vol] 32.7 g/dL Normal 29.9-35.2 [facility] Comment on above: Performed By: #### C BC #### [facility] [address] [place] [address] Dr. Yuliya Jones MCV (RBC) [Entitic vol] 87.4 fL Normal 81.0-99.0 [facility] Comment on above: Performed By: #### C BC #### [facility] [address] [place] [address] Dr. Yuliya Jnoes MONO # 0.4 103/ul Normal 0.3-0.8 [facility] Comment on above: Performed By: #### C BC #### [facility] [address] [place] [address] Dr. Yuliya Jones Monocytes/100 WBC (Bld) 5.1 % Normal 1.7-12.0 [facility] Comment on above: Performed By: #### C BC #### [facility] [address] [place] [address] Dr. Yuliya Jones NEUT # 4.8 103/ul Normal 1.4-6.5 [facility] Comment on above: Performed By: #### C BC #### [facility] [address] [place] [address] Dr. Yuliya Jones Neutrophils/100 WBC (Bld) 64.7 % Normal 43.0-75.0 [facility] Comment on above: Performed By: #### C BC #### [facility] [address] [place] [address] Dr. Yuliya Jones Platelet mean volume (Bld) [Entitic vol] 10.3 fL Normal 9.5-13.5 [facility] Comment on above: Performed By: #### C BC #### [facility] [address] [place] [address] Dr. Yuliya Jones PLT 244 103/ul Normal 150-450 [facility] Comment on above: Performed By: #### C BC #### [facility] [address] [place] [address] Dr. Yuliya Jones RBC 4.59 106/ul Normal 4.20-5.40 [facility] Comment on above: Performed By: #### C BC #### [facility] [address] [place] [address] Dr. Yuliya Jones WBC 7.4 103/ul Normal 4.0-11.0 [facility] Comment on above: Performed By: #### C BC #### [facility] [address] [place] [address] Dr. Yuliya Jones FREE THYROXINE INDEX T7on FTI 2.66 Normal 1.30-4.50 [facility] Comment on above: Performed By: #### C MP, T7, BNP, LIPID, TSH #### [facility] [address] [place] [address] [address] Yuliya Jones T3U 35.0 % Normal 30.0-39.0 [facility] Comment on above: Performed By: #### C MP, T7, BNP, LIPID, TSH #### [facility] [address] [address] [address] Yuliya Jones T4 [Mass/Vol] 7.60 ug/dL Normal 4.80-13.[address] [facility] Comment on above: Performed By: #### C MP, T7, BNP, LIPID, TSH #### [facility] [address] [address] [address] Yuliya Jones GLYCOHEMOGLOBIN A1Con 2022 ADA RECOMMENDATION SEE BELOW Normal [facility] Comment on above: Result Comment: ADA RECOMMENDED LIMIT 4.0 - 6.0 ADA THERAPEUTIC TARGET < 7.0 ACTION SUGGESTED > 7.0 Performed By: #### A 1C ####[facility] [address] [place] [place] [address]Dr. Yuliya Jones Glucose [Mass/Vol] 146 mg/dL Normal [facility] Comment on above: Performed By: #### A 1C ####[facility] [address] [id number]. Yuliya Jones HbA1c (Bld) [Mass fraction] 6.7 % Critically high 4.5-6.2 [facility] Comment on above: Performed By: #### A 1C ####[facility] [address] [place] [address]Dr. Yuliya Jones IRONon 07-24-2022 Iron [Mass/Vol] 74.0 ug/dL Normal 50.0-170.0 [facility] Comment on above: Performed By: #### I LUDWIN, VITB12, VITAD #### [facility] [address] [address] [address] Yuliya Jones LIPID PROFILEon 07-24-2022 CHOL-HDL RATIO NORM SEE BELOW Normal [facility] Comment on above: Result Comment: 3.3 - 4.4 LOW RISK 4.4 - 7.1 AVERAGE RISK 7.1 - 11.0 MODERATE RISK >11.0 HIGH RISK Performed By: #### C MP, T7, BNP, LIPID, TSH #### [facility] [address] [place] [address] Dr. Yuliya Jones Cholesterol [Mass/Vol] 215 mg/dL Critically high <=200 [facility] Comment on above: Performed By: #### C MP, T7, BNP, LIPID, TSH #### [facility] [address] [place] [address] Dr. Yuliya Jones Cholesterol in HDL [Mass/Vol] 46 mg/dL Normal 40-60 [facility] Comment on above: Performed By: #### C MP, T7, BNP, LIPID, TSH #### [facility] [address] [place] [address] Dr. Yuliya Jones Cholesterol in LDL [Mass/Vol] 120.6 mg/dL Normal [facility] Comment on above: Performed By: #### C MP, T7, BNP, LIPID, TSH #### [facility] [address] [place] [address] Dr. Yuliya Jones Cholesterol.total/ Cholesterol in HDL [Mass ratio] 4.7 {ratio} Normal [facility] Comment on above: Performed By: #### C MP, T7, BNP, LIPID, TSH #### [facility] [address] [place] [address] Dr. Yuliya Jones HDL NORMAL > or = 60 mg/dl - LO W CARDIOVASCULAR RISK <40 mg/dl - HIGH CARDIOVASCULAR RISK Normal [facility] Comment on above: Performed By: #### C MP, T7, BNP, LIPID, TSH #### [facility] [address] [place] [address] Dr. Yuliya Jones LDL CALC NORMAL SEE BELOW Normal [facility] Comment on above: Result Comment: <100 mg/dl OPTIMAL 100 - 129 mg/dl NEAR OR ABOVE OPTIMAL 130 - 159 mg/dl BORDERLINE HIGH 160 - 189 mg/dl HIGH >190 mg/dl VERY HIGH Performed By: #### C MP, T7, BNP, LIPID, TSH #### [facility] [address] [place] [address] Dr. Yuliya Jones Triglyceride [Mass/Vol] 242 mg/dL Critically high <=150 [facility] Comment on above: Performed By: #### C MP, T7, BNP, LIPID, TSH #### [facility] [address] [address] [address] Yuliya Jones VLDL CALC 48.4 mg/dL Normal [facility] Comment on above: Performed By: #### C MP, T7, BNP, LIPID, TSH #### [facility] [address] [place] [address] Dr. Yuliya Jones PROF 14(COMP METB)on 023 Albumin [Mass/Vol] 3.3 g/dL Critically low 3.4-5.[address] [facility] Comment on above: Performed By: #### C MP, T7, BNP, LIPID, TSH #### [facility] [address] [place] [address] Dr. Yuliya Jones Albumin/Globulin [Mass ratio] 0.8 {ratio} Normal [facility] Comment on above: Performed By: #### C MP, T7, BNP, LIPID, TSH #### [facility] [address] [address] [address] Yuliya Jones ALP [Catalytic activity/Vol] 148 U/L Critically high 46-116 [facility] Comment on above: Performed By: #### C MP, T7, BNP, LIPID, TSH #### [facility] [address] [address] [address] Yuliya Jones ALT [Catalytic activity/Vol] 49 U/L Normal 14-59 [facility] Comment on above: Performed By: #### C MP, T7, BNP, LIPID, TSH #### [facility] [address] [address] [address] Yuliya Jones Anion gap [Moles/Vol] 11.6 mmol/L Normal [facility] Comment on above: Performed By: #### C MP, T7, BNP, LIPID, TSH #### [facility] [address] [place] [address] Dr. Yuliya Jones AST [Catalytic activity/Vol] 26 U/L Normal 15-37 [facility] Comment on above: Performed By: #### C MP, T7, BNP, LIPID, TSH #### [facility] [address] [place] [address] Dr. Yuliya Jones Bilirubin [Mass/Vol] 0.8 mg/dL Normal 0.2-1.0 [facility] Comment on above: Performed By: #### C MP, T7, BNP, LIPID, TSH #### [facility] [address] [place] [address] Dr. Yuliya Jones Calcium [Mass/Vol] 9.0 mg/dL Normal 8.5-10.1 [facility] Comment on above: Performed By: #### C MP, T7, BNP, LIPID, TSH #### [facility] [address] [place] [address] Dr. Yuliya Jones Chloride [Moles/Vol] 102 mmol/L Normal 98-107 [facility] Comment on above: Performed By: #### C MP, T7, BNP, LIPID, TSH #### [facility] [address] [place] [address] Dr. Yuliya Jones CO2 [Moles/Vol] 29.1 mmol/L Normal 21.0-32.0 [facility] Comment on above: Performed By: #### C MP, T7, BNP, LIPID, TSH #### [facility] [address] [place] [address] Dr. Yuliya Jones Creatinine [Mass/Vol] 0.69 mg/dL Normal 0.55-1.02 [facility] Comment on above: Performed By: #### C MP, T7, BNP, LIPID, TSH #### [facility] [address] [place] [address] Dr. Yuliya Jones EGFR-AF [place] >60 Normal >=[address] [facility] Comment on above: Performed By: #### C MP, T7, BNP, LIPID, TSH #### [facility] [address] [place] [address] Dr. Yuliya Jones EGFR-NON AF [place] >60 Normal >=60 [facility] Comment on above: Performed By: #### C MP, T7, BNP, LIPID, TSH #### [facility] [address] [place] [address] Dr. Yuliya Jones Globulin (S) [Mass/Vol] 4.1 g/dL Normal [facility] Comment on above: Performed By: #### C MP, T7, BNP, LIPID, TSH #### [facility] [address] [place] [address] Dr. Yuliya Jones Glucose [Mass/Vol] 151 mg/dL Critically high 74-106 T [facility] Comment on above: Performed By: #### C MP, T7, BNP, LIPID, TSH #### [facility] [address] [place] [address] Dr. Yuliya Jones Potassium [Moles/Vol] 3.7 mmol/L Normal 3.5-5.1 [facility] Comment on above: Performed By: #### C MP, T7, BNP, LIPID, TSH #### [facility] [address] [place] [address] Dr. Yuliya Jones Protein [Mass/Vol] 7.4 g/dL Normal 6.4-8.2 [facility] Comment on above: Performed By: #### C MP, T7, BNP, LIPID, TSH #### [facility] [address] [place] [address] Dr. Yuliya Jones Sodium [Moles/Vol] 139 mmol/L Normal 136-145 [facility] Comment on above: Performed By: #### C MP, T7, BNP, LIPID, TSH #### [facility] [address] [place] [address] Dr. Yuliya Jones Urea nitrogen [Mass/Vol] 8.0 mg/dL Normal 7.0-18.0 [facility] Comment on above: Performed By: #### C MP, T7, BNP, LIPID, TSH #### [facility] [address] [place] [address] Dr. Yuliya Jones Urea nitrogen/Creatinin e [Mass ratio] 11.6 mg/mg Normal [facility] Comment on above: Performed By: #### C MP, T7, BNP, LIPID, TSH #### [facility] [address] [address] [address] Yuliya Jones TSHon 07-24-2022 TSH 1.903 uIU/mL Normal 0.358-3.[address] [facility] Comment on above: Performed By: #### C MP, T7, BNP, LIPID, TSH #### [facility] [address] [address] [address] Yuliya Jones VITAMIN B12on 07-24-2022 Cobalamin (Vitamin B12) [Mass/Vol] 1085.0 pg/mL Critically high 193.0-986.0 [facility] Comment on above: Performed By: #### I LUDWIN VITB12, VITAD ####[facility] [address] [place], [place] [address]DrMinisterio Jones VITAMIN D 25 OHon 07-24-2022 VIT D 25-OH 36.8 ng/mL Normal [facility] Comment on above: Performed By: #### I LUDWIN VITB12, VITAD ####[facility] [address] [place], [place] [address]DrMinisterio Jones VIT D RANGES SEE BELOW Normal [facility] Comment on above: Result Comment: <20 ng/mL Vit D deficient 20 - <30 ng/mL Vit D insufficient 30 - 100 ng/mL Vit D sufficient >100 ng/mL Potential Toxicity Performed By: #### I LUDWIN VITB12, VITAD ####[facility] [address] [place], [place] [address]DrMinisterio Jones GLYCOHEMOGLOBIN A1Con 2021 ADA RECOMMENDATION SEE BELOW Normal [facility] Comment on above: Result Comment: ADA RECOMMENDED LIMIT 4.0 - 6.0 ADA THERAPEUTIC TARGET < 7.0 ACTION SUGGESTED > 7.0 Performed By: #### A 1C ####[facility] [address] [place], [place] [address]DrMinisterio Jones Glucose [Mass/Vol] 140 mg/dL Normal [facility] Comment on above: Performed By: #### A 1C ####[facility] [address] [place], [place] [address]DrMinisterio Jones HbA1c (Bld) [Mass fraction] 6.5 % Critically high 4.5-6.2 [facility] Comment on above: Performed By: #### A 1C ####[facility] [address] [place], [place] [address]JoDr. Yuliya Jonse LIPID PROFILEon 03-07-2022 CHOL-HDL RATIO NORM SEE BELOW Normal [facility] Comment on above: Result Comment: 3.3 - 4.4 LOW RISK 4.4 - 7.1 AVERAGE RISK 7.1 - 11.0 MODERATE RISK >11.0 HIGH RISK Performed By: #### L IPID #### [facility] [address] [place], [place] [address] Dr. Yuliya Jones Cholesterol [Mass/Vol] 215 mg/dL Critically high <=200 [facility] Comment on above: Performed By: #### L IPID #### [facility] [address] [place], [place] [address] Dr. Yuliya Jones Cholesterol in HDL [Mass/Vol] 42 mg/dL Normal 40-60 [facility] Comment on above: Performed By: #### L IPID #### [facility] [address], [place] [address] Dr. Yuliya Jones Cholesterol in LDL [Mass/Vol] 118.4 mg/dL Normal [facility] Comment on above: Performed By: #### L IPID #### [facility] [address], [place] [address] Dr. Yuliya Jones Cholesterol.total/ Cholesterol in HDL [Mass ratio] 5.1 {ratio} Normal [facility] Comment on above: Performed By: #### L IPID #### [facility] [address], [place] [address] Dr. Yuliya Jones HDL NORMAL > or = 60 mg/dl - LO W CARDIOVASCULAR RISK <40 mg/dl - HIGH CARDIOVASCULAR RISK Normal [facility] Comment on above: Performed By: #### L IPID #### [facility] [address], [place] [address] Dr. Yuliya Jones LDL CALC NORMAL SEE BELOW Normal [facility] Comment on above: Result Comment: <100 mg/dl OPTIMAL 100 - 129 mg/dl NEAR OR ABOVE OPTIMAL 130 - 159 mg/dl BORDERLINE HIGH 160 - 189 mg/dl HIGH >190 mg/dl VERY HIGH Performed By: #### L IPID #### [facility] [address] [place] [address] [address] Yuliya Jones Triglyceride [Mass/Vol] 273 mg/dL Critically high <=150 [facility] Comment on above: Performed By: #### L IPID #### [facility] [address] [place] [address] [address] Yuliya Jones VLDL CALC 54.6 mg/dL Normal [facility] Comment on above: Performed By: #### L IPID #### [facility] [address] [place] [id number] Yuliya Jones XR ANKLE RT MIN [...] by: RORO BARKLEY Date: 2021-12-18 07:50 Normal [facility] FLUORO FOR SURGICAL PROCEDUR ESon 10-25-2021 FLUORO FOR SURGICAL PROCEDURES Radiology exam is complete. No Radiologist dictation. Please follow up with ordering provider. Final result Normal [facility] Radiology exam is complete. No Radiologist dictation. Please follow up with ordering provider. [facility] Cardiovascular Lab Reporton 07-22-2020 Cardiovascular Lab Report [facility] Patient Name: [facility] Tami Moraes MR #: [id number] Department of Physician: Raeann Billy M.D. Division of Service Date: 07/22/2020 Cardiology Birthdate: 1960 Adult Cardiovascular Room #: [facility] [address] [facility] [place] [address] Cardiovascular Laboratory Report FINAL IMPRESSIONS: 1. Moderate [...] Follow up with Dr. Walton in the [place] office in the next 1 to 2 [...] right internal jugular vein was obtained. A 6-Palestinian x 11 cm sheath was inserted without [...] to access the left radial artery. A 6-Palestinian glide sheath was inserted without difficulty. Bilateral [...] Walton M.D. Date Trans: 07/22/2020 02:58 P/mmo [id number] cc: Kunal Patel M.D. [address] [place] [address] Normal [facility] Physician Referralon 021 Physician Referral [phone] [id number]: 127 Normal [facility] CNOVon 06-24-2018 CNOV Office Visit (GENN) AMPARO BARTH ([id number]) 1960 FDate Time Provider Department06/24/18 9:00 AM [...] MD 06/24/2018 10:11 AM SignedName: Amparo BarthMRN: [id number]: June 24, 2018Patient seen and examined in [...] Chito Antonio, MDPGY-6 FellowReferring Provider: KUNAL PATEL [[id number]]Allergies As of Date: 06/24/2018 Noted Allergy ReactionPERCOCET [...] regularWound: clean AND dryTemperature: NoDrains: NoEncounter Number: [id number] Status:Closed by ZAID DENNIS MD on 06/24/18 Normal [facility] HISTORY PHYSICALon HISTORY PHYSICAL HNO ID: [id number]: Chito (Ronn) Jt: (none)Author Type: FellowType: HANDPFiled: 06/24/2018 10:11 AMNote Text:Name: Amparo BarthMRN: [id number]: June 24, 2018Patient seen and examined in [...] medications for this visit. MEAGAN Sheffield-6 Fellow [facility] PROGRESSyesi 06-24-2018 Protein mass conc HNO ID: [id number]: Zaid Baptiste: (none)Author Type: PhysicianType: Progress NotesFiled: [...] need anopen repair with retro-muscular mesh. Normal [facility] SR-CT ABD/PELVIS W CON IMPOR Ton 12-03-2017 SR-CT ABD/PELVIS W CON IMPORT Images were obtained outside of [facility] [id number] Normal [facility] Vital Signs Date Time Vital Sign Value Performing Clinician Faci monika 10-25-2021 14:26-0400 Diastolic blood pressure 138 mm[Hg] Annabel Lima MD Work Phone: [facility] 10-25-2021 14:26-0400 Systolic blood pressure 239 mm[Hg] Annabel Lima MD Work Phone: [facility] 10-25-2021 13:53-0400 Body temperature 97.81 [degF] Annabel Lima MD Work Phone: [facility] 10-25-2021 13:53-0400 Heart rate 62 /min Annabel Lima MD Work Phone: [facility] 10-25-2021 13:53-0400 Respiratory rate 18 /min Annabel Lima MD Work Phone: [facility] 10-25-2021 13:53-0400 SaO2% (BldA) [Mass fraction] 96 % Annabel Lima MD Work Phone: [facility] 10-13-2021 08:17-0400 Body height 165.1 cm Annabel Lima MD Work Phone: [facility] Encounters Encounter Date Encounter Type Care Provider Facility Start: 04-04-2024 End: 04-04-2024 ambulatory Antoine Peoples MD Facility:[facility] Start: 04-02-2024 ambulatory [facility] Start: 03-19-2024 ambulatory [facility] Start: 02-08-2024 ambulatory [facility] Start: 01-21-2024 ambulatory [facility] Start: 01-15-2024 End: 01-15-2024 ambulatory EMILY LUZ Not Available Start: 12-05-2023 ambulatory [facility] Start: 09-26-2023 ambulatory [facility] Start: 09-26-2023 End: 09-26-2023 ambulatory [facility] Start: 09-18-2023 End: 09-18-2023 ambulatory [facility] Start: 06-26-2023 ambulatory [facility] Start: 04-17-2023 End: 04-17-2023 ambulatory [facility] Start: 07-24-2022 End: 07-25-[address] KUNAL PATEL . Facility:[facility] Start: 03-28-2022 ambulatory GARTH ANDREWS Facility :[facility] Start: 03-08-2022 Encounter for genera l adult medical examination without abnormal findings GARTH ANDREWS [facility] Start: 03-07-2022 End: 03-08-2022 ambulatory GARTH ANDREWS Facility:[facility] Start: 03-07-2022 End: 03-08-2022 Encounter for general adult medical examination without abnormal findings GARTH ANDREWS Facility:[facility] Start: 12-18-2021 End: 12-18-2021 ambulatory DELAI COKER Facility:[facility] Start: 10-25-2021 End: 10-25-2021 ambulatory ANNABEL LIMA [facility] Start: 10-25-2021 End: 10-25-2021 Subsequent hospital visit by physician Annabel Lima MD Work Phone: [facility] Start: 07-22-2020 End: 07-23-2020 Patient encounter procedure [facility] Facility:[facility] Start: 06-24-2018 Patient [facility] Procedures Date Procedure Procedure Detail Performing Clinician Start: 10-25-2021 Fluoroscopy during operation Annabel Lima MD Work Phone: Plan of Treatment Date Care Activity Detail Author Start: 02-16-2022 Influenza vaccination Flu vacc ine (Season Ended) [facility] Start: 10-25-2021 End: 10-25-2021 Njx dx/ther sbst intrlmnr lmbr/sac w/img gdn EPIDURAL STEROID INJECTION LUMBAR SACRAL RAD LUMBAR RAD 10/25/2021 2:21 PM EDT [facility] Start: 2008 Screening for malign ant neoplasm of breast Breast cancer screen [facility] Start: 2008 Shingles vaccine (1 of 2) Shingles vaccine (1 of 2) [facility] Start: 2003 Screening for malign ant neoplasm of colon [facility] Start: 1988 Screening for malign ant neoplasm of cervix [facility] Start: 1979 Screening for malign ant neoplasm of cervix Pap smear [facility] Start: 1977 DTaP/Tdap/Td vaccine (1 - Tdap) DTaP/Tdap/Td vaccine ( - Tdap) [facility] Start: 1976 Creatinine measurement Creatinine [facility] Start: 1976 Hepatitis C screening Hepatitis C sc reen [facility] Start: 1976 Potassium [Moles/vol ume] in Serum or Plasma Potassium [facility] Start: 1973 HIV screening HIV screen [facility] Start: 1970 Depression Screen Depression Screen [facility] Start: 1968 Lipid panel Lipids [facility] Start: 1963 COVID-19 Vaccine (1) COVID-19 Vaccin e (1) [facility] Start: 1960 Annual Wellness Visi t (AWV) Annual Wellness Visit (AWV) [facility] Payers Date Payer Category Payer Private Health Insurance 2023 Medicare [id number] 1961 Medicaid [id number] 1961 Medicare [id number] 1959 Self-pay [id number] 1960 Unknown [id number] 2.16.8 [id number] 1960 Unknown [id number] 2.16.8 [id number] 1960 Unknown [id number] 2.16.84 [id number] 1960 Unknown [id number] 2.16.84 [id number] 1960 Unknown [id number] 2.16.84 [id number] 1960 Unknown [id number] 2.16.84 [id number] 1960 Unknown [id number] 2.16.84 [id number] 1960 Unknown [id number] 2.16. [id number] Medicare [id number] Social History Date Type Detail Facility Start: 10-13-2021 [facility] Start: 10-13-2021 Tobacco use and exposure Smokeless tobacco non-user [employer] Phone: Start: 10-25-2021 Alcohol intake Current drinke r of alcohol (finding) [facility] Phone: Start: 10-13-2021 History SDOH Alcohol Comment socially [facility] Phone: Start: 1960 Sex Assigned At Not on file [facility] [employer] Phone: Clinical Notes 10-25-2021 to 09-26-2023 Radha Estevez RN - 10/25/2021 2:41 PM Edward Estevez RN - 10/25/2021 2:31 PM EDTInstructionsAuth/Cert Note Date & Type Note Facility 09-26-2023 Note Patient: Amparo evangelista Procedure Summary Date: 09/26/23 Room / Location: [facility] SUBSTANCE ABUSE THERAPIST 1 EP / [facility] HV VASCULAR LAB (Cath) Anesthesia [...] no known notable events for this encounter. [facility] 09-26-2023 Note ATRIAL FIBRILLATION ABLATION PROCEDURE NOTE DATE OF PROCEDURE: 09/26/2023 PERFORMING PHYSICIAN: Dr. Rai Jay FRAME TABLE OPERATOR: SAJI CONSENT: Patient NAME OF THE PROCEDURE: [...] pulmonary veins. Esophagus was mapped using the [employer] 3D mapping software and noted to lie [...] Mapping was performed (more content not included)... [facility] 09-26-2023 Note Arterial Line: Date/Time: 09/26/2023 [...] 1 % SubQ, 0.5 mL Staffing Performed: resident/TUB WASHER/CAA Anesthesiologist: Damion Coronado MD Resident/TUB WASHER: Tameka Westbrook MD Performed by: Tameka Westbrook MD Authorized by: Damion Coronado MD [facility] 09-26-2023 Note Airway Date/Time: 09/26/2023 8:53 AM Urgency: elective Airway not difficult General Information and Staff Patient location during procedure: [place] Anesthesiologist: Damion Coronado MD Resident/TUB WASHER/CAA: Tameka Westbrook MD Performed: resident/TUB WASHER/CAA Indications and Patient Condition Indications for airway [...] 21 Number of attempts at approach: 1 [facility] 09-26-2023 Note Patient: Amparo evangelista Procedure Information Date/Time: 09/26/23 0830 Procedure: Ablation a-fib paroxysmal Location: [facility] SUBSTANCE ABUSE THERAPIST 1 EP / [facility] VASCULAR [facility] (Cath) Providers: Rai [...] Plan discussed with resident. Additional Equipment Requests [facility] 09-18-2023 Note [place] Electrophysiology Note [facility] Reason for Consultation: Aflutter s/p [...] 07/2022, atrial fib (was intolerant of amiodarone) [id number] at least 5 for gender, hypertension, TIA, [...] hx TIA 2008. She was seen at [facility] ER with c/o palpitations and chest [...] negative. Physical Exam: (more content not included)... [facility] 06-26-2023 Note Patient here for 3 m o follow up echo done last week. Denies chest pain, SOB, palpitations, and lightheadedness/syncope. Denies bleeding on Eliquis. Says she feels good, as she's just getting over a sinus infection. Review of Systems Musculoskeletal: Positive for arthritis and myalgias. All other systems reviewed and are negative. [place] Electrophysiology Note [facility] Reason for Consultation: Aflutter s/p [...] 07/2022, atrial fib (was intolerant of amiodarone) [id number] at least 5 for gender, hypertension, TIA, [...] hx TIA 2008. She was seen at [facility] ER with c/o palpitations and chest [...] no significant antony (more content not included)... [facility] 04-17-2023 Note Patient here for 3 m o follow up afib ablation. Had some palpitations last week she says. Denies chest pain, SOB, lightheadedness, and bleeding on Eliquis. Review of Systems Cardiovascular: Positive for palpitations. Musculoskeletal: Positive for arthritis and myalgias. All other systems reviewed and are negative. [facility] 04-17-2023 Note [place] Electrophysiology Note [facility] Reason for Consultation: Aflutter s/p [...] 07/2022, atrial fib (was intolerant of amiodarone) [id number] at least 5 for gender, hypertension, TIA, [...] hx TIA 2008. She was seen at [facility] ER with c/o palpitations and chest [...] ulcer, no varicosities, (more content not included)... [facility] 10-25-2021 History of Present illness Narrative Discharge instructions reviewed with patient. Had no sedation. Signed for self. To recovery. Denies pain complaints. Injection site clean and dry. BP 190/95. P 63. Oxygen 98%. Resp 18. updated on elevated pressure. documented in this encounter [facility] Phone: 10-25-2021 Hospital Discharge instructions Radha Estevez [...] a follow-up visit. documented in this encounter [employer] Phone: Reason for visit Narrative Specialty Diagnoses / Procedures Referred By Heydi t Referred To Contact Diagnoses LUMBAR SACRAL RAD LUMBAR RAD Procedures MT NJX DX/THER SBST INTRLMNR LMBR/SAC W/IMG GDN EPIDURAL STEROID INJECTION- L4-5 Annabel Lima MD [address] [place] [address] [facility] [id number] [place] [address] Referral ID Status Reason Start Date Expiration Date Visits Re quested Visits Authorized 1 1 [facility] Work Phone: Summary Purpose Family History No [...] section and content) DATE CREATED AUTHOR 06/26/2018 [facility] DATE CREATED AUTHOR AUTHOR'S ORGANIZ ATION 07/13/2020 [facility] DATE CREATED AUTHOR AUTHOR'S ORGANIZ ATION 08/05/2020 [facility] DATE CREATED AUTHOR AUTHOR'S ORGANIZ ATION 10/26/2021 [facility] DATE CREATED AUTHOR AUTHOR'S ORGANIZ ATION 09/29/2022 [facility] DATE CREATED AUTHOR AUTHOR'S ORGANIZ ATION 01/18/2024 [facility] DATE CREATED AUTHOR AUTHOR'S ORGANIZ ATION 04/05/2024 [facility] DATE CREATED AUTHOR AUTHOR'S ORGANIZ ATION 04/10/2024 [facility] PRN Active and Recently Administ [...] Care Teams (unrecognized sec tion and content) 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 [employer] [facility]. provides no warranty or guarantee of the accuracy or completeness of information in this document.
--- NOTE | 2024-08-14 15:41 | XR_ITS ---
The [address] [address] Patient Name: JOSÉ ANTONIO SY MRN: [id number] date: 1960 Sex: F Assigned Patient Location: [facility] Current Patient Location: [facility] Accession/Order Number: [id number] Exam Date: 08/14/2024 16:01 Report Date: 08/14/2024 16:02 At the request of: KUNAL MANZANARES MD Procedure: XR chest 2V XR chest 2V 08/14/2024 3:58 PM SIGNS AND SYMPTOMS: Chest pain PROTOCOL: Frontal and lateral radiographs of the chest COMPARISON: 07/03/2021 FINDINGS: The trachea is midline. There is an implantable cardiac monitoring device along the left anterior chest wall. The heart and mediastinal structures are within normal limits. The lung parenchyma is clear. The bony thorax is intact. XR/XR chest 2V IMPRESSION: No acute cardiopulmonary pathology. Impression dictated by: Dieter Alonzo M.D.08/14/2024 4:02 PM Dictation Location: [place] [address] Electronically authenticated by: [id number] Date: 08/14/2024 16:02
== END 2024-08-14 15:27 | disposition home or self-care (01) ==
LOC: RAD 15:28
PROVIDERS: PCP Family Medicine; Visit Provider Family Medicine
DX: R07.9 Chest pain, unspecified (principal)
CPT/HCPCS: 71046

== ENCOUNTER 2024-08-14 18:55 | Emergency (ER) | payer MEDICARE, SELFPAY ==
[2024-08-14] VITALS (15 sets, daily range): BP systolic 174–209; BP diastolic 74–142; PULSE 63–72; TEMP 37; O2SAT 90–99; BMI 39.6
--- OUTSIDE RECORDS SUMMARY | 2024-08-14 19:01 | XMS_ITS | CCD ---
Author Organization [facility] Care Team Providers Care Electronic Security Technician Name Role Phone PHILLLIVZAID Unavailable Unavailable KUNAL PATEL Unavailable Unavailable ELTAHAWY, EHAB A Attending Unavailable ELTAHAWY, EHAB A Admitting Unavailable SELF, REFERRED Referring Unavailable KUNAL PATEL Primary Care Unavailable Kunal Patel MD Primary Care Provider [phone] ANNABEL LIMA Admitting Unavailable ANNABEL LIMA Attending [...] DR SYED Admitting Unavailable LEIGHTON ., DR YSED Primary Care Unavailable LEIGHTON ., DR SYED [...] Translations: [OXYCODONE-ACETAMI NOPHEN] Drug Allergy 08-19-2013 [facility] Repository (3 sources) Acetaminophen / oxyCODONE Drug Allergy 01-24-2013 [facility] Medications Current Medications Medication Drug [...] disease (1 source) Atherosclerotic heart disease of [place] coronary artery without angina pectoris; Translations: [ASHD [facility] [place] CA W/O ANGINA PECTORIS] Onset: 03-08-2022 Chronic [...] Onset: 12-21-2021 Episodic Other aftercare (1 source) halfway (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; Translations: [CARE HOME CURRENT USE OF ASPIRIN] Onset: 12-21-2021 Episodic Other aftercare (1 source) Other long term care pharmacist (current) drug therapy; Translations: [OTH CARE HOME CURRENT DRUG THERAPY] Onset: 12-21-2021 Episodic [...] Interpretation Reference Range Facility Telephoneon 10-18-2023 Telephone [id number] Carina Barth A 1960 F Date Provider Department Center 10/18/2023 [facility] [place] [facility] Family History Problem Relation Age of Onset Heart failure Mother Hyperlipidemia Mother Hypertension Mother Heart failure Father Hypertension Father Heart failure Brother Hyperlipidemia Brother Hypertension Brother Family Status - Relation Status Age at Mother Father Brother Reason for Visit and Comments: 3 week f/u post ablation [Other] Normal [facility] Telephoneon 10-05-2023 Telephone [id number] Carina Barth A 1960 F Date Provider Department Center 10/05/2023[facility] [place] [facility] Family History Problem Relation Age of Onset Heart failure Mother Hyperlipidemia Mother Hypertension Mother Heart failure Father Hypertension Father Heart failure Brother Hyperlipidemia Brother Hypertension Brother Family Status - Relation Status Age at Mother Father Brother Reason for Visit and Comments: week f/u post ablation [Other] Normal [facility] Telephoneon 10-04-2023 Telephone [id number] Carina Barth A 1960 F Date Provider Department Center 10/04/2023[facility] [place] [facility] Family History Problem Relation Age of Onset Heart failure Mother Hyperlipidemia Mother Hypertension Mother Heart failure Father Hypertension Father Heart failure Brother Hyperlipidemia Brother Hypertension Brother Family Status - Relation Status Age at Mother Father Brother Reason for Visit and Comments: post ablation f/u [Other] [facility] Elect[facility] Note [facility] Reason [...] 07/2022, atrial fib (was intolerant of amiodarone) [id number] at least 5 for gender, hypertension, TIA, [...] hx TIA 2008. She was seen at [facility] ER with c/o palpitations and chest [...] on file Intimate Partner Violence: Unknown (08/09/2023) [place] Safety & Environment Fear of Current or [...] syncope, no (more content not included)... Normal [facility] POCT GLUCOSE METER UNSOLICIT ED RESULTSon 09-26-2023 Glucose [Mass/Vol] 173 mg/dL High 70-105 [facility] Comment on above: Order Comment: Waive d Testing in the ED is performed under the ED CLIA certificate #[id number]. Result Comment: dspe ars Performed By: #### L [id number] ####[facility] ([facility])[address] [place] [address] Glucose [Mass/Vol] 164 mg/dL High 70-105 [facility] Comment on above: Order Comment: Waive d Testing in the ED is performed under the ED CLIA certificate #[id number]. Result Comment: eyou ng12 Performed By: #### L [id number] ####[facility] ([facility])[address] [place] [address] PROTIME-INRon 09-26-2023 INR IN PPP BY COAGULATION ASSAY 1.01 Normal 0.90-1.10 [facility] Comment on above: Result Comment: ACCC [...] 1995;108:231S-246S. Performed By: #### L [id number] ####[facility] ([facility])[address] [place] [address] PROTHROMBIN TIME (PT) IN PPP BY COAGULATION ASSAY 13.3 Seconds Normal 12.3-14.8 [facility] Comment on above: Performed By: #### L [id number] ####[facility] ([facility])[address] [place] [address] Prep for Procedureon 024 Prep for Procedure [id number] Carina Barth 1960 F Date Provider Department Center 09/26/2023[facility] [place] [facility] Family History Problem Relation Age of Onset Heart failure Mother Hyperlipidemia Mother Hypertension Mother Heart failure Father Hypertension Father Heart failure Brother Hyperlipidemia Brother Hypertension Brother Family Status - Relation Status Age at Mother Father Brother Normal [facility] [id number] 09-18-2023 [id number] ARRIVAL TIME 0700 HOLD ELIQUIS 4/8 MULTI [...] THE FOLLOWING ARE NOT AVAILABLE: 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 Do not wear perfume, make-up, nail sami, or lotions on the day of your [...] need to make any changes, please call [phone]. Notify your surgeon if you develop any illness such as a cold, cough, fever, sore throat or vomiting between now and your surgery. Thank you for entrusting us with your care. [facility] Surgical Services Team Normal [facility] Office Visiton 09-18-2023 Follow-up visit [id number] Carina Barth A 1960 F Date Provider Department Center 09/18/2023 RAI BARROW GOLD [place] Family History Problem Relation Age of Onset Heart failure Mother Hyperlipidemia Mother Hypertension Mother Heart failure Father Hypertension Father Heart failure Brother Hyperlipidemia Brother Hypertension Brother Family Status - Relation Status Age at Mother Father Brother Level of Service:95357 [place] OFFICE/OUTPATIENT ESTABLISHED HIGH MDM 40 MIN Reason for Visit and Comments: Follow-up [259491] Normal [facility] Prep for Procedureon 024 Prep for Procedure [id number] Carina Barth A 1960 F Date Provider Department Center 09/05/2023 [facility] [place] [facility] Family History Problem Relation Age of Onset Heart failure Mother Hyperlipidemia Mother Hypertension Mother Heart failure Father Hypertension Father Heart failure Brother Hyperlipidemia Brother Hypertension Brother Family Status - Relation Status Age at Mother Father Brother Normal [facility] Office Visiton 06-26-2023 Follow-up visit [id number] Carina Barth A 1960 F Date Provider Department Center 06/26/2023 241-RAI JAY GOLD [place] Family History Problem Relation Age of Onset Heart failure Mother Hyperlipidemia Mother Hypertension Mother Heart failure Father Hypertension Father Heart failure Brother Hyperlipidemia Brother Hypertension Brother Family Status - Relation Status Age at Mother Father Brother Level of Service:61070 [place] OFFICE/OUTPATIENT ESTABLISHED MOD MDM 30 MIN [facility] Office Visiton 04-17-2023 Follow-up visit [id number] Carina Barth A 1960 F Date Provider Department Center 04/17/2023 1596-BESS MARTIN GOLD [facility] Family History Problem Relation Age of Onset Heart failure Mother Hyperlipidemia Mother Hypertension Mother Heart failure Father Hypertension Father Heart failure Brother Hyperlipidemia Brother Hypertension Brother Family Status - Relation Status Age at Mother Father Brother Level of Service:29054 [place] OFFICE/OUTPATIENT ESTABLISHED MOD MDM 30-39 MIN Normal [facility] BNPon 07-24-2022 Natriuretic peptide B (Bld) [Mass/Vol] 109.0 pg/mL Normal <=900.0 [facility] Comment on above: Performed By: #### C MP, T7, BNP, LIPID, TSH #### [facility] [address] [place] [address] Dr. Yuliya Jones CBC AUTO DIFFon 07-24-2022 BASO # 0.0 103/ul Normal 0.0-0.1 [facility] Comment on above: Performed By: #### C BC #### [facility] [address] [place] [address] Dr. Yuliya Jones Basophils/100 WBC (Bld) 0.4 % Normal 0.2-2.0 [facility] Comment on above: Performed By: #### C BC #### [facility] [address] [place] [address] Dr. Yuliya Jones EO # 0.2 103/ul Normal 0.0-0.7 [facility] Comment on above: Performed By: #### C BC #### [facility] [address] [place] [address] Dr. Yuliya Jones Eosinophils/100 WBC (Bld) 2.2 % Normal 0.9-7.0 [facility] Comment on above: Performed By: #### C BC #### [facility] [address] [place] [address] Dr. Yuliya Jones Erythrocyte distribution width (RBC) [Ratio] 13.6 % Normal 11.0-15.0 [facility] Comment on above: Performed By: #### C BC #### [facility] [address] [place] [address] Dr. Yuliya Jones Hematocrit (Bld) [Volume fraction] 40.1 % Normal 36.0-48.0 [facility] Comment on above: Performed By: #### C BC #### [facility] [address] [place] [address] Dr. Yuliya Jones Hemoglobin (Bld) [Mass/Vol] 13.1 g/dL Normal 12.0-16.0 [facility] Comment on above: Performed By: #### C BC #### [facility] [address] [place] [address] Dr. Yuliya Jones IG # 0.05 10e3/ul Critically high 0.00-0.03 [facility] Comment on above: Performed By: #### C BC #### [facility] [address] [place] [address] Dr. Yuliya Jones IG % 0.7 % Critically high 0.0-0.5 [facility] Comment on above: Performed By: #### C BC #### [facility] [address] [place] [address] Dr. Yuliya Jones LYMPH # 2.0 103/ul Normal 1.2-3.8 [facility] Comment on above: Performed By: #### C BC #### [facility] [address] [place] [address] Dr. Yuliya Jones Lymphocytes/100 WBC (Bld) 26.9 % Normal 20.5-60.0 [facility] Comment on above: Performed By: #### C BC #### [facility] [address] [place] [address] Dr. Yuliya Jones MANUAL DIFF REQ NO Normal [facility] Comment on above: Performed By: #### C BC #### [facility] [address] [place] [address] Dr. Yuliya Jones MCH (RBC) [Entitic mass] 28.5 pg Normal 26.7-34.0 [facility] Comment on above: Performed By: #### C BC #### [facility] [address] [place] [address] Dr. Yuliya Jones MCHC (RBC) [Mass/Vol] 32.7 g/dL Normal 29.9-35.2 [facility] Comment on above: Performed By: #### C BC #### [facility] [address] [place] [address] Dr. Yuliya Jones MCV (RBC) [Entitic vol] 87.4 fL Normal 81.0-99.0 [facility] Comment on above: Performed By: #### C BC #### [facility] [address] [place] [address] Dr. Yuliya Jones MONO # 0.4 103/ul Normal 0.3-0.8 [facility] Comment on above: Performed By: #### C BC #### [facility] [address] [place] [address] Dr. Yuliya Jones Monocytes/100 WBC (Bld) 5.1 % Normal 1.7-12.0 [facility] Comment on above: Performed By: #### C BC #### [facility] [address] [place] [address] Dr. Yuliya Jones NEUT # 4.8 103/ul Normal 1.4-6.5 [facility] Comment on above: Performed By: #### C BC #### [facility] [address] [place] [address] Dr. Yuliya Jones Neutrophils/100 WBC (Bld) 64.7 % Normal 43.0-75.0 [facility] Comment on above: Performed By: #### C BC #### [facility] [address] [place] [address] Dr. Yuliya Jones Platelet mean volume (Bld) [Entitic vol] 10.3 fL Normal 9.5-13.5 [facility] Comment on above: Performed By: #### C BC #### [facility] [address] [place] [address] Dr. Yuliya Jones PLT 244 103/ul Normal 150-450 [facility] Comment on above: Performed By: #### C BC #### [facility] [address] [place] [address] Dr. Yuliya Jones RBC 4.59 106/ul Normal 4.20-5.40 [facility] Comment on above: Performed By: #### C BC #### [facility] [address] [place] [address] Dr. Yuliya Jones WBC 7.4 103/ul Normal 4.0-11.0 [facility] Comment on above: Performed By: #### C BC #### [facility] [address] [place] [address] Dr. Yuliya Jones FREE THYROXINE INDEX T7on FTI 2.66 Normal 1.30-4.50 [facility] Comment on above: Performed By: #### C MP, T7, BNP, LIPID, TSH #### [facility] [address] [place] [address] [address] Yuliya Jones T3U 35.0 % Normal 30.0-39.0 [facility] Comment on above: Performed By: #### C MP, T7, BNP, LIPID, TSH #### [facility] [address] [place] [address] [address] Yuliya Jones T4 [Mass/Vol] 7.60 ug/dL Normal 4.80-13.90 [facility] Comment on above: Performed By: #### C MP, T7, BNP, LIPID, TSH #### [facility] [address] [place] [address] [address] Yuliya Jones GLYCOHEMOGLOBIN A1Con 2022 ADA RECOMMENDATION SEE BELOW Normal [facility] Comment on above: Result Comment: ADA RECOMMENDED LIMIT 4.0 - 6.0 ADA THERAPEUTIC TARGET < 7.0 ACTION SUGGESTED > 7.0 Performed By: #### A 1C ####[facility] [address] [place] [address]Dr. Yuliya Jones Glucose [Mass/Vol] 146 mg/dL Normal [facility] Comment on above: Performed By: #### A 1C ####[facility] [address] [place] [id number]. Yuliya Jones HbA1c (Bld) [Mass fraction] 6.7 % Critically high 4.5-6.2 [facility] Comment on above: Performed By: #### A 1C ####[facility] [address] [place] [address]Dr. Yuliya Jones IRONon 07-24-2022 Iron [Mass/Vol] 74.0 ug/dL Normal 50.0-170.0 [facility] Comment on above: Performed By: #### I LUDWIN, VITB12, VITAD #### [facility] [address] [address] [address] Yuliya Jones LIPID PROFILEon 07-24-2022 CHOL-HDL RATIO NORM SEE BELOW Normal [facility] Comment on above: Result Comment: 3.3 - 4.4 LOW RISK 4.4 - 7.1 AVERAGE RISK 7.1 - 11.0 MODERATE RISK >11.0 HIGH RISK Performed By: #### C MP, T7, BNP, LIPID, TSH #### [facility] [address] [place] [address] Dr. Yuliya Jones Cholesterol [Mass/Vol] 215 mg/dL Critically high <=200 [facility] Comment on above: Performed By: #### C MP, T7, BNP, LIPID, TSH #### [facility] [address] [place] [address] Dr. Yuliya Jones Cholesterol in HDL [Mass/Vol] 46 mg/dL Normal 40-60 [facility] Comment on above: Performed By: #### C MP, T7, BNP, LIPID, TSH #### [facility] [address] [place] [address] Dr. Yuliya Jones Cholesterol in LDL [Mass/Vol] 120.6 mg/dL Normal [facility] Comment on above: Performed By: #### C MP, T7, BNP, LIPID, TSH #### [facility] [address] [place] [address] Dr. Yuliya Jones Cholesterol.total/ Cholesterol in HDL [Mass ratio] 4.7 {ratio} Normal [facility] Comment on above: Performed By: #### C MP, T7, BNP, LIPID, TSH #### [facility] [address] [place] [address] Dr. Yuliya Jones HDL NORMAL > or = 60 mg/dl - LO W CARDIOVASCULAR RISK <40 mg/dl - HIGH CARDIOVASCULAR RISK Normal [facility] Comment on above: Performed By: #### C MP, T7, BNP, LIPID, TSH #### [facility] [address] [place] [address] Dr. Yuliya Jones LDL CALC NORMAL SEE BELOW Normal [facility] Comment on above: Result Comment: <100 mg/dl OPTIMAL 100 - 129 mg/dl NEAR OR ABOVE OPTIMAL 130 - 159 mg/dl BORDERLINE HIGH 160 - 189 mg/dl HIGH >190 mg/dl VERY HIGH Performed By: #### C MP, T7, BNP, LIPID, TSH #### [facility] [address] [place] [address] Dr. Yuliya Jones Triglyceride [Mass/Vol] 242 mg/dL Critically high <=150 [facility] Comment on above: Performed By: #### C MP, T7, BNP, LIPID, TSH #### [facility] [address] [address] [address] Yuliya Jones VLDL CALC 48.4 mg/dL Normal [facility] Comment on above: Performed By: #### C MP, T7, BNP, LIPID, TSH #### [facility] [address] [place] [address] Dr. Yuliya Jones PROF 14(COMP METB)on 023 Albumin [Mass/Vol] 3.3 g/dL Critically low 3.4-5.0 Th [facility] Comment on above: Performed By: #### C MP, T7, BNP, LIPID, TSH #### [facility] [address] [place] [address] Dr. Yuliya Jones Albumin/Globulin [Mass ratio] 0.8 {ratio} Normal [facility] Comment on above: Performed By: #### C MP, T7, BNP, LIPID, TSH #### [facility] [address] [place] [address] [address] Yuliya Jones ALP [Catalytic activity/Vol] 148 U/L Critically high 46-116 [facility] Comment on above: Performed By: #### C MP, T7, BNP, LIPID, TSH #### [facility] [address] [address] [address] Yuliya Jones ALT [Catalytic activity/Vol] 49 U/L Normal 14-59 [facility] Comment on above: Performed By: #### C MP, T7, BNP, LIPID, TSH #### [facility] [address] [address] [address] Yuliya Jones Anion gap [Moles/Vol] 11.6 mmol/L Normal [facility] Comment on above: Performed By: #### C MP, T7, BNP, LIPID, TSH #### [facility] [address] [place] [address] Dr. Yuliya Jones AST [Catalytic activity/Vol] 26 U/L Normal 15-37 [facility] Comment on above: Performed By: #### C MP, T7, BNP, LIPID, TSH #### [facility] [address] [place] [address] Dr. Yuliya Jones Bilirubin [Mass/Vol] 0.8 mg/dL Normal 0.2-1.0 [facility] Comment on above: Performed By: #### C MP, T7, BNP, LIPID, TSH #### [facility] [address] [place] [address] Dr. Yuliya Jones Calcium [Mass/Vol] 9.0 mg/dL Normal 8.5-10.1 [facility] Comment on above: Performed By: #### C MP, T7, BNP, LIPID, TSH #### [facility] [address] [place] [address] Dr. Yuliya Jones Chloride [Moles/Vol] 102 mmol/L Normal 98-107 [facility] Comment on above: Performed By: #### C MP, T7, BNP, LIPID, TSH #### [facility] [address] [place] [address] Dr. Yuliya Jones CO2 [Moles/Vol] 29.1 mmol/L Normal 21.0-32.0 [facility] Comment on above: Performed By: #### C MP, T7, BNP, LIPID, TSH #### [facility] [address] [place] [address] Dr. Yuliya Jones Creatinine [Mass/Vol] 0.69 mg/dL Normal 0.55-1.02 [facility] Comment on above: Performed By: #### C MP, T7, BNP, LIPID, TSH #### [facility] [address] [place] [address] Dr. Yuliya Jones EGFR-AF MICRONESIAN >60 Normal >=60 [facility] Comment on above: Performed By: #### C MP, T7, BNP, LIPID, TSH #### [facility] [address] [place] [address] Dr. Yuliya Jones EGFR-NON AF MICRONESIAN >60 Normal >=60 [facility] Comment on above: Performed By: #### C MP, T7, BNP, LIPID, TSH #### [facility] [address] [place] [address] Dr. Yuliya Jones Globulin (S) [Mass/Vol] 4.1 g/dL Normal [facility] Comment on above: Performed By: #### C MP, T7, BNP, LIPID, TSH #### [facility] [address] [place] [address] Dr. Yuliya Jones Glucose [Mass/Vol] 151 mg/dL Critically high 74-106 T [facility] Comment on above: Performed By: #### C MP, T7, BNP, LIPID, TSH #### [facility] [address] [place] [address] Dr. Yuliya Jones Potassium [Moles/Vol] 3.7 mmol/L Normal 3.5-5.1 [facility] Comment on above: Performed By: #### C MP, T7, BNP, LIPID, TSH #### [facility] [address] [place] [address] Dr. Yuliya Jones Protein [Mass/Vol] 7.4 g/dL Normal 6.4-8.2 [facility] Comment on above: Performed By: #### C MP, T7, BNP, LIPID, TSH #### [facility] [address] [place] [address] Dr. Yuliya Jones Sodium [Moles/Vol] 139 mmol/L Normal 136-145 [facility] Comment on above: Performed By: #### C MP, T7, BNP, LIPID, TSH #### [facility] [address] [place] [address] Dr. Yuliya Jones Urea nitrogen [Mass/Vol] 8.0 mg/dL Normal 7.0-18.0 [facility] Comment on above: Performed By: #### C MP, T7, BNP, LIPID, TSH #### [facility] [address] [place] [address] Dr. Yuliya Jones Urea nitrogen/Creatinin e [Mass ratio] 11.6 mg/mg Normal [facility] Comment on above: Performed By: #### C MP, T7, BNP, LIPID, TSH #### [facility] [address] [address] [address] Yuliya Jones TSHon 07-24-2022 TSH 1.903 uIU/mL Normal 0.358-3.740 [facility] Comment on above: Performed By: #### C MP, T7, BNP, LIPID, TSH #### [facility] [address] [address] [address] Yuliya Jones VITAMIN B12on 07-24-2022 Cobalamin (Vitamin B12) [Mass/Vol] 1085.0 pg/mL Critically high 193.0-986.0 [facility] Comment on above: Performed By: #### I LUDWIN VITB12, VITAD ####[facility] [address] [place], [place] [address]DrMinisterio Jones VITAMIN D 25 OHon 07-24-2022 VIT D 25-OH 36.8 ng/mL Normal [facility] Comment on above: Performed By: #### I LUDWIN VITB12, VITAD ####[facility] [address] [place], [place] [address]DrMinisterio Jones VIT D RANGES SEE BELOW Normal [facility] Comment on above: Result Comment: <20 ng/mL Vit D deficient 20 - <30 ng/mL Vit D insufficient 30 - 100 ng/mL Vit D sufficient >100 ng/mL Potential Toxicity Performed By: #### I LUDWIN VITB12, VITAD ####[facility] [address] [place], [place] [address]DrMinisterio Jones GLYCOHEMOGLOBIN A1Con 2021 ADA RECOMMENDATION SEE BELOW Normal [facility] Comment on above: Result Comment: ADA RECOMMENDED LIMIT 4.0 - 6.0 ADA THERAPEUTIC TARGET < 7.0 ACTION SUGGESTED > 7.0 Performed By: #### A 1C ####[facility] [address] [place], [place] [address]DrMinisterio Jones Glucose [Mass/Vol] 140 mg/dL Normal [facility] Comment on above: Performed By: #### A 1C ####[facility] [address] [place], [place] [address]DrMinisterio Jones HbA1c (Bld) [Mass fraction] 6.5 % Critically high 4.5-6.2 [facility] Comment on above: Performed By: #### A 1C ####[facility] [address] [place], [place] [address]GbDr. Yuliya Jones LIPID PROFILEon 03-07-2022 CHOL-HDL RATIO NORM SEE BELOW Normal [facility] Comment on above: Result Comment: 3.3 - 4.4 LOW RISK 4.4 - 7.1 AVERAGE RISK 7.1 - 11.0 MODERATE RISK >11.0 HIGH RISK Performed By: #### L IPID #### [facility] [address] [place], [place] [address] Dr. Yuliya Jones Cholesterol [Mass/Vol] 215 mg/dL Critically high <=200 [facility] Comment on above: Performed By: #### L IPID #### [facility] [address] [place], [place] [address] Dr. Yuliya Jones Cholesterol in HDL [Mass/Vol] 42 mg/dL Normal 40-60 [facility] Comment on above: Performed By: #### L IPID #### [facility] [address] [place], [place] [address] Dr. Yuliya Jones Cholesterol in LDL [Mass/Vol] 118.4 mg/dL Normal [facility] Comment on above: Performed By: #### L IPID #### [facility] [address] [place], [place] [address] Dr. Yuliya Jones Cholesterol.total/ Cholesterol in HDL [Mass ratio] 5.1 {ratio} Normal [facility] Comment on above: Performed By: #### L IPID #### [facility] [address] [place], [place] [address] Dr. Yuliya Jones HDL NORMAL > or = 60 mg/dl - LO W CARDIOVASCULAR RISK <40 mg/dl - HIGH CARDIOVASCULAR RISK Normal [facility] Comment on above: Performed By: #### L IPID #### [facility] [address] [place], [place] [address] Dr. Yuliya Jones LDL CALC NORMAL SEE BELOW Normal [facility] Comment on above: Result Comment: <100 mg/dl OPTIMAL 100 - 129 mg/dl NEAR OR ABOVE OPTIMAL 130 - 159 mg/dl BORDERLINE HIGH 160 - 189 mg/dl HIGH >190 mg/dl VERY HIGH Performed By: #### L IPID #### [facility] [address] [place] [address] [address] Yuliya Jones Triglyceride [Mass/Vol] 273 mg/dL Critically high <=150 [facility] Comment on above: Performed By: #### L IPID #### [facility] [address] [place] [address] [address] Yuliya Jones VLDL CALC 54.6 mg/dL Normal [facility] Comment on above: Performed By: #### L IPID #### [facility] [address] [place] [id number] Yuliya Jones XR ANKLE RT MIN [...] by: RORO BARKLEY Date: 2021-12-18 07:50 Normal [facility] FLUORO FOR SURGICAL PROCEDUR ESon 10-25-2021 FLUORO FOR SURGICAL PROCEDURES Radiology exam is complete. No Radiologist dictation. Please follow up with ordering provider. Final result Normal [facility] Radiology exam is complete. No Radiologist dictation. Please follow up with ordering provider. [facility] Cardiovascular Lab Reporton 07-22-2020 Cardiovascular Lab Report [facility] Patient Name: Tab [facility] Tami Moraes MR #: [id number] Department of Physician: Raeann Billy M.D. Division of Service Date: 07/22/2020 Cardiology Birthdate: 1960 Adult Cardiovascular Room #: [facility] [address] [facility]. [place] [address] Cardiovascular Laboratory Report FINAL IMPRESSIONS: 1. Moderate [...] Follow up with Dr. Walton in the [place] office in the next 1 to 2 [...] right internal jugular vein was obtained. A 6-Lithuanian x 11 cm sheath was inserted without [...] to access the left radial artery. A 6-Lithuanian glide sheath was inserted without difficulty. Bilateral [...] Manish Walton M.D. 07/27/2020 10:15 A Manish Watlon M.D. Date Dict: 07/22/2020/12:24 P/Manish Walton M.D. Date Trans: 07/22/2020 02:58 P/mmo [id number] cc: Kunal Patel M.D. [address] [place] [address] Normal [facility] Physician Referralon 021 Physician Referral [phone] 1061 [id number]: 127 Normal [facility] CNOVon 06-24-2018 CNOV Office Visit (GENN) AMPARO BARTH ([id number]) 1960 FDate Time Provider Department06/24/18 9:00 AM [...] MD 06/24/2018 10:11 AM SignedName: Amparo BarthMRN: [id number]: June 24, 2018Patient seen and examined in [...] Chito Antonio, MDPGY-6 FellowReferring Provider: KUNAL PATEL [[id number]]Allergies As of Date: 06/24/2018 Noted Allergy ReactionPERCOCET [...] regularWound: clean AND dryTemperature: NoDrains: NoEncounter Number: [id number] Status:Closed by ZAID DENNIS MD on 06/24/18 Normal [facility] HISTORY PHYSICALon HISTORY PHYSICAL HNO ID: [id number]: Chito (Ronn) Jt: (none)Author Type: FellowType: HANDPFiled: 06/24/2018 10:11 AMNote Text:Name: Amparo BarthMRN: [id number]: June 24, 2018Patient seen and examined in [...] medications for this visit. MEAGAN Sheffield-6 Fellow [facility] PROGRESSyesi 06-24-2018 Protein mass conc HNO ID: [id number]: Zaid Baptiste: (none)Author Type: PhysicianType: Progress NotesFiled: [...] need anopen repair with retro-muscular mesh. Normal [facility] SR-CT ABD/PELVIS W CON IMPOR Ton 12-03-2017 SR-CT ABD/PELVIS W CON IMPORT Images were obtained outside of [facility] [id number] Normal [facility] Vital Signs Date Time Vital Sign Value Performing Clinician Faci monika 10-25-2021 14:26-0400 Diastolic blood pressure 138 mm[Hg] Annabel Lima MD Work Phone: [facility] 10-25-2021 14:26-0400 Systolic blood pressure 239 mm[Hg] Annabel Lima MD Work Phone: [facility] 10-25-2021 13:53-0400 Body temperature 97.81 [degF] Annabel Lima MD Work Phone: [facility] 10-25-2021 13:53-0400 Heart rate 62 /min Annabel Lima MD Work Phone: [facility] 10-25-2021 13:53-0400 Respiratory rate 18 /min Annabel Lima MD Work Phone: [facility] 10-25-2021 13:53-0400 SaO2% (BldA) [Mass fraction] 96 % Annabel Lima MD Work Phone: [facility] 10-13-2021 08:17-0400 Body height 165.1 cm Annabel Lima MD Work Phone: [facility] Encounters Encounter Date Encounter Type Care Provider Facility Start: 04-04-2024 End: 04-04-2024 ambulatory Antoine Peoples MD Facility:[facility] Start: 04-02-2024 ambulatory [facility] Start: 03-19-2024 ambulatory [facility] Start: 02-08-2024 ambulatory [facility] Start: 01-21-2024 ambulatory [facility] Start: 01-15-2024 End: 01-15-2024 ambulatory EMILY LUZ Not Available Start: 12-05-2023 ambulatory [facility] Start: 09-26-2023 ambulatory [facility] Start: 09-26-2023 End: 09-26-2023 ambulatory [facility] Start: 09-18-2023 End: 09-18-2023 ambulatory [facility] Start: 06-26-2023 ambulatory [facility] Start: 04-17-2023 End: 04-17-2023 ambulatory [facility] Start: 07-24-2022 End: 07-25-[address] KUNAL PATEL . Facility:[facility] Start: 03-28-2022 ambulatory GARTH ANDREWS Facility :[facility] Start: 03-08-2022 Encounter for genera l adult medical examination without abnormal findings GARTH ANDREWS [facility] Start: 03-07-2022 End: 03-08-2022 ambulatory GARTH ANDREWS Facility:[facility] Start: 03-07-2022 End: 03-08-2022 Encounter for general adult medical examination without abnormal findings GARTH ANDREWS Facility:[facility] Start: 12-18-2021 End: 12-18-2021 ambulatory DELIA COKER Facility:[facility] Start: 10-25-2021 End: 10-25-2021 ambulatory ANNABEL LIMA [facility] Start: 10-25-2021 End: 10-25-2021 Subsequent hospital visit by physician Annabel Lima MD Work Phone: [facility] Start: 07-22-2020 End: 07-23-2020 Patient encounter procedure [facility] Facility:[facility] Start: 06-24-2018 [facility] Procedures Date Procedure Procedure Detail Performing Clinician Start: 10-25-2021 Fluoroscopy during operation Annabel Lima MD Work Phone: Plan of Treatment Date Care Activity Detail Author Start: 02-16-2022 Influenza vaccination Flu vacc ine (Season Ended) [facility] Start: 10-25-2021 End: 10-25-2021 Njx dx/ther sbst intrlmnr lmbr/sac w/img gdn EPIDURAL STEROID INJECTION LUMBAR SACRAL RAD LUMBAR RAD 10/25/2021 2:21 PM EDT [facility] Start: 2008 Screening for malign ant neoplasm of breast Breast cancer screen [facility] Start: 2008 Shingles vaccine (1 of 2) Shingles vaccine (1 of 2) [facility] Start: 2003 Screening for malign ant neoplasm of colon [facility] Start: 1988 Screening for malign ant neoplasm of cervix [facility] Start: 1979 Screening for malign ant neoplasm of cervix Pap smear [facility] Start: 1977 DTaP/Tdap/Td vaccine (1 - Tdap) DTaP/Tdap/Td vaccine ( - Tdap) [facility] Start: 1976 Creatinine measurement Creatinine [facility] Start: 1976 Hepatitis C screening Hepatitis C sc reen [facility] Start: 1976 Potassium [Moles/vol ume] in Serum or Plasma Potassium [facility] Start: 1973 HIV screening HIV screen [facility] Start: 1970 Depression Screen Depression Screen [facility] Start: 1968 Lipid panel Lipids [facility] Start: 1963 COVID-19 Vaccine (1) COVID-19 Vaccin e (1) [facility] Start: 1960 Annual Wellness Visi t (AWV) Annual Wellness Visit (AWV) [facility] Payers Date Payer Category Payer Private Health Insurance 2023 Medicare [id number] 1961 Medicaid [id number] 1961 Medicare [id number] 1961 Self-pay [id number] 1960 Unknown [id number] 2.16.8 [id number] 1960 Unknown [id number] 2.16.8 [id number] 1960 Unknown [id number] 2.16.84 [id number] 1960 Unknown [id number] 2.16.84 [id number] 1960 Unknown [id number] 2.16.84 [id number] 1960 Unknown [id number] 2.16.84 [id number] 1960 Unknown [id number] 2.16.84 [id number] 1960 Unknown [id number] 2.16. [id number] Medicare [id number] Social History Date Type Detail Facility Start: 10-13-2021 [facility] Start: 10-13-2021 Tobacco use and exposure Smokeless tobacco non-user [employer] Phone: Start: 10-25-2021 Alcohol intake Current drinke r of alcohol (finding) [employer] Phone: Start: 10-13-2021 History SDOH Alcohol Comment socially [employer] Phone: Start: 1960 Sex Assigned At Not on file M retsCloud Phone: Clinical Notes 10-25-2021 to 09-26-2023 Radha Estevez RN - 10/25/2021 2:41 PM Edward Estevez RN - 10/25/2021 2:31 PM EDTInstructionsAuth/Cert Note Date & Type Note Facility 09-26-2023 Note Patient: Amparo evangelista Procedure Summary Date: 09/26/23 Room / Location: [facility] ASSISTANT PROFESSOR OF PHYSICS 1 EP / [facility] HV VASCULAR LAB (Cath) Anesthesia [...] no known notable events for this encounter. [facility] 09-26-2023 Note ATRIAL FIBRILLATION ABLATION PROCEDURE NOTE DATE OF PROCEDURE: 09/26/2023 PERFORMING PHYSICIAN: Dr. Rai Jay PRIMARY CARE NURSE PRACTITIONER: SAJI CONSENT: Patient NAME OF THE PROCEDURE: [...] pulmonary veins. Esophagus was mapped using the [employer] 3D mapping software and noted to lie [...] Mapping was performed (more content not included)... [facility] 09-26-2023 Note Arterial Line: Date/Time: 09/26/2023 [...] 1 % SubQ, 0.5 mL Staffing Performed: resident/BID CLERK/CAA Anesthesiologist: Damion Coronado MD Resident/BID CLERK: Tameka Westbrook MD Performed by: Tameka Westbrook MD Authorized by: Damion Coronado MD [facility] 09-26-2023 Note Airway Date/Time: 09/26/2023 8:53 AM Urgency: elective Airway not difficult General Information and Staff Patient location during procedure: [place] Anesthesiologist: Daimon Coronado MD Resident/BID CLERK/CAA: Tameka Westbrook MD Performed: resident/BID CLERK/CAA Indications and Patient Condition Indications for airway [...] 21 Number of attempts at approach: 1 [facility] 09-26-2023 Note Patient: Amparo evangelista Procedure Information Date/Time: 09/26/23 0830 Procedure: Ablation a-fib paroxysmal Location: [facility] ASSISTANT PROFESSOR OF PHYSICS 1 EP / [facility] VASCULAR [facility] (Cath) Providers: Rai Jay [...] Plan discussed with resident. Additional Equipment Requests [facility] 09-18-2023 Note [place] Electrophysiology Note [facility] Reason for Consultation: Aflutter s/p [...] 07/2022, atrial fib (was intolerant of amiodarone) [id number] at least 5 for gender, hypertension, TIA, [...] hx TIA 2008. She was seen at [facility] ER with c/o palpitations and chest [...] negative. Physical Exam: (more content not included)... [facility] 06-26-2023 Note Patient here for 3 m o follow up echo done last week. Denies chest pain, SOB, palpitations, and lightheadedness/syncope. Denies bleeding on Eliquis. Says she feels good, as she's just getting over a sinus infection. Review of Systems Musculoskeletal: Positive for arthritis and myalgias. All other systems reviewed and are negative. [place] Electrophysiology Note [facility] Reason for Consultation: Aflutter s/p [...] 07/2022, atrial fib (was intolerant of amiodarone) [id number] at least 5 for gender, hypertension, TIA, [...] hx TIA 2008. She was seen at [facility] ER with c/o palpitations and chest [...] no significant antony (more content not included)... [facility] 04-17-2023 Note Patient here for 3 m o follow up afib ablation. Had some palpitations last week she says. Denies chest pain, SOB, lightheadedness, and bleeding on Eliquis. Review of Systems Cardiovascular: Positive for palpitations. Musculoskeletal: Positive for arthritis and myalgias. All other systems reviewed and are negative. [facility] 04-17-2023 Note [place] Electrophysiology Note [facility] Reason for Consultation: Aflutter s/p [...] 07/2022, atrial fib (was intolerant of amiodarone) [id number] at least 5 for gender, hypertension, TIA, [...] hx TIA 2008. She was seen at [facility] ER with c/o palpitations and chest [...] ulcer, no varicosities, (more content not included)... [facility] 10-25-2021 History of Present illness Narrative Discharge instructions reviewed with patient. Had no sedation. Signed for self. To recovery. Denies pain complaints. Injection site clean and dry. BP 190/95. P 63. Oxygen 98%. Resp 18. updated on elevated pressure. documented in this encounter [employer] Phone: 10-25-2021 Hospital Discharge instructions Radha Estevez [...] a follow-up visit. documented in this encounter [employer] Phone: Reason for visit Narrative Specialty Diagnoses / Procedures Referred By Heydi t Referred To Contact Diagnoses LUMBAR SACRAL RAD LUMBAR RAD Procedures [place] NJX DX/THER SBST INTRLMNR LMBR/SAC W/IMG GDN EPIDURAL STEROID INJECTION- L4-5 Annabel Lima MD [address] [place] [address] [facility] [address] [place] [address] Referral ID Status Reason Start Date Expiration Date Visits Re quested Visits Authorized 1 1 [facility] Work Phone: Summary Purpose Family History No [...] section and content) DATE CREATED AUTHOR 06/26/2018 [facility] DATE CREATED AUTHOR AUTHOR'S ORGANIZ ATION 07/13/2020 [facility] DATE CREATED AUTHOR AUTHOR'S ORGANIZ ATION 08/05/2020 [facility] DATE CREATED AUTHOR AUTHOR'S ORGANIZ ATION 10/26/2021 [facility] DATE CREATED AUTHOR AUTHOR'S ORGANIZ ATION 09/29/2022 [facility] DATE CREATED AUTHOR AUTHOR'S ORGANIZ ATION 01/18/2024 [facility] DATE CREATED AUTHOR AUTHOR'S ORGANIZ ATION 04/05/2024 [facility] DATE CREATED AUTHOR AUTHOR'S ORGANIZ ATION 04/10/2024 [facility] PRN Active and [...] Care Teams (unrecognized sec tion and content) Electronic Security Technician Relationship Specialty Start Date End Date Kunal Patel MD [address] [place] [address] PCP - General Family Medicine 10/24/21 FOR [...] BE BASED ON THE PRIMARY CLINICAL RECORDS. [employer] [facility]. provides no warranty or guarantee of the accuracy or completeness of information in this document.
--- NOTE | 2024-08-14 20:18 | ED_ITS ---
HPI - Chest Pain General Chief Complaint: Chest Pain Stated Complaint: SEVERE SIDE PAIN Time Seen by Provider: 08/14/24 20:06 Source: patient Mode of arrival: walk-in Limitations: no limitations History of Present Illness HPI narrative: This 64-year-old female with a history of paroxysmal atrial fibrillation who recently started Coumadin and has chronic shortness of breath that she states is from years of having bronchitis as a child presents for evaluation of left-sided chest pain. The patient states she started having some pain in her left anterior chest underneath her left breast on Sunday. She went to see her family doctor on Sunday and today she had an x-ray. The x-ray was reviewed by radiology as normal. She was unaware of the x-ray results. She states she feels like there is a rock on the left side of her chest. The pain was formally underneath her left breast and is now moved laterally it is on the side of her chest. She denies any shortness of breath that is worse for her. She has not had any hemoptysis. She has no anterior chest pain dizziness diaphoresis or syncope. She denies any abdominal pain or back pain. She has no lower extremity pain or swelling. She states she recently started Coumadin and they are trying to get it normalized in the last INR she had was 1.9. She has a loop recorder and has had 2 ablations for her atrial fibrillation. She has been using ibuprofen for pain with minimal relief. She drove herself to the emergency department. She does take multiple blood pressure medications and states that she has not taken them yet tonight but did take them this morning. Related Data Allergies Allergy/AdvReac Type Severity Reaction Status Date / Time No Known Drug Allergies Allergy Verified 08/14/24 19:46 Review of Systems ROS Status of ROS 10 or more systems reviewed and unremark able except as noted in history and below [facility] Medical History (Updated 08/14/24 @ 21:40 by Brina Devine MD) Hypertension ?I10 - Essential (primary) hypertension (ICD-10) Afib ?I48.91 - Unspecified atrial fibrillation (ICD-10) Implantable loop recorder present ?Z95.818 - Presence of other cardiac implants and grafts (ICD-10) Social History Little interest or pleasure in doing things: not at all Feeling down, depressed, or hopeless: not at all Exam Narrative Exam Narrative: Vital signs and Nursing Notes reviewed: Patient is afebrile with a normal pulse, blood pressure is elevated at 180/100, she is not hypoxic with pulse ox of 98% on room air General: Awake, alert, oriented, nontoxic overweight female resting comfortably on the stretcher, she winces in pain with movement due to pain in the left chest, no respiratory distress HEENT: Normocephalic atraumatic, mucous membranes are moist and pink, eyes are clear, normal conjunctiva, vision is grossly intact Neck: Supple, no JVD Chest: Lungs are clear to auscultation with good air entry, there is no wheezing rhonchi or rales appreciated no accessory muscle use, patient is speaking in complete sentences-there is tenderness to palpation in the left mid to lower rib cage area and along the left lateral rib cage area, no crepitus ecchymosis or other notable abnormality appreciated CVS: Regular rate and rhythm S1-S2, no murmurs rubs or gallops, pulses are brisk and equal bilaterally ABD: Soft, nondistended, nontender, no rebound guarding or rigidity, bowel sounds are normal, no pulsatile masses appreciated Extremities: Moving all extremities, no lower extremity tenderness or swelling noted, negative Homans' sign, pulses are brisk and equal bilaterally Skin: Normal in appearance without rash,pallor, petechiae or purpura Neuro: No focal deficits Constitutional Vital Signs, click to edit/add: Last Vital Signs Temp 98.6 F 08/14/24 19:42 Pulse 69 08/14/24 19:42 Resp 18 08/14/24 19:42 BP 180/100 H 08/14/24 19:42 Pulse Ox 98 08/14/24 19:42 O2 Del Method Room Air 08/14/24 19:42 Course Vital Signs Vital signs: Vital Signs Temperature 98.6 F 08/14/24 19:42 Pulse Rate 69 08/14/24 19:42 Respiratory Rate 18 08/14/24 19:42 Blood Pressure 180/100 H 08/14/24 19:42 Pulse Oximetry 98 08/14/24 19:42 Oxygen Delivery Method Room Air 08/14/24 19:42 Temperature 98.6 F 08/14/24 19:42 Pulse Rate 69 08/14/24 19:42 Respiratory Rate 18 08/14/24 19:42 Blood Pressure 180/100 H 08/14/24 19:42 Pulse Oximetry 98 08/14/24 19:42 Oxygen Delivery Method Room Air 08/14/24 19:42 MDM - Chest Pain MDM Narrative Medical decision making narrative: This 64-year-old female who recently started Coumadin for atrial fibrillation and has had 2 cardiac ablations presents for evaluation of 4 days of left anterior chest pain. The pain started underneath her left breast and is now moved laterally. She was seen twice by her family physician and an x-ray was ordered. I reviewed the x-ray results. The x-ray is negative. She is still having the pain despite taking ibuprofen. She has chronic shortness of breath which she states is unchanged. She has not had a fever or cough. Her last INR was 1.9. She is not in A-fib with a normal regular pulse. Her blood pressure was noted to be elevated but she admits that she is very anxious and has not taken her nighttime blood pressure medications. My concern is that she is not fully anticoagulated and could have a pulmonary embolism. She has a normal white count and hemoglobin. Electrolytes are normal with a mildly low potassium at 3.1. She has a normal D-dimer at 0.31. Her INR is 1.8. Troponin is normal at 26. In light of these findings and normal chest x-ray she will be discharged. I will give her a [place] and Zofran to take at home and a prescription for [place] Zofran and Colace to use for her pain. She was encouraged to follow-up closely with her family physician and return the emergency department for worsening symptoms or any concerns. Medical Records Data Attestation: I reviewed the patient's medical records. Lab Data Labs: Lab Results 08/14/24 Range/Units 20:30 WBC 9.2 (4.0-11.0) 10^3/uL RBC 5.08 (4.20-5.40) 10^6/uL Hgb 14.7 (12.0-16.0) g/dL Hct 42.1 (36.0-48.0) % MCV 82.9 (81.0-99.0) fL MCH 28.9 (26.7-34.0) pg MCHC 34.9 (29.9-35.2) g/dL RDW 13.7 (11.0-15.0) % Plt Count 197 (150-450) 10^3/uL MPV 10.5 (9.5-13.5) fL Neut % (Auto) 63.4 (43.0-75.0) % Lymph % (Auto) 27.7 (20.5-60.0) % [place] % (Auto) 5.4 (1.7-12.0) % Eos % (Auto) 2.1 (0.9-7.0) % Baso % (Auto) 0.5 (0.2-2.0) % Neut # (Auto) 5.8 (1.4-6.5) 10^3/uL Lymph # (Auto) 2.5 (1.2-3.8) 10^3/uL [place] # (Auto) 0.5 (0.3-0.8) 10^3/uL Eos # (Auto) 0.2 (0.0-0.7) 10^3/uL Baso # (Auto) 0.1 (0.0-0.1) 10^3/uL Abs Immat Gran (auto) 0.08 H (0.00-0.03) 10^3/uL Imm/Tot Granulo (auto) 0.9 H (0.0-0.5) % PT 18.5 H (9.0-11.6) sec INR 1.86 D-Dimer 0.31 (<=0.59) mg/L FEU Sodium 140 (136-145) mmol/L Potassium 3.1 L (3.5-5.1) mmol/L Chloride 102 (98-107) mmol/L Carbon Dioxide 27.8 (21.0-32.0) mmol/L Anion Gap 13.3 BUN 11.0 (7.0-18.0) mg/dL Creatinine 0.95 (0.55-1.02) mg/dL Est GFR ( Amer) >60 (>=60 mL/min/1.73m^2) Est GFR (Non-Af Amer) 59 L (>=60 mL/min/1.73m^2) BUN/Creatinine Ratio 11.6 Glucose 228 H (74-106) mg/dL Calcium 9.8 (8.5-10.1) mg/dL Total Bilirubin 1.5 H (0.2-1.0) mg/dL AST 18 (15-37) U/L ALT 37 (14-59) U/L Alkaline Phosphatase 162 H (46-116) U/L Troponin I High Sens 26.9 (4.0-51.3) pg/mL Total Protein 7.9 (6.4-8.2) g/dL Albumin 3.7 (3.4-5.0) g/dL Globulin 4.2 g/dL Albumin/Globulin Ratio 0.9 Heart Score History: Slightly/Non-Suspicious Age: >65 years Risk Factors: 1 or 2 Risk Factors Troponin: <Normal Limit Discharge Plan Discharge Chief Complaint: Chest Pain Clinical Impression: Non-cardiac chest pain, Pleurisy, Elevated blood pressure reading Patient Disposition: Home, Self-Care Time of Disposition Decision: 21:29 Condition: Good Print Language: Spanish Instructions: Pleurisy (ED), Noncardiac Chest Pain (ED), Chest Wall Pain (ED), Hypokalemia (ED), Hypertension (ED) Additional Instructions: Follow up with Dr Patel. Return to ED if symptoms worsen. May use norco every 4-6 hours as needed for pain. Zofran as needed for nausea, colace to prevent constipation. Referrals: Humble Patel MD [Primary Care Provider] - 1 week
--- NOTE | 2024-08-14 20:21 | ECG_ITS ---
[facility] Test Date: 2024-08-14 Pat Name: JOSÉ ANTONIO SY Department: Room: - Gender: Female Transformer Inspector: : 1960 Requested By: [id number] Order Number: [id number] Reading MD: KUNAL MANZANARES Measurements Intervals [place] Rate: 71 P: 62 AK: 192 QRS: 41 QRSD: 86 T: 71 QT: 390 QTc: 413 Interpretive Statements 1100 Sinus rhythm 9110 normal ECG Compared to ECG 07/03/2021 15:37:20 No significant changes Electronically Signed On 08-15-2024 7:18:49 EST by KUNAL MANZANARES
[2024-08-14 20:44] LABS: Basophils Absolute Auto 0.1 10^3/uL (0.0-0.1); Basophils Percent Auto 0.5 % (0.2-2.0); Eosinophils Absolute Auto 0.2 10^3/uL (0.0-0.7); Eosinophils Percent Auto 2.1 % (0.9-7.0); Hematocrit 42.1 % (36.0-48.0); Hemoglobin 14.7 g/dL (12.0-16.0); Immature Granulocytes Abs Auto 0.08 10^3/uL (0.00-0.03); Immature Granulocytes Pct Auto 0.9 % (0.0-0.5); Lymphocytes Absolute Auto 2.5 10^3/uL (1.2-3.8); Lymphocytes Percent Auto 27.7 % (20.5-60.0); Mean Corpuscular HGB Conc 34.9 g/dL (29.9-35.2); Mean Corpuscular Hemoglobin 28.9 pg (26.7-34.0); Mean Corpuscular Volume 82.9 fL (81.0-99.0); Mean Platelet Volume 10.5 fL (9.5-13.5); Monocytes Absolute Auto 0.5 10^3/uL (0.3-0.8); Monocytes Percent Auto 5.4 % (1.7-12.0); Neutrophils Absolute Auto 5.8 10^3/uL (1.4-6.5); Neutrophils Percent Auto 63.4 % (43.0-75.0); Platelet Count 197 10^3/uL (150-450); Red Blood Count 5.08 10^6/uL (4.20-5.40); Red Cell Distribution Width 13.7 % (11.0-15.0); White Blood Count 9.2 10^3/uL (4.0-11.0)
[2024-08-14] MEDS: ACETAMINOPHEN 325 MG TABLET 650 MG PO (20:49)
[2024-08-14 20:59] LABS: D Dimer 0.31 mg/L FEU (<=0.59); INR 1.86; Prothrombin Time 18.5 sec (9.0-11.6)
[2024-08-14 21:05] LABS: Alanine Aminotransferase 37 U/L (14-59); Albumin Globulin Ratio 0.9; Albumin Level 3.7 g/dL (3.4-5.0); Alkaline Phosphatase 162 U/L (46-116); Anion Gap 13.3; Aspartate Amino Transferase 18 U/L (15-37); BUN Creatinine Ratio 11.6; Bilirubin Total 1.5 mg/dL (0.2-1.0); Calcium 9.8 mg/dL (8.5-10.1); Carbon Dioxide 27.8 mmol/L (21.0-32.0); Chloride 102 mmol/L (98-107); Estimated GFR (African America >60 (>=60 mL/min/1.73m^2); Estimated GFR (Non-African Ame 59 (>=60 mL/min/1.73m^2); Globulin 4.2 g/dL; Glucose 228 mg/dL (74-106); Potassium 3.1 mmol/L (3.5-5.1); Sodium 140 mmol/L (136-145); Total Protein 7.9 g/dL (6.4-8.2); Troponin I High Sensitivity 26.9 pg/mL (4.0-51.3)
[2024-08-14] MEDS: HYDROCODONE/ACET 5-325 MG TABLET 1 TAB PO (21:43)
[2024-08-14] MEDS: ONDANSETRON 4 MG RAPDIS TABLET SL (21:43)
== END 2024-08-14 21:46 | disposition home or self-care (01) ==
PROVIDERS: Emergency Provider Emergency Medicine; PCP Family Medicine
DX: R07.89 Other chest pain (principal); R09.1 Pleurisy; I48.0 Paroxysmal atrial fibrillation; Z79.01 Long term (current) use of anticoagulants; R06.02 Shortness of breath; I10 Essential (primary) hypertension; Z79.899 Other long term (current) drug therapy; Z95.818 Presence of other cardiac implants and grafts
CPT/HCPCS: 36415; 71046; 80053; 84484; 85025; 85378; 85610; 93005; 99283; Q0162

== ENCOUNTER 2024-08-16 12:05 | Outpatient (RCR) | payer MEDICARE, SELFPAY | END 2024-09-12 12:31 | disposition home or self-care (01) | LOC: MM 12:05 | PROVIDERS: PCP Family Medicine; Visit Provider Internal Medicine | DX: Z51.81 Encounter for therapeutic drug level monitoring (principal); Z79.01 Long term (current) use of anticoagulants; I48.91 Unspecified atrial fibrillation | CPT/HCPCS: 85610; G0463 ==

== ENCOUNTER 2024-09-01 12:38 | Inpatient (IN) | payer MEDICARE, SELFPAY ==
[2024-09-01] VITALS (82 sets, daily range): BP systolic 90–163; BP diastolic 41–93; PULSE 54–77; TEMP 36.3–37.8; O2SAT 81–99; BMI 38.3; BMI 39.9
--- OUTSIDE RECORDS SUMMARY | 2024-09-01 12:49 | XMS_ITS | CCD ---
Author Organization [facility] Care Team Providers Care Vehicle Fare Collector Name Role Phone SONNY ZAID Unavailable Unavailable KUNAL PATEL Unavailable Unavailable ELTAHAWY, EHAB A Attending Unavailable EL[place]HAWY, EHAB A Admitting Unavailable SELF, REFERRED Referring Unavailable KUNAL PATEL Primary Care Unavailable Kunal Patel MD Primary Care Provider [phone] ANNABEL LIMA Admitting Unavailable ANNABEL LIMA Attending Unavailable KUNAL PATEL Primary Care Unavailable JASON ANDREWSA Admitting Unavailable GARTH ANDREWS Consulting Unavailable GARTH ANDREWS Attending Unavailable LEIGHTON ., DR SYED Primary Care Unavailable RAI JAY Admitting Unavailable RAI JAY Attending Unavailable JOANNAY ., DR SYED Primary Care Unavailable DELIA COKER Admitting Unavailable DELIA COKER Consulting Unavailable DELIA COKER Attending Unavailable LEIGHTON ., DR SYED Primary Care Unavailable RUBIARORO Ash Consulting Unavailable SAQIB ANDREWSINDA Admitting Unavailable GARTH ANDREWS Attending Unavailable LEIGHTON ., DR SYED Primary Care Unavailable LEIGHTON ., DR SYED Admitting Unavailable LEIGHTON ., DR SYED Primary Care Unavailable LEIGHTON ., DR SYED Consulting Unavailable LEIGHTON ., DR SYED Attending Unavailable EMILY LUZ Attending Unavailable Antoine Peoples MD Attending Unavail able RAI JAY Referring Unavailable RAI JAY Referring Unavailable GARTH ANDREWS Attending Unavailable RAI JAY Attending Unavailable FERNANDO, CHIARA Referring Unavailable FERNANDO, CHIARA Referring Unavailable RAI JAY Referring Unavailable FERNANDO, CHIARA Referring Unavailable FERNANDO, CHIARA Referring Unavailable FERNANDO, CHIARA Referring Unavailable FERNANDO, CHIARA Referring Unavailable FERNANDO, CHIARA Referring Unavailable RAI JAY Admitting Unavailable RAI JAY Attending Unavailable FERNANDO, CHIARA Referring Unavailable FERNANDO, CHIARA Referring Unavailable Allergies Allergy Classification Reported Allergen(s) Allergy Type Date of Onset Reaction(s) Facility (2 sources) Acetaminophen / oxyCODONE; Translations: [OXYCODONE-ACETAMI NOPHEN] Drug Allergy 08-19-2013 [facility] Repository (3 sources) Acetaminophen / oxyCODONE Drug Allergy 01-24-2013 [facility] Repository Medications Current Medications Medication Drug [...] disease (1 source) Atherosclerotic heart disease of [place] coronary artery without angina pectoris; Translations: [ASHD [place] W/O ANGINA PECTORIS] Onset: 03-08-2022 Chronic Deficiency and other anemia (1 source) Anemia, unspecified; Translations: [ANEMIA UNSPECIFIED] Onset: 07-26-2022 Episodic Diabetes mellitus without complication (6 sources) Type 2 diabetes mellitus without complications; Translations: [TYPE 2 DM WITHOUT COMPLICATIONS] Onset: 07-24-2022 Chronic Disorders of lipid metabolism (3 sources) Hyperlipidemia, unspecified; Translations: [Mixed hyperlipidemia] Onset: 07-26-2022 Chronic Esophageal disorders (1 source) [...] D DEFICIENCY UNSPECIFIED] Onset: 07-26-2022 Chronic Other and ill-defined heart disease (2 sources) Other ill-defined heart diseases; Translations: [Other ill-defined heart diseases] Onset: 08-02-2022 Chronic Other lower respiratory disease (1 source) [...] INDEX BMI 40.0-44.9 ADULT] Onset: 12-21-2021 Chronic Pulmonary heart disease (2 sources) Pulmonary hypertension, unspecified; Translations: [Pulmonary hypertension, unspecified] Onset: 09-14-2022 Chronic Unclassified (1 source) Unknown / UNK(Unknown) [...] Onset: 12-21-2021 Episodic Other aftercare (1 source) jail (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; Translations: [[facility] CURRENT USE OF ASPIRIN] Onset: 12-21-2021 Episodic Other aftercare (1 source) Other retirement (current) drug therapy; Translations: [OTH [facility] CURRENT DRUG THERAPY] Onset: 12-21-2021 Episodic Other [...] Test Name Value Interpretation Reference Range Facility 37on 08-20-2024 37 *We are adding zetia 10mg daily to help with your cholesterol levels. Have a recheck of your cholesterol levels in 2 months, Oct, 2024. *I ordered an ECHO. [facility] should call you to schedule. *If chest pain does not improve, let us know and we can proceed with a stress test. Normal [facility] Office Visiton 08-20-2024 Follow-up visit [id number] Carina Barth 1960 F Date Provider Department Center 08/20/2024 166-GARTH ANDREWS [facility] Family History Problem Relation Age of Onset Heart failure Mother Hyperlipidemia Mother Hypertension Mother Heart failure Father Hypertension Father Heart failure Brother Hyperlipidemia Brother Hypertension Brother Family Status - Relation Status Age at Mother Father Brother Level of Service:47490 SD OFFICE/OUTPATIENT ESTABLISHED MOD MDM 30 MIN Reason for Visit and Comments: Atrial Fibrillation [80] Atrial Flutter [101] Coronary Artery Disease [187] Hypertension [131541] Normal [facility] Telephoneon 10-18-2023 Telephone [id number] Carina Barth 1960 F Date Provider Department Center 10/18/20231986-PATO CORONADO [facility] Family History Problem Relation Age of Onset Heart failure Mother Hyperlipidemia Mother Hypertension Mother Heart failure Father Hypertension Father Heart failure Brother Hyperlipidemia Brother Hypertension Brother Family Status - Relation Status Age at Mother Father Brother Reason for Visit and Comments: 3 week f/u post ablation [Other] Normal [facility] Telephoneon 10-05-2023 Telephone [id number] Carina Barth A 1960 F Date Provider Department Center [facility]/05[facility]2023 [facility] [place] [facility] Family History Problem Relation Age of Onset Heart failure Mother Hyperlipidemia Mother Hypertension Mother Heart failure Father Hypertension Father Heart failure Brother Hyperlipidemia Brother Hypertension Brother Family Status - Relation Status Age at Mother Father Brother Reason for Visit and Comments: week f/u post ablation [Other] Normal [facility] Telephoneon 10-04-2023 Telephone [id number] Carina Barth A 1960 F Date Provider Department Center 10/04/20231986-PATO CORONADO [facility] Family History Problem Relation Age of Onset Heart failure Mother Hyperlipidemia Mother Hypertension Mother Heart failure Father Hypertension Father Heart failure Brother Hyperlipidemia Brother Hypertension Brother Family Status - Relation Status Age at Mother Father Brother Reason for Visit and Comments: post ablation f/u [Other] [facility] Electrophysiology Note [facility] Reason for Consultation: Aflutter s/p ablation [...] 07/2022, atrial fib (was intolerant of amiodarone) [id number] at least 5 for gender, hypertension, TIA, [...] hx TIA 2008. She was seen at [facility] ER with c/o palpitations and chest pain [...] Obesity BMI 41.10 TIA (transient ischemic attack) 2008 As above PSH: Past Surgical History: Procedure [...] on file Intimate Partner Violence: Unknown (08/09/2023) [place] Safety & Environment Fear of Current or [...] (more content not included)... Normal [facility] POCT GLUCOSE METER UNSOLICIT ED RESULTSon 09-26-2023 Glucose [Mass/Vol] 173 mg/dL High 70-105 [facility] Comment on above: Order Comment: Waive d Testing in the ED is performed under the ED CLIA certificate #[id number]. Result Comment: dspe ars Performed By: #### L [id number] ####[facility] (BEAKER)[address] [place] [address] Glucose [Mass/Vol] 164 mg/dL High 70-105 [facility] Comment on above: Order Comment: Waive d Testing in the ED is performed under the ED CLIA certificate #[id number]. Result Comment: eyou ng12 Performed By: #### L [id number] ####[facility] (BEAKER)[address] [place] [address] PROTIME-INRon 09-26-2023 INR IN PPP BY COAGULATION ASSAY 1.01 Normal 0.90-1.10 [facility] Comment on above: Result Comment: ACCC [...] [id number] ####[facility] (BEAKER)[address] [place] [address] PROTHROMBIN TIME (PT) IN PPP BY COAGULATION ASSAY 13.3 Seconds Normal 12.3-14.8 [facility] Comment on above: Performed By: #### L [id number] ####[facility] (BEAKER)[address] [place] [address] Prep for Procedureon 024 Prep for Procedure [id number] Carina Barth 1960 F Date Provider Department Center 09/26/20231986-PATO COORNADO [facility] Family History Problem Relation Age of Onset Heart failure Mother Hyperlipidemia Mother Hypertension Mother Heart failure Father Hypertension Father Heart failure Brother Hyperlipidemia Brother Hypertension Brother Family Status - Relation Status Age at Mother Father Brother Normal [facility] [id number] 09-18-2023 [id number] ARRIVAL TIME 0700 HOLD ELIQUIS 4/8 MULTI [...] THE FOLLOWING ARE NOT AVAILABLE: 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 Do not wear perfume, make-up, nail japanese, or lotions on the day of your [...] need to make any changes, please call [phone]. Notify your surgeon if you develop any illness such as a cold, cough, fever, sore throat or vomiting between now and your surgery. Thank you for entrusting us with your care. [facility] Surgical Services Team Normal [facility] Office Visiton 09-18-2023 Follow-up visit [id number] Carina Barth 1960 Provider Department Center 09/18/2023 Caitlyn-RAI JAY [facility] Family History Problem Relation Age of Onset Heart failure Mother Hyperlipidemia Mother Hypertension Mother Heart failure Father Hypertension Father Heart failure Brother Hyperlipidemia Brother Hypertension Brother Family Status - Relation Status Age at Mother Father Brother Level of Service:23262 [place] OFFICE/OUTPATIENT ESTABLISHED HIGH MDM 40 MIN Reason for Visit and Comments: Follow-up [504363] Normal [facility] Prep for Procedureon 024 Prep for Procedure [id number] Carina Barth 1960 Provider Department Center 09/05/2023 Jermeías-PATO CORONADO [facility] Family History Problem Relation Age of Onset Heart failure Mother Hyperlipidemia Mother Hypertension Mother Heart failure Father Hypertension Father Heart failure Brother Hyperlipidemia Brother Hypertension Brother Family Status - Relation Status Age at Mother Father Brother Normal [facility] BNPon 07-24-2022 Natriuretic peptide B (Bld) [Mass/Vol] 109.0 pg/mL Normal <=900.0 [facility] Comment on above: Performed By: #### C MP, T7, BNP, LIPID, TSH #### [facility] [address] [place] [address] Dr. Yuliya Jones CBC AUTO DIFFon 07-24-2022 BASO # 0.0 103/ul Normal 0.0-0.1 [facility] Comment on above: Performed By: #### C BC #### [facility] [address] [place] [address] Dr. Yuliya Jones Basophils/100 WBC (Bld) 0.4 % Normal 0.2-2.0 [facility] Comment on above: Performed By: #### C BC #### [facility] [address] [place] [address] Dr. Yuliya Jones EO # 0.2 103/ul Normal 0.0-0.7 [facility] Comment on above: Performed By: #### C BC #### [facility] [address] [place] [address] Dr. Yuliya Jones Eosinophils/100 WBC (Bld) 2.2 % Normal 0.9-7.0 [facility] Comment on above: Performed By: #### C BC #### [facility] [address] [place] [address] Dr. Yuliya Jones Erythrocyte distribution width (RBC) [Ratio] 13.6 % Normal 11.0-15.0 [facility] Comment on above: Performed By: #### C BC #### [facility] [address] [place] [address] Dr. Yuliya Jones Hematocrit (Bld) [Volume fraction] 40.1 % Normal 36.0-48.0 [facility] Comment on above: Performed By: #### C BC #### [facility] [address] [place] [address] Dr. Yuliya Jones Hemoglobin (Bld) [Mass/Vol] 13.1 g/dL Normal 12.0-16.0 [facility] Comment on above: Performed By: #### C BC #### [facility] [address] [place] [address] Dr. Yuliya Jones IG # 0.05 10e3/ul Critically high 0.00-0.03 [facility] Comment on above: Performed By: #### C BC #### [facility] [address] [place] [address] Dr. Yuliya Jones IG % 0.7 % Critically high 0.0-0.5 [facility] Comment on above: Performed By: #### C BC #### [facility] [address] [place] [address] Dr. Yuliya Jones LYMPH # 2.0 103/ul Normal 1.2-3.8 [facility] Comment on above: Performed By: #### C BC #### [facility] [address] [place] [address] Dr. Yuliya Jones Lymphocytes/100 WBC (Bld) 26.9 % Normal 20.5-60.0 [facility] Comment on above: Performed By: #### C BC #### [facility] [address] [place] [address] Dr. Yuliya Jones MANUAL DIFF REQ NO Normal [facility] Comment on above: Performed By: #### C BC #### [facility] [address] [place] [address] Dr. Yuliya Jones MCH (RBC) [Entitic mass] 28.5 pg Normal 26.7-34.0 [facility] Comment on above: Performed By: #### C BC #### [facility] [address] [place] [address] Dr. Yuliya Jones MCHC (RBC) [Mass/Vol] 32.7 g/dL Normal 29.9-35.2 [facility] Comment on above: Performed By: #### C BC #### [facility] [address] [place] [address] Dr. Yuliya Jones MCV (RBC) [Entitic vol] 87.4 fL Normal 81.0-99.0 [facility] Comment on above: Performed By: #### C BC #### [facility] [address] [place] [address] Dr. Yuliya Jones MONO # 0.4 103/ul Normal 0.3-0.8 [facility] Comment on above: Performed By: #### C BC #### [facility] [address] [place] [address] Dr. Yuliya Jones Monocytes/100 WBC (Bld) 5.1 % Normal 1.7-12.0 [facility] Comment on above: Performed By: #### C BC #### [facility] [address] [place] [address] Dr. Yuliya Jones NEUT # 4.8 103/ul Normal 1.4-6.5 [facility] Comment on above: Performed By: #### C BC #### [facility] [address] [place] [address] Dr. Yuliya Jones Neutrophils/100 WBC (Bld) 64.7 % Normal 43.0-75.0 [facility] Comment on above: Performed By: #### C BC #### [facility] [address] [place] [address] Dr. Yuliya Jones Platelet mean volume (Bld) [Entitic vol] 10.3 fL Normal 9.5-13.5 [facility] Comment on above: Performed By: #### C BC #### [facility] [address] [place] [address] Dr. Yuliya Jones PLT 244 103/ul Normal 150-450 [facility] Comment on above: Performed By: #### C BC #### [facility] [address] [place] [address] Dr. Yuliya Jones RBC 4.59 106/ul Normal 4.20-5.40 [facility] Comment on above: Performed By: #### C BC #### [facility] [address] [place] [address] Dr. Yuliya Jones WBC 7.4 103/ul Normal 4.0-11.0 [facility] Comment on above: Performed By: #### C BC #### [facility] [address] [address] [address] Yuliya Jones FREE THYROXINE INDEX T7on FTI 2.66 Normal 1.30-4.50 [facility] Comment on above: Performed By: #### C MP, T7, BNP, LIPID, TSH #### [facility] [address] [address] [address] Yuliya Jones T3U 35.0 % Normal 30.0-39.0 [facility] Comment on above: Performed By: #### C MP, T7, BNP, LIPID, TSH #### [facility] [address] [address] [address] Yuliya Jones T4 [Mass/Vol] 7.60 ug/dL Normal 4.80-13.90 [facility] Comment on above: Performed By: #### C MP, T7, BNP, LIPID, TSH #### [facility] [address] [address] [address] Yuliya Jones GLYCOHEMOGLOBIN A1Con 2022 ADA RECOMMENDATION SEE BELOW Normal [facility] Comment on above: Result Comment: ADA RECOMMENDED LIMIT 4.0 - 6.0 ADA THERAPEUTIC TARGET < 7.0 ACTION SUGGESTED > 7.0 Performed By: #### A 1C ####[facility] [address] [address]DrMinisterio Jones Glucose [Mass/Vol] 146 mg/dL Normal [facility] Comment on above: Performed By: #### A 1C ####[facility] [address] [address]DrMinisterio Jones HbA1c (Bld) [Mass fraction] 6.7 % Critically high 4.5-6.2 [facility] Comment on above: Performed By: #### A 1C ####[facility] [address] [address]Dr. Yuliya Jones IRONon 07-24-2022 Iron [Mass/Vol] 74.0 ug/dL Normal 50.0-170.0 [facility] Comment on above: Performed By: #### I LUDWIN, VITB12, VITAD #### [facility] [address] [place] [address] Dr. Yuliya Jones LIPID PROFILEon 07-24-2022 CHOL-HDL RATIO NORM SEE BELOW Normal [facility] Comment on above: Result Comment: 3.3 - 4.4 LOW RISK 4.4 - 7.1 AVERAGE RISK 7.1 - 11.0 MODERATE RISK >11.0 HIGH RISK Performed By: #### C MP, T7, BNP, LIPID, TSH #### [facility] [address] [address] [address] Yuliya Jones Cholesterol [Mass/Vol] 215 mg/dL Critically high <=200 [facility] Comment on above: Performed By: #### C MP, T7, BNP, LIPID, TSH #### [facility] [address] [place] [address] Dr. Yuliya Jones Cholesterol in HDL [Mass/Vol] 46 mg/dL Normal 40-60 [facility] Comment on above: Performed By: #### C MP, T7, BNP, LIPID, TSH #### [facility] [address] [place] [address] Dr. Yuliya Jones Cholesterol in LDL [Mass/Vol] 120.6 mg/dL Normal [facility] Comment on above: Performed By: #### C MP, T7, BNP, LIPID, TSH #### [facility] [address] [place] [address] Dr. Yuliya Jones Cholesterol.total/ Cholesterol in HDL [Mass ratio] 4.7 {ratio} Normal [facility] Comment on above: Performed By: #### C MP, T7, BNP, LIPID, TSH #### [facility] [address] [place] [address] Dr. Yuliya Joens HDL NORMAL > or = 60 mg/dl - LO W CARDIOVASCULAR RISK <40 mg/dl - HIGH CARDIOVASCULAR RISK Normal [facility] Comment on above: Performed By: #### C MP, T7, BNP, LIPID, TSH #### [facility] [address] [place] [address] Dr. Yuliya Jones LDL CALC NORMAL SEE BELOW Normal [facility] Comment on above: Result Comment: <100 mg/dl OPTIMAL 100 - 129 mg/dl NEAR OR ABOVE OPTIMAL 130 - 159 mg/dl BORDERLINE HIGH 160 - 189 mg/dl HIGH >190 mg/dl VERY HIGH Performed By: #### C MP, T7, BNP, LIPID, TSH #### [facility] [address] [address] [address] Yuliya Jones Triglyceride [Mass/Vol] 242 mg/dL Critically high <=150 [facility] Comment on above: Performed By: #### C MP, T7, BNP, LIPID, TSH #### [facility] [address] [address] [address] Yuliya Jones VLDL CALC 48.4 mg/dL Normal [facility] Comment on above: Performed By: #### C MP, T7, BNP, LIPID, TSH #### [facility] [address] [address] [address] Yuliya Jones PROF 14(COMP METB)on 023 Albumin [Mass/Vol] 3.3 g/dL Critically low 3.4-5.0 [facility] Comment on above: Performed By: #### C MP, T7, BNP, LIPID, TSH #### [facility] [address] [address] [address] Yuliya Jones Albumin/Globulin [Mass ratio] 0.8 {ratio} Normal [facility] Comment on above: Performed By: #### C MP, T7, BNP, LIPID, TSH #### [facility] [address] [address] [address] Yuliya Jones ALP [Catalytic activity/Vol] 148 U/L Critically high 46-116 [facility] Comment on above: Performed By: #### C MP, T7, BNP, LIPID, TSH #### [facility] [address] [address] [address] Yuliya Jones ALT [Catalytic activity/Vol] 49 U/L Normal 14-59 [facility] Comment on above: Performed By: #### C MP, T7, BNP, LIPID, TSH #### [facility] [address] [address] [address] Yuliya Jones Anion gap [Moles/Vol] 11.6 mmol/L Normal [facility] Comment on above: Performed By: #### C MP, T7, BNP, LIPID, TSH #### [facility] [address] [place] [address] Dr. Yuliya Jones AST [Catalytic activity/Vol] 26 U/L Normal 15-37 [facility] Comment on above: Performed By: #### C MP, T7, BNP, LIPID, TSH #### [facility] [address] [place] [address] Dr. Yuliya Jones Bilirubin [Mass/Vol] 0.8 mg/dL Normal 0.2-1.0 [facility] Comment on above: Performed By: #### C MP, T7, BNP, LIPID, TSH #### [facility] [address] [place] [address] Dr. Yuliya Jones Calcium [Mass/Vol] 9.0 mg/dL Normal 8.5-10.1 [facility] Comment on above: Performed By: #### C MP, T7, BNP, LIPID, TSH #### [facility] [address] [place] [address] Dr. Yuliya Jones Chloride [Moles/Vol] 102 mmol/L Normal 98-107 [facility] Comment on above: Performed By: #### C MP, T7, BNP, LIPID, TSH #### [facility] [address] [place] [address] Dr. Yuliya Jones CO2 [Moles/Vol] 29.1 mmol/L Normal 21.0-32.0 [facility] Comment on above: Performed By: #### C MP, T7, BNP, LIPID, TSH #### [facility] [address] [place] [address] Dr. Yuliya Jones Creatinine [Mass/Vol] 0.69 mg/dL Normal 0.55-1.02 [facility] Comment on above: Performed By: #### C MP, T7, BNP, LIPID, TSH #### [facility] [address] [place] [address] Dr. Yuliya Jones EGFR-AF NICAR[place]UAN >60 Normal >=60 [facility] Comment on above: Performed By: #### C MP, T7, BNP, LIPID, TSH #### [facility] [address] [place] [address] Dr. Yuliya Jones EGFR-NON AF [place]UAN >60 Normal >=60 [facility] Comment on above: Performed By: #### C MP, T7, BNP, LIPID, TSH #### [facility] [address] [address] [address] Yuliya Jones Globulin (S) [Mass/Vol] 4.1 g/dL Normal [facility] Comment on above: Performed By: #### C MP, T7, BNP, LIPID, TSH #### [facility] [address] [place] [address] Dr. Yuliya Jones Glucose [Mass/Vol] 151 mg/dL Critically high 74-106 T [facility] Comment on above: Performed By: #### C MP, T7, BNP, LIPID, TSH #### [facility] [address] [place] [address] Dr. Yuliya Jones Potassium [Moles/Vol] 3.7 mmol/L Normal 3.5-5.1 [facility] Comment on above: Performed By: #### C MP, T7, BNP, LIPID, TSH #### [facility] [address] [place] [address] Dr. Yuliya Jones Protein [Mass/Vol] 7.4 g/dL Normal 6.4-8.2 [facility] Comment on above: Performed By: #### C MP, T7, BNP, LIPID, TSH #### [facility] [address] [place] [address] Dr. Yuliya Jones Sodium [Moles/Vol] 139 mmol/L Normal 136-145 [facility] Comment on above: Performed By: #### C MP, T7, BNP, LIPID, TSH #### [facility] [address] [place] [address] Dr. Yuliya Jones Urea nitrogen [Mass/Vol] 8.0 mg/dL Normal 7.0-18.0 [facility] Comment on above: Performed By: #### C MP, T7, BNP, LIPID, TSH #### [facility] [address] [place] [address] Dr. Yuliya Jones Urea nitrogen/Creatinin e [Mass ratio] 11.6 mg/mg Normal [facility] Comment on above: Performed By: #### C MP, T7, BNP, LIPID, TSH #### [facility] [address] [address] [address] Yuliya Jones TSHon 07-24-2022 TSH 1.903 uIU/mL Normal 0.358-3.740 [facility] Comment on above: Performed By: #### C MP, T7, BNP, LIPID, TSH #### [facility] [address] [address] [address] Yuliya Jones VITAMIN B12on 07-24-2022 Cobalamin (Vitamin B12) [Mass/Vol] 1085.0 pg/mL Critically high 193.0-986.0 [facility] Comment on above: Performed By: #### I LUDWIN VITB12, VITAD ####[facility] [address] [place], [place] [address]Dr. Yuliya Jones VITAMIN D 25 OHon 07-24-2022 VIT D 25-OH 36.8 ng/mL Normal [facility] Comment on above: Performed By: #### I LUDWIN VITB12, VITAD ####[facility] [address] [address]DrMinisterio Jones VIT D RANGES SEE BELOW Normal [facility] Comment on above: Result Comment: <20 ng/mL Vit D deficient 20 - <30 ng/mL Vit D insufficient 30 - 100 ng/mL Vit D sufficient >100 ng/mL Potential Toxicity Performed By: #### I LUDWIN VITB12, VITAD ####[facility] [address] [address]DrMinisterio Jones GLYCOHEMOGLOBIN A1Con 2021 ADA RECOMMENDATION SEE BELOW Normal [facility] Comment on above: Result Comment: ADA RECOMMENDED LIMIT 4.0 - 6.0 ADA THERAPEUTIC TARGET < 7.0 ACTION SUGGESTED > 7.0 Performed By: #### A 1C ####[facility] [address] [place], [place] [address]Dr. Yuliya Jones Glucose [Mass/Vol] 140 mg/dL Normal [facility] [place] Comment on above: Performed By: #### A 1C ####[facility] [address] [place], [place] [address]AbDr. Yuliya Jones HbA1c (Bld) [Mass fraction] 6.5 % Critically high 4.5-6.2 [facility] Comment on above: Performed By: #### A 1C ####[facility] [address] [address]Dr. Yuliya Jones LIPID PROFILEon 03-07-2022 CHOL-HDL RATIO NORM SEE BELOW Normal [facility] Comment on above: Result Comment: 3.3 - 4.4 LOW RISK 4.4 - 7.1 AVERAGE RISK 7.1 - 11.0 MODERATE RISK >11.0 HIGH RISK Performed By: #### L IPID #### [facility] [address] [place] [address] Dr. Yuliya Jones Cholesterol [Mass/Vol] 215 mg/dL Critically high <=200 [facility] Comment on above: Performed By: #### L IPID #### [facility] [address] [address] [address] Yuliya Jones Cholesterol in HDL [Mass/Vol] 42 mg/dL Normal 40-60 [facility] Comment on above: Performed By: #### L IPID #### [facility] [address] [address] [address] Yuliya Jones Cholesterol in LDL [Mass/Vol] 118.4 mg/dL Normal [facility] Comment on above: Performed By: #### L IPID #### [facility] [address] [address] [address] Yuliya Jones Cholesterol.total/ Cholesterol in HDL [Mass ratio] 5.1 {ratio} Normal [facility] Comment on above: Performed By: #### L IPID #### [facility] [address] [address] [address] Yuliya Jones HDL NORMAL > or = 60 mg/dl - LO W CARDIOVASCULAR RISK <40 mg/dl - HIGH CARDIOVASCULAR RISK Normal [facility] Comment on above: Performed By: #### L IPID #### [facility] [address] [address] [address] Yuliya Jones LDL CALC NORMAL SEE BELOW Normal [facility] Comment on above: Result Comment: <100 mg/dl OPTIMAL 100 - 129 mg/dl NEAR OR ABOVE OPTIMAL 130 - 159 mg/dl BORDERLINE HIGH 160 - 189 mg/dl HIGH >190 mg/dl VERY HIGH Performed By: #### L IPID #### [facility] [address] [place] [address] Dr. Yuliya Jones Triglyceride [Mass/Vol] 273 mg/dL Critically high <=150 [facility] Comment on above: Performed By: #### L IPID #### [facility] [address] [place] [address] Dr. Yuliya Jones VLDL CALC 54.6 mg/dL Normal [facility] Comment on above: Performed By: #### L IPID #### [facility] [address] [place] [address] Dr. Yuliya Jones XR ANKLE RT MIN [...] RORO BARKLEY Date: 2021-12-18 07:50 Normal [facility] FLUORO FOR SURGICAL PROCEDUR ESon 10-25-2021 FLUORO FOR SURGICAL PROCEDURES Radiology exam is complete. No Radiologist dictation. Please follow up with ordering provider. Final result Normal [facility] Radiology exam is complete. No Radiologist dictation. Please follow up with ordering provider. [facility] RIS CONSOLIDATED Cardiovascular Lab Reporton 07-22-2020 Cardiovascular Lab Report [facility] Patient Name: [facility] Amparo Moraes MR #: [id number] Department of Physician: Manish Ratliff Medicine [place] Division of Service Date: 07/22/2020 Cardiology Birthdate: 1960 Adult Cardiovascular Room #: [facility] [address] [place] [address] Cardiovascular Laboratory Report FINAL IMPRESSIONS: 1. Moderate [...] thromboembolic disease. 5. Follow up with Dr. Ratliff in the [place] office in the next 1 to 2 [...] right internal jugular vein was obtained. A 6-Moldovan x 11 cm sheath was inserted without [...] to access the left radial artery. A 6-Moldovan glide sheath was inserted without difficulty. Bilateral [...] abnormal stress test. Electronically Signed by: Manish Ratliff M.D. 07/27/2020 10:15 A Manish Ratliff M.D. Date Dict: 07/22/2020/12:24 P/Manish Ratliff M.D. Date Trans: 07/22/2020 02:58 P/mmo [id number] cc: Kunal Patel M.D. [address], [place] [address] Normal [facility] Physician Referralon 021 Physician Referral [id number] [phone] [id number]: 127 Normal [facility] CNOVon 06-24-2018 CNOV Office Visit (LIVIA) AMPARO BARTH ([id number]) 1960 FDate Time Provider Department06/24/18 9:00 AM ZAID DENNIS During your visit today, we recorded the following information about you: Temperature Pulse Respiration Blood pressure 98 degrees 62/minute 18/minute 198/94 Weight Height 112.9 kg 1.651 Ewafranny Antonino 06/24/2018 9:33 AM SignedWhat is the [...] MD 06/24/2018 10:11 AM SignedName: Amparo BarthMRN: [id number]: June 24, 2018Patient seen and examined in [...] Chito Antonio, TERRYGY-6 FellowReferring Provider: KUNAL PATEL [[id number]]Allergies As of Date: 06/24/2018 Noted Allergy ReactionPERCOCET [...] noncompliance [Z91.11] INVALID FOR*Visit Notes:>> Zafar Antonino [facility] Jun 24, 2018 9:25 AM Status: SignedWhat is the reason for your visit today? ConsultWho is your referring physician? Dr Kunal Zimmer you having poor oral intake? NOHave you had unintentional weight loss of 15 lbs/7 Kg in the last 3-6months? NOBowels: regularWound: clean AND dryTemperature: NoDrains: NoEncounter Number: [id number] Status:Closed by ZAID DENNIS MD on 06/24/[address] [facility] HISTORY PHYSICALon 9 HISTORY PHYSICAL HNO ID: [id number]: Chito (Ronn) Jt: (none)Author Type: FellowType: HANDPFiled: 06/24/2018 10:11 AMNote Text:Name: Amparo BarthMRN: [id number]: June 24, 2018Patient seen and examined in [...] medications for this visit. Chito Antonio, TERRYGY-[address] [facility] PROGRESSon 06-24-2018 Protein mass conc HNO ID: [id number]: Zaid Baptiste: (none)Author Type: PhysicianType: Progress NotesFiled: [...] anopen repair with retro-muscular mesh. Normal [facility] SR-CT ABD/PELVIS W CON IMPOR Ton 12-03-2017 SR-CT ABD/PELVIS W CON IMPORT Images were obtained outside of [facility] [id number] Normal [facility] Vital Signs Date Time Vital Sign Value Performing Clinician Faci lity 10-25-2021 14:26-0400 Diastolic blood pressure 138 mm[Hg] Annabel Lima MD Work Phone: [facility] 10-25-2021 14:26-0400 Systolic blood pressure 239 mm[Hg] Annabel Lima MD Work Phone: [facility] 10-25-2021 13:53-0400 Body temperature 97.81 [degF] Annabel Lima MD Work Phone: [facility] [employer] 10-25-2021 13:53-0400 Heart rate 62 /min Annabel Lima MD Work Phone: [facility] [employer] 10-25-2021 13:53-0400 Respiratory rate 18 /min Annabel Lima MD Work Phone: [facility] [employer] 10-25-2021 13:53-0400 SaO2% (BldA) [Mass fraction] 96 % Annabel Lima MD Work Phone: [employer] 10-13-2021 08:17-0400 Body height 165.1 cm Annabel Lima MD Work Phone: [facility] Encounters Encounter Date Encounter Type Care Provider Facility Start: 08-20-2024 End: 08-20-2024 ambulatory GARTH [facility] Start: 04-04-2024 End: 04-04-2024 ambulatory Antoine Peoples MD Facility:[facility] Start: 04-02-2024 ambulatory [facility] Start: 03-19-2024 ambulatory [facility] Start: 02-08-2024 ambulatory [facility] Start: 01-21-2024 ambulatory [facility] Start: 01-15-2024 End: 01-15-2024 ambulatory EMILY LUZ Not Available Start: 12-05-2023 ambulatory [facility] Start: 09-26-2023 ambulatory [facility] Start: 09-26-2023 End: 09-26-2023 ambulatory [facility] Start: 09-18-2023 End: 09-18-2023 ambulatory [facility] Start: 07-24-2022 End: 07-25-[address] KUNAL PATEL . Facility: Start: 03-28-2022 ambulatory GARTH ANDREWS Facility :[facility] Start: 03-08-2022 Encounter for genera l adult medical examination without abnormal findings GARTH ANDREWS [facility] Start: 03-07-2022 End: 03-08-2022 ambulatory GARTH ANDREWS Facility:[facility] Start: 03-07-2022 End: 03-08-2022 Encounter for general adult medical examination without abnormal findings GRATH ANDREWS Facility:[facility] Start: 12-18-2021 End: 12-18-2021 ambulatory DELIA COKER Facility: Start: 10-25-2021 End: 10-25-2021 ambulatory [facility] Start: 10-25-2021 End: 10-25-2021 Subsequent hospital visit by physician Annabel Lima MD Work Phone: [facility] Start: 07-22-2020 End: 07-23-2020 Patient encounter procedure REINAAB Aleisha RATLIFF Facility:[facility] Start: 06-24-2018 Patient encounter procedure ZAID DENNIS [facility] Procedures Date Procedure Procedure Detail Performing Clinician Start: 10-25-2021 Fluoroscopy during operation Annabel Lima MD Work Phone: Plan of Treatment Date Care Activity Detail Author Start: 02-16-2022 Influenza vaccination Flu vacc ine (Season Ended) [facility] Start: 10-25-2021 End: 10-25-2021 Njx dx/ther sbst intrlmnr lmbr/sac w/img gdn EPIDURAL STEROID INJECTION LUMBAR SACRAL RAD LUMBAR RAD 10/25/2021 2:21 PM EDT [facility] Start: 2008 Screening for malign ant neoplasm of breast Breast cancer screen [facility] Start: 2008 Shingles vaccine (1 of 2) Shingles vaccine (1 of 2) [facility] Start: 2003 Screening for malign ant neoplasm of colon [facility] Start: 1988 Screening for malign ant neoplasm of cervix [facility] Start: 1979 Screening for malign ant neoplasm of cervix Pap smear [facility] Start: 1977 DTaP/Tdap/Td vaccine (1 - Tdap) DTaP/Tdap/Td vaccine (1 - Tdap) [facility] Start: 1976 Creatinine measurement Creatinine [facility] Start: 1976 Hepatitis C screening Hepatitis C sc reen [facility] Start: 1976 Potassium [Moles/vol ume] in Serum or Plasma Potassium [facility] Start: 1973 HIV screening HIV screen [facility] Start: 1970 Depression Screen Depression Screen [facility] Start: 1968 Lipid panel Lipids [facility] Start: 1963 COVID-19 Vaccine (1) COVID-19 Vaccin e (1) [facility] Start: 1960 Annual Wellness Visi t (AWV) Annual Wellness Visit (AWV) [facility] Payers Date Payer Category Payer Medicare [id number] 2023 Private Health Insurance 2023 Medicare [id number] 1961 Medicaid [id number] 1961 Medicare [id number] 1959 Self-pay [id number] 1960 Unknown [id number] 2.16.8 [id number] 1960 Unknown [id number] 2.16.8 [id number] 1960 Unknown [id number] 2.16.84 [id number] 1960 Unknown [id number] 2.16.84 [id number] 1960 Unknown [id number] 2.16.84 [id number] 1960 Unknown [id number] 2.16.84 [id number] 1960 Unknown [id number] 2.16.84 [id number] 1960 Unknown [id number] 2.16. [id number] Medicare [id number] Social History Date Type Detail Facility Start: 10-13-2021 [facility] Start: 10-13-2021 Tobacco use and exposure Smokeless tobacco non-user [facility] [employer] Phone: Start: 10-25-2021 Alcohol intake Current drinke r of alcohol (finding) [facility] Phone: Start: 10-13-2021 History SDOH Alcohol Comment socially [facility] Phone: Start: 1960 Sex Assigned At Not on file [facility] [employer] Phone: Clinical Notes 10-25-2021 to 08-20-2024 Radha Estevez RN - 10/25/2021 2:41 PM EDTSdilip Estevez RN - 10/25/2021 2:31 PM EDTInstructionsAuth/Cert Note Date & Type Note Facility 08-20-2024 Note Cardiovascular Medic [facility] SUBJECTIVE Chief Complaint Patient presents with Atrial Fibrillation Atrial Flutter Coronary Artery Disease Hypertension Amparo Barth is a 64 y.o. female here for follow-up. HPI PMHx: Aflutter s/p ablation 07/26/22, AFIB ablation 12/28/22, (hx intolerance to amio), mild to mod CAD per 07/2020 cath, pHTN, HTN, diastolic dysfunction, hx TIA 2008 Patient here for 1 year follow up PAF. She hasn't been seen since afib ablation in September 2023. She presented to [facility] ED last week for chest pain. Patient is now on coumadin, instead of Eliquis due to cost. Says Dr. Patel just switched her Jardiance to something else but she isn't sure what it is, as she hasn't started it yet. She was started on Klor-Con in the ED last week. Says she turned her loop recorder transmissions off due to monthly cost from [employer]. The chest pain she describes as under her left breast and armpit. REID remains stable. Denies palpitations, lightheadedness/syncope, and bleeding on warfarin. Dr. Patel also prescribed her a steroid pack for her chest pain which was diagnosed as pleurisy. Chest pain has improved but she still has it under the lateral part of her left breast. Non radiating. Sharp pain. Deep breathing aggravates it. Initially she couldn't pick anything up as this would cause her pain, but this better now. She has been feeling well overall cardiac christine. Her REID is stable. Patient Active Problem List Diagnosis Gastroesophageal reflux disease Hypertensive disorder Typical atrial flutter (CMS/HCC) Dyspnea Diastolic dysfunction Palpitations Pulmonary hypertension (CMS/HCC) Status post placement of implantable loop recorder Paroxysmal atrial fibrillation (CMS/HCC) Dietary noncompliance Non morbid obesity due to excess calories Lumbar radiculitis Diabetes mellitus, type 2 (CMS/HCC) Past Medical History: Diagnosis Date Abnormal ECG Arrhythmia ATRIAL FIB Arthritis Atrial flutter (CMS/HCC) Coronary artery disease Hypertension Obesity BMI 41.10 TIA (transient ischemic attack) 2008 Family History Problem Relation Name Age of Onset Heart failure Mother Hyperlipidemia Mother Hypertension Mother Heart failure Father Hypertension Father Heart failure Brother Hyperlipidemia Brother Hypertension Brother Social History Tobacco Use Smoking status: Never Smokeless tobacco: Never Vaping Use Vaping status: Never Used Substance Use Topics Alcohol use: Yes Comment: occasional Drug use: Never Allergies Allergen Reactions Oxycodone-Acetaminophen Nausea Only Other reaction(s): vomiting JUST MAKES ME SICK PBC,RNBSN ROS Cardiovascular: Positive for dyspnea on exertion. Musculoskeletal: Positive for arthritis and myalgias. All other systems reviewed and are negative. OBJECTIVE Visit Vitals BP 124/80 (BP Location: Left arm, Patient Position: Sitting) Pulse 73 Ht 1.651 m (5' 5 ) Wt 108 kg (237 lb) SpO2 98% BMI 39.44 kg/m??? OB Status Postmenopausal Smoking Status Never BSA 2.23 m??? Medications: Current Outpatient Medications: ALPRAZolam (Xanax) 0.5 mg tablet, Take 0.5 mg by mouth if needed for anxiety or sleep., Disp: , Rfl: atorvastatin (Lipitor) 80 mg tablet, TAKE 1 TABLET BY MOUTH AT BEDTIME, Disp: 90 tablet, Rfl: 3 carvedilol (Coreg) 25 mg tablet, Take 1 tablet by mouth with breakfast and with evening meal., Disp: , Rfl: celecoxib (CeleBREX) 200 mg capsule, take 1 capsule by mouth every day with food for 30 days, Disp: , Rfl: cholecalciferol, vitamin D3, 50 mcg (2,000 unit) capsule, 1 capsule 1 (one) time each day at the same time., Disp: , Rfl: cloNIDine (Catapres) 0.1 mg tablet, Take by mouth in the morning and at bedtime., Disp: , Rfl: dexlansoprazole (Dexilant) [address] capsule, Take 60 mg by mouth in the morning., Disp: , Rfl: dilTIAZem ER (Tiazac) 180 mg 24 hr capsule, Take 1 tablet by mouth in the morning., Disp: , Rfl: DULoxetine (Cymbalta) [address] capsule, Take 1 tablet by mouth in the morning., Disp: , Rfl: famotidine (Pepcid) 20 mg tablet, Take 1 tablet (20 mg) by mouth two times daily., Disp: 180 tablet, Rfl: 3 furosemide (Lasix) 20 mg tablet, TAKE 1 TABLET BY MOUTH EVERY DAY IN THE MORNING, Disp: 90 tablet, Rfl: 3 isosorbide mononitrate ER (Imdur) 30 mg 24 hr tablet, Take 1 tablet by mouth in the morning., Disp: , Rfl: Klor-Con M20 20 mEq ER tablet, Take 1 tablet by mouth Twice daily at 6am and 6pm., Disp: , Rfl: lisinopril 20 mg tablet, Take 1 tablet by mouth in the morning., Disp: , Rfl: multivitamin tablet, Take 1 tablet by mouth in the morning., Disp: , Rfl: nitroglycerin (Nitrostat) 0.4 mg SL tablet, PLACE 1 TABLET IN MOUTH EVERY 5 MINUTES 3 TIMES A DAY NEEDED FOR CHEST PAIN, Disp: , Rfl: pantoprazole (ProtoNix) 40 mg EC tablet, Take 1 tablet by mouth in the morning., Disp: , Rfl: pregabalin (Lyrica) 200 mg capsule, TAKE 1 CAPSULE BY MOUTH EVERY D (more content not included)... [facility] 08-20-2024 Note Patient here for 1 y ear follow up PAF. She hasn't been seen since afib ablation in September 2023. She presented to [facility] ED last week for chest pain. Patient is now on coumadin, instead of Eliquis due to cost. Says Dr. Hoy just switched her Jardiance to something else but she isn't sure what it is, as she hasn't started it yet. She was started on Klor-Con in the ED last week. Says she turned her loop recorder transmissions off due to monthly cost from [employer]. The chest pain she describes as under her left breast and armpit. REID remains stable. Denies palpitations, lightheadedness/syncope, and bleeding on warfarin. Review of Systems Cardiovascular: Positive for dyspnea on exertion. Musculoskeletal: Positive for arthritis and myalgias. All other systems reviewed and are negative. [facility] 09-26-2023 Note Patient: Amparo evangelista Procedure Summary Date: 09/26/23 Room / Location: [facility] [employer] 1 EP / [facility] (Cath) Anesthesia Start: 829 Anesthesia Stop: 1206 Procedure: Ablation atrial fibrillation Diagnosis: Paroxysmal atrial [...] notable events for this encounter. [facility] 09-26-2023 Note ATRIAL FIBRILLATION ABLATION PROCEDURE NOTE DATE OF PROCEDURE: 09/26/2023 PERFORMING PHYSICIAN: Dr. Rai aJy PHLEBOTOMY MANAGER: SAJI CONSENT: Patient NAME OF THE PROCEDURE: [...] performed (more content not included)... [facility] 09-26-2023 Note Arterial Line: Date/Time: 09/26/2023 [...] 1 % SubQ, 0.5 mL Staffing Performed: resident/DENTAL PRACTITIONER/CAA Anesthesiologist: Damion Coronado MD Resident/DENTAL PRACTITIONER: Tameka Westbrook MD Performed by: Tameka Westbrook MD Authorized by: Damion Coronado MD [facility] 09-26-2023 Note Airway Date/Time: 09/26/2023 8:53 AM Urgency: elective Airway not difficult General Information and Staff Patient location during procedure: [place] Anesthesiologist: Damion Coronado MD Resident/DENTAL PRACTITIONER/CAA: Tameka Westbrook MD Performed: resident/DENTAL PRACTITIONER/CAA Indications and Patient Condition Indications for airway [...] of attempts at approach: 1 [facility] 09-26-2023 Note Patient: Amparo evangelista Procedure Information Date/Time: 09/26/23 0830 Procedure: Ablation a-fib paroxysmal Location: [facility] [employer] [facility] / [facility] (Cath) Providers: [...] with resident. Additional Equipment Requests [facility] 09-18-2023 Note [place] Electrophysiology Note [facility] Reason for Consultation: Aflutter s/p ablation [...] 07/2022, atrial fib (was intolerant of amiodarone) [id number] at least 5 for gender, hypertension, TIA, [...] hx TIA 2008. She was seen at [facility] ER with c/o palpitations and chest pain [...] on file Intimate Partner Violence: Unknown (08/09/2023) [place] Safety & Environment Fear of Current or [...] Exam: (more content not included)... [facility] 10-25-2021 History of Present illness Narrative Discharge instructions reviewed with patient. Had no sedation. Signed for self. To recovery. Denies pain complaints. Injection site clean and dry. BP 190/95. P 63. Oxygen 98%. Resp 18. updated on elevated pressure. documented in this encounter [facility] [employer] Phone: 10-25-2021 Hospital Discharge instructions Radha Estevez [...] a follow-up visit. documented in this encounter [facility] Phone: Reason for visit Narrative Specialty Diagnoses / Procedures Referred By Contac t Referred To Contact Diagnoses LUMBAR SACRAL RAD LUMBAR RAD Procedures SD NJX DX/THER SBST INTRLMNR LMBR/SAC W/IMG GDN EPIDURAL STEROID INJECTION- L4-5 Annabel Lima MD [address] [place] [address] [facility] [address] [place] [address] Referral ID Status Reason Start Date Expiration Date Visits Re quested Visits Authorized 1 1 [employer] Phone: Summary Purpose Family History No Family [...] and content) DATE CREATED AUTHOR 06/26/2018 [facility] DATE CREATED AUTHOR AUTHOR'S ORGANIZ ATION 07/13/2020 [facility] DATE CREATED AUTHOR AUTHOR'S ORGANIZ ATION 08/05/2020 [facility] DATE CREATED AUTHOR AUTHOR'S ORGANIZ ATION 10/26/2021 [facility] DATE CREATED AUTHOR AUTHOR'S ORGANIZ ATION 09/29/2022 [facility] DATE CREATED AUTHOR AUTHOR'S ORGANIZ ATION 01/18/2024 [facility] DATE CREATED AUTHOR AUTHOR'S ORGANIZ ATION 04/10/2024 [facility] DATE CREATED AUTHOR AUTHOR'S ORGANIZ ATION 08/22/2024 [facility] PRN Active and Recently Administ ered Medications (unrecognized section and content) Medication Order 10/23/2021 10/24/2021 10/25/2021 dexamethasone (DECADRON) injection (CANCELED) PRN, Starting on 10/25/21 at 1425, Until 10/25/21 at 1431, Intra-op 1425 (Given - Provid er: Annabel Lima MD) iohexol (OMNIPAQUE 240) injection (CANCELED) PRN, Starting on 10/25/21 at 1425, Until 10/25/21 at 1431, Intra-op 1425 (Given - Provid er: Annabel Lima MD) lidocaine PF 1 % injection (CANCELED) PRN, Starting on 10/25/21 at 1425, Until 10/25/21 at 1431, Intra-op 1425 (Given - Provid er: Annabel Lima MD) methylPREDNISolone acetate (DEPO-MEDROL) injection (CANCELED) PRN, Starting on 10/25/21 at 1425, Until 10/25/21 at 1431, Intra-op 1425 (Given - Provid er: Annabel Lima MD) sodium chloride (PF) 0.9 % injection (CANCELED) PRN, Starting on 10/25/21 at 1424, Until 10/25/21 at 1431, Intra-op 1424 (Given - Provid er: Annabel Lima MD) Care Teams (unrecognized sec tion and content) Vehicle Fare Collector Relationship Specialty Start Date End Date Kunal Patel MD [address] [place] [address] PCP - General Family Medicine 10/24/21 FOR [...] BE BASED ON THE PRIMARY CLINICAL RECORDS. [facility]. provides no warranty or guarantee of the accuracy or completeness of information in this document.
--- NOTE | 2024-09-01 13:21 | ECG_ITS ---
[facility] Test Date: 2024-09-01 Pat Name: JOSÉ ANTONIO SY Department: Room: - Gender: Female Intake Coordinator: : 1960 Requested By: 0929 Order Number: [id number] Reading MD: JACOBO SANCHEZ M.D. Measurements Intervals [place] Rate: 61 P: 52 NE: 196 QRS: -43 QRSD: 88 T: 66 QT: 410 QTc: 414 Interpretive Statements 1100 Sinus rhythm 3113 Cannot rule out anterior myocardial infarction, probably old 7200 Abnormal left axis deviation 8102 Low QRS voltage in chest leads 9150 abnormal ECG Compared to ECG 08/14/2024 20:21:27 Left-axis deviation now present Low QRS voltage now present Electronically Signed On 09-01-2024 17:39:52 EDT by JACOBO SANCHEZ M.D.
--- NOTE | 2024-09-01 13:23 | ED_ITS ---
HPI HPI - General Adult General Chief complaint: Weakness Stated complaint: WEAKNESS Time Seen by Provider: 09/01/24 13:07 Source: patient Mode of arrival: walk-in History of Present Illness HPI narrative: Patient is a 64-year-old female who presents to the emergency department for a 4-day history of generalized weakness. She states she developed fever, sinus congestion and coughing 4 days ago. She states she has developed nausea, generalized weakness and fatigue. No sick contacts in the home. No medications taken prior to arrival. She has not had any vomiting or diarrhea. No urinary symptoms. She reports some sputum production with coughing at the beginning of the course of her illness. She has not had any hemoptysis. Related Data Home Medications ?Medication ?Instructions ?Recorded ?Confirmed atorvastatin 80 mg tablet 80 mg PO .QHS 09/01/24 09/01/24 carvedilol 25 mg tablet 25 mg PO BIDWM 09/01/24 09/01/24 celecoxib 200 mg capsule 200 mg PO .QD 09/01/24 09/01/24 clonidine HCl 0.1 mg tablet 0.1 mg PO Q12H 09/01/24 09/01/24 dapagliflozin propanediol 10 mg 10 mg PO .QD 09/01/24 09/01/24 tablet (Farxiga) diltiazem HCl 180 mg 180 mg PO Q24H 09/01/24 09/01/24 capsule,extended release 24 hr docusate sodium 100 mg capsule 100 mg PO BID 09/01/24 09/01/24 (Stool Softener) ezetimibe 10 mg tablet 10 mg PO .QD 09/01/24 09/01/24 furosemide 20 mg tablet 20 mg PO QAM 09/01/24 09/01/24 isosorbide mononitrate 30 mg 30 mg PO Q24H 09/01/24 09/01/24 tablet,extended release 24 hr lisinopril 20 mg tablet 20 mg PO BID 09/01/24 09/01/24 pantoprazole 40 mg tablet,delayed 40 mg PO .ACB 09/01/24 09/01/24 release pregabalin 200 mg capsule 200 mg PO .QHS 09/01/24 09/01/24 tizanidine 4 mg tablet 8 mg PO .QHS 09/01/24 09/01/24 warfarin 5 mg tablet 5 mg PO .BARNETT,TU,TH,SA 09/01/24 09/01/24 warfarin 7.5 mg tablet 7.5 mg PO .MWF 09/01/24 09/01/24 Allergies Allergy/AdvReac Type Severity Reaction Status Date / Time No Known Drug Allergies Allergy Verified 09/01/24 13:00 Opioid HPI Opioid Management Most Recent Opioid Data: No Data to Display Review of Systems ROS Constitutional Reports: fever and chills Ears, nose, mouth, and throat Reports: nasal congestion; Denies: throat pain Cardiovascular Denies: chest pain Respiratory Reports: cough and chest congestion; Denies: shortness of breath or coughing up blood Gastrointestinal Reports: nausea; Denies: abdominal pain, vomiting or diarrhea Musculoskeletal Denies: back pain Integumentary/Breast Denies: rash Neurological Reports: headache Hematologic/Lymphatic Denies: easy bruising or easy bleeding [facility] Medical History (Updated 09/01/24 @ 16:29 by FLORY Boykin) Hypertension ?I10 - Essential (primary) hypertension (ICD-10) Afib ?I48.91 - Unspecified atrial fibrillation (ICD-10) Implantable loop recorder present ?Z95.818 - Presence of other cardiac implants and grafts (ICD-10) Social History Little interest or pleasure in doing things: not at all Feeling down, depressed, or hopeless: not at all Exam Narrative Exam Narrative: Gen.: Awake, alert, in no distress Head: Normocephalic, atraumatic ENT: Moist mucous membranes Respiratory: No respiratory distress, lungs clear bilaterally Cardio: Regular rate and rhythm Extremities: Moves extremities equally Psych: Normal mood and affect Neuro: No focal neuro deficit Skin: Warm, dry, intact Constitutional Vital Signs, click to edit/add: Last Vital Signs Temp 100.1 F 09/01/24 13:02 Pulse 58 L 09/01/24 16:10 Resp 24 H 09/01/24 16:10 BP 94/47 L 09/01/24 16:01 Pulse Ox 93 L 09/01/24 16:10 O2 Del Method Nasal Cannula 09/01/24 14:08 O2 Flow Rate 2 09/01/24 15:47 Course Vital Signs Vital signs: Vital Signs Temperature 100.1 F 09/01/24 13:02 Pulse Rate 77 03/17/25 13:02 Respiratory Rate 20 09/01/24 13:02 Blood Pressure 160/93 H 09/01/24 13:02 Pulse Oximetry 93 L 09/01/24 13:02 Oxygen Delivery Method Room Air 09/01/24 13:02 Temperature 100.1 F 09/01/24 13:02 Pulse Rate 58 L 09/01/24 16:10 Respiratory Rate 24 H 09/01/24 16:10 Blood Pressure 94/47 L 09/01/24 16:01 Pulse Oximetry 93 L 09/01/24 16:10 Oxygen Delivery Method Nasal Cannula 09/01/24 14:08 Oxygen Delivery Flow Rate 2 09/01/24 15:47 Medical Decision Making MDM Narrative Medical decision making narrative: Initially patient was not hypoxic on arrival to the ER, however while resting in the ER, she was noted to have oxygen saturation 88 to 89% on room air and was placed on oxygen by nasal cannula 2 L with improvement. Patient was treated with IV fluids, albuterol and Zofran. She is more comfortable on reevaluation. Labs show minimal leukopenia, low platelets and mild hypokalemia. She has no episodes of emesis in the ER. Chest x-ray is unremarkable, COVID and flu testing is also negative although based on the patient's clinical presentation, suspect she may still have COVID that is not positive on labs. Initial troponin is elevated, repeat troponin has decreased. Patient with no active chest pain in the ER. She has no abnormal cardiac monitoring. Blood pressure is soft although BNP is elevated, 30 mg/kg bolus of fluids were not given as a result. Patient is awake and alert with no severe hypotension in the ER. Discussed the case with Dr. Patel as well as Dr. Anderson for cardiology who is in agreement with the patient staying at this facility for further evaluation and treatment. Blood cultures are pending. Patient was found to have a UTI. She was given IV Zosyn and vancomycin for antibiotic coverage prior to urine result for broad- spectrum coverage. She will be admitted to ICU for further evaluation and treatment. SUPERVISED APC VISIT, PHYSICIAN ATTESTATION: Based on the medical record the care appears appropriate. ? Medical Records Medical records reviewed: Yes I reviewed the patient's medical records Lab Data Lab results reviewed: Yes I reviewed the patient's lab results Labs: Lab Results 09/01/24 09/01/24 09/01/24 Range/Units 13:05 13:50 14:56 WBC 3.9 L (4.0-11.0) 10^3/uL RBC 4.37 (4.20-5.40) 10^6/uL Hgb 12.8 (12.0-16.0) g/dL Hct 37.2 (36.0-48.0) % MCV 85.1 (81.0-99.0) fL MCH 29.3 (26.7-34.0) pg MCHC 34.4 (29.9-35.2) g/dL RDW 14.4 (11.0-15.0) % Plt Count 122 L (150-450) 10^3/uL MPV 10.8 (9.5-13.5) fL Neut % (Auto) 56.1 (43.0-75.0) % Lymph % (Auto) 30.8 (20.5-60.0) % [place] % (Auto) 11.3 (1.7-12.0) % Eos % (Auto) 0.5 L (0.9-7.0) % Baso % (Auto) 0.5 (0.2-2.0) % Neut # (Auto) 2.2 (1.4-6.5) 10^3/uL Lymph # (Auto) 1.2 (1.2-3.8) 10^3/uL [place] # (Auto) 0.4 (0.3-0.8) 10^3/uL Eos # (Auto) 0.0 (0.0-0.7) 10^3/uL Baso # (Auto) 0.0 (0.0-0.1) 10^3/uL Abs Immat Gran (auto) 0.03 (0.00-0.03) 10^3/uL Imm/Tot Granulo (auto) 0.8 H (0.0-0.5) % PT 34.3 H (9.0-11.6) sec INR 3.68 VBG pH 7.475 H (7.330-7.430) VBG pCO2 37.8 L (40.0-52.0) mmHg Sodium 138 (136-145) mmol/L Potassium 3.2 L (3.5-5.1) mmol/L Chloride 102 (98-107) mmol/L Carbon Dioxide 30.7 (21.0-32.0) mmol/L Anion Gap 8.5 BUN 11.0 (7.0-18.0) mg/dL Creatinine 0.87 (0.55-1.02) mg/dL Est GFR ( Amer) >60 (>=60 mL/min/1.73m^2) Est GFR (Non-Af Amer) >60 (>=60 mL/min/1.73m^2) BUN/Creatinine Ratio 12.6 Glucose 260 H (74-106) mg/dL Lactate 1.6 (0.4-2.0) mmol/L Calcium 8.3 L (8.5-10.1) mg/dL Magnesium 1.6 L (1.8-2.4) mg/dL Total Bilirubin 0.9 (0.2-1.0) mg/dL AST 86 H (15-37) U/L ALT 70 H (14-59) U/L Alkaline Phosphatase 125 H (46-116) U/L Troponin I High Sens 250.3 H* 223.7 H* (4.0-51.3) pg/mL NT-Pro-B Natriuret Pep 1652.0 H* (<=900.0) pg/mL Total Protein 6.4 (6.4-8.2) g/dL Albumin 2.8 L (3.4-5.0) g/dL Globulin 3.6 g/dL Albumin/Globulin Ratio 0.8 TSH 1.247 (0.358-3.740) uIU/mL Urine Color (YELLOW) Urine Clarity (CLEAR) Urine pH (5.0-9.0) Ur Specific [place] (1.005-1.025) Urine Protein (NEG/TRACE) mg/dL Urine Glucose (UA) (NEGATIVE) mg/dL Urine Ketones (NEGATIVE) mg/dL Urine Occult Blood (NEGATIVE) Urine Nitrite (NEGATIVE) Urine Bilirubin (NEGATIVE) Urine Urobilinogen (0.2-1.0) EU/dL Ur Leukocyte Esterase (NEGATIVE) Urine RBC (0-2) #/HPF Urine WBC (NONE SEEN) #/HPF Ur Squamous Epith Cells (NONE/RARE) #/LPF Urine Crystals (None Seen) #/HPF Urine Bacteria (NONE SEEN) #/HPF Urine Casts (NONE SEEN) #/LPF Hyaline Casts Urine Mucus (NONE SEEN) Ur Culture Indicated? Influenza Type A Ag Negative Influenza Type B Ag Negative RSV Antigen Not detected (NOT DETECTE) SARS-CoV-2 Ag (CV2AG) Negative (NEGATIVE) 09/01/24 Range/Units 15:36 WBC (4.0-11.0) 10^3/uL RBC (4.20-5.40) 10^6/uL Hgb (12.0-16.0) g/dL Hct (36.0-48.0) % MCV (81.0-99.0) fL MCH (26.7-34.0) pg MCHC (29.9-35.2) g/dL RDW (11.0-15.0) % Plt Count (150-450) 10^3/uL MPV (9.5-13.5) fL Neut % (Auto) (43.0-75.0) % Lymph % (Auto) (20.5-60.0) % [place] % (Auto) (1.7-12.0) % Eos % (Auto) (0.9-7.0) % Baso % (Auto) (0.2-2.0) % Neut # (Auto) (1.4-6.5) 10^3/uL Lymph # (Auto) (1.2-3.8) 10^3/uL [place] # (Auto) (0.3-0.8) 10^3/uL Eos # (Auto) (0.0-0.7) 10^3/uL Baso # (Auto) (0.0-0.1) 10^3/uL Abs Immat Gran (auto) (0.00-0.03) 10^3/uL Imm/Tot Granulo (auto) (0.0-0.5) % PT (9.0-11.6) sec INR VBG pH (7.330-7.430) VBG pCO2 (40.0-52.0) mmHg Sodium (136-145) mmol/L Potassium (3.5-5.1) mmol/L Chloride (98-107) mmol/L Carbon Dioxide (21.0-32.0) mmol/L Anion Gap BUN (7.0-18.0) mg/dL Creatinine (0.55-1.02) mg/dL Est GFR ( Amer) (>=60 mL/min/1.73m^2) Est GFR (Non-Af Amer) (>=60 mL/min/1.73m^2) BUN/Creatinine Ratio Glucose (74-106) mg/dL Lactate (0.4-2.0) mmol/L Calcium (8.5-10.1) mg/dL Magnesium (1.8-2.4) mg/dL Total Bilirubin (0.2-1.0) mg/dL AST (15-37) U/L ALT (14-59) U/L Alkaline Phosphatase (46-116) U/L Troponin I High Sens (4.0-51.3) pg/mL NT-Pro-B Natriuret Pep (<=900.0) pg/mL Total Protein (6.4-8.2) g/dL Albumin (3.4-5.0) g/dL Globulin g/dL Albumin/Globulin Ratio TSH (0.358-3.740) uIU/mL Urine Color Yellow (YELLOW) Urine Clarity Clear (CLEAR) Urine pH 5.5 (5.0-9.0) Ur Specific [place] >=1.030 A (1.005-1.025) Urine Protein 30 A (NEG/TRACE) mg/dL Urine Glucose (UA) 500 A (NEGATIVE) mg/dL Urine Ketones Negative (NEGATIVE) mg/dL Urine Occult Blood Negative (NEGATIVE) Urine Nitrite Negative (NEGATIVE) Urine Bilirubin Negative (NEGATIVE) Urine Urobilinogen 2.0 A (0.2-1.0) EU/dL Ur Leukocyte Esterase Small A (NEGATIVE) Urine RBC 0-2 (0-2) #/HPF Urine WBC 5-10 A (NONE SEEN) #/HPF Ur Squamous Epith Cells Few A (NONE/RARE) #/LPF Urine Crystals None seen (None Seen) #/HPF Urine Bacteria Small A (NONE SEEN) #/HPF Urine Casts Seen A (NONE SEEN) #/LPF Hyaline Casts Few Urine Mucus Trace A (NONE SEEN) Ur Culture Indicated? [place] [place] Type A Ag Influenza Type B Ag RSV Antigen (NOT DETECTE) SARS-CoV-2 Ag (CV2AG) (NEGATIVE) Imaging Data Chest x-ray: Attestation: I have reviewed the pertinent imaging results. ECG Data Attestation: I personally reviewed and interpreted this ECG as follows: (Normal sinus rhythm at a rate of 62, no acute ST elevation or ectopy. EKG reviewed by attending physician) Discharge Plan Discharge Chief Complaint: Weakness Clinical Impression: Acute UTI, Weakness, URI (upper respiratory infection), Elevated troponin, Hypoxia Patient Disposition: Admitted as Observation Time of Disposition Decision: 16:14 Condition: Good
[2024-09-01 13:25] LABS: Influenza Virus A Antigen Negative; Influenza Virus B Antigen Negative; Internal Control Within Normal Limits; Respiratory Syncytial Virus Not Detected (NOT DETECTE); SARS-CoV-2 Ag NEGATIVE (NEGATIVE)
[2024-09-01] MEDS: ALBUTEROL SULFATE 2.5 MG/3 ML VIAL NEB IH (13:51)
[2024-09-01] MEDS: ONDANSETRON PF 4 MG/2 ML VIAL IV ×2 (14:02→16:58)
[2024-09-01] MEDS: 0.9 % SODIUM CHLORIDE 1,000 ML 1000 ML IV ×2 (14:02→16:59)
[2024-09-01 14:08] LABS: PCO2 VBG 37.8 mmHg (40.0-52.0); pH VBG 7.475 (7.330-7.430)
[2024-09-01 14:12] LABS: Basophils Percent Auto 0.5 % (0.2-2.0); Eosinophils Percent Auto 0.5 % (0.9-7.0); Hematocrit 37.2 % (36.0-48.0); Hemoglobin 12.8 g/dL (12.0-16.0); Immature Granulocytes Abs Auto 0.03 10^3/uL (0.00-0.03); Immature Granulocytes Pct Auto 0.8 % (0.0-0.5); Lymphocytes Absolute Auto 1.2 10^3/uL (1.2-3.8); Lymphocytes Percent Auto 30.8 % (20.5-60.0); Mean Corpuscular HGB Conc 34.4 g/dL (29.9-35.2); Mean Corpuscular Hemoglobin 29.3 pg (26.7-34.0); Mean Corpuscular Volume 85.1 fL (81.0-99.0); Mean Platelet Volume 10.8 fL (9.5-13.5); Monocytes Absolute Auto 0.4 10^3/uL (0.3-0.8); Monocytes Percent Auto 11.3 % (1.7-12.0); Neutrophils Absolute Auto 2.2 10^3/uL (1.4-6.5); Neutrophils Percent Auto 56.1 % (43.0-75.0); Platelet Count 122 10^3/uL (150-450); Red Blood Count 4.37 10^6/uL (4.20-5.40); Red Cell Distribution Width 14.4 % (11.0-15.0); White Blood Count 3.9 10^3/uL (4.0-11.0)
[2024-09-01 14:22] LABS: INR 3.68; Prothrombin Time 34.3 sec (9.0-11.6)
[2024-09-01 14:24] LABS: Lactate/Lactic Acid 1.6 mmol/L (0.4-2.0)
[2024-09-01 14:31] LABS: Alanine Aminotransferase 70 U/L (14-59); Albumin Globulin Ratio 0.8; Albumin Level 2.8 g/dL (3.4-5.0); Alkaline Phosphatase 125 U/L (46-116); Anion Gap 8.5; Aspartate Amino Transferase 86 U/L (15-37); BUN Creatinine Ratio 12.6; Bilirubin Total 0.9 mg/dL (0.2-1.0); Calcium 8.3 mg/dL (8.5-10.1); Carbon Dioxide 30.7 mmol/L (21.0-32.0); Chloride 102 mmol/L (98-107); Estimated GFR (African America >60 (>=60 mL/min/1.73m^2); Estimated GFR (Non-African Ame >60 (>=60 mL/min/1.73m^2); Globulin 3.6 g/dL; Glucose 260 mg/dL (74-106); Potassium 3.2 mmol/L (3.5-5.1); Sodium 138 mmol/L (136-145); Total Protein 6.4 g/dL (6.4-8.2)
[2024-09-01 14:32] LABS: Magnesium 1.6 mg/dL (1.8-2.4); Thyroid Stimulating Hormone 1.247 uIU/mL (0.358-3.740)
[2024-09-01 14:33] LABS: Troponin I High Sensitivity 250.3 pg/mL (4.0-51.3)
[2024-09-01 15:26] LABS: Troponin I High Sensitivity 223.7 pg/mL (4.0-51.3)
[2024-09-01] MEDS: PIPERACILLIN SODIUM/TAZOBACTAM 4.5 GM in 0.9 % SODIUM CHLORIDE 50 ML IV (15:33)
[2024-09-01 16:01] LABS: Bilirubin Urine NEGATIVE (NEGATIVE); Blood Urine NEGATIVE (NEGATIVE); Clarity Urine CLEAR (CLEAR); Color Urine YELLOW (YELLOW); Glucose Urine UA 500 mg/dL (NEGATIVE); Ketones Urine NEGATIVE (NEGATIVE); Leukocyte Esterase Urine SMALL (NEGATIVE); Nitrite Urine NEGATIVE (NEGATIVE); Protein Urine 30 mg/dL (NEG/TRACE); Specific Gravity Urine >=1.030 (1.005-1.025); pH Urine 5.5 (5.0-9.0)
[2024-09-01] MEDS: VANCOMYCIN HCL 1,500 MG in 0.9 % SODIUM CHLORIDE 500 ML 250 MG IV (16:03)
[2024-09-01 16:11] LABS: Bacteria Urine SMALL #/HPF (NONE SEEN); Cast Seen? SEEN #/LPF (NONE SEEN); Crystals Seen? None Seen #/HPF (None Seen); Hyaline Casts Urine FEW; Mucus Urine TRACE (NONE SEEN); RBC Urine 0-2 #/HPF (0-2); Squamous Epithelial Cell Urine FEW #/LPF (NONE/RARE); Urine Culture Indicated YES-FRMC
[2024-09-01] MEDS: POTASSIUM CHLORIDE 10 MEQ ER TABLET 40 MEQ PO (16:58)
[2024-09-01 17:02] LABS: Creatine Kinase 525 U/L (26-192)
--- NOTE | 2024-09-01 18:06 | P.HP_ITS ---
HPI H&P: HPI History of Present Illness Chief complaint: WEAKNESS Narrative: Patient presented to the emergency room with increasing weakness, some myalgias, denied chest pain, did have low-grade fever and acute hypoxia in the emergency room, workup also found to have significant elevated troponin, not progressively higher, BNP also elevated, with all the combination for acute NSTEMI type II likely secondary to acute bronchitis with failed outpatient treatment, patient will be admitted to the ICU I saw patient in the emergency room, resting fairly comfortably in bed, no significant dyspnea really throughout the evaluation, some cough dry Opioid HPI Opioid Management Most Recent Pain and Opioid Data: No Data to Display Review of Systems ROS Status of ROS 10 or more systems reviewed and unremark able except as noted in history and below [facility] Medical History (Updated 09/01/24 @ 16:29 by FLORY Boykin) Hypertension ?I10 - Essential (primary) hypertension (ICD-10) Afib ?I48.91 - Unspecified atrial fibrillation (ICD-10) Implantable loop recorder present ?Z95.818 - Presence of other cardiac implants and grafts (ICD-10) Social History Little interest or pleasure in doing things: not at all Feeling down, depressed, or hopeless: not at all Meds Home Medications and Allergies Home Medications ?Medication ?Instructions ?Recorded ?Confirmed ?Type atorvastatin 80 mg tablet 80 mg PO .QHS 09/01/24 09/01/24 History carvedilol 25 mg tablet 25 mg PO BIDWM 09/01/24 09/01/24 History celecoxib 200 mg capsule 200 mg PO .QD 09/01/24 09/01/24 History clonidine HCl 0.1 mg tablet 0.1 mg PO Q12H 09/01/24 09/01/24 History dapagliflozin propanediol 10 mg 10 mg PO .QD 09/01/24 09/01/24 History tablet (Farxiga) diltiazem HCl 180 mg 180 mg PO Q24H 09/01/24 09/01/24 History capsule,extended release 24 hr docusate sodium 100 mg capsule 100 mg PO BID 09/01/24 09/01/24 History (Stool Softener) ezetimibe 10 mg tablet 10 mg PO .QD 09/01/24 09/01/24 History furosemide 20 mg tablet 20 mg PO QAM 09/01/24 09/01/24 History isosorbide mononitrate 30 mg 30 mg PO Q24H 09/01/24 09/01/24 History tablet,extended release 24 hr lisinopril 20 mg tablet 20 mg PO BID 09/01/24 09/01/24 History pantoprazole 40 mg tablet,delayed 40 mg PO .ACB 09/01/24 09/01/24 History release pregabalin 200 mg capsule 200 mg PO .QHS 09/01/24 09/01/24 History tizanidine 4 mg tablet 8 mg PO .QHS 09/01/24 09/01/24 History warfarin 5 mg tablet 5 mg PO .BARNETT,TU,TH,SA 09/01/24 09/01/24 History warfarin 7.5 mg tablet 7.5 mg PO .MWF 09/01/24 09/01/24 History Allergies Allergy/AdvReac Type Severity Reaction Status Date / Time No Known Drug Allergies Allergy Verified 09/01/24 13:00 Exam Constitutional Vital Signs, click to edit/add: Last Vital Signs Temp 100.1 F 09/01/24 13:02 Pulse 61 09/01/24 16:31 Resp 22 H 09/01/24 16:40 BP 90/62 09/01/24 16:47 Pulse Ox 93 L 09/01/24 17:10 O2 Del Method Nasal Cannula 09/01/24 17:10 O2 Flow Rate 2 09/01/24 17:10 Documenting provider has reviewed patient's vital signs: yes Common normals: no apparent distress Respiratory Common normals: normal respiratory effort and no retractions Auscultation: rhonchi (Diffuse) Cardio Common normals: regular rate and regular rhythm Extremity Common normals: normal to inspection, full ROM and no clubbing, cyanosis or edema Results Labs Labs: Short CBC 09/01/24 Range/Units 13:50 WBC 3.9 L (4.0-11.0) 10^3/uL Hgb 12.8 (12.0-16.0) g/dL Hct 37.2 (36.0-48.0) % Plt Count 122 L (150-450) 10^3/uL BMP 09/01/24 13:50 Sodium 138 Potassium 3.2 L Chloride 102 Carbon Dioxide 30.7 BUN 11.0 Creatinine 0.87 Glucose 260 H Calcium 8.3 L Cardiac Enzymes 09/01/24 Range/Units 13:50 Total Creatine Kinase 525 H* (26-192) U/L Liver Function 09/01/24 Range/Units 13:50 Total Bilirubin 0.9 (0.2-1.0) mg/dL AST 86 H (15-37) U/L ALT 70 H (14-59) U/L Alkaline Phosphatase 125 H (46-116) U/L Albumin 2.8 L (3.4-5.0) g/dL Urine 09/01/24 Range/Units 15:36 Urine Color Yellow (YELLOW) Urine Clarity Clear (CLEAR) Urine pH 5.5 (5.0-9.0) Ur Specific [place] >=1.030 A (1.005-1.025) Urine Protein 30 A (NEG/TRACE) mg/dL Urine Glucose (UA) 500 A (NEGATIVE) mg/dL ABG ABG results: 09/01/24 13:50 VBG pH 7.475 H VBG pCO2 37.8 L Assessment and Plan Assessment and Plan (1) Hypoxia: (2) Elevated troponin: (3) URI (upper respiratory infection): (4) Weakness: (5) Hypertension: (6) Afib: Plan Admission findings: Fever, acute hypoxia with O2 sat of less than 89%, initially elevated blood pressure and then hypotension with blood pressure MAP of less than 50, neutropenia, thrombocytopenia, hypokalemia, elevated LFTs, significant elevated high-sensitivity troponin and BNP secondary to acute bronchitis leading to acute NSTEMI type II Acute bronchitis with failed outpatient [id number] antibiotics, IV with frequent aerosol treatments and try to obtain sputum culture Acute NSTEMI type II secondary to the above-check echocardiogram, consult to cardiology, hold off on heparin her INR for her atrial fibrillation is significantly elevated today Atrial fibrillation-INR slightly elevated today with mild Coumadin toxicity, adjust medication as necessary, heart rate well-controlled Hypokalemia-supplement Diabetes mellitus-insulin sliding scale Hypertension by history-hypotensive during the ER visit, adjust medications GERD-continue with home medications Peripheral neuropathy continue with home medications Low back pain continue with home medications Elevated liver function test but no abdominal tenderness, consider ultrasound of abdomen tomorrow Admission status: Patient failed outpatient treatment of bronchitis, now leading to acute NSTEMI type II with significant hypoxia, medically necessary treatment will span 2 midnights. Inpatient status, ICU
[2024-09-01 19:00] LABS: Internal Control Within Normal Limits; Mono Screen NEGATIVE (NEGATIVE)
[2024-09-01 19:01] LABS: Troponin I High Sensitivity 206.3 pg/mL (4.0-51.3)
--- OUTSIDE RECORDS SUMMARY | 2024-09-01 19:20 | XMS_ITS | CCD ---
Author Organization [facility] Care Team Providers Care Explosive Man Name Role Phone OSNNY ZAID Unavailable Unavailable KUNAL PATEL Unavailable Unavailable ELTAHAWY, EHAB A Attending Unavailable ELTAHAWY, EHAB A Admitting Unavailable SELF, REFERRED Referring Unavailable KUNAL PATEL Primary Care Unavailable Kunal Patel MD Primary Care Provider [phone] ANNABEL LIMA Admitting Unavailable ANNABEL LIMA Attending [...] Translations: [OXYCODONE-ACETAMI NOPHEN] Drug Allergy 08-19-2013 [facility] Repository (3 sources) Acetaminophen / oxyCODONE Drug Allergy 01-24-2013 [facility] Repository Medications Current Medications Medication Drug [...] disease (1 source) Atherosclerotic heart disease of [place] coronary artery without angina pectoris; Translations: [ASHD [place] CA W/O ANGINA PECTORIS] Onset: 03-08-2022 Chronic [...] Onset: 12-21-2021 Episodic Other aftercare (1 source) FDC (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; Translations: [CORRECTION CURRENT USE OF ASPIRIN] Onset: 12-21-2021 Episodic Other aftercare (1 source) Other detention (current) drug therapy; Translations: [OTH CORRECTION CURRENT DRUG THERAPY] Onset: 12-21-2021 Episodic Other [...] months, Oct, 2024. *I ordered an ECHO. [facility] should call you to schedule. *If chest pain does not improve, let us know and we can proceed with a stress test. [facility] Office Visiton 08-20-2024 Follow-up visit [id number] Carina Barth 1960 F Date Provider Department Center 08/20/2024 166-GARTH ANDREWS [facility] Family History Problem Relation Age of Onset Heart failure Mother Hyperlipidemia Mother Hypertension Mother Heart failure Father Hypertension Father Heart failure Brother Hyperlipidemia Brother Hypertension Brother Family Status - Relation Status Age at Mother Father Brother Level of Service:28447 [place] OFFICE/OUTPATIENT ESTABLISHED MOD MDM 30 MIN Reason for Visit and Comments: Atrial Fibrillation [80] Atrial Flutter [101] Coronary Artery Disease [187] Hypertension [514900] Normal [facility] Telephoneon 10-18-2023 Telephone [id number] Carina Barth 1960 F Date Provider Department Center 10/18/20231986-PATO CORONADO [facility] Family History Problem Relation Age of Onset Heart failure Mother Hyperlipidemia Mother Hypertension Mother Heart failure Father Hypertension Father Heart failure Brother Hyperlipidemia Brother Hypertension Brother Family Status - Relation Status Age at Mother Father Brother Reason for Visit and Comments: 3 week f/u post ablation [Other] Normal [facility] Telephoneon 10-05-2023 Telephone [id number] Carina Barth A 1960 F Date Provider Department [facility] Family History Problem Relation Age of Onset Heart failure Mother Hyperlipidemia Mother Hypertension Mother Heart failure Father Hypertension Father Heart failure Brother Hyperlipidemia Brother Hypertension Brother Family Status - Relation Status Age at Mother Father Brother Reason for Visit and Comments: week f/u post ablation [Other] Normal [facility] Telephoneon 10-04-2023 Telephone [id number] Carina Barth A 1960 F Date Provider Department Center 10/04/20231986-PATO CORONADO [facility] Family History Problem Relation Age of Onset Heart failure Mother Hyperlipidemia Mother Hypertension Mother Heart failure Father Hypertension Father Heart failure Brother Hyperlipidemia Brother Hypertension Brother Family Status - Relation Status Age at Mother Father Brother Reason for Visit and Comments: post ablation f/u [Other] [facility] Electrophysiology Note [facility] Reason for Consultation: Aflutter s/p [...] 07/2022, atrial fib (was intolerant of amiodarone) [id number] at least 5 for gender, hypertension, TIA, [...] hx TIA 2008. She was seen at [facility] ER with c/o palpitations and chest [...] on file Intimate Partner Violence: Unknown (08/09/2023) CO Safety & Environment Fear of Current or [...] syncope, no (more content not included)... [facility] POCT GLUCOSE METER UNSOLICIT ED RESULTSon 09-26-2023 Glucose [Mass/Vol] 173 mg/dL High 70-105 [facility] Comment on above: Order Comment: Waive d Testing in the ED is performed under the ED CLIA certificate #[id number]. Result Comment: dspe ars Performed By: #### L [id number] ####[facility] ([facility])[address] [place] [address] Glucose [Mass/Vol] 164 mg/dL High 70-105 [facility] Comment on above: Order Comment: Waive d Testing in the ED is performed under the ED CLIA certificate #[id number]. Result Comment: eyou ng12 Performed By: #### L [id number] ####[facility] ([facility] [place] [address] PROTIME-INRon 09-26-2023 INR IN PPP BY COAGULATION ASSAY 1.01 Normal 0.90-1.10 [facility] Comment on above: Result Comment: ACCC [...] CHEST 1995;108:231S-246S. Performed By: #### L [id number] ####[facility] ([facility] [place] [address] PROTHROMBIN TIME (PT) IN PPP BY COAGULATION ASSAY 13.3 Seconds Normal 12.3-14.8 [facility] Comment on above: Performed By: #### L [id number] ####[facility] ([facility])[address] [place] [address] Prep for Procedureon 024 Prep for Procedure [id number] Carina Barth 1960 F Date Provider Department Center 09/26/20231986-PATO CORONADO [facility] Family History Problem Relation Age of Onset Heart failure Mother Hyperlipidemia Mother Hypertension Mother Heart failure Father Hypertension Father Heart failure Brother Hyperlipidemia Brother Hypertension Brother Family Status - Relation Status Age at Mother Father Brother Normal [facility] [id number] 09-18-2023 [id number] ARRIVAL TIME 0700 HOLD ELIQUIS 4/8 MULTI [...] THE FOLLOWING ARE NOT AVAILABLE: An 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 Do not wear perfume, make-up, nail occitan, or lotions on the day of your [...] need to make any changes, please call [phone]. Notify your surgeon if you develop any illness such as a cold, cough, fever, sore throat or vomiting between now and your surgery. Thank you for entrusting us with your care. [facility] Surgical Services Team Normal [facility] Office Visiton 09-18-2023 Follow-up visit [id number] Carina Barth 1960 Provider Department Center 09/18/2023 Caitlyn-RAI JAY [facility] Family History Problem Relation Age of Onset Heart failure Mother Hyperlipidemia Mother Hypertension Mother Heart failure Father Hypertension Father Heart failure Brother Hyperlipidemia Brother Hypertension Brother Family Status - Relation Status Age at Mother Father Brother Level of Service:80513 [place] OFFICE/OUTPATIENT ESTABLISHED HIGH MDM 40 MIN Reason for Visit and Comments: Follow-up [942432] Normal [facility] Prep for Procedureon 024 Prep for Procedure [id number] Carina Barth 1960 Provider Department Center 09/05/2023 Jeremías-PATO CORONADO [facility] Family History Problem Relation Age of Onset Heart failure Mother Hyperlipidemia Mother Hypertension Mother Heart failure Father Hypertension Father Heart failure Brother Hyperlipidemia Brother Hypertension Brother Family Status - Relation Status Age at Mother Father Brother Normal [facility] BNPon 07-24-2022 Natriuretic peptide B (Bld) [Mass/Vol] 109.0 pg/mL Normal <=900.0 [facility] Comment on above: Performed By: #### C MP, T7, BNP, LIPID, TSH #### [facility] [address] [place] [address] Dr. Yuliya Jones CBC AUTO DIFFon 07-24-2022 BASO # 0.0 103/ul Normal 0.0-0.1 [facility] Comment on above: Performed By: #### C BC #### [facility] [address] [place] [address] Dr. Yuliya Jones Basophils/100 WBC (Bld) 0.4 % Normal 0.2-2.0 [facility] Comment on above: Performed By: #### C BC #### [facility] [address] [place] [address] Dr. Yuliya Jones EO # 0.2 103/ul Normal 0.0-0.7 [facility] Comment on above: Performed By: #### C BC #### [facility] [address] [place] [address] Dr. Yuliya Jones Eosinophils/100 WBC (Bld) 2.2 % Normal 0.9-7.0 [facility] Comment on above: Performed By: #### C BC #### [facility] [address] [place] [address] Dr. Yuliya Jones Erythrocyte distribution width (RBC) [Ratio] 13.6 % Normal 11.0-15.0 [facility] Comment on above: Performed By: #### C BC #### [facility] [address] [place] [address] Dr. Yuliya Jones Hematocrit (Bld) [Volume fraction] 40.1 % Normal 36.0-48.0 [facility] Comment on above: Performed By: #### C BC #### [facility] [address] [place] [address] Dr. Yuliya Jones Hemoglobin (Bld) [Mass/Vol] 13.1 g/dL Normal 12.0-16.0 [facility] Comment on above: Performed By: #### C BC #### [facility] [address] [place] [address] Dr. Yuliya Jones IG # 0.05 10e3/ul Critically high 0.00-0.03 [facility] Comment on above: Performed By: #### C BC #### [facility] [address] [place] [address] Dr. Yuliya Jones IG % 0.7 % Critically high 0.0-0.5 [facility] Comment on above: Performed By: #### C BC #### [facility] [address] [place] [address] Dr. Yuliya Jones LYMPH # 2.0 103/ul Normal 1.2-3.8 [facility] Comment on above: Performed By: #### C BC #### [facility] [address] [place] [address] Dr. Yuliya Jones Lymphocytes/100 WBC (Bld) 26.9 % Normal 20.5-60.0 [facility] Comment on above: Performed By: #### C BC #### [facility] [address] [place] [address] Dr. Yuliya Jones MANUAL DIFF REQ NO Normal [facility] Comment on above: Performed By: #### C BC #### [facility] [address] [place] [address] Dr. Yuliya Jones MCH (RBC) [Entitic mass] 28.5 pg Normal 26.7-34.0 [facility] Comment on above: Performed By: #### C BC #### [facility] [address] [place] [address] Dr. Yuliya Jones MCHC (RBC) [Mass/Vol] 32.7 g/dL Normal 29.9-35.2 [facility] Comment on above: Performed By: #### C BC #### [facility] [address] [place] [address] Dr. Yuliya Jones MCV (RBC) [Entitic vol] 87.4 fL Normal 81.0-99.0 [facility] Comment on above: Performed By: #### C BC #### [facility] [address] [place] [address] Dr. Yuliya Jones MONO # 0.4 103/ul Normal 0.3-0.8 [facility] Comment on above: Performed By: #### C BC #### [facility] [address] [place] [address] Dr. Yuliya Jones Monocytes/100 WBC (Bld) 5.1 % Normal 1.7-12.0 [facility] Comment on above: Performed By: #### C BC #### [facility] [address] [place] [address] Dr. Yuliya Jones NEUT # 4.8 103/ul Normal 1.4-6.5 [facility] Comment on above: Performed By: #### C BC #### [facility] [address] [place] [address] Dr. Yuliya Jones Neutrophils/100 WBC (Bld) 64.7 % Normal 43.0-75.0 [facility] Comment on above: Performed By: #### C BC #### [facility] [address] [place] [address] Dr. Yuliya Jones Platelet mean volume (Bld) [Entitic vol] 10.3 fL Normal 9.5-13.5 [facility] Comment on above: Performed By: #### C BC #### [facility] [address] [place] [address] Dr. Yuliya Jones PLT 244 103/ul Normal 150-450 [facility] Comment on above: Performed By: #### C BC #### [facility] [address] [place] [address] Dr. Yuliya Jones RBC 4.59 106/ul Normal 4.20-5.40 [facility] Comment on above: Performed By: #### C BC #### [facility] [address] [place] [address] Dr. Yuliya Jones WBC 7.4 103/ul Normal 4.0-11.0 [facility] Comment on above: Performed By: #### C BC #### [facility] [address] [address] [address] Yuliya Jones FREE THYROXINE INDEX T7on FTI 2.66 Normal 1.30-4.50 [facility] Comment on above: Performed By: #### C MP, T7, BNP, LIPID, TSH #### [facility] [address] [address] [address] Yuliya Jones T3U 35.0 % Normal 30.0-39.0 [facility] Comment on above: Performed By: #### C MP, T7, BNP, LIPID, TSH #### [facility] [address] [address] [address] Yuliya Jones T4 [Mass/Vol] 7.60 ug/dL Normal 4.80-13.90 [facility] Comment on above: Performed By: #### C MP, T7, BNP, LIPID, TSH #### [facility] [address] [address] [address] Yuliya Jones GLYCOHEMOGLOBIN A1Con 2022 ADA RECOMMENDATION SEE BELOW Normal [facility] Comment on above: Result Comment: ADA RECOMMENDED LIMIT 4.0 - 6.0 ADA THERAPEUTIC TARGET < 7.0 ACTION SUGGESTED > 7.0 Performed By: #### A 1C ####[facility] [address] [address]DrMinisterio Jones Glucose [Mass/Vol] 146 mg/dL Normal [facility] Comment on above: Performed By: #### A 1C ####[facility] [address] [address]DrMinisterio Jones HbA1c (Bld) [Mass fraction] 6.7 % Critically high 4.5-6.2 [facility] Comment on above: Performed By: #### A 1C ####[facility] [address] [address]Dr. Yuliya Jones IRONon 07-24-2022 Iron [Mass/Vol] 74.0 ug/dL Normal 50.0-170.0 [facility] Comment on above: Performed By: #### I LUDWIN, VITB12, VITAD #### [facility] [address] [place] [address] Dr. Yuliya Jones LIPID PROFILEon 07-24-2022 CHOL-HDL RATIO NORM SEE BELOW Normal [facility] Comment on above: Result Comment: 3.3 - 4.4 LOW RISK 4.4 - 7.1 AVERAGE RISK 7.1 - 11.0 MODERATE RISK >11.0 HIGH RISK Performed By: #### C MP, T7, BNP, LIPID, TSH #### [facility] [address] [address] [address] Yuliya Jones Cholesterol [Mass/Vol] 215 mg/dL Critically high <=200 [facility] Comment on above: Performed By: #### C MP, T7, BNP, LIPID, TSH #### [facility] [address] [place] [address] Dr. Yuliya Jones Cholesterol in HDL [Mass/Vol] 46 mg/dL Normal 40-60 [facility] Comment on above: Performed By: #### C MP, T7, BNP, LIPID, TSH #### [facility] [address] [place] [address] Dr. Yuliya Jones Cholesterol in LDL [Mass/Vol] 120.6 mg/dL Normal [facility] Comment on above: Performed By: #### C MP, T7, BNP, LIPID, TSH #### [facility] [address] [place] [address] Dr. Yuliya Jones Cholesterol.total/ Cholesterol in HDL [Mass ratio] 4.7 {ratio} Normal [facility] Comment on above: Performed By: #### C MP, T7, BNP, LIPID, TSH #### [facility] [address] [place] [address] Dr. Yuliya Jones HDL NORMAL > or = 60 mg/dl - LO W CARDIOVASCULAR RISK <40 mg/dl - HIGH CARDIOVASCULAR RISK Normal [facility] Comment on above: Performed By: #### C MP, T7, BNP, LIPID, TSH #### [facility] [address] [place] [address] Dr. Yuliya Jones LDL CALC NORMAL SEE BELOW Normal [facility] Comment on above: Result Comment: <100 mg/dl OPTIMAL 100 - 129 mg/dl NEAR OR ABOVE OPTIMAL 130 - 159 mg/dl BORDERLINE HIGH 160 - 189 mg/dl HIGH >190 mg/dl VERY HIGH Performed By: #### C MP, T7, BNP, LIPID, TSH #### [facility] [address] [address] [address] Yuliya Jones Triglyceride [Mass/Vol] 242 mg/dL Critically high <=150 [facility] Comment on above: Performed By: #### C MP, T7, BNP, LIPID, TSH #### [facility] [address] [address] [address] Yuliya Jones VLDL CALC 48.4 mg/dL Normal [facility] Comment on above: Performed By: #### C MP, T7, BNP, LIPID, TSH #### [facility] [address] [address] [address] Yuliya Jones PROF 14(COMP METB)on 023 Albumin [Mass/Vol] 3.3 g/dL Critically low 3.4-5.0 [facility] Comment on above: Performed By: #### C MP, T7, BNP, LIPID, TSH #### [facility] [address] [address] [address] Yuliya Jones Albumin/Globulin [Mass ratio] 0.8 {ratio} Normal [facility] Comment on above: Performed By: #### C MP, T7, BNP, LIPID, TSH #### [facility] [address] [address] [address] Yuliya Jones ALP [Catalytic activity/Vol] 148 U/L Critically high 46-116 [facility] Comment on above: Performed By: #### C MP, T7, BNP, LIPID, TSH #### [facility] [address] [address] [address] Yuliya Jones ALT [Catalytic activity/Vol] 49 U/L Normal 14-59 [facility] Comment on above: Performed By: #### C MP, T7, BNP, LIPID, TSH #### [facility] [address] [address] [address] Yuliya Jones Anion gap [Moles/Vol] 11.6 mmol/L Normal [facility] Comment on above: Performed By: #### C MP, T7, BNP, LIPID, TSH #### [facility] [address] [place] [address] Dr. Yuliya Jones AST [Catalytic activity/Vol] 26 U/L Normal 15-37 [facility] Comment on above: Performed By: #### C MP, T7, BNP, LIPID, TSH #### [facility] [address] [place] [address] Dr. Yuliya Jones Bilirubin [Mass/Vol] 0.8 mg/dL Normal 0.2-1.0 [facility] Comment on above: Performed By: #### C MP, T7, BNP, LIPID, TSH #### [facility] [address] [place] [address] Dr. Yuliya Jones Calcium [Mass/Vol] 9.0 mg/dL Normal 8.5-10.1 [facility] Comment on above: Performed By: #### C MP, T7, BNP, LIPID, TSH #### [facility] [address] [place] [address] Dr. Yuliya Jones Chloride [Moles/Vol] 102 mmol/L Normal 98-107 [facility] Comment on above: Performed By: #### C MP, T7, BNP, LIPID, TSH #### [facility] [address] [place] [address] Dr. Yuliya Jones CO2 [Moles/Vol] 29.1 mmol/L Normal 21.0-32.0 [facility] Comment on above: Performed By: #### C MP, T7, BNP, LIPID, TSH #### [facility] [address] [place] [address] Dr. Yuliya Jones Creatinine [Mass/Vol] 0.69 mg/dL Normal 0.55-1.02 [facility] Comment on above: Performed By: #### C MP, T7, BNP, LIPID, TSH #### [facility] [address] [place] [address] Dr. Yuliya Jones EGFR-AF MAURITANIAN >60 Normal >=60 [facility] Comment on above: Performed By: #### C MP, T7, BNP, LIPID, TSH #### [facility] [address] [place] [address] Dr. Yuliya Jones EGFR-NON AF MAURITANIAN >60 Normal >=60 [facility] Comment on above: Performed By: #### C MP, T7, BNP, LIPID, TSH #### [facility] [address] [address] [address] Yuliya Jones Globulin (S) [Mass/Vol] 4.1 g/dL Normal [facility] Comment on above: Performed By: #### C MP, T7, BNP, LIPID, TSH #### [facility] [address] [place] [address] Dr. Yuliya Jones Glucose [Mass/Vol] 151 mg/dL Critically high 74-106 [facility] Comment on above: Performed By: #### C MP, T7, BNP, LIPID, TSH #### [facility] [address] [place] [address] Dr. Yuliya Jones Potassium [Moles/Vol] 3.7 mmol/L Normal 3.5-5.1 [facility] Comment on above: Performed By: #### C MP, T7, BNP, LIPID, TSH #### [facility] [address] [place] [address] Dr. Yuliya Jones Protein [Mass/Vol] 7.4 g/dL Normal 6.4-8.[address] [facility] Comment on above: Performed By: #### C MP, T7, BNP, LIPID, TSH #### [facility] [address] [place] [address] Dr. Yuliya Jones Sodium [Moles/Vol] 139 mmol/L Normal 136-[address] [facility] Comment on above: Performed By: #### C MP, T7, BNP, LIPID, TSH #### [facility] [address] [place] [address] Dr. Yuliya Jones Urea nitrogen [Mass/Vol] 8.0 mg/dL Normal 7.0-18.0 [facility] Comment on above: Performed By: #### C MP, T7, BNP, LIPID, TSH #### [facility] [address] [place] [address] Dr. Yuliya Jones Urea nitrogen/Creatinin e [Mass ratio] 11.6 mg/mg Normal [facility] Comment on above: Performed By: #### C MP, T7, BNP, LIPID, TSH #### [facility] [address] [address] [address] Yuliya Jones TSHon 07-24-2022 TSH 1.903 uIU/mL Normal 0.358-3.740 [facility] Comment on above: Performed By: #### C MP, T7, BNP, LIPID, TSH #### [facility] [address] [address] [address] Yuliya Jones VITAMIN B12on 07-24-2022 Cobalamin (Vitamin B12) [Mass/Vol] 1085.0 pg/mL Critically high 193.0-986.0 [facility] Comment on above: Performed By: #### I LUDWIN VITB12, VITAD ####[facility] [address] [place], [place] [address]Dr. Yuliya Jones VITAMIN D 25 OHon 07-24-2022 VIT D 25-OH 36.8 ng/mL Normal [facility] Comment on above: Performed By: #### I LUDWIN VITB12, VITAD ####[facility] [address] [address]DrMinisterio Jones VIT D RANGES SEE BELOW Normal [facility] Comment on above: Result Comment: <20 ng/mL Vit D deficient 20 - <30 ng/mL Vit D insufficient 30 - 100 ng/mL Vit D sufficient >100 ng/mL Potential Toxicity Performed By: #### I LUDWIN VITB12, VITAD ####[facility] [address] [address]DrMinisterio Jones GLYCOHEMOGLOBIN A1Con 2021 ADA RECOMMENDATION SEE BELOW Normal [facility] Comment on above: Result Comment: ADA RECOMMENDED LIMIT 4.0 - 6.0 ADA THERAPEUTIC TARGET < 7.0 ACTION SUGGESTED > 7.0 Performed By: #### A 1C ####[facility] [address] [place], [place] [address]Dr. Yuliya Jones Glucose [Mass/Vol] 140 mg/dL Normal [facility] Comment on above: Performed By: #### A 1C ####[facility] [address] [place], [place] [address]QyDr. Yuliya Jones HbA1c (Bld) [Mass fraction] 6.5 % Critically high 4.5-6.2 [facility] Comment on above: Performed By: #### A 1C ####[facility] [address] [address]Dr. Yuliya Jones LIPID PROFILEon 03-07-2022 CHOL-HDL RATIO NORM SEE BELOW Normal [facility] Comment on above: Result Comment: 3.3 - 4.4 LOW RISK 4.4 - 7.1 AVERAGE RISK 7.1 - 11.0 MODERATE RISK >11.0 HIGH RISK Performed By: #### L IPID #### [facility] [address] [place] [address] Dr. Yuliya Jones Cholesterol [Mass/Vol] 215 mg/dL Critically high <=200 [facility] Comment on above: Performed By: #### L IPID #### [facility] [address] [address] [address] Yuliya Jones Cholesterol in HDL [Mass/Vol] 42 mg/dL Normal 40-60 [facility] Comment on above: Performed By: #### L IPID #### [facility] [address] [address] [address] Yuliya Jones Cholesterol in LDL [Mass/Vol] 118.4 mg/dL Normal [facility] Comment on above: Performed By: #### L IPID #### [facility] [address] [address] [address] Yuliya Jones Cholesterol.total/ Cholesterol in HDL [Mass ratio] 5.1 {ratio} Normal [facility] Comment on above: Performed By: #### L IPID #### [facility] [address] [address] [address] Yuliya Jones HDL NORMAL > or = 60 mg/dl - LO W CARDIOVASCULAR RISK <40 mg/dl - HIGH CARDIOVASCULAR RISK Normal [facility] Comment on above: Performed By: #### L IPID #### [facility] [address] [address] [address] Yuliya Jones LDL CALC NORMAL SEE BELOW Normal [facility] Comment on above: Result Comment: <100 mg/dl OPTIMAL 100 - 129 mg/dl NEAR OR ABOVE OPTIMAL 130 - 159 mg/dl BORDERLINE HIGH 160 - 189 mg/dl HIGH >190 mg/dl VERY HIGH Performed By: #### L IPID #### [facility] [address] [place] [address] Dr. Yuliya Jones Triglyceride [Mass/Vol] 273 mg/dL Critically high <=150 [facility] Comment on above: Performed By: #### L IPID #### [facility] [address] [place] [address] Dr. Yuliya Jones VLDL CALC 54.6 mg/dL Normal [facility] Comment on above: Performed By: #### L IPID #### [facility] [address] [place] [address] Dr. Yuliya Jones XR ANKLE RT MIN [...] RORO BARKLEY Date: 2021-12-18 07:50 Normal [facility] FLUORO FOR SURGICAL PROCEDUR ESon 10-25-2021 FLUORO FOR SURGICAL PROCEDURES Radiology exam is complete. No Radiologist dictation. Please follow up with ordering provider. Final result Normal [facility] Radiology exam is complete. No Radiologist dictation. Please follow up with ordering provider. [facility] RIS CONSOLIDATED Cardiovascular Lab Reporton 07-22-2020 Cardiovascular Lab Report [facility] Patient Name: [facility] Amparo Moraes MR #: [id number] Department of Physician: Manish Ratliff Medicine [place] Division of Service Date: 07/22/2020 Cardiology Birthdate: 1960 Adult Cardiovascular Room #: [facility] [address] [facility] [address] [place] [address] Cardiovascular Laboratory Report FINAL IMPRESSIONS: 1. Moderate [...] Follow up with Dr. Ratliff in the [place] office in the next 1 to 2 [...] right internal jugular vein was obtained. A 6-Vietnamese x 11 cm sheath was inserted without [...] to access the left radial artery. A 6-Vietnamese glide sheath was inserted without difficulty. Bilateral [...] Ratliff M.D. Date Trans: 07/22/2020 02:58 P/mmo [id number] cc: Kunal Patel M.D. [address], [place] [address] Normal [facility] Physician Referralon 021 Physician Referral [phone] [id number]: 127 Normal [facility] CNOVon 06-24-2018 CNOV Office Visit (LIVIA) AMPARO BARTH ([id number]) 1960 FDate Time Provider Department06/24/18 9:00 AM [...] MD 06/24/2018 10:11 AM SignedName: Amparo BarthMRN: [id number]: June 24, 2018Patient seen and examined in [...] Chito Antonio, TERRYGY-6 FellowReferring Provider: KUNAL PATEL [[id number]]Allergies As of Date: 06/24/2018 Noted Allergy ReactionPERCOCET [...] noncompliance [Z91.11] INVALID FOR*Visit Notes:>> Zafar Antonino [facility] Jun 24, 2018 9:25 AM Status: SignedWhat is the reason for your visit today? ConsultWho is your referring physician? Dr Kunal Zimmer you having poor oral intake? NOHave you had unintentional weight loss of 15 lbs/7 Kg in the last 3-6months? NOBowels: regularWound: clean AND dryTemperature: NoDrains: NoEncounter Number: [id number] Status:Closed by ZAID DENNIS MD on 06/24/18 Normal [facility] HISTORY PHYSICALon 9 HISTORY PHYSICAL HNO ID: [id number]: Chito (Ronn) Jt: (none)Author Type: FellowType: HANDPFiled: 06/24/2018 10:11 AMNote Text:Name: Amparo BarthMRN: [id number]: June 24, 2018Patient seen and examined in [...] this visit. Chito Antonio, TERRYGY-6 Fellow Normal [facility] PROGRESSon 06-24-2018 Protein mass conc HNO ID: [id number]: Zaid Baptiste: (none)Author Type: PhysicianType: Progress NotesFiled: [...] need anopen repair with retro-muscular mesh. Normal [facility] SR-CT ABD/PELVIS W CON IMPOR Ton 12-03-2017 SR-CT ABD/PELVIS W CON IMPORT Images were obtained outside of [facility] [id number] Normal [facility] Vital Signs Date Time Vital Sign Value Performing Clinician Faci lity 10-25-2021 14:26-0400 Diastolic blood pressure 138 mm[Hg] Annabel Lima MD Work Phone: [facility] 10-25-2021 14:26-0400 Systolic blood pressure 239 mm[Hg] Annabel Lima MD Work Phone: [facility] 10-25-2021 13:53-0400 Body temperature 97.81 [degF] Annabel Lima MD Work Phone: [facility] [employer] 10-25-2021 13:53-0400 Heart rate 62 /min Annabel Lima MD Work Phone: [facility] [employer] 10-25-2021 13:53-0400 Respiratory rate 18 /min Annabel Lima MD Work Phone: [facility] [employer] 10-25-2021 13:53-0400 SaO2% (BldA) [Mass fraction] 96 % Annabel Lima MD Work Phone: [facility] [employer] 10-13-2021 08:17-0400 Body height 165.1 cm Annabel Lima MD Work Phone: [facility] Encounters Encounter Date Encounter Type Care Provider Facility Start: 08-20-2024 End: 08-20-2024 ambulatory GARTH [facility] Start: 04-04-2024 End: 04-04-2024 ambulatory Antoine Peoples MD Facility:[facility] Start: 04-02-2024 ambulatory [facility] Start: 03-19-2024 ambulatory [facility] Start: 02-08-2024 ambulatory [facility] Start: 01-21-2024 ambulatory [facility] Start: 01-15-2024 End: 01-15-2024 ambulatory EMILY LUZ Not Available Start: 12-05-2023 ambulatory [facility] Start: 09-26-2023 ambulatory [facility] Start: 09-26-2023 End: 09-26-2023 ambulatory [facility] Start: 09-18-2023 End: 09-18-2023 ambulatory [facility] Start: 07-24-2022 End: 07-25-[address] KUNAL PATEL . Facility: Start: 03-28-2022 ambulatory GARTH ANDREWS Facility :[facility] Start: 03-08-2022 Encounter for genera l adult medical examination without abnormal findings GARTH ANDREWS [facility] Start: 03-07-2022 End: 03-08-2022 ambulatory GARTH ANDREWS Facility:[facility] Start: 03-07-2022 End: 03-08-2022 Encounter for general adult medical examination without abnormal findings GARTH ANDREWS Facility:[facility] Start: 12-18-2021 End: 12-18-2021 ambulatory DELIA COKER Facility: Start: 10-25-2021 End: 10-25-2021 ambulatory [facility]NABEL LIMA [facility] Start: 10-25-2021 End: 10-25-2021 Subsequent hospital visit by physician Annabel Lima MD Work Phone: [facility] Start: 07-22-2020 End: 07-23-2020 Patient encounter procedure REINAAB Aleisha RATLIFF Facility:[facility] Start: 06-24-2018 Patient encounter procedure ZAID DENNIS [facility] Procedures Date Procedure Procedure Detail Performing Clinician Start: 10-25-2021 Fluoroscopy during operation Annabel Lima MD Work Phone: Plan of Treatment Date Care Activity Detail Author Start: 02-16-2022 Influenza vaccination Flu vacc ine (Season Ended) [facility] Start: 10-25-2021 End: 10-25-2021 Njx dx/ther sbst intrlmnr lmbr/sac w/img gdn EPIDURAL STEROID INJECTION LUMBAR SACRAL RAD LUMBAR RAD 10/25/2021 2:21 PM EDT [facility] Start: 2008 Screening for malign ant neoplasm of breast Breast cancer screen [facility] Start: 2008 Shingles vaccine (1 of 2) Shingles vaccine (1 of 2) [facility] Start: 2003 Screening for malign ant neoplasm of colon [facility] Start: 1988 Screening for malign ant neoplasm of cervix [facility] Start: 1979 Screening for malign ant neoplasm of cervix Pap smear [facility] Start: 1977 DTaP/Tdap/Td vaccine (1 - Tdap) DTaP/Tdap/Td vaccine (1 - Tdap) [facility] Start: 1976 Creatinine measurement Creatinine [facility] Start: 1976 Hepatitis C screening Hepatitis C sc reen [facility] Start: 1976 Potassium [Moles/vol ume] in Serum or Plasma Potassium [facility] Start: 1973 HIV screening HIV screen [facility] Start: 1970 Depression Screen Depression Screen [facility] Start: 1968 Lipid panel Lipids [facility] Start: 1963 COVID-19 Vaccine (1) COVID-19 Vaccin e (1) [facility] Start: 1960 Annual Wellness Visi t (AWV) Annual Wellness Visit (AWV) [facility] Payers Date Payer Category Payer Medicare [id number] 2023 Private Health Insurance 2023 Medicare [id number] 1961 Medicaid [id number] 1961 Medicare [id number] 1961 Self-pay [id number] 1960 Unknown [id number] 2.16.8 [id number] 1960 Unknown [id number] 2.16.8 [id number] 1960 Unknown [id number] 2.16.84 [id number] 1960 Unknown [id number] 2.16.84 [id number] 1960 Unknown [id number] 2.16.84 [id number] 1960 Unknown [id number] 2.16.84 [id number] 1960 Unknown [id number] 2.16.84 [id number] 1960 Unknown [id number] 2.16. [id number] Medicare [id number] Social History Date Type Detail Facility Start: 10-13-2021 [facility] [employer] Start: 10-13-2021 Tobacco use and exposure Smokeless tobacco non-user [employer] Phone: Start: 10-25-2021 Alcohol intake Current drinke r of alcohol (finding) [employer] Phone: Start: 10-13-2021 History SDOH Alcohol Comment socially [employer] Phone: Start: 1960 Sex Assigned At Not on file [facility] Phone: Clinical Notes 10-25-2021 to 08-20-2024 Radha Estevez RN - 10/25/2021 2:41 PM EDTSdilip Estevez RN - 10/25/2021 2:31 PM EDTInstructionsAuth/Cert Note Date & Type Note Facility 08-20-2024 Note Cardiovascular Medic [facility] SUBJECTIVE Chief Complaint Patient presents with [...] ablation in September 2023. She presented to [facility] ED last week for chest pain. Patient [...] MOUTH EVERY D (more content not included)... [facility] 08-20-2024 Note Patient here for 1 y ear follow up PAF. She hasn't been seen since afib ablation in September 2023. She presented to [facility] ED last week for chest pain. Patient [...] All other systems reviewed and are negative. [facility] 09-26-2023 Note Patient: Amparo evangelista Procedure Summary Date: 09/26/23 Room / Location: [facility] PEDIATRIC [facility]ERGIST 1 EP / [facility] (Cath) Anesthesia Start: [...] no known notable events for this encounter. [facility] 09-26-2023 Note ATRIAL FIBRILLATION ABLATION PROCEDURE NOTE DATE OF PROCEDURE: 09/26/2023 PERFORMING PHYSICIAN: Dr. Rai Jay INSPECTOR ASSEMBLY: SAJI CONSENT: Patient NAME OF THE PROCEDURE: [...] Mapping was performed (more content not included)... [facility] 09-26-2023 Note Arterial Line: Date/Time: 09/26/2023 [...] 1 % SubQ, 0.5 mL Staffing Performed: resident/FOREST FIRE FIGHTERS DISPATCHER/CAA Anesthesiologist: Damion Coronado MD Resident/FOREST FIRE FIGHTERS DISPATCHER: Tameka Westbrook MD Performed by: Tameka Westbrook MD Authorized by: Damion Coronado MD [facility] 09-26-2023 Note Airway Date/Time: 09/26/2023 8:53 AM Urgency: elective Airway not difficult General Information and Staff Patient location during procedure: [place] Anesthesiologist: Damion Coronado MD Resident/FOREST FIRE FIGHTERS DISPATCHER/CAA: Tameka Westbrook MD Performed: resident/FOREST FIRE FIGHTERS DISPATCHER/CAA Indications and Patient Condition Indications for airway [...] 21 Number of attempts at approach: 1 [facility] 09-26-2023 Note Patient: Amparo evangelista Procedure Information Date/Time: 09/26/23 0830 Procedure: Ablation a-fib paroxysmal Location: [facility] PEDIATRIC ALLERGIST 1 / [facility] (Cath) Providers: Rai [...] Plan discussed with resident. Additional Equipment Requests [facility] 09-18-2023 Note CO Electrophysiology Note [facility] Reason for Consultation: Aflutter s/p [...] 07/2022, atrial fib (was intolerant of amiodarone) [id number] at least 5 for gender, hypertension, TIA, [...] hx TIA 2008. She was seen at [facility] ER with c/o palpitations and chest [...] on file Intimate Partner Violence: Unknown (08/09/2023) [place] Safety & Environment Fear of Current or [...] negative. Physical Exam: (more content not included)... [facility] 10-25-2021 History of Present illness Narrative Discharge instructions reviewed with patient. Had no sedation. Signed for self. To recovery. Denies pain complaints. Injection site clean and dry. BP 190/95. P 63. Oxygen 98%. Resp 18. updated on elevated pressure. documented in this encounter [employer] Phone: 10-25-2021 Hospital Discharge instructions Radha Estevez [...] a follow-up visit. documented in this encounter [employer] Phone: Reason for visit Narrative Specialty Diagnoses / Procedures Referred By Contac t Referred To Contact Diagnoses LUMBAR SACRAL RAD LUMBAR RAD Procedures GA NJX DX/THER SBST INTRLMNR LMBR/SAC W/IMG GDN EPIDURAL STEROID INJECTION- L4-5 Annabel Lima MD [address] [place] [address] [employer] [address] [place] [address] Referral ID Status Reason Start Date Expiration Date Visits Re quested Visits Authorized 1 1 [employer] Phone: Summary Purpose Family History No Family [...] section and content) DATE CREATED AUTHOR 06/26/2018 [facility] DATE CREATED AUTHOR AUTHOR'S ORGANIZ ATION 07/13/2020 [facility] DATE CREATED AUTHOR AUTHOR'S ORGANIZ ATION 08/05/2020 [facility] DATE CREATED AUTHOR AUTHOR'S ORGANIZ ATION 10/26/2021 [facility] DATE CREATED AUTHOR AUTHOR'S ORGANIZ ATION 09/29/2022 [facility] DATE CREATED AUTHOR AUTHOR'S ORGANIZ ATION 01/18/2024 [facility] DATE CREATED AUTHOR AUTHOR'S ORGANIZ ATION 04/10/2024 [facility] DATE CREATED AUTHOR AUTHOR'S ORGANIZ ATION 08/22/2024 [facility] PRN Active and Recently Administ ered [...] Care Teams (unrecognized sec tion and content) Explosive Man Relationship Specialty Start Date End Date Kunal Patel MD [address] [place] [address] PCP - General Family Medicine 10/24/21 FOR [...] BE BASED ON THE PRIMARY CLINICAL RECORDS. [facility] [employer] [facility]. provides no warranty or guarantee of the accuracy or completeness of information in this document.
[2024-09-01] MEDS: ISOSORBIDE MONONITRATE 30 MG TAB.ER.24H PO (21:09)
[2024-09-01] MEDS: MAGNESIUM OXIDE 400 MG TABLET PO (21:10)
[2024-09-01] MEDS: ATORVASTATIN CALCIUM 40 MG TABLET 80 MG PO (21:10)
[2024-09-01] MEDS: TIZANIDINE HCL 4 MG TABLET 8 MG PO (21:11)
[2024-09-01] MEDS: PREGABALIN 100 MG CAPSULE 200 MG PO (21:11)
[2024-09-01] MEDS: POTASSIUM CHLORIDE 10 MEQ ER TABLET 20 MEQ PO (21:11)
[2024-09-01] MEDS: LEVOFLOXACIN IN DEXTROSE 5 % 750 MG/150 ML PREMIX 100 MG IV (21:12)
[2024-09-01 21:15] LABS: Glucometer 300 mg/dL (74-106)
[2024-09-01] MEDS: PANTOPRAZOLE SODIUM 40 MG VIAL IV (21:25)
[2024-09-01] MEDS: DEXAMETHASONE SOD PHOS 100 MG/10 ML MDV 10 MG IV (21:26)
[2024-09-01] MEDS: INSULIN ASPART 300 UNIT/3 ML PEN SUBQ (21:27)
[2024-09-01] MEDS: IPRATROPIUM/ALBUTEROL SULFATE 3 ML AMPUL.NEB IH (22:12)
[2024-09-01] MEDS: PIPERACILLIN SODIUM/TAZOBACTAM 3.375 GM in 0.9 % SODIUM CHLORIDE 50 ML IV (23:11)
--- NOTE | 2024-09-01 23:30 | PC.NURSE ---
pt desating 88-89 % - applied 1 lt oxygen
[2024-09-02] VITALS (89 sets, daily range): BP systolic 148–192; BP diastolic 86–111; PULSE 50–83; TEMP 36.3–37.3; O2SAT 90–98
[2024-09-02] MEDS: IPRATROPIUM/ALBUTEROL SULFATE 3 ML AMPUL.NEB IH ×4 (04:23→23:10)
[2024-09-02 05:01] LABS: Basophils Percent Auto 0.3 % (0.2-2.0); Eosinophils Percent Auto 0.3 % (0.9-7.0); Hematocrit 39.8 % (36.0-48.0); Hemoglobin 13.5 g/dL (12.0-16.0); Immature Granulocytes Abs Auto 0.02 10^3/uL (0.00-0.03); Immature Granulocytes Pct Auto 0.6 % (0.0-0.5); Lymphocytes Absolute Auto 0.8 10^3/uL (1.2-3.8); Lymphocytes Percent Auto 24.4 % (20.5-60.0); Mean Corpuscular HGB Conc 33.9 g/dL (29.9-35.2); Mean Corpuscular Hemoglobin 29.3 pg (26.7-34.0); Mean Corpuscular Volume 86.3 fL (81.0-99.0); Mean Platelet Volume 10.9 fL (9.5-13.5); Monocytes Absolute Auto 0.1 10^3/uL (0.3-0.8); Monocytes Percent Auto 3.1 % (1.7-12.0); Neutrophils Absolute Auto 2.3 10^3/uL (1.4-6.5); Neutrophils Percent Auto 71.3 % (43.0-75.0); Platelet Count 114 10^3/uL (150-450); Red Blood Count 4.61 10^6/uL (4.20-5.40); Red Cell Distribution Width 14.6 % (11.0-15.0); White Blood Count 3.2 10^3/uL (4.0-11.0)
[2024-09-02 05:04] LABS: Magnesium 1.7 mg/dL (1.8-2.4)
[2024-09-02 05:33] LABS: Anion Gap 11.7; BUN Creatinine Ratio 12.3; Calcium 8.5 mg/dL (8.5-10.1); Carbon Dioxide 26.8 mmol/L (21.0-32.0); Chloride 104 mmol/L (98-107); Estimated GFR (African America >60 (>=60 mL/min/1.73m^2); Estimated GFR (Non-African Ame >60 (>=60 mL/min/1.73m^2); Glucose 288 mg/dL (74-106); Potassium 4.5 mmol/L (3.5-5.1); Sodium 138 mmol/L (136-145)
[2024-09-02 05:35] LABS: Creatine Kinase MB 2.29 ng/mL (<=3.60); Myoglobin 46 ng/mL (9-82)
[2024-09-02 05:36] LABS: Prothrombin Time 45.4 sec (9.0-11.6)
[2024-09-02 05:37] LABS: Creatine Kinase 397 U/L (26-192); INR 5.03; Troponin I High Sensitivity 173.4 pg/mL (4.0-51.3)
--- OUTSIDE RECORDS SUMMARY | 2024-09-02 06:03 | XMS_ITS | CCD ---
Author Organization [facility] Care Team Providers Care Life Support Technician Name Role Phone SONNY ZAID Unavailable Unavailable KUNAL PATEL Unavailable Unavailable ELTAHAWY, EHAB A Attending Unavailable ELTAHAWY, EHAB A Admitting Unavailable SELF, REFERRED Referring Unavailable KUNAL PATEL Primary Care Unavailable Kunal Patel MD Primary Care Provider [phone] ANNABEL LIMA Admitting Unavailable ANNABEL LIMA Attending Unavailable KUNAL PATEL Primary Care Unavailable JASON ANDREWSA Admitting Unavailable GARTH ANDREWS Consulting Unavailable GARTH ANDREWS Attending Unavailable LEIGHTON ., DR SYED Primary Care Unavailable RAI JAY Admitting Unavailable RAI JAY Attending Unavailable JOANNAY ., DR SYED Primary Care Unavailable DELIA COKER Admitting Unavailable DELIA COKER Consulting Unavailable EDLIA COKER Attending Unavailable LEIGHTON ., DR SYED [...] Translations: [OXYCODONE-ACETAMI NOPHEN] Drug Allergy 08-19-2013 [facility] Repository (3 sources) Acetaminophen / [...] disease (1 source) Atherosclerotic heart disease of [place] coronary artery without angina pectoris; Translations: [ASHD [...] 12-21-2021 Episodic Other aftercare (1 source) senior living (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; Translations: [RETIREMENT CURRENT USE OF ASPIRIN] Onset: 12-21-2021 Episodic Other aftercare (1 source) Other assisted (current) drug therapy; Translations: [OTH RETIREMENT CURRENT [...] months, Oct, 2024. *I ordered an ECHO. [facility] should call you to schedule. *If chest pain does not improve, let us know and we can proceed with a stress test. Normal [facility] Office Visiton 08-20-2024 Follow-up visit [id number] Carina Barth 1960 F Date Provider Department Center 08/20/2024 166-GARTH ANDREWS [facility] Family History Problem Relation Age of Onset Heart failure Mother Hyperlipidemia Mother Hypertension Mother Heart failure Father Hypertension Father Heart failure Brother Hyperlipidemia Brother Hypertension Brother Family Status - Relation Status Age at Mother Father Brother Level of Service:26066 [place] OFFICE/OUTPATIENT ESTABLISHED MOD MDM 30 MIN Reason for Visit and Comments: Atrial Fibrillation [80] Atrial Flutter [101] Coronary Artery Disease [187] Hypertension [586639] Normal [facility] Telephoneon 10-18-2023 Telephone [id number] Carina Barth 1960 F Date Provider Department Center 10/18/20231986-PATO CORONADO [facility] Family History Problem Relation Age of Onset Heart failure Mother Hyperlipidemia Mother Hypertension Mother Heart failure Father Hypertension Father Heart failure Brother Hyperlipidemia Brother Hypertension Brother Family Status - Relation Status Age at Mother Father Brother Reason for Visit and Comments: 3 week f/u post ablation [Other] Normal [facility] Telephoneon 10-05-2023 Telephone [id number] Carina Barth A 1960 F Date Provider Department [facility] [place] [facility] Family History Problem Relation Age of Onset Heart failure Mother Hyperlipidemia Mother Hypertension Mother Heart failure Father Hypertension Father Heart failure Brother Hyperlipidemia Brother Hypertension Brother Family Status - Relation Status Age at Mother Father Brother Reason for Visit and Comments: week f/u post ablation [Other] Normal [facility] Telephoneon 10-04-2023 Telephone [id number] Carina Barth A 1960 F Date Provider Department Center 10/04/20231986-PATO CORONADO [facility] [place] [facility] Family History Problem Relation Age of Onset Heart failure Mother Hyperlipidemia Mother Hypertension Mother Heart failure Father Hypertension Father Heart failure Brother Hyperlipidemia Brother Hypertension Brother Family Status - Relation Status Age at Mother Father Brother Reason for Visit and Comments: post ablation f/u [Other] [facility] Elect[facility] Reason for Consultation: Aflutter s/p [...] 07/2022, atrial fib (was intolerant of amiodarone) [id number] at least 5 for gender, hypertension, TIA, [...] hx TIA 2008. She was seen at [facility] ER with c/o palpitations and chest pain [...] on file Intimate Partner Violence: Unknown (08/09/2023) [place] Safety & Environment Fear of Current or [...] 09-26-2023 Glucose [Mass/Vol] 173 mg/dL High 70-105 [facility] Comment on above: Order Comment: Waive d Testing in the ED is performed under the ED CLIA certificate #[id number]. Result Comment: dspe ars Performed By: #### L [id number] ####[facility] (BEAKER)[address] [place] [address] Glucose [Mass/Vol] 164 mg/dL High 70-105 [facility] Comment on above: Order Comment: Waive d Testing in the ED is performed under the ED CLIA certificate #[id number]. Result Comment: eyou ng12 Performed By: #### L [id number] ####[facility] ([facility])[address] [place] [address] PROTIME-INRon 09-26-2023 INR IN PPP BY COAGULATION [...] CHEST 1995;108:[id number]. Performed By: #### L [id number] ####[facility] ([facility])[address] [place] [address] PROTHROMBIN TIME (PT) IN PPP BY COAGULATION ASSAY 13.3 Seconds Normal 12.3-14.8 [facility] Comment on above: Performed By: #### L [id number] ####[facility] ([facility]ER)[address] [place] [address] Prep for Procedureon 024 Prep for Procedure [id number] Carina Barth 1960 F Date Provider Department Center 09/26/20231986-PATO CORONADO [facility] [place] [facility] Family History Problem Relation Age of Onset Heart failure Mother Hyperlipidemia Mother Hypertension Mother Heart failure Father Hypertension Father Heart failure Brother Hyperlipidemia Brother Hypertension Brother Family Status - Relation Status Age at Mother Father Brother Normal [facility] [id number] 09-18-2023 [id number] ARRIVAL TIME 0700 HOLD ELIQUIS 4/8 MULTI [...] THE FOLLOWING ARE NOT AVAILABLE: 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 Notify your surgeon if you develop any illness such as a cold, cough, fever, sore throat or vomiting between now and your surgery. Thank you for entrusting us with your care. [facility] Surgical Services Team Normal [facility] Office Visiton 09-18-2023 Follow-up visit [id number] Carina Barth 1960 Provider Department Center 09/18/2023 Caitlyn-RAI JAY [facility] Family History Problem Relation Age of Onset Heart failure Mother Hyperlipidemia Mother Hypertension Mother Heart failure Father Hypertension Father Heart failure Brother Hyperlipidemia Brother Hypertension Brother Family Status - Relation Status Age at Mother Father Brother Level of Service:62314 [place] OFFICE/OUTPATIENT ESTABLISHED HIGH MDM 40 MIN Reason for Visit and Comments: Follow-up [574622] Normal [facility] Prep for Procedureon 024 Prep for Procedure [id number] Carina Barth 1960 Provider Department Center 09/05/2023 Jeremías-PATO CORONADO [facility] [place] [facility] Family History Problem Relation Age of Onset Heart failure Mother Hyperlipidemia Mother Hypertension Mother Heart failure Father Hypertension Father Heart failure Brother Hyperlipidemia Brother Hypertension Brother Family Status - Relation Status Age at Mother Father Brother Normal [facility] BNPon 07-24-2022 Natriuretic peptide B (Bld) [Mass/Vol] 109.0 pg/mL Normal <=900.0 [facility] Comment on above: Performed By: #### C MP, T7, BNP, LIPID, TSH #### [facility] [address] [place] [address] Dr. Yuliya Jones CBC AUTO DIFFon 07-24-2022 BASO # 0.0 103/ul Normal 0.0-0.1 [facility] Comment on above: Performed By: #### C BC #### [facility] [address] [place] [address] Dr. Yuliya Jones Basophils/100 WBC (Bld) 0.4 % Normal 0.2-2.0 [facility] Comment on above: Performed By: #### C BC #### [facility] [address] [place] [address] Dr. Yuliya Jones EO # 0.2 103/ul Normal 0.0-0.7 [facility] Comment on above: Performed By: #### C BC #### [facility] [address] [place] [address] Dr. Yuliya Jones Eosinophils/100 WBC (Bld) 2.2 % Normal 0.9-7.0 [facility] Comment on above: Performed By: #### C BC #### [facility] [address] [place] [address] Dr. Yuliya Jones Erythrocyte distribution width (RBC) [Ratio] 13.6 % Normal 11.0-15.0 [facility] Comment on above: Performed By: #### C BC #### [facility] [address] [place] [address] Dr. Yuliya Jones Hematocrit (Bld) [Volume fraction] 40.1 % Normal 36.0-48.0 [facility] Comment on above: Performed By: #### C BC #### [facility] [address] [place] [address] Dr. Yuliya Jones Hemoglobin (Bld) [Mass/Vol] 13.1 g/dL Normal 12.0-16.0 [facility] Comment on above: Performed By: #### C BC #### [facility] [address] [place] [address] Dr. Yuliya Jones IG # 0.05 10e3/ul Critically high 0.00-0.03 [facility] Comment on above: Performed By: #### C BC #### [facility] [address] [place] [address] Dr. Yuliya Jones IG % 0.7 % Critically high 0.0-0.5 [facility] Comment on above: Performed By: #### C BC #### [facility] [address] [place] [address] Dr. Yuliya Jones LYMPH # 2.0 103/ul Normal 1.2-3.8 [facility] Comment on above: Performed By: #### C BC #### [facility] [address] [place] [address] Dr. Yuliya Jones Lymphocytes/100 WBC (Bld) 26.9 % Normal 20.5-60.0 [facility] Comment on above: Performed By: #### C BC #### [facility] [address] [place] [address] Dr. Yuliya Jones MANUAL DIFF REQ NO Normal [facility] Comment on above: Performed By: #### C BC #### [facility] [address] [place] [address] Dr. Yuliya Jones MCH (RBC) [Entitic mass] 28.5 pg Normal 26.7-34.0 [facility] Comment on above: Performed By: #### C BC #### [facility] [address] [place] [address] Dr. Yuliya Jones MCHC (RBC) [Mass/Vol] 32.7 g/dL Normal 29.9-35.2 [facility] Comment on above: Performed By: #### C BC #### [facility] [address] [place] [address] Dr. Yuliya Jones MCV (RBC) [Entitic vol] 87.4 fL Normal 81.0-99.0 [facility] Comment on above: Performed By: #### C BC #### [facility] [address] [place] [address] Dr. Yuliya Jones MONO # 0.4 103/ul Normal 0.3-0.8 [facility] Comment on above: Performed By: #### C BC #### [facility] [address] [place] [address] Dr. Yuliya Jones Monocytes/100 WBC (Bld) 5.1 % Normal 1.7-12.0 [facility] Comment on above: Performed By: #### C BC #### [facility] [address] [place] [address] Dr. Yuliya Jones NEUT # 4.8 103/ul Normal 1.4-6.5 [facility] Comment on above: Performed By: #### C BC #### [facility] [address] [place] [address] Dr. Yuliya Jones Neutrophils/100 WBC (Bld) 64.7 % Normal 43.0-75.0 [facility] Comment on above: Performed By: #### C BC #### [facility] [address] [place] [address] Dr. Yuliya Jones Platelet mean volume (Bld) [Entitic vol] 10.3 fL Normal 9.5-13.5 [facility] Comment on above: Performed By: #### C BC #### [facility] [address] [place] [address] Dr. Yuliya Jones PLT 244 103/ul Normal 150-450 [facility] Comment on above: Performed By: #### C BC #### [facility] [address] [place] [address] Dr. Yuliya Jones RBC 4.59 106/ul Normal 4.20-5.40 [facility] Comment on above: Performed By: #### C BC #### [facility] [address] [place] [address] Dr. Yuliya Jones WBC 7.4 103/ul Normal 4.0-11.0 [facility] Comment on above: Performed By: #### C BC #### [facility] [address] [address] [address] Yuliya Jones FREE THYROXINE INDEX T7on FTI 2.66 Normal 1.30-4.50 [facility] Comment on above: Performed By: #### C MP, T7, BNP, LIPID, TSH #### [facility] [address] [address] [address] Yuliya Jones T3U 35.0 % Normal 30.0-39.0 [facility] Comment on above: Performed By: #### C MP, T7, BNP, LIPID, TSH #### [facility] [address] [address] [address] Yuliya Jones T4 [Mass/Vol] 7.60 ug/dL Normal 4.80-13.90 [facility] Comment on above: Performed By: #### C MP, T7, BNP, LIPID, TSH #### [facility] [address] [address] [address] Yuliya Jones GLYCOHEMOGLOBIN A1Con 2022 ADA RECOMMENDATION SEE BELOW Normal [facility] Comment on above: Result Comment: ADA RECOMMENDED LIMIT 4.0 - 6.0 ADA THERAPEUTIC TARGET < 7.0 ACTION SUGGESTED > 7.0 Performed By: #### A 1C ####[facility] [address] [address]DrMinisterio Jones Glucose [Mass/Vol] 146 mg/dL Normal [facility] Comment on above: Performed By: #### A 1C ####[facility] [address] [address]DrMinisterio Jones HbA1c (Bld) [Mass fraction] 6.7 % Critically high 4.5-6.2 [facility] Comment on above: Performed By: #### A 1C ####[facility] [address] [address]Dr. Yuliya Jones IRONon 07-24-2022 Iron [Mass/Vol] 74.0 ug/dL Normal 50.0-170.0 [facility] Comment on above: Performed By: #### I LUDWIN, VITB12, VITAD #### [facility] [address] [place] [address] Dr. Yuliya Jones LIPID PROFILEon 07-24-2022 CHOL-HDL RATIO NORM SEE BELOW Normal [facility] Comment on above: Result Comment: 3.3 - 4.4 LOW RISK 4.4 - 7.1 AVERAGE RISK 7.1 - 11.0 MODERATE RISK >11.0 HIGH RISK Performed By: #### C MP, T7, BNP, LIPID, TSH #### [facility] [address] [address] [address] Yuliya Jones Cholesterol [Mass/Vol] 215 mg/dL Critically high <=200 [facility] Comment on above: Performed By: #### C MP, T7, BNP, LIPID, TSH #### [facility] [address] [place] [address] Dr. Yuliya Jones Cholesterol in HDL [Mass/Vol] 46 mg/dL Normal 40-60 [facility] Comment on above: Performed By: #### C MP, T7, BNP, LIPID, TSH #### [facility] [address] [place] [address] Dr. Yuliya Jones Cholesterol in LDL [Mass/Vol] 120.6 mg/dL Normal [facility] Comment on above: Performed By: #### C MP, T7, BNP, LIPID, TSH #### [facility] [address] [place] [address] Dr. Yuliya Jones Cholesterol.total/ Cholesterol in HDL [Mass ratio] 4.7 {ratio} Normal [facility] Comment on above: Performed By: #### C MP, T7, BNP, LIPID, TSH #### [facility] [address] [place] [address] Dr. Yuliya Jones HDL NORMAL > or = 60 mg/dl - LO W CARDIOVASCULAR RISK <40 mg/dl - HIGH CARDIOVASCULAR RISK Normal [facility] Comment on above: Performed By: #### C MP, T7, BNP, LIPID, TSH #### [facility] [address] [place] [address] Dr. Yuliya Jones LDL CALC NORMAL SEE BELOW Normal [facility] Comment on above: Result Comment: <100 mg/dl OPTIMAL 100 - 129 mg/dl NEAR OR ABOVE OPTIMAL 130 - 159 mg/dl BORDERLINE HIGH 160 - 189 mg/dl HIGH >190 mg/dl VERY HIGH Performed By: #### C MP, T7, BNP, LIPID, TSH #### [facility] [address] [address] [address] Yuliya Jones Triglyceride [Mass/Vol] 242 mg/dL Critically high <=150 [facility] Comment on above: Performed By: #### C MP, T7, BNP, LIPID, TSH #### [facility] [address] [address] [address] Yuliya Jones VLDL CALC 48.4 mg/dL Normal [facility] Comment on above: Performed By: #### C MP, T7, BNP, LIPID, TSH #### [facility] [address] [address] [address] Yuliya Jones PROF 14(COMP METB)on 023 Albumin [Mass/Vol] 3.3 g/dL Critically low 3.4-5.0 [facility] Comment on above: Performed By: #### C MP, T7, BNP, LIPID, TSH #### [facility] [address] [address] [address] Yuliya Jones Albumin/Globulin [Mass ratio] 0.8 {ratio} Normal [facility] Comment on above: Performed By: #### C MP, T7, BNP, LIPID, TSH #### [facility] [address] [address] [address] Yuliya Jones ALP [Catalytic activity/Vol] 148 U/L Critically high 46-116 [facility] Comment on above: Performed By: #### C MP, T7, BNP, LIPID, TSH #### [facility] [address] [address] [address] Yuliya Jones ALT [Catalytic activity/Vol] 49 U/L Normal 14-59 [facility] Comment on above: Performed By: #### C MP, T7, BNP, LIPID, TSH #### [facility] [address] [address] [address] Yuliya Jones Anion gap [Moles/Vol] 11.6 mmol/L Normal [facility] Comment on above: Performed By: #### C MP, T7, BNP, LIPID, TSH #### [facility] [address] [place] [address] Dr. Yuliya Jones AST [Catalytic activity/Vol] 26 U/L Normal 15-37 [facility] Comment on above: Performed By: #### C MP, T7, BNP, LIPID, TSH #### [facility] [address] [place] [address] Dr. Yuliya Jones Bilirubin [Mass/Vol] 0.8 mg/dL Normal 0.2-1.0 [facility] Comment on above: Performed By: #### C MP, T7, BNP, LIPID, TSH #### [facility] [address] [place] [address] Dr. Yuliya Jones Calcium [Mass/Vol] 9.0 mg/dL Normal 8.5-10.1 [facility] Comment on above: Performed By: #### C MP, T7, BNP, LIPID, TSH #### [facility] [address] [place] [address] Dr. Yuliya Jones Chloride [Moles/Vol] 102 mmol/L Normal 98-107 [facility] Comment on above: Performed By: #### C MP, T7, BNP, LIPID, TSH #### [facility] [address] [place] [address] Dr. Yuliya Jones CO2 [Moles/Vol] 29.1 mmol/L Normal 21.0-32.0 [facility] Comment on above: Performed By: #### C MP, T7, BNP, LIPID, TSH #### [facility] [address] [place] [address] Dr. Yuliya Jones Creatinine [Mass/Vol] 0.69 mg/dL Normal 0.55-1.02 [facility] Comment on above: Performed By: #### C MP, T7, BNP, LIPID, TSH #### [facility] [address] [place] [address] Dr. Yuliya Jones EGFR-AF BURKINAN >60 Normal >=60 [facility] Comment on above: Performed By: #### C MP, T7, BNP, LIPID, TSH #### [facility] [address] [place] [address] Dr. Yuliya Jones EGFR-NON AF BUR[place]INAN >60 Normal >=60 [facility] Comment on above: Performed By: #### C MP, T7, BNP, LIPID, TSH #### [facility] [address] [address] [address] Yuliya Jones Globulin (S) [Mass/Vol] 4.1 g/dL Normal [facility] Comment on above: Performed By: #### C MP, T7, BNP, LIPID, TSH #### [facility] [address] [place] [address] Dr. Yuliya Jones Glucose [Mass/Vol] 151 mg/dL Critically high 74-106 T [facility] Comment on above: Performed By: #### C MP, T7, BNP, LIPID, TSH #### [facility] [address] [place] [address] Dr. Yuliya Jones Potassium [Moles/Vol] 3.7 mmol/L Normal 3.5-5.1 [facility] Comment on above: Performed By: #### C MP, T7, BNP, LIPID, TSH #### [facility] [address] [place] [address] Dr. Yuliya Jones Protein [Mass/Vol] 7.4 g/dL Normal 6.4-8.2 [facility] Comment on above: Performed By: #### C MP, T7, BNP, LIPID, TSH #### [facility] [address] [place] [address] Dr. Yuliya Jones Sodium [Moles/Vol] 139 mmol/L Normal 136-145 [facility] Comment on above: Performed By: #### C MP, T7, BNP, LIPID, TSH #### [facility] [address] [place] [address] Dr. Yuliya Jones Urea nitrogen [Mass/Vol] 8.0 mg/dL Normal 7.0-18.0 [facility] Comment on above: Performed By: #### C MP, T7, BNP, LIPID, TSH #### [facility] [address] [place] [address] Dr. Yuliya Jones Urea nitrogen/Creatinin e [Mass ratio] 11.6 mg/mg Normal [facility] Comment on above: Performed By: #### C MP, T7, BNP, LIPID, TSH #### [facility] [address] [address] [address] Yuliya Jones TSHon 07-24-2022 TSH 1.903 uIU/mL Normal 0.358-3.740 [facility] Comment on above: Performed By: #### C MP, T7, BNP, LIPID, TSH #### [facility] [address] [address] [address] Yuliya Jones VITAMIN B12on 07-24-2022 Cobalamin (Vitamin B12) [Mass/Vol] 1085.0 pg/mL Critically high 193.0-986.0 [facility] Comment on above: Performed By: #### I LUDWIN VITB12, VITAD ####[facility] [address] [place], [place] [address]Dr. Yuliya Jones VITAMIN D 25 OHon 07-24-2022 VIT D 25-OH 36.8 ng/mL Normal [facility] Comment on above: Performed By: #### I LUDWIN VITB12, VITAD ####[facility] [address] [address]DrMinisterio Jones VIT D RANGES SEE BELOW Normal [facility] Comment on above: Result Comment: <20 ng/mL Vit D deficient 20 - <30 ng/mL Vit D insufficient 30 - 100 ng/mL Vit D sufficient >100 ng/mL Potential Toxicity Performed By: #### I LUDWIN VITB12, VITAD ####[facility] [address] [address]DrMinisterio Jones GLYCOHEMOGLOBIN A1Con 2021 ADA RECOMMENDATION SEE BELOW Normal [facility] Comment on above: Result Comment: ADA RECOMMENDED LIMIT 4.0 - 6.0 ADA THERAPEUTIC TARGET < 7.0 ACTION SUGGESTED > 7.0 Performed By: #### A 1C ####[facility] [address] [place], [place] [address]Dr. Yuliya Jones Glucose [Mass/Vol] 140 mg/dL Normal [facility] Comment on above: Performed By: #### A 1C ####[facility] [address] [place], [place] [address]XzDr. Yuliya Jones HbA1c (Bld) [Mass fraction] 6.5 % Critically high 4.5-6.2 [facility] Comment on above: Performed By: #### A 1C ####[facility] [address] [address]Dr. Yuliya Jones LIPID PROFILEon 03-07-2022 CHOL-HDL RATIO NORM SEE BELOW Normal [facility] Comment on above: Result Comment: 3.3 - 4.4 LOW RISK 4.4 - 7.1 AVERAGE RISK 7.1 - 11.0 MODERATE RISK >11.0 HIGH RISK Performed By: #### L IPID #### [facility] [address] [place] [address] Dr. Yuliya Jones Cholesterol [Mass/Vol] 215 mg/dL Critically high <=200 [facility] Comment on above: Performed By: #### L IPID #### [facility] [address] [address] [address] Yuliya Jones Cholesterol in HDL [Mass/Vol] 42 mg/dL Normal 40-60 [facility] Comment on above: Performed By: #### L IPID #### [facility] [address] [address] [address] Yuliya Jones Cholesterol in LDL [Mass/Vol] 118.4 mg/dL Normal [facility] Comment on above: Performed By: #### L IPID #### [facility] [address] [address] [address] Yuliya Jones Cholesterol.total/ Cholesterol in HDL [Mass ratio] 5.1 {ratio} Normal [facility] [facility] Comment on above: Performed By: #### L IPID #### [facility] [address] [address] [address] Yuliya Jones HDL NORMAL > or = 60 mg/dl - LO W CARDIOVASCULAR RISK <40 mg/dl - HIGH CARDIOVASCULAR RISK Normal [facility] Comment on above: Performed By: #### L IPID #### [facility] [address] [address] [address] Yuliya Jones LDL CALC NORMAL SEE BELOW Normal [facility] Comment on above: Result Comment: <100 mg/dl OPTIMAL 100 - 129 mg/dl NEAR OR ABOVE OPTIMAL 130 - 159 mg/dl BORDERLINE HIGH 160 - 189 mg/dl HIGH >190 mg/dl VERY HIGH Performed By: #### L IPID #### [facility] [address] [place] [address] Dr. Yuliya Jones Triglyceride [Mass/Vol] 273 mg/dL Critically high <=150 [facility] Comment on above: Performed By: #### L IPID #### [facility] [address] [place] [address] Dr. Yuliya Jones VLDL CALC 54.6 mg/dL Normal [facility] Comment on above: Performed By: #### L IPID #### [facility] [address] [place] [address] Dr. Yuliya Jones XR ANKLE RT MIN [...] RORO BARKLEY Date: 2021-12-18 07:50 Normal [facility] FLUORO FOR SURGICAL PROCEDUR ESon 10-25-2021 FLUORO FOR SURGICAL PROCEDURES Radiology exam is complete. No Radiologist dictation. Please follow up with ordering provider. Final result Normal [facility] Radiology exam is complete. No Radiologist dictation. Please follow up with ordering provider. [facility] RIS CONSOLIDATED Cardiovascular Lab Reporton 07-22-2020 Cardiovascular Lab Report [facility] Patient Name: [facility] Amparo Moraes MR #: [id number] Department of Physician: Manish Ratliff Medicine [place] Division of Service Date: 07/22/2020 Cardiology Birthdate: 1960 Adult Cardiovascular Room #: [facility] [address] [facility]. [place] [address] Cardiovascular Laboratory Report FINAL IMPRESSIONS: 1. Moderate [...] Follow up with Dr. Ratliff in the [place] office in the next 1 to 2 [...] right internal jugular vein was obtained. A 6-Azerbaijani x 11 cm sheath was inserted without [...] to access the left radial artery. A 6-Azerbaijani glide sheath was inserted without difficulty. Bilateral [...] Ratliff M.D. Date Trans: 07/22/2020 02:58 P/mmo [id number] cc: Kunal Patel M.D. [address], [place] [address] Normal [facility] Physician Referralon 021 Physician Referral [phone] [id number]: 127 Normal [facility] CNOVon 06-24-2018 CNOV Office Visit (LIVIA) AMPARO BARTH ([id number]) 1960 FDate Time Provider Department06/24/18 9:00 AM [...] MD 06/24/2018 10:11 AM SignedName: Amparo BarthMRN: [id number]: June 24, 2018Patient seen and examined in [...] Chito Antonio, TERRYGY-6 FellowReferring Provider: KUNAL PATEL [[id number]]Allergies As of Date: 06/24/2018 Noted Allergy ReactionPERCOCET [...] noncompliance [Z91.11] INVALID FOR*Visit Notes:>> Zafar Antonino [facility] Jun 24, 2018 9:25 AM Status: SignedWhat is the reason for your visit today? ConsultWho is your referring physician? Dr Kunal Zimmer you having poor oral intake? NOHave you had unintentional weight loss of 15 lbs/7 Kg in the last 3-6months? NOBowels: regularWound: clean AND dryTemperature: NoDrains: NoEncounter Number: [id number] Status:Closed by ZAID DENNIS MD on 06/24/18 Normal [facility] HISTORY PHYSICALon 9 HISTORY PHYSICAL HNO ID: [id number]: Chito (Ronn) Jt: (none)Author Type: FellowType: HANDPFiled: 06/24/2018 10:11 AMNote Text:Name: Amparo BarthMRN: [id number]: June 24, 2018Patient seen and examined in [...] this visit. Chito Antonio, TERRYGY-6 Fellow Normal [facility] PROGRESSon 06-24-2018 Protein mass conc HNO ID: [id number]: Zaid Baptiste: (none)Author Type: PhysicianType: Progress NotesFiled: [...] need anopen repair with retro-muscular mesh. Normal [facility] SR-CT ABD/PELVIS W CON IMPOR Ton 12-03-2017 SR-CT ABD/PELVIS W CON IMPORT Images were obtained outside of [facility] [id number] Normal [facility] Vital Signs Date Time Vital Sign Value Performing Clinician Faci lity 10-25-2021 14:26-0400 Diastolic blood pressure 138 mm[Hg] Annabel Lima MD Work Phone: [facility] 10-25-2021 14:26-0400 Systolic blood pressure 239 mm[Hg] Annabel Lima MD Work Phone: [facility] 10-25-2021 13:53-0400 Body temperature 97.81 [degF] Annabel Lima MD Work Phone: [facility] 10-25-2021 13:53-0400 Heart rate 62 /min Annabel Lima MD Work Phone: [facility] 10-25-2021 13:53-0400 Respiratory rate 18 /min Annabel Lima MD Work Phone: [facility] 10-25-2021 13:53-0400 SaO2% (BldA) [Mass fraction] 96 % Annabel Lima MD Work Phone: [facility] 10-13-2021 08:17-0400 Body height 165.1 cm Annabel Lima MD Work Phone: [facility] Encounters Encounter Date Encounter Type Care Provider Facility Start: 08-20-2024 End: 08-20-2024 ambulatory GARTH [facility] Start: 04-04-2024 End: 04-04-2024 ambulatory Antoine Peoples MD Facility:[facility] Start: 04-02-2024 ambulatory [facility] Start: 03-19-2024 ambulatory [facility] Start: 02-08-2024 ambulatory [facility] Start: 01-21-2024 ambulatory [facility] Start: 01-15-2024 End: 01-15-2024 ambulatory EMILY LUZ Not Available Start: 12-05-2023 ambulatory [facility] Start: 09-26-2023 ambulatory [facility] Start: 09-26-2023 End: 09-26-2023 ambulatory [facility] Start: 09-18-2023 End: 09-18-2023 ambulatory [facility] Start: 07-24-2022 End: 07-25-[address] KUNAL PATEL . Facility: Start: 03-28-2022 ambulatory GARTH ANDREWS Facility :[facility] Start: 03-08-2022 Encounter for genera l adult medical examination without abnormal findings GARTH ANDREWS [facility] Start: 03-07-2022 End: 03-08-2022 ambulatory GARTH ANDREWS Facility:[facility] Start: 03-07-2022 End: 03-08-2022 Encounter for general adult medical examination without abnormal findings GARTH ANDREWS Facility:[facility] Start: 12-18-2021 End: 12-18-2021 ambulatory DELIA COKER Facility: Start: 10-25-2021 End: 10-25-2021 ambulatory ANNABEL LIMA [facility] Start: 10-25-2021 End: 10-25-2021 Subsequent hospital visit by physician Annabel Lima MD Work Phone: [facility] Start: 07-22-2020 End: 07-23-2020 Patient encounter procedure REINAAB Aleisha RATLIFF Facility:[facility] Start: 06-24-2018 Patient encounter procedure ZAID DENNIS [facility] Procedures Date Procedure Procedure Detail Performing Clinician Start: 10-25-2021 Fluoroscopy during operation Annabel Lima MD Work Phone: Plan of Treatment Date Care Activity Detail Author Start: 02-16-2022 Influenza vaccination Flu vacc ine (Season Ended) [facility] Start: 10-25-2021 End: 10-25-2021 Njx dx/ther sbst intrlmnr lmbr/sac w/img gdn EPIDURAL STEROID INJECTION LUMBAR SACRAL RAD LUMBAR RAD 10/25/2021 2:21 PM EDT [facility] Start: 2008 Screening for malign ant neoplasm of breast Breast cancer screen [facility] Start: 2008 Shingles vaccine (1 of 2) Shingles vaccine (1 of 2) [facility] Start: 2003 Screening for malign ant neoplasm of colon [facility] Start: 1988 Screening for malign ant neoplasm of cervix [facility] Start: 1979 Screening for malign ant neoplasm of cervix Pap smear [facility] Start: 1977 DTaP/Tdap/Td vaccine (1 - Tdap) DTaP/Tdap/Td vaccine (1 - Tdap) [facility] Start: 1976 Creatinine measurement Creatinine [facility] Start: 1976 Hepatitis C screening Hepatitis C sc reen [facility] Start: 1976 Potassium [Moles/vol ume] in Serum or Plasma Potassium [facility] Start: 1973 HIV screening HIV screen [facility] Start: 1970 Depression Screen Depression Screen [facility] Start: 1968 Lipid panel Lipids [facility] Start: 1963 COVID-19 Vaccine (1) COVID-19 Vaccin e (1) [facility] Start: 1960 Annual Wellness Visi t (AWV) Annual Wellness Visit (AWV) [facility] Payers Date Payer Category Payer Medicare [id number] 2023 Private Health Insurance 2023 Medicare [id number] 1961 Medicaid [id number] 1961 Medicare [id number] 1961 Self-pay [id number] 1960 Unknown [id number] 2.16.8 [id number] 1960 Unknown [id number] 2.16.8 [id number] 1960 Unknown [id number] 2.16.84 [id number] 1960 Unknown [id number] 2.16.84 [id number] 1960 Unknown [id number] 2.16.84 [id number] 1960 Unknown [id number] 2.16.84 [id number] 1960 Unknown [id number] 2.16.84 [id number] 1960 Unknown [id number] 2.16. [id number] Medicare [id number] Social History Date Type Detail Facility [facility]: [facility] [employer] Start: 10-13-2021 Tobacco use and exposure Smokeless tobacco non-user [employer] Phone: Start: 10-25-2021 Alcohol intake Current drinke r of alcohol (finding) [employer] Phone: Start: 10-13-2021 History SDOH Alcohol Comment socially [employer] Phone: Start: 1960 Sex Assigned At Not on file [facility] Phone: Clinical Notes 10-25-2021 to 08-20-2024 Radha Estevez RN - 10/25/2021 2:41 PM EDTSdilip Estevez RN - 10/25/2021 2:31 PM EDTInstructionsAuth/Cert Note Date & Type Note Facility 08-20-2024 Note Cardiovascular Medic [facility] SUBJECTIVE Chief Complaint Patient presents [...] ablation in September 2023. She presented to [facility] ED last week for chest pain. Patient [...] MOUTH EVERY D (more content not included)... [facility] 08-20-2024 Note Patient here for 1 y ear follow up PAF. She hasn't been seen since afib ablation in September 2023. She presented to [facility] last week for chest pain. Patient [...] reviewed and are negative. [facility] 09-26-2023 Note Patient: Amparo evangelista Procedure Summary Date: 09/26/23 Room / Location: [facility] 1 EP / [facility] (Cath) Anesthesia [...] PROCEDURE: 09/26/2023 PERFORMING PHYSICIAN: Dr. Rai Jay INSURANCE ACCOUNT SPECIALIST: SAJI CONSENT: Patient NAME OF THE PROCEDURE: [...] 1 % SubQ, 0.5 mL Staffing Performed: resident/LOCATE TECHNICIAN/CAA Anesthesiologist: Damion Coronado MD Resident/LOCATE TECHNICIAN: Tameka Westbrook MD Performed by: Tameka Westbrook MD Authorized by: Damion Coronado MD [facility] 09-26-2023 Note Airway Date/Time: 09/26/2023 8:53 AM Urgency: elective Airway not difficult General Information and Staff Patient location during procedure: [place] Anesthesiologist: Damion Coronado MD Resident/LOCATE TECHNICIAN/CAA: Tameka Westbrook MD Performed: resident/LOCATE TECHNICIAN/CAA Indications and Patient Condition Indications for airway [...] 09/26/23 0830 Procedure: Ablation a-fib paroxysmal Location: [facility] / [facility] (Cath) Providers: [...] Equipment Requests [facility] 09-18-2023 Note [place] Electrophysiology Note [facility] Reason for Consultation: Aflutter s/p [...] 07/2022, atrial fib (was intolerant of amiodarone) [id number] at least 5 for gender, hypertension, TIA, [...] hx TIA 2008. She was seen at [facility] ER with c/o palpitations and chest pain [...] on file Intimate Partner Violence: Unknown (08/09/2023) [place] Safety & Environment Fear of Current or [...] on elevated pressure. documented in this encounter [employer] Phone: 10-25-2021 Hospital Discharge instructions Radha Estevez [...] a follow-up visit. documented in this encounter [employer] Phone: Reason for visit Narrative Specialty Diagnoses / Procedures Referred By Contac t Referred To Contact Diagnoses LUMBAR SACRAL RAD LUMBAR RAD Procedures GA NJX DX/THER SBST INTRLMNR LMBR/SAC W/IMG GDN EPIDURAL STEROID INJECTION- L4-5 Annaebl Lima MD [address] [place] [address] [employer] [address] [place] [address] Referral ID Status Reason Start Date Expiration Date Visits Re quested Visits Authorized 1 1 [employer] Phone: Summary Purpose Family History No Family [...] section and content) DATE CREATED AUTHOR 06/26/2018 [facility] DATE CREATED AUTHOR AUTHOR'S ORGANIZ ATION [facility]/13/[facility] DATE CREATED AUTHOR AUTHOR'S ORGANIZ ATION 08/05/2020 [facility] DATE CREATED AUTHOR AUTHOR'S ORGANIZ ATION 10/26/2021 [facility] DATE CREATED AUTHOR AUTHOR'S ORGANIZ ATION 09/29/2022 [facility] DATE CREATED AUTHOR AUTHOR'S ORGANIZ ATION 01/18/2024 [facility] DATE CREATED AUTHOR AUTHOR'S ORGANIZ ATION 04/10/2024 [facility] DATE CREATED AUTHOR AUTHOR'S ORGANIZ ATION 08/22/2024 [facility] PRN Active and Recently Administ ered [...] Care Teams (unrecognized sec tion and content) Life Support Technician Relationship Specialty Start Date End Date Kunal Patel MD [address] [place] [address] PCP - General Family Medicine 10/24/21 FOR [...] BE BASED ON THE PRIMARY CLINICAL RECORDS. [facility] [employer] [facility]. provides no warranty or guarantee of the accuracy or completeness of information in this document.
[2024-09-02] MEDS: CLONIDINE HCL 0.1 MG TABLET PO ×2 (06:16→17:30)
[2024-09-02] MEDS: PANTOPRAZOLE SODIUM 40 MG TABLET.DR PO (06:17)
[2024-09-02] MEDS: PIPERACILLIN SODIUM/TAZOBACTAM 3.375 GM in 0.9 % SODIUM CHLORIDE 50 ML IV ×2 (06:17→15:10)
--- NOTE | 2024-09-02 07:00 | P.PN_ITS ---
Progress Note: Subjective Subjective Interval history: Feels better today, able to be weaned off of supplemental oxygen Exam Constitutional Vital Signs, click to edit/add: Last Vital Signs Temp 98.6 F 09/02/24 06:00 Pulse 57 L 09/02/24 06:00 Resp 18 09/02/24 06:00 BP 167/86 H 09/02/24 06:16 Pulse Ox 94 L 09/02/24 06:00 O2 Del Method Room Air 09/02/24 06:00 O2 Flow Rate 1 09/02/24 04:23 Documenting provider has reviewed patient's vital signs: yes Common normals: no apparent distress Respiratory Common normals: normal respiratory effort and no retractions Auscultation: rhonchi (Minimal, improved) Cardio Common normals: regular rate, regular rhythm and no murmurs Extremity Common normals: normal to inspection, full ROM and no clubbing, cyanosis or edema Progress Note: Objective Labs Labs: Short CBC 09/01/24 09/02/24 Range/Units 13:50 04:45 WBC 3.9 L 3.2 L (4.0-11.0) 10^3/uL Hgb 12.8 13.5 (12.0-16.0) g/dL Hct 37.2 39.8 (36.0-48.0) % Plt Count 122 L 114 L (150-450) 10^3/uL BMP 09/01/24 09/02/24 13:50 04:45 Sodium 138 138 Potassium 3.2 L 4.5 Chloride 102 104 Carbon Dioxide 30.7 26.8 BUN 11.0 10.0 Creatinine 0.87 0.81 Glucose 260 H 288 H Calcium 8.3 L 8.5 Cardiac Enzymes 09/01/24 09/02/24 Range/Units 13:50 04:45 Total Creatine Kinase 525 H* 397 H* (26-192) U/L CK-MB (CK-2) 2.29 (<=3.60) ng/mL Liver Function 09/01/24 Range/Units 13:50 Total Bilirubin 0.9 (0.2-1.0) mg/dL AST 86 H (15-37) U/L ALT 70 H (14-59) U/L Alkaline Phosphatase 125 H (46-116) U/L Albumin 2.8 L (3.4-5.0) g/dL Urine 09/01/24 Range/Units 15:36 Urine Color Yellow (YELLOW) Urine Clarity Clear (CLEAR) Urine pH 5.5 (5.0-9.0) Ur Specific Stebbins >=1.030 A (1.005-1.025) Urine Protein 30 A (NEG/TRACE) mg/dL Urine Glucose (UA) 500 A (NEGATIVE) mg/dL Progress Note: A&P Assessment and Plan (1) Hypoxia: (2) Elevated troponin: (3) URI (upper respiratory infection): (4) Weakness: (5) Hypertension: (6) Afib: Plan Admission findings: Fever, acute hypoxia with O2 sat of less than 89%, initially elevated blood pressure and then hypotension with blood pressure MAP of less than 50, neutropenia, thrombocytopenia, hypokalemia, elevated LFTs, significant elevated high-sensitivity troponin and BNP secondary to acute bronchitis leading to acute NSTEMI type II Acute bronchitis with acute hypoxia with failed outpatient toxktmmlg-yhail-klvxrvxo antibiotics, IV with frequent aerosol treatments and try to obtain sputum culture-improved today, maintain current antibiotics Acute NSTEMI type II secondary to the above-echo and cardiology consult today, plan per cardiology Acute UTI-antibiotics as outlined above void improved, check urine culture tomorrow Atrial fibrillation-INR elevated further today, no signs of bleeding, holding Coumadin today Hypokalemia-resolved Diabetes mellitus-insulin sliding scale Hypertension by history-blood pressure elevated this morning, restart home medications GERD-continue with home medications Peripheral neuropathy continue with home medications Low back pain continue with home medications Elevated liver function test but no abdominal tenderness, consider ultrasound of abdomen tomorrow Admission status: Patient failed outpatient treatment of bronchitis, now leading to acute NSTEMI type II with significant hypoxia, medically necessary treatment will span 2 midnights. Inpatient status, ICU ?
[2024-09-02 07:03] LABS: Alanine Aminotransferase 66 U/L (14-59); Albumin Globulin Ratio 0.8; Albumin Level 2.9 g/dL (3.4-5.0); Alkaline Phosphatase 125 U/L (46-116); Aspartate Amino Transferase 70 U/L (15-37); Bilirubin Direct 0.4 mg/dL (0.0-0.2); Bilirubin Total 0.9 mg/dL (0.2-1.0); Globulin 3.8 g/dL; Total Protein 6.7 g/dL (6.4-8.2)
[2024-09-02 07:11] LABS: Glucometer 309 mg/dL (74-106)
[2024-09-02] MEDS: POTASSIUM CHLORIDE 10 MEQ ER TABLET 20 MEQ PO ×2 (08:09→20:13)
[2024-09-02] MEDS: INSULIN ASPART 300 UNIT/3 ML PEN SUBQ ×4 (08:09→21:14)
[2024-09-02] MEDS: LISINOPRIL 20 MG TABLET PO ×2 (08:09→20:12)
[2024-09-02] MEDS: MAGNESIUM OXIDE 400 MG TABLET PO ×2 (08:10→20:12)
[2024-09-02] MEDS: EZETIMIBE 10 MG TABLET PO (08:10)
[2024-09-02] MEDS: CARVEDILOL 25 MG TABLET PO ×2 (08:10→16:12)
[2024-09-02] MEDS: CELECOXIB 200 MG CAPSULE PO (08:11)
--- NOTE | 2024-09-02 08:12 | CM.NOTE ---
Important Message From Medicare discussed with pt, pt verbalizes understanding and signs paper. Original given to pt and copy placed on pt's chart.
[2024-09-02 11:02] LABS: Glucometer 392 mg/dL (74-106)
[2024-09-02] MEDS: HYDRALAZINE HCL 20 MG/ML VIAL 10 MG IVP (15:18)
[2024-09-02 16:15] LABS: Glucometer 299 mg/dL (74-106)
--- NOTE | 2024-09-02 16:49 | PM.CACN ---
History of Present Illness History of Present Illness Consult date: 09/02/24 Requesting physician: Humble Patel Chief complaint: WEAKNESS, UTI, ELEVATED TROPONIN Narrative: Patient is a 64 y/o F with PMHx a.flutter s/p ablation 2022, a.fib s/p ablation 2022, mild to mod CAD per 2020 cath, pHTN, HTN, diastolic dysfunction and hx of TIA in 2008 who presented to [facility] with c/o weakness. She reports sx's started 5 days ago where she developed significant nausea, fever, sinus congestion and cough. She did not eat or drink much for a few days. She developed significant weakness which is what brought her to the ER. She was found to have a UTI and URI (viral panel was negative for flu or COVID). Cardiology was consulted due to HStroponin elevation. This peaked at 250 and trended down today to 173. NTproBNP was elevated at 1600 yesterday, today it is at 640. She denies any c/o CP during this whole event. Denies worsening SOB. Denies palpitations, LE edema, syncope. She notes today she feels much better. She recieved some IV fluids and antibiotics. She underwent an ECHO today which showed normal pumping function. Review of Systems ROS Status of ROS 10 or more systems reviewed and unremarkable except as noted in history and below Constitutional Reports: fever, fatigue and malaise Respiratory Reports: cough Gastrointestinal Reports: nausea [facility] Medical History (Updated 09/02/24 @ 06:32 by Lily Gan) Abdominal hernia ?K46.9 - Unspecified abdominal hernia without obstruction or gangrene (ICD-10) Sleeping difficulties ?G47.9 - Sleep disorder, unspecified (ICD-10) Sore throat ?J02.9 - Acute pharyngitis, unspecified (ICD-10) History of nocturia ?Z87.898 - Personal history of other specified conditions (ICD-10) Hypertension ?I10 - Essential (primary) hypertension (ICD-10) Afib ?I48.91 - Unspecified atrial fibrillation (ICD-10) Implantable loop recorder present ?Z95.818 - Presence of other cardiac implants and grafts (ICD-10) Surgical History (Updated 09/01/24 @ 20:18 by Lily Gan) History of hysterectomy ?Z90.710 - Acquired absence of both cervix and uterus (ICD-10) Family History (Updated 09/01/24 @ 20:19 by Lily Gan) Brother Family history of CHF (congestive heart failure) Mother Family history of cancer Family history of hypertension Father Family history of hypertension Social History (Updated 09/01/24 @ 20:20 by Lily Gan) Within the past year, how often did you have a drink containing alcohol: never Score interpretation: A score less than 3 is consistent with normal alcohol consumption. Smoking status: Never smoker Non-prescribed substance use: denies use Highest level of school completed/degree received: some college, no degree Are you now , , , , never or living with a partner: don't know Little interest or pleasure in doing things: not at all Feeling down, depressed, or hopeless: not at all Feel stressed/tense/nervous/anxious/difficulty sleeping: not at all Gender Identity: female Meds Home Medications and Allergies Home Medications ?Medication ?Instructions ?Recorded ?Confirmed ?Type atorvastatin 80 mg tablet 80 mg PO .QHS 09/01/24 09/01/24 History carvedilol 25 mg tablet 25 mg PO BID 09/01/24 09/01/24 History celecoxib 200 mg capsule 200 mg PO .QD 09/01/24 09/01/24 History clonidine HCl 0.1 mg tablet 0.1 mg PO Q12H 09/01/24 09/01/24 History dapagliflozin propanediol 10 mg 10 mg PO .QD 09/01/24 09/01/24 History tablet (Farxiga) diltiazem HCl 180 mg 180 mg PO Q24H 09/01/24 09/01/24 History capsule,extended release 24 hr docusate sodium 100 mg capsule 100 mg PO BID 09/01/24 09/01/24 History (Stool Softener) ezetimibe 10 mg tablet 10 mg PO .QD 09/01/24 09/01/24 History furosemide 20 mg tablet 20 mg PO QAM 09/01/24 09/01/24 History isosorbide mononitrate 30 mg 30 mg PO Q24H 09/01/24 09/01/24 History tablet,extended release 24 hr lisinopril 20 mg tablet 20 mg PO BID 09/01/24 09/01/24 History pantoprazole 40 mg tablet,delayed 40 mg PO .ACB 09/01/24 09/01/24 History release pregabalin 200 mg capsule 200 mg PO .QHS 09/01/24 09/01/24 History tizanidine 4 mg tablet 8 mg PO .QHS 09/01/24 09/01/24 History warfarin 5 mg tablet 5 mg PO .BARNETT,TU,TH,SA 09/01/24 09/01/24 History warfarin 7.5 mg tablet 7.5 mg PO .MWF 09/01/24 09/01/24 History Allergies Allergy/AdvReac Type Severity Reaction Status Date / Time No Known Drug Allergies Allergy Verified 09/01/24 13:00 Exam Constitutional Vital Signs, click to edit/add: Last Vital Signs Temp 97.9 F 09/02/24 07:24 Pulse 66 09/02/24 16:00 Resp 9 L 09/02/24 16:00 BP 192/111 H 09/02/24 15:18 Pulse Ox 98 09/02/24 15:41 O2 Del Method Room Air 09/02/24 15:41 O2 Flow Rate 1 09/02/24 04:23 Common normals: no apparent distress, oriented x3 and alert General appearance: cooperative and comfortable HENOR Common normals: normocephalic Nose: external nose normal Eye Common normals: EOMs intact bilaterally and conjunctivae normal Neck & C-Spine Common normals: full ROM, supple and no JVD Chest Common normals: inspection of chest normal and palpation of chest normal Respiratory Common normals: normal respiratory effort, no use of accessory muscles and clear to auscultation bilaterally Cardio Common normals: no JVD, regular rate, regular rhythm and S1 normal heart sound GI Common normals: Normal to inspection, nondistended, normoactive bowel sounds present Extremity Common normals: full ROM and no pedal edema Results Labs and Meds Lab results: Cardiac Enzymes 09/02/24 Range/Units 04:45 AST 70 H (15-37) U/L CK-MB (CK-2) 2.29 (<=3.60) ng/mL Myoglobin 46 (9-82) ng/mL Coagulation 09/02/24 Range/Units 04:45 PT 45.4 H* (9.0-11.6) sec CBC 09/02/24 Range/Units 04:45 WBC 3.2 L (4.0-11.0) 10^3/uL RBC 4.61 (4.20-5.40) 10^6/uL Hgb 13.5 (12.0-16.0) g/dL Hct 39.8 (36.0-48.0) % Plt Count 114 L (150-450) 10^3/uL Neut # (Auto) 2.3 (1.4-6.5) 10^3/uL Lymph # (Auto) 0.8 L (1.2-3.8) 10^3/uL [place] # (Auto) 0.1 L (0.3-0.8) 10^3/uL Eos # (Auto) 0.0 (0.0-0.7) 10^3/uL Baso # (Auto) 0.0 (0.0-0.1) 10^3/uL Comprehensive Metabolic Panel 09/02/24 Range/Units 04:45 Sodium 138 (136-145) mmol/L Potassium 4.5 (3.5-5.1) mmol/L Chloride 104 (98-107) mmol/L Carbon Dioxide 26.8 (21.0-32.0) mmol/L BUN 10.0 (7.0-18.0) mg/dL Creatinine 0.81 (0.55-1.02) mg/dL Glucose 288 H (74-106) mg/dL Calcium 8.5 (8.5-10.1) mg/dL Direct Bilirubin 0.4 H (0.0-0.2) mg/dL AST 70 H (15-37) U/L ALT 66 H (14-59) U/L Alkaline Phosphatase 125 H (46-116) U/L Total Protein 6.7 (6.4-8.2) g/dL Albumin 2.9 L (3.4-5.0) g/dL Intake and Output 09/02/24 09/02/24 09/02/24 07:59 15:59 23:59 Intake Total 450 / 5650 290 / 290 Output Total 600 / 900 Balance -150 / 4750 290 / 290 Intake: Oral 400 / 900 240 / 240 IV 50 / 2750 50 / 50 Piperacillin Sodium/Tazobactam 50 / 50 50 / 50 3.375 gm In 0.9 % Sodium Chloride 50 ml @ 12.5 mls/hr IV Q8H [facility] Rx#:[id number] Output: Urine 600 / 900 Other: # Voids 2 # Bowel Movements 1 Imaging and Cardiology Echo: report reviewed (CONCLUSION: 1. Global left ventricular systolic function is normal; visually estimated ejection fraction is 55 to 60% 2. The right ventricle is enlarged with normal systolic function 3. Mild left ventricular hypertrophy 4. Diastolic function is indeterminate 5. Biatrial enlargement 6. Mi) Assessment and Plan Assessment and Plan (1) Hypoxia: (2) Elevated troponin: (3) URI (upper respiratory infection): (4) Weakness: (5) Hypertension: (6) Afib: Plan #Elevated troponin -Troponin peaked at 250, trended down to 173 today. -Suspect type II in the setting of infection, URI, hypoxia. She has had no c/o CP or worsened dyspnea. -EKG showed no ischemic changes. -Okay for patient to discharge from a cardiac standpoint and follow-up with cardiology in 2 weeks. Will discuss stress test as an outpatient. -Continue atorvastatin and carvedilol and imdur. On warfarin so no ASA at this time to reduce bleeding risks. #HTN -Pt had some bradycardia overnight so diltiazem was held. Can switch to amlodipine for BP control. -Continue carvedilol 25mg BID, clonidine 0.1mg BID, lisinopril 20mg BID, imdur 20mg daily. #A.fib s/p ablation -Maintaining SR -Continue warfarin for stroke prophylaxis. Discussed plan with patient, cardiology attending Dr Anderson, and hospitalist Dr. Patel. Please let us know if any questions or concerns. Thank you! Liza Johnson APRN-SUPPORT GROUP MANAGER
[2024-09-02] MEDS: ISOSORBIDE MONONITRATE 30 MG TAB.ER.24H PO (17:30)
--- NOTE | 2024-09-02 18:18 | CA_ITS ---
Patient Name: JOSÉ ANTONIO SY MR#: [id number] : 1960 Exam Date: 09/02/2024 Ordering Doctor: DR Humble Patel . ECHOCARDIOGRAM REPORT PROCEDURE: CA ECHO DOPPLER COMPLETE INDICATIONS: Dyspnea, elevated TROP, hypertension, atrial fibrillation - ablation COMPARISON: None. DESCRIPTION: COMPLETE ECHOCARDIOGRAM Real-time transthoracic echocardiography with 2D, M-mode, spectral and color flow Doppler performed. QUALITY: Technical quality was good. LEFT VENTRICLE: Normal chamber size. Mild concentric left ventricular hypertrophy. LV EF: Global left ventricular systolic function is normal; visually estimated ejection fraction is 55 to 60%. No significant wall motion abnormalities. DIASTOLIC: Diastolic function is indeterminate. ATRIAL SEPTUM: Inadequately seen. LEFT ATRIUM: Mild dilatation. RIGHT ATRIUM: Mild dilatation. RIGHT VENTRICLE: Appears enlarged. Normal right ventricular systolic function. TRICUSPID VALVE: Normal mobility and thickness. Mild regurgitation. Doppler studies reveal moderately (45-60) elevated right sided pressures. RVSP 46 mmHg MITRAL VALVE: Normal mobility and thickness. No evidence of mitral valve stenosis. Mild mitral annular calcification. Trivial mitral regurgitation. AORTIC VALVE: Normal trileaflet appearance. Mildly calcified aortic valve. Normal leaflet mobility. No evidence of aortic valve stenosis. No aortic regurgitation. AORTIC ROOT: Normal diameter and appearance. PULMONIC VALVE: Normal thickness and mobility. No stenosis. No regurgitation. PERICARDIUM: Anterior free space; trivial effusion versus fat pad. IVC: IVC is dilated (2.4 cm), does not fully collapse CONCLUSION: 1. Global left ventricular systolic function is normal; visually estimated ejection fraction is 55 to 60% 2. The right ventricle is enlarged with normal systolic function 3. Mild left ventricular hypertrophy 4. Diastolic function is indeterminate 5. Biatrial enlargement 6. Mild tricuspid regurgitation 7. Moderately elevated right ventricular systolic pressure; RVSP 46 mmHg 8. Anterior free space; trivial effusion versus fat pad Adult Echocardiography Procedure Report Left Ventricle LVEDD (3.7 - 5.6 cm): 4.34 cm LVESD (2.2 - 4.0 cm): 2.67 cm LVIVS thickness (0.6 - 1.2 cm): 1.20 cm LVPW thickness (0.5 - 1.0 cm): 1.16 cm e': 0.10 m/s E - e': 11.89 LVOT Max Gradient: 2.81 mm[Hg] LVOT Area (cm2): 0.84 m/s Peak Velocity (LVOT): 0.84 m/s Mean Velocity (LVOT): 0.49 m/s LVOT Diameter 2.54 cm Left Atrium LA Volume Index (2D A2C): 40.24 ml/m2 Left Atrium Systolic Dimension: 4.50 cm Mitral Valve MV E to A Ratio: 1.44 Mitral Valve A-Wave Peak Velocity: 0.82 m/s Mitral Valve E-Wave Peak Velocity: 1.17 m/s Right Ventricle Aorta AO Root Diam: 3.15 cm Ascending Ao Diam: 3.16 cm Aortic Valve AoV Area (Peak Panfilo): 2.98 cm2, 2.98 cm2 AoV Area (VTI): 3.23 cm2, 3.23 cm2 Peak Velocity(Antegrade Flow): 1.42 m/s Peak Gradient(Antegrade Flow): 8.09 mm[Hg] Mean Velocity(Antegrade Flow): 0.90 m/s Mean Gradient(Antegrade Flow): 3.79 mm[Hg] Velocity Time Integral: 33.87 cm Tricuspid Valve Peak Velocity (Regurgitant Flow): 2.77 m/s Pulmonic Valve Mean Gradient: 2.00 mm[Hg] Mean Velocity: 0.65 m/s Peak Velocity: 1.10 m/s, 1.06 m/s Peak Gradient: 4.47 mm[Hg], 4.85 mm[Hg] Right Atrium Right Atrium Systolic Pressure: 62.21 ml, 62.21 ml Dictated by: Manish Walton M.D. on 09/02/2024 at 12:16 Approved by: Manish Walton M.D. on 09/02/2024 at 12:20
--- NOTE | 2024-09-02 18:33 | PC.NURSE ---
pt aware of transfer to 230. taken to room with belongings and meds. taken to [facility] via wheelchair by this nurse.
[2024-09-02] MEDS: LEVOFLOXACIN IN DEXTROSE 5 % 750 MG/150 ML PREMIX 100 MG IV (19:58)
[2024-09-02 20:15] LABS: Glucometer 234 mg/dL (74-106)
[2024-09-02] MEDS: TIZANIDINE HCL 4 MG TABLET 8 MG PO (21:12)
[2024-09-02] MEDS: PREGABALIN 100 MG CAPSULE 200 MG PO (21:12)
[2024-09-02] MEDS: ATORVASTATIN CALCIUM 40 MG TABLET 80 MG PO (21:13)
[2024-09-03] VITALS (11 sets, daily range): BP systolic 141–174; BP diastolic 79–98; PULSE 57–69; TEMP 36.5–36.6; O2SAT 94–95
[2024-09-03] MEDS: PIPERACILLIN SODIUM/TAZOBACTAM 3.375 GM in 0.9 % SODIUM CHLORIDE 50 ML IV ×2 (02:10→08:09)
[2024-09-03] MEDS: HYDRALAZINE HCL 20 MG/ML VIAL 10 MG IVP (02:56)
[2024-09-03] MEDS: IPRATROPIUM/ALBUTEROL SULFATE 3 ML AMPUL.NEB IH (05:45)
[2024-09-03] MEDS: PANTOPRAZOLE SODIUM 40 MG TABLET.DR PO (05:55)
[2024-09-03] MEDS: CLONIDINE HCL 0.1 MG TABLET PO (05:55)
[2024-09-03 06:03] LABS: Basophils Percent Auto 0.2 % (0.2-2.0); Hematocrit 36.7 % (36.0-48.0); Hemoglobin 12.6 g/dL (12.0-16.0); Immature Granulocytes Abs Auto 0.03 10^3/uL (0.00-0.03); Immature Granulocytes Pct Auto 0.6 % (0.0-0.5); Lymphocytes Absolute Auto 1.3 10^3/uL (1.2-3.8); Mean Corpuscular HGB Conc 34.3 g/dL (29.9-35.2); Mean Corpuscular Hemoglobin 28.6 pg (26.7-34.0); Mean Corpuscular Volume 83.4 fL (81.0-99.0); Mean Platelet Volume 10.5 fL (9.5-13.5); Monocytes Absolute Auto 0.3 10^3/uL (0.3-0.8); Monocytes Percent Auto 6.2 % (1.7-12.0); Neutrophils Absolute Auto 3.7 10^3/uL (1.4-6.5); Platelet Count 117 10^3/uL (150-450); Red Cell Distribution Width 14.4 % (11.0-15.0); White Blood Count 5.3 10^3/uL (4.0-11.0)
--- NOTE | 2024-09-03 06:07 | PC.NURSE ---
Pt up to the the bathroom to void then returns to bed. Pt states that she is still coughing up phlegm that is bloody Pt shows television writer her kleenex that has rust colored phlegm.
[2024-09-03 06:19] LABS: Magnesium 1.6 mg/dL (1.8-2.4)
[2024-09-03 06:32] LABS: INR 5.21; Prothrombin Time 46.9 sec (9.0-11.6)
[2024-09-03 06:33] LABS: Anion Gap 13.7; BUN Creatinine Ratio 12.9; Calcium 8.6 mg/dL (8.5-10.1); Carbon Dioxide 25.9 mmol/L (21.0-32.0); Chloride 105 mmol/L (98-107); Estimated GFR (African America >60 (>=60 mL/min/1.73m^2); Estimated GFR (Non-African Ame >60 (>=60 mL/min/1.73m^2); Glucose 218 mg/dL (74-106); Potassium 3.6 mmol/L (3.5-5.1); Sodium 141 mmol/L (136-145)
[2024-09-03 06:49] LABS: Creatine Kinase 167 U/L (26-192); Creatine Kinase MB 1.13 ng/mL (<=3.60); Myoglobin 51 ng/mL (9-82)
[2024-09-03 06:55] LABS: Alanine Aminotransferase 45 U/L (14-59); Albumin Globulin Ratio 0.8; Albumin Level 2.7 g/dL (3.4-5.0); Alkaline Phosphatase 108 U/L (46-116); Aspartate Amino Transferase 41 U/L (15-37); Bilirubin Direct 0.3 mg/dL (0.0-0.2); Bilirubin Total 0.9 mg/dL (0.2-1.0); Globulin 3.4 g/dL; Total Protein 6.1 g/dL (6.4-8.2)
--- NOTE | 2024-09-03 07:36 | CM.NOTE ---
2nd Important Message From Medicare discussed with pt, pt verbalizes understanding and denies questions or concerns.
[2024-09-03 07:41] LABS: Glucometer 231 mg/dL (74-106)
[2024-09-03] MEDS: MAGNESIUM OXIDE 400 MG TABLET PO (08:10)
[2024-09-03] MEDS: EZETIMIBE 10 MG TABLET PO (08:10)
[2024-09-03] MEDS: POTASSIUM CHLORIDE 10 MEQ ER TABLET 20 MEQ PO (08:10)
[2024-09-03] MEDS: CELECOXIB 200 MG CAPSULE PO (08:10)
[2024-09-03] MEDS: CARVEDILOL 25 MG TABLET PO (08:10)
[2024-09-03] MEDS: LISINOPRIL 20 MG TABLET PO (08:10)
[2024-09-03] MEDS: DILTIAZEM HCL 180 MG CAP.ER.24H PO (08:10)
[2024-09-03] MEDS: DOCUSATE SODIUM 100 MG CAPSULE PO (08:10)
[2024-09-03] MEDS: INSULIN ASPART 300 UNIT/3 ML PEN SUBQ (08:11)
--- NOTE | 2024-09-03 08:11 | P.DS_ITS ---
DS: Providers Provider Date of admission: 09/01/24 19:10 Primary care physician: Humble Patel MD Consults: 09/01/24 18:15 Consult to Pharmacy Routine Consulting Provider: Reason for consultation: Please Hamilton me when Med Rec is Updated Has provider been notified: No Occupational Therapy Eval and Treat Routine Reason for consultation: Only if needed for Rehab Has provider been notified: No Physical Therapy Eval and Treat Routine Reason for consultation: Eval and Treat Has provider been notified: No 09/01/24 18:41 Consult to Cardiology Routine Reason for consultation: nstemi II DS: Diagnosis Discharge Diagnosis (1) Hypoxia: (2) Elevated troponin: (3) URI (upper respiratory infection): (4) Weakness: (5) Hypertension: (6) Afib: Plan Admission findings: Fever, acute hypoxia with O2 sat of less than 89%, initially elevated blood pressure and then hypotension with blood pressure MAP of less than 50, neutropenia, thrombocytopenia, hypokalemia, elevated LFTs, significant elevated high-sensitivity troponin and BNP secondary to acute bronchitis leading to acute NSTEMI type II Acute bronchitis with acute hypoxia with failed outpatient vuhkdbiju-vkvig-[id number] antibiotics, IV with frequent aerosol treatments and try to obtain sputum culture-improved today, maintain current antibiotics Acute NSTEMI type II secondary to the above-echo and cardiology consult today, plan per cardiology Acute UTI-antibiotics as outlined above void improved, check urine culture tomorrow Atrial fibrillation-INR elevated further today, no signs of bleeding, holding Coumadin today Hypokalemia-resolved Thrombocytopenia-improving at the time of discharge Coagulopathy-likely related to elevated liver function test and infection as outlined above, patient is on a Coumadin for last 2 days. Elevated today during 1 dose of vitamin K discharge Diabetes mellitus-insulin sliding scale Hypertension by history-blood pressure elevated this morning, restart home medications GERD-continue with home medications Peripheral neuropathy continue with home medications Low back pain continue with home medications Elevated liver function test but no abdominal tenderness, consider ultrasound of abdomen tomorrow Admission status: Patient failed outpatient treatment of bronchitis, now leading to acute NSTEMI type II with significant hypoxia, medically necessary treatment will span 2 midnights. Inpatient status, ICU ? ? DS: Summary Hospital Course Hospital Course: Patient is admitted with Fever, acute hypoxia with O2 sat of less than 89%, initially elevated blood pressure and then hypotension with blood pressure MAP of less than 50, neutropenia, thrombocytopenia, hypokalemia, elevated LFTs, significant elevated high-sensitivity troponin and BNP secondary to acute bronchitis leading to acute NSTEMI type II. Echocardiogram showed good ejection fraction consult cardiology felt related to the infectious process, stress test as an outpatient, patient was placed on IV antibiotics and improved but still with elevated troponin yesterday and significant dyspnea but hypoxia had resolved, feels better today with less dyspnea with ambulation, platelet count is improving, liver function test is improving at this point we will discharge patient to home in improving condition. Medications see list. Follow-up with me in the office later this week. Time Spent with Patient Time attestation: Total time spent providing and/or coordinating discharge services: Exam Constitutional Vital Signs, click to edit/add: Last Vital Signs Temp 97.9 F 09/03/24 02:55 Pulse 66 09/03/24 06:00 Resp 18 09/03/24 05:43 BP 142/84 H 09/03/24 03:07 Pulse Ox 95 09/03/24 06:00 O2 Del Method Room Air 09/03/24 05:43 O2 Flow Rate 1 09/02/24 04:23 Documenting provider has reviewed patient's vital signs: yes Common normals: no apparent distress Respiratory Auscultation: no rhonchi Cardio Common normals: regular rate, regular rhythm and no murmurs Extremity Common normals: normal to inspection, full ROM and no clubbing, cyanosis or edema DS: Data Data Completed and Pending Labs on day of discharge: Labs from last 24 hours 09/03/24 09/03/24 09/02/24 07:39 05:49 20:13 WBC 5.3 RBC 4.40 Hgb 12.6 Hct 36.7 MCV 83.4 MCH 28.6 MCHC 34.3 RDW 14.4 Plt Count 117 L MPV 10.5 Neut % (Auto) 69.0 Lymph % (Auto) 24.0 [place] % (Auto) 6.2 Eos % (Auto) 0.0 L Baso % (Auto) 0.2 Neut # (Auto) 3.7 Lymph # (Auto) 1.3 [place] # (Auto) 0.3 Eos # (Auto) 0.0 Baso # (Auto) 0.0 Abs Immat Gran (auto) 0.03 Imm/Tot Granulo (auto) 0.6 H PT 46.9 H* INR 5.21 H* Sodium 141 Potassium 3.6 Chloride 105 Carbon Dioxide 25.9 Anion Gap 13.7 BUN 9.0 Creatinine 0.70 Est GFR ( Amer) >60 Est GFR (Non-Af Amer) >60 BUN/Creatinine Ratio 12.9 Glucose 218 H Calcium 8.6 Magnesium 1.6 L Total Bilirubin 0.9 Direct Bilirubin 0.3 H AST 41 H ALT 45 Alkaline Phosphatase 108 Total Creatine Kinase 167 CK-MB (CK-2) 1.13 Myoglobin 51 Troponin I High Sens 82.0 H* NT-Pro-B Natriuret Pep 796.0 Total Protein 6.1 L Albumin 2.7 L Globulin 3.4 Albumin/Globulin Ratio 0.8 POC Glucose 231 H 234 H 09/02/24 09/02/24 16:11 11:00 WBC RBC Hgb Hct MCV MCH MCHC RDW Plt Count MPV Neut % (Auto) Lymph % (Auto) [place] % (Auto) Eos % (Auto) Baso % (Auto) Neut # (Auto) Lymph # (Auto) [place] # (Auto) Eos # (Auto) Baso # (Auto) Abs Immat Gran (auto) Imm/Tot Granulo (auto) PT INR Sodium Potassium Chloride Carbon Dioxide Anion Gap BUN Creatinine Est GFR ( Amer) Est GFR (Non-Af Amer) BUN/Creatinine Ratio Glucose Calcium Magnesium Total Bilirubin Direct Bilirubin AST ALT Alkaline Phosphatase Total Creatine Kinase CK-MB (CK-2) Myoglobin Troponin I High Sens NT-Pro-B Natriuret Pep Total Protein Albumin Globulin Albumin/Globulin Ratio POC Glucose 299 H 392 H Preliminary micro results at discharge 09/01/24 15:36 Urine Culture - Preliminary Urine,Clean Catch Pending - Specimen sent to [facility] Discharge Plan Discharge Disposition: Home, Self-Care Condition: Good Discharge Medications: New magnesium oxide 400 mg (241.3 mg magnesium) Tablet 400 mg PO BID Qty: 60 11RF levofloxacin 750 mg tablet 750 mg PO DAILY 10 Days Qty: 10 0RF Continued atorvastatin 80 mg tablet 80 mg PO .QHS carvedilol 25 mg tablet 25 mg PO BID clonidine HCl 0.1 mg tablet 0.1 mg PO Q12H diltiazem HCl 180 mg capsule,extended release 24hr 180 mg PO Q24H lisinopril 20 mg tablet 20 mg PO BID isosorbide mononitrate 30 mg tablet extended release 24 hr 30 mg PO Q24H pantoprazole 40 mg tablet,delayed release (DR/EC) 40 mg PO .ACB docusate sodium [Stool Softener] 100 mg capsule 100 mg PO BID furosemide 20 mg tablet 20 mg PO QAM dapagliflozin propanediol [Farxiga] 10 mg tablet 10 mg PO .QD Patient Comments: has not started due to cost celecoxib 200 mg capsule 200 mg PO .QD tizanidine 4 mg tablet 8 mg PO .QHS warfarin 7.5 mg tablet 7.5 mg PO .MWF pregabalin 200 mg capsule 200 mg PO .QHS warfarin 5 mg tablet 5 mg PO .BARNETT,,,SA ezetimibe 10 mg tablet 10 mg PO .QD Print Language: Czech Forms: Portal Instructions Follow Up Appointments: [facility] [place] cardiology in [place] September 25, 2024 @ 9:40
[2024-09-03] MEDS: PHYTONADIONE (VIT K1) 10 MG/ML AMPUL 5 MG PO (08:44)
--- NOTE | 2024-09-03 09:04 | PC.NURSE ---
Supervisor Winding Department spoke with Jena in coumadin clinic and updated her on patient's recent INR and that she was given Vitamin K today and will be discharging. Jena advises to hold coumadin today and tomorrow and then restart 5mg daily. Follow up with her in coumadin clinic on Sunday. this information added to discharge instructions and reviewed with patient.
--- NOTE | 2024-09-03 09:31 | SWNOTE1 ---
SW reviewed therapy notes and pt is independent, no anticipated discharge needs .
--- NOTE | 2024-09-04 13:58 | CM.DCFOLLOWU ---
Person spoke with: patient How are you feeling? well, just tired How is your pain?none Did you understand your discharge instructions?yes Do you have any questions about your discharge instructions?no Were you given any prescriptions at discharge? yes Were you able to get your prescriptions filled?yes Do you understand how to take your medications as ordered?yes Do you have any questions about your follow up appointment and do you plan to keep your follow up appointment? no questions, follow ups reviewed Is there anything else that you would like to discuss? no Questions/Comments/Concerns/Other: none
--- NOTE | 2024-09-05 13:57 | CM.NOTE ---
Called Dr. Patel's office and spoke to nurse with culture results and po antibiotics placed on. Dr. Patel to be notified of results.
[2024-09-06 12:54] LABS: A. calcoaceticus-baumannii Cpx NOT DETECTED (NOT DETECTE); Bacteroides fragilis NOT DETECTED (NOT DETECTE); Candida albicans NOT DETECTED (NOT DETECTE); Candida auris NOT DETECTED (NOT DETECTE); Candida glabrata NOT DETECTED (NOT DETECTE); Candida krusei NOT DETECTED (NOT DETECTE); Candida parapsilosis NOT DETECTED (NOT DETECTE); Candida tropicalis NOT DETECTED (NOT DETECTE); Cryptococcus neoformans/gattii NOT DETECTED (NOT DETECTE); Enterobacter cloacae complex NOT DETECTED (NOT DETECTE); Enterobacterales NOT DETECTED (NOT DETECTE); Enterococcus faecalis NOT DETECTED (NOT DETECTE); Enterococcus faecium NOT DETECTED (NOT DETECTE); Haemophilus influenzae NOT DETECTED (NOT DETECTE); Klebsiella aerogenes NOT DETECTED (NOT DETECTE); Klebsiella pneumoniae group NOT DETECTED (NOT DETECTE); Listeria monocytogenes NOT DETECTED (NOT DETECTE); Neisseria meningitidis NOT DETECTED (NOT DETECTE); Proteus spp. NOT DETECTED (NOT DETECTE); Pseudomonas aeruginosa NOT DETECTED (NOT DETECTE); Salmonella spp. NOT DETECTED (NOT DETECTE); Serratia marcescens NOT DETECTED (NOT DETECTE); Staphylococcus epidermidis NOT DETECTED (NOT DETECTE); Staphylococcus lugdunensis NOT DETECTED (NOT DETECTE); Staphylococcus spp. NOT DETECTED (NOT DETECTE); Stenotrophomonas maltophilia NOT DETECTED (NOT DETECTE); Streptococcus agalactiae NOT DETECTED (NOT DETECTE); Streptococcus pneumoniae NOT DETECTED (NOT DETECTE); Streptococcus pyogenes NOT DETECTED (NOT DETECTE); Streptococcus spp. NOT DETECTED (NOT DETECTE)
[2024-09-06 12:55] LABS: Source BLOOD
--- NOTE | 2024-09-07 15:05 | PC.NURSE ---
Blade Operator reviewed completed blood culture and no detection noted. Dr. Stephens than reviewed it and signed results.
== END 2024-09-03 09:57 | disposition home or self-care (01) | DRG 202 ==
LOC: ER 16:18 → ICU 09-02 06:01 → MS 09-02 18:36
PROVIDERS: Physician Assistant; Admitting Provider Family Medicine; Emergency Provider Student in an Organized Health Care Education/Training Program; PCP Family Medicine; Visit Provider Family Medicine
DX: J20.9 Acute bronchitis, unspecified (principal); I21.A1 Myocardial infarction type 2; N39.0 Urinary tract infection, site not specified; D68.4 Acquired coagulation factor deficiency; I10 Essential (primary) hypertension; E11.42 Type 2 diabetes mellitus with diabetic polyneuropathy; K21.9 Gastro-esophageal reflux disease without esophagitis; E87.6 Hypokalemia; D69.6 Thrombocytopenia, unspecified; R00.1 Bradycardia, unspecified; I25.10 Atherosclerotic heart disease of native coronary artery without angina pectoris; D70.9 Neutropenia, unspecified; R79.89 Other specified abnormal findings of blood chemistry; I48.91 Unspecified atrial fibrillation; R09.02 Hypoxemia; Z79.899 Other long term (current) drug therapy; Z79.84 Long term (current) use of oral hypoglycemic drugs; Z86.73 Personal history of transient ischemic attack (TIA), and cerebral infarction without residual deficits; Z79.01 Long term (current) use of anticoagulants
CPT/HCPCS: 36415; 71045; 80048; 80053; 80076; 81001; 82550; 82553; 82800; 82948; 83605; 83735; 83874; 83880; 84443; 84484; 85025; 85610; 86308; 87040; 87070; 87086; 87150; 87205; 87420; 87804; 87811; 93005; 93306; 94640; 94667; 94668; 94761; 96365; 96366; 96367; 96375; 96376; 99285; J0360; J1100; J2405; J2543; J3370; J3430

== ENCOUNTER 2024-09-16 02:15 | Outpatient (RCR) | payer MEDICARE, SELFPAY | END 2024-10-15 14:07 | disposition home or self-care (01) | LOC: MM 02:15 | PROVIDERS: PCP Family Medicine; Visit Provider Internal Medicine | DX: Z51.81 Encounter for therapeutic drug level monitoring (principal); Z79.01 Long term (current) use of anticoagulants; I48.91 Unspecified atrial fibrillation ==

== ENCOUNTER 2024-10-16 04:48 | Outpatient (RCR) | payer MEDICARE, SELFPAY | END 2024-11-14 15:00 | disposition home or self-care (01) | LOC: MM 04:48 | PROVIDERS: PCP Family Medicine; Visit Provider Internal Medicine | DX: Z51.81 Encounter for therapeutic drug level monitoring (principal); Z79.01 Long term (current) use of anticoagulants; I48.91 Unspecified atrial fibrillation | CPT/HCPCS: 85610; G0463 ==

== ENCOUNTER 2024-11-16 07:54 | Outpatient (RCR) | payer MEDICARE, SELFPAY | END 2024-12-11 14:47 | disposition home or self-care (01) | LOC: MM 07:54 | PROVIDERS: PCP Family Medicine; Visit Provider Internal Medicine | DX: Z51.81 Encounter for therapeutic drug level monitoring (principal); Z79.01 Long term (current) use of anticoagulants; I48.91 Unspecified atrial fibrillation | CPT/HCPCS: 85610; G0463 ==

== ENCOUNTER 2024-12-16 02:33 | Outpatient (RCR) | payer MEDICARE, SELFPAY | END 2025-01-15 16:39 | disposition home or self-care (01) | LOC: MM 02:33 | PROVIDERS: PCP Family Medicine; Visit Provider Internal Medicine | DX: Z51.81 Encounter for therapeutic drug level monitoring (principal); Z79.01 Long term (current) use of anticoagulants; I48.91 Unspecified atrial fibrillation ==

== ENCOUNTER 2025-01-16 00:24 | Outpatient (RCR) | payer MEDICARE, SELFPAY | END 2025-02-12 12:37 | disposition home or self-care (01) | LOC: MM 00:24 | PROVIDERS: PCP Family Medicine; Visit Provider Internal Medicine | DX: Z51.81 Encounter for therapeutic drug level monitoring (principal); Z79.01 Long term (current) use of anticoagulants; I48.91 Unspecified atrial fibrillation ==

== ENCOUNTER 2025-02-16 02:59 | Outpatient (RCR) | payer MEDICARE, SELFPAY | END 2025-03-17 15:04 | disposition home or self-care (01) | LOC: MM 02:59 | PROVIDERS: PCP Family Medicine; Visit Provider Internal Medicine | DX: Z51.81 Encounter for therapeutic drug level monitoring (principal); Z79.01 Long term (current) use of anticoagulants; I48.91 Unspecified atrial fibrillation ==

== ENCOUNTER 2025-03-13 08:58 | Outpatient (OUT) | payer MEDICARE, SELFPAY ==
--- OUTSIDE RECORDS SUMMARY | 2025-02-27 06:00 | XMS_ITS ---
Author Organization [facility] [place] Address [address] [place] [address] Care Team Providers Care Refrigeration Tech Name Role Phone Gage Patel Primary Care Provider Allergies No Known Allergies REASON FOR VISIT Presents to office alone for c/o swelling and redness to eyes x1 days. itching is killing me . Wascutting down bushes earlier in the week Medications Medication SIG (Take, Route, Frequency, Duration) Notes Start Date End Date Status Triamcinolone Acetonide 0.1 % 1 application Externally bid 02/27/2025 Active Vitamin D (Cholecalciferol) 50 MCG (1999) 1 capsule Orally Once a day; Duration: 30 days 07/26/2023 Active Warfarin Sodium 7.5 MG TAKE 1 TABLET ON SUNDAY, SUNDAY, AND SUNDAY PER COUMADIN CLINIC; Duration: 84 Active predniSONE 20 MG 2 tablets Orally Onc e a day; Duration: 5 days 02/27/2025 Active tiZANidine HCl 4 MG TAKE 2 TABLETS BY [facility] EVERYDAY AT BEDTIME FOR 15 DAYS; Duration: 90 days Active Pregabalin 200 MG 1 capsule Orally at bedtime; Duration: 30 days 02/13/2025 Active Test Strips - use 1 strip dx: E11. 9 once daily; Duration: 90 01/19/2025 Active metFORMIN HCl 500 MG 1 tablet with a jorge alberto l Orally bid; Duration: 30 days 10/28/2024 Active Multivitamin - 1 tablet Orally Once a day Active Pantoprazole Sodium 40 MG TAKE 1 TABLET BY MOUTH EVERY DAY; Duration: 90 days Active Lisinopril 20 MG TAKE 1 TABLET BY KARIN TH TWICE A DAY FOR 90 DAYS; Duration: 90 Active Furosemide 20 MG TAKE 1 TABLET BY KARIN TH EVERY DAY IN THE MORNING Oral; Duration: 90 days Active Isosorbide Mononitrate ER 30 MG TAKE 1 TABLET BY MOUTH EVERY DAY; Duration: 90 Active Januvia 100 MG 1 tablet Orally Once a day; Duration: 30 days 01/07/2025 Active Lancets 33G - Use 1 lancet daily t o monitor glucose DX E11.9; Duration: 90 days 01/19/2025 Active DULoxetine HCl 30 MG TAKE 1 CAPSULE BY [facility] EVERY DAY Oral; Duration: 90 Days Active Ezetimibe 10 MG 1 tablet Orally Once a day; Duration: 30 days Active Farxiga 10 MG 1 tablet Orally Once a day; Duration: 30 days Active cloNIDine HCl 0.1 MG TAKE 1 TABLET BY MO SCH TWICE A DAY FOR 90 DAYS; Duration: 90 Active dilTIAZem HCl ER Coated Beads 180 MG TAKE 1 CAPSULE BY MOUTH EVERY DAY; Duration: 90 days Active Carvedilol 25 MG TAKE 1 TABLET BY KARIN TH TWICE A DAY; Duration: 90 days Active CeleBREX 200 MG 1 capsule with food Orally Once a day; Duration: 30 days 01/03/2024 Active ALPRAZolam 0.25 MG 1 tablet Orally TID; Duration: 7 09/03/2023 Active Atorvastatin Calcium 80 MG 1 tablet Oral ly Once a day; Duration: 90 days Active Blood Glucose Meter -- Use meter to test glucose daily DX E11.9; Duration: 365 days 01/19/2025 Active Social History Tobacco Use: Social History Observation Description Date Details (start date - stop date) Never Smoker NA - NA Tobacco Use/Smoking Question Answer Notes Patient is a nonsmoker AUDIT-C (Standard) Question Answer Notes Did you have a drink containing alcohol in the p ast year? No Points 0 Interpretation Negative Problems Problem Type SNOMED Code ICD Code Onset Dates Problem Status W/U Status Risk Notes Problem Contact dermatitis (79822917) Contact dermatitis (L25.9) Active confirmed Vital Signs Weight 228.8 lbs 02/27/2025 Height 65 in 02/27/2025 Blood pressure systolic 132 mm Hg 02/28/20 25 Blood pressure diastolic 70 mm Hg 025 BMI 38.07 kg/m2 02/27/2025 Encounters Encounter Location Date Provider Diagnosis [facility] [address] [place] [id number] 02/27/2025 Gage Patel Contact dermatitis L25.9 and Diabetes mellitus E11.9 Assessments Encounter Date Diagnosis (ICD Code) Assessment Notes Treatment Notes Treatment Clinical Notes Section Notes 02/27/2025 Contact dermatitis (ICD-10 - L25.9) 02/27/2025 Diabetes mellitus (ICD-10 - E11.9) strict diet likely to get bad with injections Plan Of Treatment Medication Medication Name Sig Start Date Stop Date Notes Triamcinolone Acetonide 0.1 % 1 application Externally bid 02/27/2025 predniSONE 20 MG 2 tablets Orally Onc e a day; Duration: 5 days 02/27/2025 Treatment Notes Assessment Notes Diabetes mellitus strict diet likely t o get bad with injections Next Appt Details Provider Name:Gage Patel, 09:00:00 AM, [address] [place], [address], Medications Administered Medication Instructions Date of Administration Dosage Notes Dexamethasone, 4mg/mL 02/27/2025 8 mg Progress Notes * Amparo SY ADOB:1960 (64 yo F)Acc No.[id number]:02/27/2025 Progress Note Patient: Macho ABBASI Amparo Moraes Provider: Edyta Patel ([facility])MD :1960 A ge:64 Y S ex:Female Date:02/27/2025 Address:[address] [place], [place] [id number] Check In:09:42 AM ESTCheck O ut:10:23 AM EST Subjective: * Chief Complaints: * P resents to office alone for c/o swelling and redness to eyes x1 days. itching is killing me . Was cutting down bushes earlier in the week * HPI: G eneral: fac mpostly - patt on arms - arms is beter - necka n face bad. * Active Problem List M47.816 Spondylosis without myelopathy or radiculopathy, lumbar region Modified On:11/09/2022W/U Status:confirmed M43.07 Spondylolysis, lumbo sacral region Modified On:12/25/2022W/U Status:confirmed M54.17 Radiculopathy, lumbo sacral region Modified On:11/09/2022 Status:confirmed I48.91 Unspecified atrial f ibrillation Modified On:12/25/2022 Status:confirmed K43.9 Abdominal wall herni a Modified On:06/27/2023 Status:confirmed E03.9 Hypothyroid Modified On:07/26/2023 Status:confirmed E11.9 Diabetes mellitus Modified On:12/26/2023 Status:confirmed M17.9 Knee osteoarthritis Modified On:12/26/2023 Status:confirmed S92.912A Fracture of phalanx of toe of left foot, physeal involvement unspecified, unspecified toe, initial encounter Modified On:01/21/2024 Status:confirmed M79.641 Hand pain, right Modified On:01/28/2024 Status:confirmed M67.40 Ganglion cyst Modified On:03/17/2024 Status:confirmed I25.10 CAD (coronary artery disease) Modified On:07/01/2024 Status:confirmed K21.9 GERD without esophag itis Modified On:07/01/2024 Status:confirmed R07.89 Chest wall pain Modified On:08/12/2024 Status:confirmed E66.01 Morbid (severe) obes ity due to excess calories Modified On:09/05/2024 Status:confirmed I50.32 Chronic diastolic (c ongestive) heart failure Modified On:09/05/2024 Status:confirmed I21.4 NSTEMI (non-ST eleva tammy myocardial infarction) Modified On:09/05/2024 Status:confirmed M70.72 Hip bursitis, left Modified On:10/28/2024 Status:confirmed L25.9 Contact dermatitis Modified On:02/27/2025 Status:confirmed * Medical History: * Surgical History: L oop recorder inplant 10/08A-Fib Ablation 08/15/22Ventral Incision Herniorrhaphy - 08/2016Knee arthroscopy Cholecystectomy x3 left hand cyst removal Atrial Fib Ablasion- Dr. Jay 12/28/22Atrial Fibrillation Ablasion- Dr. Jay 4closed nondisplaced fracture of proximal phalanx of lesser toe of left foot * Hospitalization/Major Diagno stic Procedure: s ee above * Family History: F ather: , CHF, diagnosed with Unspecified essential hypertension. M other: , CHF, diagnosed with Unspecified essential hypertension. B rother(s): , CHF. S ister(s): alive. S on(s): alive, 1 son passed from Graves disease at age 43. 1 brother(s) , 3 sister(s) - healthy. 2 son(s) , 1 daughter(s) . . * Social History: T obacco Use: T obacco Use/Smoking P atient is a n onsmoker D rug/Alcohol: A MARK-C (Standard) D id you have a drink containing alcohol in the past year? N o P oints 0 I nterpretation N egative * Medications: T akingALPRAZolam 0.25 MG Tablet 1 tablet Orally TID Atorvastatin Calcium 80 MG Tablet 1 tablet Orally Once a day Blood Glucose Meter -- -- Use meter to test glucose daily DX E11.9 Carvedilol 25 MG Tablet TAKE 1 TABLET BY MOUTH TWICE A DAY CeleBREX(Celecoxib) 200 MG Capsule 1 capsule with food Orally Once a day cloNIDine HCl 0.1 MG Tablet TAKE 1 TABLET BY MOUTH TWICE A DAY FOR 90 DAYS dilTIAZem HCl ER Coated Beads 180 MG Capsule Extended Release 24 Hour TAKE 1 CAPSULE BY MOUTH EVERY DAY DULoxetine HCl 30 MG Capsule Delayed Release Particles TAKE 1 CAPSULE BY MOUTH EVERY DAY Oral Ezetimibe 10 MG Tablet 1 tablet Orally Once a day Farxiga(Dapagliflozin Propanediol) 10 MG Tablet 1 tablet Orally Once a day Furosemide 20 MG Tablet TAKE 1 TABLET BY MOUTH EVERY DAY IN THE MORNING Oral Isosorbide Mononitrate ER 30 MG Tablet Extended Release 24 Hour TAKE 1 TABLET BY MOUTH EVERY DAY Januvia(SITagliptin Phosphate) 100 MG Tablet 1 tablet Orally Once a day Lancets 33G(Lancets) - Miscellaneous Use 1 lancet daily to monitor glucose DX E11.9 Lisinopril 20 MG Tablet TAKE 1 TABLET BY MOUTH TWICE A DAY FOR 90 DAYS metFORMIN HCl 500 MG Tablet 1 tablet with a meal Orally bid Multivitamin(Multiple Vitamin) - Tablet 1 tablet Orally Once a day Pantoprazole Sodium 40 MG Tablet Delayed Release TAKE 1 TABLET BY MOUTH EVERY DAY Pregabalin 200 MG Capsule 1 capsule Orally at bedtime Test Strips - - use 1 strip dx: E11.9 once daily tiZANidine HCl 4 MG Tablet TAKE 2 TABLETS BY MOUTH EVERYDAY AT BEDTIME FOR 15 DAYS Vitamin D (Cholecalciferol) 50 MCG (2000 UT) Capsule 1 capsule Orally Once a day Warfarin Sodium 7.5 MG Tablet TAKE 1 TABLET ON SUNDAY, SUNDAY, AND SUNDAY PER COUMADIN CLINIC Medication List reviewed and reconciled with the patientTaking ALPRAZolam 0.25 MG Tablet 1 tablet Orally TID Taking Atorvastatin Calcium 80 MG Tablet 1 tablet Orally Once a day Taking Blood Glucose Meter -- -- Use meter to test glucose daily DX E11.9 Taking Carvedilol 25 MG Tablet TAKE 1 TABLET BY MOUTH TWICE A DAY Taking CeleBREX(Celecoxib) 200 MG Capsule 1 capsule with food Orally Once a day Taking cloNIDine HCl 0.1 MG Tablet TAKE 1 TABLET BY MOUTH TWICE A DAY FOR 90 DAYS Taking dilTIAZem HCl ER Coated Beads 180 MG Capsule Extended Release 24 Hour TAKE 1 CAPSULE BY MOUTH EVERY DAY Taking DULoxetine HCl 30 MG Capsule Delayed Release Particles TAKE 1 CAPSULE BY MOUTH EVERY DAY Oral Taking Ezetimibe 10 MG Tablet 1 tablet Orally Once a day Taking Farxiga(Dapagliflozin Propanediol) 10 MG Tablet 1 tablet Orally Once a day Taking Furosemide 20 MG Tablet TAKE 1 TABLET BY MOUTH EVERY DAY IN THE MORNING Oral Taking Isosorbide Mononitrate ER 30 MG Tablet Extended Release 24 Hour TAKE 1 TABLET BY MOUTH EVERY DAY Taking Januvia(SITagliptin Phosphate) 100 MG Tablet 1 tablet Orally Once a day Taking Lancets 33G(Lancets) - Miscellaneous Use 1 lancet daily to monitor glucose DX E11.9 Taking Lisinopril 20 MG Tablet TAKE 1 TABLET BY MOUTH TWICE A DAY FOR 90 DAYS Taking metFORMIN HCl 500 MG Tablet 1 tablet with a meal Orally bid Taking Multivitamin(Multiple Vitamin) - Tablet 1 tablet Orally Once a day Taking Pantoprazole Sodium 40 MG Tablet Delayed Release TAKE 1 TABLET BY MOUTH EVERY DAY Taking Pregabalin 200 MG Capsule 1 capsule Orally at bedtime Taking Test Strips - - use 1 strip dx: E11.9 once daily Taking tiZANidine HCl 4 MG Tablet TAKE 2 TABLETS BY MOUTH EVERYDAY AT BEDTIME FOR 15 DAYS Taking Vitamin D (Cholecalciferol) 50 MCG (1999) Capsule 1 capsule Orally Once a day Taking Warfarin Sodium 7.5 MG Tablet TAKE 1 TABLET ON SUNDAY, SUNDAY, AND SUNDAY PER COUMADIN CLINIC Medication List reviewed and reconciled with the patient * Allergies: N .K.D.A.no[Allergies Verified] Objective: * Vitals: W t:228.8lbs, Ht: 65 in, BP:132/70mm Hg, BMI:38.07Index, Ht-cm: 165.1 cm, Wt-k.78 kg. * Physical Examination: c ontact derm pjn face anre and neck. Assessment: * Assessment: 1. C ontact dermatitis - L25.9 (Primary) 2 . D iabetes mellitus - E11.9? Plan: * Treatment: 2. D iabetes mellitus Notes: strict diet likely to get bad with injections * Therapeutic Injections: Dexamethasone, 4mg/mL : 8 mg (Route: Intramuscular) given by MR Vasiliy on right deltoid (Contact dermatitis) * Procedure Codes: J 1100 Dexamethasone, 4mg/mL * Preventive Medicine: Screenings/Counseling: B [place] ACTION PLAN Above Normal BMI Follow-up D ietary management education, guidance, and counseling See treatment section of progress note for complete details of management plan. F ALL RISK SCREENING Fall Risk Assessment: N o falls in the past year * * Sign off status: Completed Visit Status: C HK (Check Out) true * Provider: Edyta Patel ([facility])MD Date: 0 02/27/2025 Generated for Anthony ocampo/Maribel/eTransmitting on: 0 03/13/2025 09:02 AM EDT History and Physical Notes * HPI (History of Present Illness) Category Sub-Category Detail Notes Category Not es General fac mpostly - s oe on arms - arms is beter - necka n face bad Physical Examination Category Sub-Category Detail Notes Section Note s contact derm pj n face anre and neck
--- OUTSIDE RECORDS SUMMARY | 2025-03-13 09:02 | XMS_ITS | Clinical Summary ---
Author Organization [facility] Address [address] [place] [address] Care Team Providers Care Filter Operator Name Role Phone Humble Patel MD Primary Care Provider [phone] Allergies No known active allergies Medications ALPRAZolam (Xanax) 0.5 MG tablet Take 0.5 mg by mouth Active Eliquis 5 MG tablet Take 5 mg by mouth in the morning and 5 mg before bedtime. Active atorvastatin (Lipitor) 80 MG tablet Take 80 mg by mouth at bedtime 4 Active carvedilol (Coreg) 25 MG tablet Take 25 mg by mouth in the morning and 25 mg before bedtime. Active cloNIDine (Catapres) 0.1 MG tablet Take by mouth twice a day Active dilTIAZem CD (Cardizem CD) 180 MG 24 hr capsule TAKE 1 CAPSULE BY MOUTH EVERY DAY FOR 90 DAYS 4 Active DULoxetine (Cymbalta) [address] capsule Take 1 tablet by mouth in the morning. Active Jardiance 10 MG Take 10 mg by mouth Daily 4 Active furosemide (Lasix) 20 MG tablet Take 20 mg by mouth in the morning. Active gabapentin (Neurontin) 300 MG capsule 1 capsule every 8 (eight) hours Active isosorbide mononitrate ER (Imdur) 30 MG 24 hr tablet Take 1 tablet by mouth in the morning. Active liothyronine (Cytomel) 5 MCG tablet TAKE 2 TABLETS BY MOUTH ONCE A DAY ON AN EMPTY STOMACH 4 Active lisinopril 20 MG tablet Take 20 mg by mouth in the morning and 20 mg before bedtime. Active magnesium oxide (Mag-Ox) 400 MG tablet Take 400 mg by mouth Daily Active Misc Natural Products (Airborne Elderberry) 100-50 MG chewable tablet Chew Acti ve pantoprazole (ProtoNix) 40 MG EC tablet Take 40 mg by mouth Daily Active predniSONE (Deltasone) 20 MG tablet Take 60 mg by mouth Daily 4 Active pregabalin (Lyrica) 200 MG capsule TAKE 1 CAPSULE BY MOUTH EVERY DAY AT NIGHT Active tiZANidine (Zanaflex) 4 MG tablet TAKE 2 TABLETS BY MOUTH EVERYDAY AT BEDTIME 4 Active Active Problems No known active problems Family History Relation Name Status Comments Father Mother Social History Tobacco Use Types Packs/Day Years Used Date Smoking Tobacco: Never Passive Smoke Exposure: Past Smokeless Tobacco: Never Tobacco Cessation:Counseling Given: Yes Alcohol Use Standard Drinks/Week Comments Not Currently 0 (1 standard drink = 0.6 oz pur e alcohol) Comments Unknown Sex and Gender Information Value Date Recorded Sex Assigned at Not on file Legal Sex Female 7:03 PM EDT Gender Identity Not on file Sexual Orientation Not on file Last Filed Vital Signs Vital Sign Reading Time Taken Comments Blood Pressure 131/82 01/15/2024 4:22 PM EDT Pulse 89 01/15/2024 4:22 PM EDT Temperature - - Respiratory Rate - - Oxygen Saturation - - Inhaled Oxygen Concentration - - Weight 127 kg (280 lb) 01/15/2024 4:22 PM EDT Height 165.1 cm (5' 5 ) 01/15/2024 4:22 PM EDT Body Mass Index 46.59 01/15/2024 4:22 PM EDT Plan of Treatment Health Maintenance Due Date Last Done Comments CT Colonography 1960 Colonoscopy 1960 Colorectal Cancer Screening 1960 FIT-DNA 1960 FIT 1960 FOBT 1960 Sigmoidoscopy 1960 Mammogram 1998 Pneumococcal Vaccine: 65+ Years (1 of 1 - PCV) 009 Influenza Vaccine (#1) 2025 [place] [address] [employer] MED[employer]ARE ADVANTAGE Care Teams Filter Operator Relationship Specialty Start Date End Date Humble Patel MD PCP - General Family Medicine 01/15/24
--- OUTSIDE RECORDS SUMMARY | 2025-03-13 09:02 | XMS_ITS | Encounter Summary ---
Author Organization [facility] Address [address] [address] Care Team Providers Care Physician Coding Specialist Name Role Phone Humble Patel MD Primary Care Provider [phone] Reason for Visit * Reason Comments Med Refill Encounter Details Date Type Department Care Team (Late st Contact Info) Description 05/03/2023 Refill [facility] [address] [place] [phone] Rai Jay MD [address] [place] [address] Paroxysmal atrial fibrillation (CMS/HCC) Social History Tobacco Use Types Packs/Day Years Used Date Smoking Tobacco: Never Smokeless Tobacco: Never Alcohol Use Standard Drinks/Week Comments Yes 0 (1 standard drink = 0.6 oz pur e alcohol) occasional Comments No Sex and Gender Information Value Date Recorded Sex Assigned at Female 03/11/2025 10:06 AM EDT Legal Sex Female 11:00 PM EDT Gender Identity Female 03/11/2025 10:06 AM EDT Sexual Orientation Heterosexual or Straight 02/17 10:06 AM EDT documented as of this encounter Plan of Treatment Not on file documented as of this encounter Visit Diagnoses Diagnosis Paroxysmal atrial fibrillation (CMS/HCC) Atrial fibrillation documented in this encounter Care Teams Physician Coding Specialist Relationship Specialty Start Date End Date Humble Patel MD [address] [facility] [address] [address] PCP - General 02/08/22 documented as of this encounter
--- OUTSIDE RECORDS SUMMARY | 2025-03-13 09:02 | XMS_ITS | Encounter Summary ---
Author Organization [facility] Address [address] [place] [address] Care Team Providers Care Respiratory Therapy Technician Name Role Phone Humble Patel MD Primary Care Provider [phone] Reason for Visit * Reason Comments Med Refill Encounter Details Date Type Department Care Team (Late st Contact Info) Description 02/28/2022 Refill [facility] [address] [place] [phone] Manish Walton MD [address] [facility] [place] [phone] Mixed hyperlipidemia Social History Tobacco Use Types Packs/Day Years Used Date Smoking Tobacco: Never Smokeless Tobacco: Never Alcohol Use Standard Drinks/Week Comments Yes 0 (1 standard drink = 0.6 oz pur e alcohol) occasional Comments Unknown Sex and Gender Information Value Date Recorded Sex Assigned at Female 03/11/2025 10:06 AM EDT Legal Sex Female 11:00 PM EDT Gender Identity Female 03/11/2025 10:06 AM EDT Sexual Orientation Heterosexual or Straight 02/17 10:06 AM EDT documented as of this encounter Miscellaneous Notes * Telephone Encounter - Millie Pickens MA - 03/02/2022 7:22 AM EDT Approving, but needs appt for additional refills. documented in this encounter Plan of Treatment Not on file documented as of this encounter Visit Diagnoses Diagnosis Mixed hyperlipidemia documented in this encounter Care Teams Respiratory Therapy Technician Relationship Specialty Start Date End Date Humble Patel MD [address] [facility] [place] [phone] PCP - General 02/08/22 documented as of this encounter
--- OUTSIDE RECORDS SUMMARY | 2025-03-13 09:02 | XMS_ITS | Clinical Summary ---
Author Organization [facility] Address [address] [facility], [address] [place] [address] Care Team Providers Care Radiology Technologist Name Role Phone Humble Patel MD Primary Care Provider [phone] Allergies No known active allergies Medications dilTIAZem (DILACOR XR) 180 MG extended release capsule Take 180 mg by mouth daily Active pantoprazole (PROTONIX) 40 MG tablet Take 40 mg by mouth daily Active isosorbide dinitrate (ISORDIL) 20 MG tablet Take 30 mg by mouth 3 times daily Active furosemide (LASIX) 20 MG tablet Take 20 mg by mouth 2 times daily Active atorvastatin (LIPITOR) 80 MG tablet Take 80 mg by mouth daily Active carvedilol (COREG) 25 MG tablet Take 25 mg by mouth 2 times daily (with meals) Active cloNIDine (CATAPRES) 0.1 MG tablet Take 0.1 mg by mouth 2 times daily Active lisinopril (PRINIVIL;ZESTRI L) 20 MG tablet Take 20 mg by mouth daily Active apixaban (ELIQUIS) 5 MG TABS tablet Take by mouth 2 times daily Active zinc gluconate 50 MG tablet Take 50 mg by mouth daily Active magnesium oxide (MAG-OX) 400 MG tablet Take 400 mg by mouth daily Active Calcium Acetate, Phos Binder, (CALCIUM ACETATE PO) Take by mouth Active Misc Natural Products (AIRBORNE ELDERBERRY) CHEW Take by mouth Active DICLOFENAC POTASSIUM PO Take by mouth Active cetirizine (ZYRTEC) 10 MG tablet Take 10 mg by mouth daily Active pregabalin (LYRICA) 100 MG capsule Take 200 mg by mouth 2 times daily. Active DULoxetine (CYMBALTA) 20 MG extended release capsule Take 20 mg by mouth daily Active Active Problems No known active problems Social History Tobacco Use Types Packs/Day Years Used Date Smoking Tobacco: Never Smokeless Tobacco: Never Tobacco Cessation:Counseling Given: Yes Alcohol Use Standard Drinks/Week Comments Yes 0 (1 standard drink = 0.6 oz pur e alcohol) socially Comments No Sex and Gender Information Value Date Recorded Sex Assigned at Not on file Legal Sex Female 2:43 PM EDT Gender Identity Not on file Sexual Orientation Not on file Last Filed Vital Signs Vital Sign Reading Time Taken Comments Blood Pressure 113/74 11/30/2021 11:26 AM EDT Pulse 65 11/30/2021 11:26 AM EDT Temperature 37.4 C (99.3 F) 11/30/2021 11:26 AM EDT Respiratory Rate 18 11/30/2021 11:26 AM EDT Oxygen Saturation 96% 10/25/2021 1:53 PM EDT Inhaled Oxygen Concentration - - Weight 116.3 kg (256 lb 8 oz) 11/30/2021 11:26 A M EDT Height 165.1 cm (5' 5 ) 11/30/2021 11:26 AM EDT Body Mass Index 42.68 11/30/2021 11:26 AM EDT Plan of Treatment Not on file Care Teams Radiology Technologist Relationship Specialty Start Date End Date Humble Patel MD [address] [place] [address] PCP - General Family Medicine 10/24/21
--- OUTSIDE RECORDS SUMMARY | 2025-03-13 09:02 | XMS_ITS | Patient Health Record ---
Author Organization [facility] Address [address] [place] [address] Care Team Providers Care Circus Train Supervisor Name Role Phone Humble Patel Primary Care Provider UnavailAntoine Sanchez Unavailable [phone] BahlizAshleet Unavailable [phone] Allergies No Known Allergies Results Component Value Reference Range Notes PEH Finger, right 2v - [id number] Reviewed date:05/01/2024 09:59:25 AM Interpretation: Performing Lab: Notes/Report: Surgery Scheduling Reviewed date:04/17/2024 07:37:45 AM Interpretation:[facility] Performing Lab: Notes/Report: [facility] Social Sec number: [id number] Primary Insurance Company: [employer] Surgeon/Assist: DR HOLMAN Surgery Location: [facility] Surgery Date & Time: 04/04/24@12:45 Hosp arrival time day of: 11:45 Surgery End Time: 60 MINS Procedure: RIGHT TRIGGER THUMB RELEASE 01652, EXCISION OF CYST RIGHT THUMB 20959 Special Equipment: - BMI: - C-Arm: - Mini C-Arm: - Diagnosis: TRIGGER THUMB LEFT T HUMB M65.312, CYST L72.3 Admission Type: OP Anesthesia Type/CPNB: LOCAL WITH MAC Bed - Post-op Appointment Date: 04/15@9:45 Latex Allergy NO Lab Location: NOT NEEDED Lab Date/Time: - Lab Time: - [facility] Date/T NO Nip Wrapper: KAYLA Wilder Physician: NOT NEEDED Clearance Appt Date/T - History & Physical Appointme nt Date/: - Reason For Referral Reason MEDICARE AETNA...... ....04/04.......PRECERT SURGERY AT [facility] 04/04/24 RIGHT TRIGGER THUMB, EXCISION CYST THUMB Diagnosis 1 Trigger thumb, left thumb (M65.312) Diagnosis 2 Sebaceous cyst (L72. 3) Referral Organization [facility] Referring Provider First Name Antoine Referring Provider Last Name Shelton Referring Provider Speciality Orthopedic Surgery Referred Organization [facility] Jenna james Referred Address [address] [place], [place],[address],[place] Procedure 1 Excision Hand/Finger Lesion Tendon Sheath (91088) Procedure 2 Tendon [place] incisi on ([address]336) General Notes Usha Stoddard 2023 08:52:04 AM > No precert required per [facility], insurance is active, confirmation scanned in. Faxed to [facility] Referral Priority Routine Medications Medication SIG (Take, Route, Frequency, Duration) Notes Start Date End Date Status Aspir 81 81 mg ORAL ASPIR 81 Unkno wn CloNIDine Hydrochloride 0.1 mg ORAL CLONIDINE HCL Not-Taking simvastatin 20 mg ORAL SIMVASTATIN Not-Taking Lyrica 200 mg ORAL LYRICA Not-Ta chase cloNIDine Active Mobic 15 mg 1 tab(s) orally once a day for 30 day(s) 09/15/2021 Active Eliquis Active carvedilol 25 mg ORAL CARVEDILOL Ac tive cetirizine Active lisinopril 5 mg ORAL LISINOPRIL Act evin pregabalin Active Diclofenac Sodium sodium 75 mg ORAL DICLOFENAC SODIUM Active Zinc Active pantoprazole 40 mg ORAL PANTOPRAZOLE SODIUM Active Magnesium Active multivitamin multiple vitamins ORAL MULTIVITAMINS Active Calcium Active dilTIAZem Active Elderberry Supplement Active isosorbide Active furosemide Active atorvastatin Active carvedilol Active Social History Tobacco Use: Social History Observation Description Date Details (start date - stop date) Never Smoker NA - NA Smoking History Question Answer Notes Smoking Status NonSmoker Problems Problem Type SNOMED Code ICD Code Onset Dates Problem Status W/U Status Risk Notes Problem 721386582 Low back pain (M54.5) Active confirmed Problem Sebaceous cyst (563582608) Sebaceous cyst (L72.3) Active confirmed Problem 898508434627063 Trigger thumb, right thumb (M65.311) Active confirmed Problem Acquired trigger finger (5234344) Trigger thumb, left thumb (M65.312) Active confirmed Problem 673771429 Encounter for surgical aftercare following surgery on the nervous system (Z48.811) Active confirmed Problem 9730935278202017 Pain of left thumb (M79.645) Active confirmed Problem 88323808127512599 Lumbar radiculitis (M54.16) Active confirmed Problem 358915333 Osteoarthritis o f lumbar spine, unspecified spinal osteoarthritis complication status (M47.816) Active confirmed Problem 690793291 History of compression fracture of spine (Z87.81) Active confirmed Problem 972365794 Encounter for other orthopedic aftercare (Z47.89) Active confirmed Encounters Encounter Location Date Provider Diagnosis [facility] [address] [place] [address] 03/25/2024 Antoine Shelton Pain of left thumb M79.645 ; Trigger thumb, right thumb M65.311 and Sebaceous cyst L72.3 [facility] [address] [place] [address] 04/01/2024 Antoine Shelton Trigger thumb, right thumb M65.311 [facility] [address] [place] [phone] 04/04/2024 Antoine Shelton Trigger thumb, right thumb M65.311 and Inflamed sebaceous cyst L72.3 [facility] [place] [address] 04/15/2024 Antoine Shelton Encounter for other orthopedic aftercare Z47.89 and Encounter for surgical aftercare following surgery on the nervous system Z48.811 [facility] [place] [address] 04/04/2024 Antoine Shelton Encounter for other orthopedic aftercare Z47.89 [facility] [address] [place] [address] 10/27/2024 Curtis Lima Assessments Encounter Date Diagnosis (ICD Code) Assessment Notes Treatment Notes Treatment Clinical Notes Section Notes 03/25/2024 Trigger thumb, right thumb (ICD-10 - M65.311) 1. Right trigger thumb. 2. Cyst of abby, right thumb, first leg. 03/25/2024 Pain of left thumb (ICD-10 - M79.645) 1. Right trigger thumb. 2. Cyst of abby, right thumb, first leg. 04/01/2024 Trigger thumb, right thumb (ICD-10 - M65.311) 04/04/2024 Encounter for other orthopedic aftercare (ICD-10 - Z47.89) 04/04/2024 Trigger thumb, right thumb (ICD-10 - M65.311) 04/04/2024 Inflamed sebaceous cyst (ICD-10 - L72.3) 04/15/2024 Encounter for surgical aftercare following surgery on the nervous system (ICD-10 - Z48.811) status post right trigger thumb release and excision of cyst 04/15/2024 Encounter for other orthopedic aftercare (ICD-10 - Z47.89) status post right trigger thumb release and excision of cyst 03/25/2024 Sebaceous cyst (ICD-10 - L72.3) 1. Right trigger thumb. 2. Cyst of abby, right thumb, first leg. 03/25/2024 Other findings were discussed with patient. Should like to proceed with a trigger thumb release along with excision of the cyst. Preoperative and postoperative care. All possible Conditions were discussed. All questions were answered. This will be made for surgery on an outpatient basis. 1. Right trigger thumb. 2. Cyst of abby, right thumb, first leg. 04/15/2024 Other patient's progress her activities as tolerated. Return to the office and it. status post right trigger thumb release and excision of cyst Plan Of Treatment No Information Insurance Providers Payer Name Payer Address Payer Phone Subscriber Number Group Number Insured Name Patient Relationship to Insured Coverage Start Date Coverage End Date Medicare A[employer] [address] [place] [phone] [id number] JOSÉ ANTONIO SY Self - patient is the insured 3 [place] [address] [id number] JOSÉ ANTONIO SY Self - patient is the insured Medical (General) History Medical History History ICD Code Respiratory problems: Yes Heart problems: Yes High Blood Pressure: Yes Anxiety: Yes Surgical History Surgery Date(Month/Year) Right trigger thumb release and excision of thumb cyst 03/27/2024 3 hand HERNIA 2 KNEE 3
--- OUTSIDE RECORDS SUMMARY | 2025-03-13 09:02 | XMS_ITS | Encounter Summary ---
Author Organization [facility] Address [address] [place] [address] Care Team Providers Care Final Rail Cutter Name Role Phone Humble Patel MD Primary Care Provider [phone] Reason for Visit * Reason Comments Med Refill Encounter Details Date Type Department Care Team (Late st Contact Info) Description 03/02/2023 Refill [facility] at [facility] [address] [place] [phone] Rai Jay MD [address] [place] [address] Paroxysmal atrial fibrillation (CMS/HCC) Social History Tobacco [...] fibrillation documented in this encounter Care Teams Final Rail Cutter Relationship Specialty Start Date End Date Humble Patel MD [address] [facility] [address] [address] PCP - General 02/08/22 documented as of this encounter
--- OUTSIDE RECORDS SUMMARY | 2025-03-13 09:02 | XMS_ITS | Clinical Summary ---
Author Organization [facility] Address [address] [place] [address] Care Team Providers Care Radiologic Technology Instructor Name Role Phone Humble Patel MD Primary Care Provider [phone] Allergies Active Allergy Reactions Criticality Noted Date Comments Oxycodone-Acetaminophen Nausea Only Low 02/08/2022 Other reaction(s): vomiting JUST MAKES ME SICK PBC,RNBSN Medications carvedilol (Coreg) 25 mg tablet Take 1 tablet by mouth with breakfast and with evening meal. Active cloNIDine (Catapres) 0.1 mg tablet Take by mouth in the morning and at bedtime. Active dilTIAZem ER (Tiazac) 180 mg 24 hr capsule Take 1 tablet by mouth in the morning. Active DULoxetine (Cymbalta) [address] capsule Take 1 tablet by mouth in the morning. Active isosorbide mononitrate ER (Imdur) 30 mg 24 hr tablet Take 1 tablet by mouth in the morning. Active lisinopril 20 mg tablet Take 1 tablet by mouth in the morning. Active nitroglycerin (Nitrostat) 0.[address] 1 TABLET IN MOUTH EVERY 5 MINUTES 3 TIMES A DAY NEEDED FOR CHEST PAIN Active pantoprazole (ProtoNix) 40 mg EC tablet Take 1 tablet by mouth in the morning. Active pregabalin (Lyrica) 200 mg capsule TAKE 1 CAPSULE BY MOUTH EVERY DAY AT NIGHT Active multivitamin tablet Take 1 tablet by mouth in the morning. Active dexlansoprazole (Dexilant) [address] capsule Take 60 mg by mouth in the morning. 07/21/19 14 Active cholecalciferol, vitamin D3, 50 mcg (2,000 unit) capsule 1 capsule 1 (one) time each day at the same time. 07/26/19 24 Active ALPRAZolam (Xanax) 0.5 mg tablet Take 0.5 mg by mouth if needed for anxiety or sleep. Active furosemide (Lasix) 20 mg tabletIndications: Essential hypertension TAKE 1 TABLET BY MOUTH EVERY DAY IN THE MORNING 90 tablet 3 03/26/20 24 Active famotidine (Pepcid) 20 mg tabletIndications: Paroxysmal atrial fibrillation (CMS/HCC) Take 1 tablet (20 mg) by mouth two times daily. 180 tablet 3 06/30/19 25 026 Active warfarin (Coumadin) 5 mg tablet TAKE 1 TABLET AT SUNDAY, SUNDAY, SUNDAY, AND SUNDAY PER COUMADIN CLINIC 08/13/19 25 Active celecoxib (CeleBREX) 200 mg capsule take 1 capsule by mouth every day with food for 30 days 06/18/19 25 Active Klor-Con M20 20 mEq ER tablet Take 1 tablet by mouth Twice daily at 6am and 6pm. 08/15/19 25 Active ezetimibe (Zetia) 10 mg tabletIndications: Mixed hyperlipidemia Take 1 tablet (10 mg) by mouth in the morning. 90 tablet 3 08/21/19 25 026 Active atorvastatin (Lipitor) 80 mg tabletIndications: Mixed hyperlipidemia TAKE 1 TABLET BY MOUTH EVERYDAY AT BEDTIME 90 tablet 3 09/23/19 25 Active apixaban (Eliquis) 5 mg tablet Take 5 mg by mouth twice a day. Active levoFLOXacin (Levaquin) 750 mg tablet Take 1 tablet by mouth in the morning. 09/04/19 25 Active magnesium oxide (Mag-Ox) 400 mg (241.3 mg magnesium) tablet Take 1 tablet by mouth Twice daily at 6am and 6pm. 09/04/19 25 Active tiZANidine (Zanaflex) 4 mg tablet Take 4 mg by mouth every 6 (six) hours if needed. 09/21/19 25 Active dapagliflozin propanediol (Farxiga) 10 mgIndications:Santana tolic dysfunction,Diabet es mellitus type II, non insulin dependent (CMS/HCC) Take 1 tablet (10 mg) by mouth in the morning. 90 tablet 3 02/20/20 25 026 Active dapagliflozin propanediol (Farxiga) 10 mgIndications:Santana tolic dysfunction,Diabet es mellitus type II, non insulin dependent (CMS/HCC) Take 1 tablet (10 mg) by mouth in the morning. 30 tablet 11 08/21/19 25 025 Discontin ued(Reord er) dapagliflozin propanediol (Farxiga) 10 mgIndications:Santana tolic dysfunction,Diabet es mellitus type II, non insulin dependent (CMS/HCC) Take 1 tablet (10 mg) by mouth in the morning. 30 tablet 11 02/20/20 025 Discontin ued(Reord er) Active Problems Problem Noted Date Diagnosed Date Acquired spondylolisthesis 03/13/2025 Acute non-ST segment elevation myocardial infarc tion 03/13/2025 CAD (coronary artery disease) 03/13/2025 Chest wall pain 03/13/2025 Chronic diastolic heart failure 03/13/2025 Closed fracture of phalanx of foot 03/13/2025 Contact dermatitis 03/13/2025 Enthesopathy of hip region 03/13/2025 Ganglion cyst 03/13/2025 Hypothyroid 03/13/2025 Lumbosacral spondylosis without myelopathy 03/13 Osteoarthritis of knee 03/13/2025 Pain in limb 03/13/2025 Ventral hernia without obstruction or gangrene 0 03/13/2025 Diabetes mellitus, type 2 09/26/2023 Lumbar radiculitis 06/26/2023 06/26/2023 Paroxysmal atrial fibrillation 11/23/2022 Overview (11/23/2022): Added automatically from request for surgery [id number] Status post placement of implantable loop record er 10/20/2022 Assessment & Plan (10/20/2022 4:08 PM EDT): Incision well healed, approximated and no s/s of infection Palpitations 09/14/2022 Assessment & Plan (09/14/2022 4:34 PM EDT): - continues to have palpitations despite being post ablation - ECG sinus rhythm - will proceed with appeal for loop monitor - she has history of TIA and continued palpitations Pulmonary hypertension 09/14/2022 Assessment & Plan (09/14/2022 4:32 PM EDT): -Likely the result of bronchitis in the past, undiagnosed sleep apnea and obesity related hypoventilation. She is seeing pulmonary, noted abnormal PFTs Dyspnea 08/02/2022 Assessment & Plan (09/14/2022 4:32 PM EDT): -chronic issue for her since she has been in her 20s due to having multiple respiratory infections she states Diastolic dysfunction 08/02/2022 Assessment & Plan (09/14/2022 4:34 PM EDT): -HFpEF/diastolic dysfunction. Compensated today, no concerns for fluid overload, continue lasix Typical atrial flutter 03/08/2022 Overview (03/08/2022): Added automatically from request for surgery [id number] Assessment & Plan (10/20/2022 4:09 PM EDT): continue all medications RTC as scheduled with Dr Jay in November Assessment & Plan (09/14/2022 4:34 PM EDT): -[id number] 3 - s/p CTI ablation - continues to have palpitations despite being post ablation - ECG is sinus rhythm - I will proceed with appeal for loop monitor regarding palpitations Gastroesophageal reflux disease 06/28/2017 Hypertensive disorder 06/28/2017 Assessment & Plan (09/14/2022 4:35 PM EDT): -managed per PCP -ct current medications Dietary noncompliance 05/10/2015 04/17/2023 Non morbid obesity due to excess calories 201404/17/2023 Encounters Date Type Department Care Team Description 02/19/[address] [phone] Daina Del Castillo MA Diastolic dysfunction; Diabetes mellitus type II, non insulin dependent ([facility]/HCC) 02/19/[address] [address] Daina Del Castillo MA Diastolic dysfunction; Diabetes mellitus type II, non insulin dependent ([facility]) 02/19/[address] [facility] at [facility] [address] [place] [address] Daina Del Castillo MA from Last 3 Months Family History Medical History Relation Name Comments Heart failure Brother Hyperlipidemia Brother Hypertension Brother Heart failure Father Hypertension Father Heart failure Mother Hyperlipidemia Mother Hypertension Mother Relation Name Status Comments Brother Father Mother Social History Tobacco Use Types Packs/Day Years Used Date Smoking Tobacco: Never Smokeless Tobacco: Never Alcohol Use Standard Drinks/Week Comments Yes 0 (1 standard drink = 0.6 oz pur e alcohol) occasional [place] Safety & Environment Answer Date Rec orded Fear of Current or Ex-Partner Not on file Emotionally Abused Not on file 08/09/2023 Physically Abused Not on file 08/09/2023 Sexually Abused Not on file 08/09/2023 Physically or Sexually Abused Not on file Comments No Sex and Gender Information Value Date Recorded Sex Assigned at Female 03/11/2025 10:06 AM EDT Legal Sex Female 11:00 PM EDT Gender Identity Female 03/11/2025 10:06 AM EDT Sexual Orientation Heterosexual or Straight 02/17 10:06 AM EDT Last Filed Vital Signs Vital Sign Reading Time Taken Comments Blood Pressure 124/80 08/20/2024 9:02 AM EST Pulse 73 08/20/2024 9:02 AM EST Temperature 36.2 C (97.2 F) 09/26/2023 3:35 PM EDT Respiratory Rate 18 09/26/2023 3:35 PM EDT Oxygen Saturation 98% 08/20/2024 9:02 AM EST Inhaled Oxygen Concentration - - Weight 108 kg (237 lb) 08/20/2024 9:02 AM EST Height 165.1 cm (5' 5 ) 08/20/2024 9:02 AM EST Body Mass Index 39.44 08/20/2024 9:02 AM EST Plan of Treatment Health Maintenance Due Date Last Done Comments CT Colonography 1958 Colonoscopy 1958 Colorectal Cancer Screening 1958 Diabetes: Hemoglobin A1C 1958 FIT-DNA 1958 FIT 1958 FOBT 1958 Medicare Annual Wellness (AWV) 1958 Sigmoidoscopy 1958 Diabetes: Retinopathy Screening 1968 Depression Screening 1970 Diabetes: Urine Protein Screening 1977 Pneumococcal Vaccine: 50+ Years (1 of 2 - PCV) 1977 Adult Tetanus 1980 Mammogram 1998 Zoster Vaccines (1 of 2) 2008 Fall Risk Screening 2023 COVID-19 Vaccine (2024-2 6 season) 2025 06/28/2021, 11/30/2020, 11/09/2020 Influenza Vaccine (#1) 2025 HIB Vaccines Aged Out No longer eligi ble based on patient's age to complete this topic HPV Vaccines Aged Out No longer eligi ble based on patient's age to complete this topic IPV Vaccines Aged Out No longer eligi ble based on patient's age to complete this topic Meningococcal B Vaccine Aged Out No l onger eligible based on patient's age to complete this topic Meningococcal Vaccine Aged Out No mayito stephanie eligible based on patient's age to complete this topic Rotavirus Vaccines Aged Out No longer eligible based on patient's age to complete this topic Medical Devices Implanted Type Area Airborne Operations Manager Device Identifier Shelf Expiration Date Model / Serial / Lot Monitor,Cardiac ,Mobile,Mylux - [id number] - [id number] Implanted:Qty: 1 on 10/11/2022 by Rai Jay MD at [facility] Device [employer] 03/06/2024 [id number] / [id number] / Insurance [facility] MEDICARE ADVANTAGE Advance Directives * Full Code (Latest Code Status on File) Date Activated Date Inactivated Comments 10/11/2022 12:28 PM 10/11/2022 2:46 PM Care Teams Radiologic Technology Instructor Relationship Specialty Start Date End Date Humble Patel MD [address] [facility] [place] [address] PCP - General 02/08/22
--- OUTSIDE RECORDS SUMMARY | 2025-03-13 09:02 | XMS_ITS | Clinical Summary ---
Author Organization [facility] Address [address] [place] [address] Care Team Providers Care Annual Campaign Manager Name Role Phone Humble Patel MD Primary Care Provider [phone] Allergies Active Allergy Reactions Criticality Noted Date Comments Oxycodone-Acetaminophen Unknown 08/19/2013 Medications CLONIDINE 0.1 mg tablet Take 0.1 mg by mouth once daily. 4 Active DEXILANT 60 mg CpDM Take 60 mg by mouth once daily. 4 Active Aspirin 81 mg tab Take 81 mg by mouth once daily. Active ALPRAZOLAM (XANAX ORAL) Take 0.25 mg by mouth as needed. Active carvedilol (COREG) 25 mg tablet Take 1 tablet by mouth twice daily. 180 tablet 3 4 Active PREGABALIN (LYRICA ORAL) Take 1 tablet by mouth daily at bedtime. Active DICLOFENAC SODIUM ORAL Take 75 mg by mouth once daily. Active lisinopril (PRINIVIL) 5 mg tablet Take 1 tablet by mouth once daily. 90 tablet 3 5 Active Additional Information Patient taking differently: 20 mgORAL DAILY, Reason: Dosage Adjustment, Reported on 06/24/2018 MULTIVIT &MINERALS/ANJEL US FUM (MULTI VITAMIN ORAL) Take by mouth once daily. Active ibuprofen (MOTRIN) 600 mg tablet Take 600 mg by mouth every 8 hours as needed. Active LYRICA 200 mg capsule TAKE 1 CAPSULE BY MOUTH EVERYDAY AT BEDTIME 5 8 Active carvedilol (COREG) 25 mg tablet carvedilol 25 mg tablet Active cloNIDine HCl (CATAPRES) 0.1 mg tablet clonidine HCl 0.1 mg tablet Active diclofenac, EC, (VOLTAREN) 75 mg EC tablet Take 75 mg by mouth twice daily. 11 8 Active simvastatin (ZOCOR) 20 mg tablet simvastatin 20 mg tablet Active Active Problems Problem Noted Date Diagnosed Date Non morbid obesity due to excess calories 2014 Dietary noncompliance 05/10/2015 HTN (hypertension) 10/30/2014 Family History Medical History Relation Comments Hypertension Brother 2 Hypertension Father Cancer Mother Hypertension Mother Headache Sister 4 Relation Status Comments Brother 1 Alive Brother 2 Father Mother Sister 1 Alive Sister 2 Alive Sister 3 Alive Sister 4 Social History Tobacco Use Types Packs/Day Years Used Date Smoking Tobacco: Never Smokeless Tobacco: Never Alcohol Use Standard Drinks/Week Comments Yes 0 (1 standard drink = 0.6 oz pur e alcohol) Area Deprivation Index Answer Date Sherman rded National Score (1-100), lower number is lower ri sk Not on file 05/23/2020 State Score (1-10), lower number is lower risk N ot on file 05/23/2020 Data from: https://www.neighborhoodatlas.medicine.[facility]/. Last address used for calculation Not on file 05/23/2020 Comments Unknown Sex and Gender Information Value Date Recorded Sex Assigned at Not on file Legal Sex Female 8:03 AM EST Gender Identity Not on file Sexual Orientation Not on file Last Filed Vital Signs Vital Sign Reading Time Taken Comments Blood Pressure 198/94 06/24/2018 9:33 AM EST Pulse 62 06/24/2018 9:26 AM EST Temperature 36.7 C (98 F) 06/24/2018 9:26 AM EST Respiratory Rate 18 06/24/2018 9:26 AM EST Oxygen Saturation 97% 05/10/2015 10:13 AM EST Inhaled Oxygen Concentration - - Weight 112.9 kg (249 lb) 06/24/2018 9:26 AM EST Height 165.1 cm (5' 5 ) 06/24/2018 9:26 AM EST Body Mass Index 41.44 06/24/2018 9:26 AM EST Plan of Treatment Health Maintenance Due Date Last Done Comments Anxiety Screening 1976 Depression Screening 1976 Hepatitis C Screening 1976 DTaP,Tdap,Td Vaccine (1 - Tdap) [address] Colonography 2003 Cologuard (FIT-DNA) 2003 Colonoscopy 2003 Colorectal Cancer Screening 2003 Diabetes Screening 2003 Fecal Occult Blood 2003 Lipid Screening 2003 Sigmoidoscopy 2003 Pneumococcal Vaccine: 50+ (1 of 1 - PCV) 2008 Shingrix Vaccine (1 of 2) 2008 Bone Density Screening 2023 Advance Directive Discussion 06/18/2024 Influenza Vaccine (#1) 2025 RSV Vaccine (1 - 1-dose 75+ series) 2033 Insurance [employer] [place] OF [place] Care Teams Annual Campaign Manager Relationship Specialty Start Date End Date Humble Patel MD PCP - General Family Medicine 08/06/13
--- OUTSIDE RECORDS SUMMARY | 2025-03-13 09:03 | XMS_ITS | CCD ---
Author Organization [facility] Care Team Providers Care Ui Ux Web Developer Name Role Phone SONNY ZAID Unavailable Unavailable KUNAL PATEL Unavailable Unavailable ELTAHAWY, EHAB A Attending Unavailable ELTAHAWY, EHAB A Admitting Unavailable SELF, REFERRED Referring Unavailable KUNAL PATEL Primary Care Unavailable Kunal Patel MD Primary Care Provider [phone] ANNABEL LIMA Admitting Unavailable ANNABEL LIMA Attending Unavailable KUNAL PATEL Primary Care Unavailable DARRYL, GARTH Admitting Unavailable GARTH ANDREWS Consulting Unavailable GARTH ANDREWS Attending Unavailable LEIGHTON ., DR SYED Primary Care Unavailable RAI JAY Admitting Unavailable RAI JAY Attending Unavailable HOY ., DR SYED Primary Care Unavailable DELIA COKER Admitting Unavailable DELIA COKER Consulting Unavailable DELIA COKER Attending Unavailable LEIGHTON ., DR SYED Primary Care Unavailable RUBIARORO Ash Consulting Unavailable DARRYL, GARTH Admitting Unavailable GARTH ANDREWS Attending Unavailable LEIGHTON ., DR SYED Primary Care Unavailable LEIGHTON ., DR SYED Admitting Unavailable LEIGHTON ., DR SYED Primary Care Unavailable JOANNAY ., DR SYED Consulting Unavailable HOLillian ., DR SYED Attending Unavailable EMILY LUZ Attending Unavailable RAI JAY Referring Unavailable RAI JAY Referring Unavailable GARTH ANDREWS Attending Unavailable RAI JAY Attending Unavailable FERNANDO, CHIARA Referring Unavailable FERNANDO, CHIARA Referring Unavailable LOGAN, RAI Referring Unavailable FERNANDO, CHIARA Referring Unavailable FERNANDO, CHIARA Referring Unavailable FERNANDO, CHIARA Referring Unavailable FERNANDO, CHIARA Referring Unavailable FERNANDO, CHIARA Referring Unavailable RAI JAY Admitting Unavailable RAI JAY Attending Unavailable FERNANDO, CHIARA Referring Unavailable FERNANDO, CHIARA Referring Unavailable Jaci Kay PA-C Attending Provider Jaci Kay Attending Unavailable Jaci Kay Admitting Unavailable Shelton SAUER, Antoine Resendiz Attending Unavail able Allergies Allergy Classification Reported Allergen(s) Allergy Type Date of Onset Reaction(s) Facility (2 sources) Acetaminophen / oxyCODONE; Translations: [OXYCODONE-ACETAMI NOPHEN] [facility] Acetaminophen / oxyCODONE Drug Allergy 01-24-2013 [facility] Repository Medications [...] disease (1 source) 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 Normal [facility] Comment on above: Performed By: #### C UU #### [address] 37on 08-20-2024 37 *We are adding zetia 10mg daily to help with your cholesterol levels. Have a recheck of your cholesterol levels in 2 months, Oct, 2024. *I ordered an ECHO. [facility] should call you to schedule. *If chest pain does not improve, let us know and we can proceed with a stress test. Normal [facility] Office Visiton 08-20-2024 Follow-up visit [id number] Carina Barth 1960 F Date Provider Department Center 08/20/2024 [facility] Family History Problem Relation Age of Onset Heart failure Mother Hyperlipidemia Mother Hypertension Mother Heart failure Father Hypertension Father Heart failure Brother Hyperlipidemia Brother Hypertension Brother Family Status - Relation Status Age at Mother Father Brother Level of Service:20489 [place] OFFICE/OUTPATIENT ESTABLISHED MOD MDM 30 MIN Reason for Visit and Comments: Atrial Fibrillation [80] Atrial Flutter [101] Coronary Artery Disease [187] Hypertension [828831] Normal [facility] Telephoneon 10-18-2023 Telephone [id number] Carina Barth 1960 F Date Provider Department Center 10/18/20231986PATO [facility] Family History Problem Relation Age of Onset Heart failure Mother Hyperlipidemia Mother Hypertension Mother Heart failure Father Hypertension Father Heart failure Brother Hyperlipidemia Brother Hypertension Brother Family Status - Relation Status Age at Mother Father Brother Reason for Visit and Comments: 3 week f/u post ablation [Other] Normal [facility] Telephoneon 10-05-2023 Telephone [id number] Carina Barth 1960 F Date Provider Department Center 10/05/20231986PATO [facility] Family History Problem Relation Age of Onset Heart failure Mother Hyperlipidemia Mother Hypertension Mother Heart failure Father Hypertension Father Heart failure Brother Hyperlipidemia Brother Hypertension Brother Family Status - Relation Status Age at Mother Father Brother Reason for Visit and Comments: week f/u post ablation [Other] Normal [facility] Telephoneon 10-04-2023 Telephone [id number] Carina Barth 1960 F Date Provider Department Center 10/04/20231986PATO CORONADO C [facility] Family History Problem Relation Age of Onset Heart failure Mother Hyperlipidemia Mother Hypertension Mother Heart failure Father Hypertension Father Heart failure Brother Hyperlipidemia Brother Hypertension Brother Family Status - Relation Status Age at Mother Father Brother Reason for Visit and Comments: post ablation f/u [Other] [facility] Reason for Consultation: Aflutter s/p ablation [...] 07/2022, atrial fib (was intolerant of amiodarone) [id number] at least 5 for gender, hypertension, TIA, [...] hx TIA 2008. She was seen at [facility] ER with c/o palpitations and [...] syncope, no (more content not included)... Normal [facility] POCT GLUCOSE METER UNSOLICIT ED RESULTSon 09-26-2023 Glucose [Mass/Vol] 173 mg/dL High 70-105 [facility] Comment on above: Order Comment: Waive d Testing in the ED is performed under the ED CLIA certificate #[id number]. Result Comment: dspe ars Performed By: #### L [id number] ####[facility] (BEAKER)[address] [place] [address] Glucose [Mass/Vol] 164 mg/dL High 70-105 [facility] Comment on above: Order Comment: Waive d Testing in the ED is performed under the ED CLIA certificate #[id number]. Result Comment: eyou ng12 Performed By: #### L [id number] ####[facility] (BEAKER)[address] [place] [address] PROTIME-INRon 09-26-2023 INR IN PPP BY COAGULATION ASSAY 1.01 Normal 0.90-1.[address] [facility] Comment on above: Result Comment: ACCC [...] CHEST 1995;108:231S-246S. Performed By: #### L [id number] ####[facility] (BEAKER)[address] [place] [address] PROTHROMBIN TIME (PT) IN PPP BY COAGULATION ASSAY 13.3 Seconds Normal 12.3-14.[address] [facility] Comment on above: Performed By: #### L [id number] ####[facility] (BEAKER)[address] [place] [address] Prep for Procedureon 024 Prep for Procedure [id number] Carina Barth 1960 F Date Provider Department Center 09/26/20231986-PATO CORONADO [facility] Family History Problem Relation Age of Onset Heart failure Mother Hyperlipidemia Mother Hypertension Mother Heart failure Father Hypertension Father Heart failure Brother Hyperlipidemia Brother Hypertension Brother Family Status - Relation Status Age at Mother Father Brother Normal [facility] [id number] 09-18-2023 [id number] ARRIVAL TIME 0700 HOLD ELIQUIS 4/8 MULTI [...] THE FOLLOWING ARE NOT AVAILABLE: An adult p d driver over 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 Do not wear perfume, make-up, nail turkmen, or lotions on the day of your [...] need to make any changes, please call [phone]. Notify your surgeon if you develop any illness such as a cold, cough, fever, sore throat or vomiting between now and your surgery. Thank you for entrusting us with your care. [facility] Surgical Services Team Normal [facility] Office Visiton 09-18-2023 Follow-up visit [id number] Carina Barth 1960 F Date Provider Department Center 09/18/2023 241-LOGAN, RAI BH CARD [facility] Family History Problem Relation Age of Onset Heart failure Mother Hyperlipidemia Mother Hypertension Mother Heart failure Father Hypertension Father Heart failure Brother Hyperlipidemia Brother Hypertension Brother Family Status - Relation Status Age at Mother Father Brother Level of Service:62176 [place] OFFICE/OUTPATIENT ESTABLISHED HIGH MDM 40 MIN Reason for Visit and Comments: Follow-up [475863] Normal [facility] Prep for Procedureon 024 Prep for Procedure [id number] Carina Barth 1960 F Date Provider Department Center 09/05/20231986-PATO CORONADO [facility] Family History Problem Relation Age of Onset Heart failure Mother Hyperlipidemia Mother Hypertension Mother Heart failure Father Hypertension Father Heart failure Brother Hyperlipidemia Brother Hypertension Brother Family Status - Relation Status Age at Mother Father Brother Normal [facility] BNPon 07-24-2022 Natriuretic peptide B (Bld) [Mass/Vol] 109.0 pg/mL Normal <=900.0 [facility] Comment on above: Performed By: #### C MP, T7, BNP, LIPID, TSH #### [facility] [address] [place] [address] Dr. Yuliya Jones CBC AUTO DIFFon 07-24-2022 BASO # 0.0 103/ul Normal 0.0-0.1 [facility] Comment on above: Performed By: #### C BC #### [facility] [address] [place] [address] Dr. Yuliya Jones Basophils/100 WBC (Bld) 0.4 % Normal 0.2-2.0 [facility] Comment on above: Performed By: #### C BC #### [facility] [address] [place] [address] Dr. Yluiya Jones EO # 0.2 103/ul Normal 0.0-0.7 [facility] Comment on above: Performed By: #### C BC #### [facility] [address] [place] [address] Dr. Yuliya Jones Eosinophils/100 WBC (Bld) 2.2 % Normal 0.9-7.0 [facility] Comment on above: Performed By: #### C BC #### [facility] [address] [place] [address] Dr. Yuliya Jones Erythrocyte distribution width (RBC) [Ratio] 13.6 % Normal 11.0-15.0 [facility] Comment on above: Performed By: #### C BC #### [facility] [address] [place] [address] Dr. Yuliya Jones Hematocrit (Bld) [Volume fraction] 40.1 % Normal 36.0-48.0 [facility] Comment on above: Performed By: #### C BC #### [facility] [address] [place] [address] Dr. Yuliya Jones Hemoglobin (Bld) [Mass/Vol] 13.1 g/dL Normal 12.0-16.0 [facility] Comment on above: Performed By: #### C BC #### [facility] [address] [place] [address] Dr. Yuliya Jones IG # 0.05 10e3/ul Critically high 0.00-0.03 [facility] Comment on above: Performed By: #### C BC #### [facility] [address] [place] [address] Dr. Yuliya Jones IG % 0.7 % Critically high 0.0-0.[address] [facility] Comment on above: Performed By: #### C BC #### [facility] [address] [place] [address] Dr. Yuliya Jones LYMPH # 2.0 103/ul Normal 1.2-3.8 [facility] Comment on above: Performed By: #### C BC #### [facility] [address] [place] [address] Dr. Yuliya Jones Lymphocytes/100 WBC (Bld) 26.9 % Normal 20.5-60.0 [facility] Comment on above: Performed By: #### C BC #### [facility] [address] [place] [address] Dr. Yuliya Jones MANUAL DIFF REQ NO Normal [facility] Comment on above: Performed By: #### C BC #### [facility] [address] [place] [address] Dr. Yuliay Jones MCH (RBC) [Entitic mass] 28.5 pg Normal 26.7-34.0 [facility] Comment on above: Performed By: #### C BC #### [facility] [address] [place] [address] Dr. Yuliya Jones MCHC (RBC) [Mass/Vol] 32.7 g/dL Normal 29.9-35.2 [facility] Comment on above: Performed By: #### C BC #### [facility] [address] [place] [address] Dr. Yuliya Jones MCV (RBC) [Entitic vol] 87.4 fL Normal 81.0-99.0 [facility] Comment on above: Performed By: #### C BC #### [facility] [address] [place] [address] Dr. Yuliya Jones MONO # 0.4 103/ul Normal 0.3-0.8 [facility] Comment on above: Performed By: #### C BC #### [facility] [address] [place] [address] Dr. Yuliya Jones Monocytes/100 WBC (Bld) 5.1 % Normal 1.7-12.0 [facility] Comment on above: Performed By: #### C BC #### [facility] [address] [place] [address] Dr. Yuliya Jones NEUT # 4.8 103/ul Normal 1.4-6.5 [facility] Comment on above: Performed By: #### C BC #### [facility] [address] [place] [address] Dr. Yuliya Jones Neutrophils/100 WBC (Bld) 64.7 % Normal 43.0-75.0 [facility] Comment on above: Performed By: #### C BC #### [facility] [address] [place] [address] Dr. Yuliya Jones Platelet mean volume (Bld) [Entitic vol] 10.3 fL Normal 9.5-13.5 [facility] Comment on above: Performed By: #### C BC #### [facility] [address] [place] [address] Dr. Yuliya Jones PLT 244 103/ul Normal 150-450 [facility] Comment on above: Performed By: #### C BC #### [facility] [address] [address] [address] Yuliya Jones RBC 4.59 106/ul Normal 4.20-5.40 [facility] Comment on above: Performed By: #### C BC #### [facility] [address] [address] [address] Yuliya Jones WBC 7.4 103/ul Normal 4.0-11.0 [facility] Comment on above: Performed By: #### C BC #### [facility] [address] [address] [address] Yuliya Jones FREE THYROXINE INDEX T7on FTI 2.66 Normal 1.30-4.50 [facility] Comment on above: Performed By: #### C MP, T7, BNP, LIPID, TSH #### [facility] [address] [place] [address] Dr. Yuliya Jones T3U 35.0 % Normal 30.0-39.0 [facility] Comment on above: Performed By: #### C MP, T7, BNP, LIPID, TSH #### [facility] [address] [place] [address] Dr. Yuliya Jones T4 [Mass/Vol] 7.60 ug/dL Normal 4.80-13.90 [facility] Comment on above: Performed By: #### C MP, T7, BNP, LIPID, TSH #### [facility] [address] [place] [address] Dr. Yuliya Jones GLYCOHEMOGLOBIN A1Con 2022 ADA RECOMMENDATION SEE BELOW Normal [facility] Comment on above: Result Comment: ADA RECOMMENDED LIMIT 4.0 - 6.0 ADA THERAPEUTIC TARGET < 7.0 ACTION SUGGESTED > 7.0 Performed By: #### A 1C ####[facility] [id number] [address]Dr. Yuliya Jones Glucose [Mass/Vol] 146 mg/dL Normal [facility] Comment on above: Performed By: #### A 1C ####[facility] [id number] [place], [place] [address]TfDr. Yuliya Jones HbA1c (Bld) [Mass fraction] 6.7 % Critically high 4.5-6.2 [facility] Comment on above: Performed By: #### A 1C ####[facility] [id number] [place], [place] [address]HkDr. Yuliya Jones IRONon 07-24-2022 Iron [Mass/Vol] 74.0 ug/dL Normal 50.0-170.[address] [facility] Comment on above: Performed By: #### I LUDWIN, VITB12, VITAD #### [facility] [address] [address] [address] Yuliya Jones LIPID PROFILEon 07-24-2022 CHOL-HDL RATIO NORM SEE BELOW Normal [facility] Comment on above: Result Comment: 3.3 - 4.4 LOW RISK 4.4 - 7.1 AVERAGE RISK 7.1 - 11.0 MODERATE RISK >11.0 HIGH RISK Performed By: #### C MP, T7, BNP, LIPID, TSH #### [facility] [address] [address] [address] Yuliya Jones Cholesterol [Mass/Vol] 215 mg/dL Critically high <=200 [facility] Comment on above: Performed By: #### C MP, T7, BNP, LIPID, TSH #### [facility] [address] [address] [address] Yuliya Jones Cholesterol in HDL [Mass/Vol] 46 mg/dL Normal 40-60 [facility] Comment on above: Performed By: #### C MP, T7, BNP, LIPID, TSH #### [facility] [address] [address] [address] Yuliya Jones Cholesterol in LDL [Mass/Vol] 120.6 mg/dL Normal [facility] Comment on above: Performed By: #### C MP, T7, BNP, LIPID, TSH #### [facility] [address] [address] [address] Yuliya Jones Cholesterol.total/ Cholesterol in HDL [Mass ratio] 4.7 {ratio} Normal [facility] Comment on above: Performed By: #### C MP, T7, BNP, LIPID, TSH #### [facility] [address] [address] [address] Yuliya Jones HDL NORMAL > or = 60 mg/dl - LO W CARDIOVASCULAR RISK <40 mg/dl - HIGH CARDIOVASCULAR RISK Normal [facility] Comment on above: Performed By: #### C MP, T7, BNP, LIPID, TSH #### [facility] [address] [address] [address] Yuliya Jones LDL CALC NORMAL SEE BELOW Normal [facility] Comment on above: Result Comment: <100 mg/dl OPTIMAL 100 - 129 mg/dl NEAR OR ABOVE OPTIMAL 130 - 159 mg/dl BORDERLINE HIGH 160 - 189 mg/dl HIGH >190 mg/dl VERY HIGH Performed By: #### C MP, T7, BNP, LIPID, TSH #### [facility] [address] [place] [address] Dr. Yuliya Jones Triglyceride [Mass/Vol] 242 mg/dL Critically high <=150 [facility] Comment on above: Performed By: #### C MP, T7, BNP, LIPID, TSH #### [facility] [address] [address] [address] Yuliya Jones VLDL CALC 48.4 mg/dL Normal [facility] Comment on above: Performed By: #### C MP, T7, BNP, LIPID, TSH #### [facility] [address] [place] [address] Dr. Yuliya Jones PROF 14(COMP METB)on 023 Albumin [Mass/Vol] 3.3 g/dL Critically low 3.4-5.0 [facility] Comment on above: Performed By: #### C MP, T7, BNP, LIPID, TSH #### [facility] [address] [place] [address] Dr. Yuliya Jones Albumin/Globulin [Mass ratio] 0.8 {ratio} Normal [facility] Comment on above: Performed By: #### C MP, T7, BNP, LIPID, TSH #### [facility] [address] [place] [address] Dr. Yuliya Jones ALP [Catalytic activity/Vol] 148 U/L Critically high 46-116 [facility] Comment on above: Performed By: #### C MP, T7, BNP, LIPID, TSH #### [facility] [address] [address] [address] Yuliya Jones ALT [Catalytic activity/Vol] 49 U/L Normal 14-59 [facility] Comment on above: Performed By: #### C MP, T7, BNP, LIPID, TSH #### [facility] [address] [place] [address] Dr. Yuliya Jones Anion gap [Moles/Vol] 11.6 mmol/L Normal [facility] Comment on above: Performed By: #### C MP, T7, BNP, LIPID, TSH #### [facility] [address] [place] [address] Dr. Yuliya Jones AST [Catalytic activity/Vol] 26 U/L Normal 15-37 [facility] Comment on above: Performed By: #### C MP, T7, BNP, LIPID, TSH #### [facility] [address] [place] [address] Dr. Yuliya Jones Bilirubin [Mass/Vol] 0.8 mg/dL Normal 0.2-1.0 [facility] Comment on above: Performed By: #### C MP, T7, BNP, LIPID, TSH #### [facility] [address] [place] [address] Dr. Yuliya Jones Calcium [Mass/Vol] 9.0 mg/dL Normal 8.5-10.1 [facility] Comment on above: Performed By: #### C MP, T7, BNP, LIPID, TSH #### [facility] [address] [place] [address] Dr. Yuliya Jones Chloride [Moles/Vol] 102 mmol/L Normal 98-107 [facility] Comment on above: Performed By: #### C MP, T7, BNP, LIPID, TSH #### [facility] [address] [place] [address] Dr. Yuliya Jones CO2 [Moles/Vol] 29.1 mmol/L Normal 21.0-32.0 [facility] Comment on above: Performed By: #### C MP, T7, BNP, LIPID, TSH #### [facility] [address] [address] [address] Yuliya Jones Creatinine [Mass/Vol] 0.69 mg/dL Normal 0.55-1.02 [facility] Comment on above: Performed By: #### C MP, T7, BNP, LIPID, TSH #### [facility] [address] [place] [address] Dr. Yuliya Jones EGFR-AF SUDANESE >60 Normal >=60 [facility] Comment on above: Performed By: #### C MP, T7, BNP, LIPID, TSH #### [facility] [address] [place] [address] Dr. Yuliya Jones EGFR-NON AF SUDANESE >60 Normal >=60 [facility] Comment on above: Performed By: #### C MP, T7, BNP, LIPID, TSH #### [facility] [address] [place] [address] Dr. Yuliya Jones Globulin (S) [Mass/Vol] 4.1 g/dL Normal [facility] Comment on above: Performed By: #### C MP, T7, BNP, LIPID, TSH #### [facility] [address] [place] [address] Dr. Yuliya Jones Glucose [Mass/Vol] 151 mg/dL Critically high 74-106 [facility] Comment on above: Performed By: #### C MP, T7, BNP, LIPID, TSH #### [facility] [address] [place] [address] Dr. Yuliya Jones Potassium [Moles/Vol] 3.7 mmol/L Normal 3.5-5.1 [facility] Comment on above: Performed By: #### C MP, T7, BNP, LIPID, TSH #### [facility] [address] [place] [address] Dr. Yuliya Jones Protein [Mass/Vol] 7.4 g/dL Normal 6.4-8.2 [facility] Comment on above: Performed By: #### C MP, T7, BNP, LIPID, TSH #### [facility] [address] [address] [address] Yuliya Jones Sodium [Moles/Vol] 139 mmol/L Normal 136-145 [facility] Comment on above: Performed By: #### C MP, T7, BNP, LIPID, TSH #### [facility] [address] [address] [address] Yuliya Jones Urea nitrogen [Mass/Vol] 8.0 mg/dL Normal 7.0-18.0 [facility] Comment on above: Performed By: #### C MP, T7, BNP, LIPID, TSH #### [facility] [address] [address] [address] Yuliya Jones Urea nitrogen/Creatinin e [Mass ratio] 11.6 mg/mg Normal [facility] Comment on above: Performed By: #### C MP, T7, BNP, LIPID, TSH #### [facility] [address] [address] [address] Yuliya Jones TSHon 07-24-2022 TSH 1.903 uIU/mL Normal 0.358-3.740 [facility] Comment on above: Performed By: #### C MP, T7, BNP, LIPID, TSH #### [facility] [address] [address] [address] Yuliya Jones VITAMIN B12on 07-24-2022 Cobalamin (Vitamin B12) [Mass/Vol] 1085.0 pg/mL Critically high 193.0-986.0 [facility] Comment on above: Performed By: #### I LUDWIN VITB12, VITAD ####[facility] [id number] [address]Dr. Yuliya Jones VITAMIN D 25 OHon 07-24-2022 VIT D 25-OH 36.8 ng/mL Normal [facility] Comment on above: Performed By: #### I LUDWIN VITB12, VITAD ####[facility] [id number] [place] [address]Dr. Yuliya Jones VIT D RANGES SEE BELOW Normal [facility] Comment on above: Result Comment: <20 ng/mL Vit D deficient 20 - <30 ng/mL Vit D insufficient 30 - 100 ng/mL Vit D sufficient >100 ng/mL Potential Toxicity Performed By: #### I LUDWIN, VITB12, VITAD ####[facility] [id number] [place] [id number]. Yuliya Jones GLYCOHEMOGLOBIN A1Con 2021 ADA RECOMMENDATION SEE BELOW Normal [facility] Comment on above: Result Comment: ADA RECOMMENDED LIMIT 4.0 - 6.0 ADA THERAPEUTIC TARGET < 7.0 ACTION SUGGESTED > 7.0 Performed By: #### A 1C ####[facility] [id number] [place] [address]DrMinisterio Jones Glucose [Mass/Vol] 140 mg/dL Normal [facility] Comment on above: Performed By: #### A 1C ####[facility] [id number] [place] [address]DrMinisterio Jones HbA1c (Bld) [Mass fraction] 6.5 % Critically high 4.5-6.2 [facility] Comment on above: Performed By: #### A 1C ####[facility] [id number] [place] [id number] Jones LIPID PROFILEon 03-07-2022 CHOL-HDL RATIO NORM SEE BELOW Normal [facility] Comment on above: Result Comment: 3.3 - 4.4 LOW RISK 4.4 - 7.1 AVERAGE RISK 7.1 - 11.0 MODERATE RISK >11.0 HIGH RISK Performed By: #### L IPID #### [facility] [address] [address] [address] Yuliya Jones Cholesterol [Mass/Vol] 215 mg/dL Critically high <=200 [facility] Comment on above: Performed By: #### L IPID #### [facility] [address] [address] [address] Yuliya Jones Cholesterol in HDL [Mass/Vol] 42 mg/dL Normal 40-60 [facility] Comment on above: Performed By: #### L IPID #### [facility] [address] [address] [address] Yuliya Jones Cholesterol in LDL [Mass/Vol] 118.4 mg/dL Normal [facility] Comment on above: Performed By: #### L IPID #### [facility] [address] [address] [address] Yuliya Jones Cholesterol.total/ Cholesterol in HDL [Mass ratio] 5.1 {ratio} Normal [facility] Comment on above: Performed By: #### L IPID #### [facility] [address] [address] [address] Yuliya Jones HDL NORMAL > or = 60 mg/dl - LO W CARDIOVASCULAR RISK <40 mg/dl - HIGH CARDIOVASCULAR RISK Normal [facility] Comment on above: Performed By: #### L IPID #### [facility] [address] [address] [address] Yuliya Jones LDL CALC NORMAL SEE BELOW Normal [facility] Comment on above: Result Comment: <100 mg/dl OPTIMAL 100 - 129 mg/dl NEAR OR ABOVE OPTIMAL 130 - 159 mg/dl BORDERLINE HIGH 160 - 189 mg/dl HIGH >190 mg/dl VERY HIGH Performed By: #### L IPID #### [facility] [address] [address] [address] Yuliya Jones Triglyceride [Mass/Vol] 273 mg/dL Critically high <=150 [facility] Comment on above: Performed By: #### L IPID #### [facility] [address] [address] [address] Yuliya Jones VLDL CALC 54.6 mg/dL Normal [facility] Comment on above: Performed By: #### L IPID #### [facility] [id number] Yuliya Jones XR ANKLE RT MIN [...] Plantar calcaneal enthesophyte. Electronically authenticated by: RORO LUNAH Date: 2021-12-18 07:50 Normal [facility] FLUORO FOR SURGICAL PROCEDUR ESon 10-25-2021 FLUORO FOR SURGICAL PROCEDURES Radiology exam is complete. No Radiologist dictation. Please follow up with ordering provider. Final result Normal [facility] Radiology exam is complete. No Radiologist dictation. Please follow up with ordering provider. [facility] Cardiovascular Lab Reporton 07-22-2020 Cardiovascular Lab Report [facility] Patient Name: [facility] Amparo Moraes MR #: [id number] Department of Physician: Raeann Billy M.D. Division of Service Date: 07/22/2020 Cardiology Birthdate: 1960 Adult Cardiovascular Room #: [address] [place] [address] Cardiovascular Laboratory Report FINAL IMPRESSIONS: 1. Moderate [...] Follow up with Dr. Ratliff in the [place] office in the next 1 to 2 [...] right internal jugular vein was obtained. A 6-British x 11 cm sheath was inserted without [...] to access the left radial artery. A 6-British glide sheath was inserted without difficulty. Bilateral [...] P/Manish Ratliff M.D. Date Trans: 07/22/2020 02:58 P/dinesh [id number] cc: Kuanl Patel M.D. [address], [facility] [address] Normal [facility] Physician Referralon 021 Physician Referral [id number] [id number]: [address] [facility] CNOVon 06-24-2018 CNOV Office Visit (LIVIA) AMPARO BARTH ([id number]) 1960 FDate Time Provider Department06/24/18 9:00 AM [...] MD 06/24/2018 10:11 AM SignedName: Amparo BarthMRN: [id number]: June 24, 2018Patient seen and examined in [...] Chito Antonio, MDPGY-6 FellowReferring Provider: KUNAL PATEL [[id number]]Allergies As of Date: 06/24/2018 Noted Allergy ReactionPERCOCET [...] regularWound: clean AND dryTemperature: NoDrains: NoEncounter Number: [id number] Status:Closed by ZAID DENNIS MD on 06/24/18 Normal [facility] HISTORY PHYSICALon 9 HISTORY PHYSICAL HNO ID: [id number]: Chito (Ronn) Jt: (none)Author Type: FellowType: HANDPFiled: 06/24/2018 10:11 AMNote Text:Name: Amparo BarthMRN: [id number]: June 24, 2018Patient seen and examined in [...] this visit. Chito Antonio, MDPGY-6 Fellow Normal [facility] PROGRESSon 06-24-2018 Protein mass conc HNO ID: [id number]: Zaid Baptiste: (none)Author Type: PhysicianType: Progress NotesFiled: [...] need anopen repair with retro-muscular mesh. Normal [facility] SR-CT ABD/PELVIS W CON IMPOR Ton 12-03-2017 SR-CT ABD/PELVIS W CON IMPORT Images were obtained outside of [facility] [id number] Normal [facility] Vital Signs Date Time Vital Sign Value Performing Clinician Karen frank 10-25-2021 14:26-0400 Diastolic blood pressure 138 mm[Hg] Annabel Lima MD Work Phone: [facility] 10-25-2021 14:26-0400 Systolic blood pressure 239 mm[Hg] Annabel Lima MD Work Phone: [facility] 10-25-2021 13:53-0400 Body temperature 97.81 [degF] Annabel Lima MD Work Phone: [facility] 10-25-2021 13:53-0400 Heart rate 62 /min Annabel Lima MD Work Phone: [facility] 10-25-2021 13:53-0400 Respiratory rate 18 /min Annabel Lima MD Work Phone: [facility] 10-25-2021 13:53-0400 SaO2% (BldA) [Mass fraction] 96 % Annabel Lima MD Work Phone: [facility] 10-13-2021 08:17-0400 Body height 165.1 cm Annabel Lima MD Work Phone: [facility] Encounters Encounter Date Encounter Type Care Provider Facility Start: 09-01-2024 End: 09-01-2024 ambulatory Jaci Kay [facility] Work Phone: Start: 09-01-2024 End: 09-01-2024 Departed Referred Jaci Kay PA-C Work Phone: [facility] Start: 08-20-2024 End: 08-20-2024 ambulatory GARTH ANDREWS [facility] Start: 04-04-2024 End: 04-04-2024 ambulatory Antoine Peoples MD Facility:[facility] Start: 04-02-2024 ambulatory CHIARA KING [facility] Start: 03-[facility] Start: 02-08-[address] [facility] Start: 01-21-2024 ambulatory CHIARA [facility] Start: 01-15-2024 End: 01-15-2024 ambulatory EMILY LUZ Not Available Start: 12-05-2023 ambulatory CHIARA [facility] Start: 09-26-[address] [facility] Start: 09-26-2023 End: 09-26-[address] [facility] Start: 09-18-2023 End: 09-18-[address] [facility] Start: 07-24-2022 End: 07-25-[address] KUNAL PATEL . Facility: Start: 03-28-2022 ambulatory [facility] Facility :H1 Start: 03-08-2022 Encounter for genera l adult medical examination without abnormal [facility] Start: 03-07-2022 End: 03-08-2022 ambulatory GARTH DARRYL Facility:[facility]1 Start: 03-07-2022 End: 03-08-2022 Encounter for general adult medical examination without abnormal findings GARTH DARRYL Facility:[facility]1 Start: 12-18-2021 End: 12-18-2021 ambulatory DELIA COKER Facility: Start: 10-25-2021 End: 10-25-2021 [facility]ulatory [facility] Start: 10-25-2021 End: 10-25-2021 Subsequent hospital visit by physician [facility] Lima MD [facility] Start: 07-22-2020 End: 07-23-2020 Patient encounter procedure MANISH RATLIFF Facility:[facility] Start: 06-24-2018 Patient encounter procedure ZAID DENNIS [facility] Procedures Date Procedure Procedure Detail Performing Clinician Start: 10-25-2021 Fluoroscopy during operation Annabel Lima MD Work Phone: Plan of Treatment Date Care Activity Detail Author Start: 09-01-2024 Urine culture [facility] Start: 09-01-2024 Bacteria identified in Urine by Culture Urine Culture [facility] Start: 02-16-2022 Influenza vaccination Flu vacc ine (Season Ended) [facility] Start: 10-25-2021 End: 10-25-2021 Njx dx/ther sbst intrlmnr lmbr/sac w/img gdn EPIDURAL STEROID INJECTION LUMBAR SACRAL RAD LUMBAR RAD 10/25/2021 2:21 PM EDT [facility] Start: 2008 Screening for malign ant neoplasm of breast Breast cancer screen [facility] Start: 2008 Shingles vaccine (1 of 2) Shingles vaccine (1 of 2) [facility] Start: 2003 Screening for malign ant neoplasm of colon [facility] Start: 1988 Screening for malign ant neoplasm of cervix [facility] Start: 1979 Screening for malign ant neoplasm of cervix Pap smear [facility] Start: 1977 DTaP/Tdap/Td vaccine (1 - Tdap) DTaP/Tdap/Td vaccine (1 - Tdap) [facility] Start: 1976 Creatinine measurement Creatinine [facility] Start: 1976 Hepatitis C screening Hepatitis C sc reen [facility] Start: 1976 Potassium [Moles/vol ume] in Serum or Plasma Potassium [facility] Start: 1973 HIV screening [facility] screen [facility] Start: 1970 Depression Screen Depression Screen [facility] Start: 1968 Lipid panel Lipids [facility] Start: 1963 COVID-19 Vaccine (1) COVID-19 Vaccin e (1) [facility] Start: 1960 Annual Wellness Visi t (AWV) Annual Wellness Visit (AWV) [facility] Payers Date Payer Category Payer Self-pay 2024 Medicare [id number] 2023 Private Health Insurance 2023 Medicare [id number] 1961 Medicaid [id number] 1961 Medicare [id number] 1961 Self-pay [id number] 1960 Unknown [id number] 2.16.8 [id number] 1960 Unknown [id number] 2.16.8 [id number] 1960 Unknown [id number] 2.16.84 [id number] 1960 Unknown [id number] 2.16.84 [id number] 1960 Unknown [id number] 2.16.84 [id number] 1960 Unknown [id number] 2.16.84 [id number] 1960 Unknown [id number] 2.16.84 [id number] 1960 Unknown [id number] 2.16. [id number] Medicare [id number] Social History Date Type Detail Facility Start: [facility]-13-2021 [facility] Start: 10-13-2021 Tobacco use and exposure [facility]ok[facility] Start: 10-25-2021 Alcohol intake Current drinke r of alcohol (finding) [facility]: Start: 10-13-2021 History SDOH Alcohol Comment socially [facility] Start: 1960 Sex Assigned At [facility] on file [facility] Work Phone: Start: 09-03-2024 Sex Female (finding) [facility] Start: 1960 Sex Assigned At Female F [facility] Clinical Notes 10-25-2021 to 08-20-2024 Radha Estevez RN - 10/25/2021 2:41 PM EDTSdilip Estevez RN - 10/25/2021 2:31 PM EDTInstructionsAuth/Cert Note Date & Type Note Facility 08-20-2024 Note Cardiovascular Medic [facility] SUBJECTIVE Chief Complaint Patient [...] ablation in September 2023. She presented to [facility] ED last week for chest pain. [...] MOUTH EVERY D (more content not included)... [facility] 08-20-2024 Note Patient here for 1 y ear follow up PAF. She hasn't been seen since afib ablation in September 2023. She presented to [facility] ED last week for chest pain. [...] All other systems reviewed and are negative. [facility] 09-26-2023 Note Patient: Amparo evangelista Procedure Summary Date: 09/26/23 Room / Location: [facility] MANNEQUIN MAKER 1 EP / [facility] VASCULAR LAB (Cath) Anesthesia Start: 0830 Anesthesia Stop: 1207 Procedure: Ablation atrial fibrillation [...] no known notable events for this encounter. [facility] 09-26-2023 Note ATRIAL FIBRILLATION ABLATION PROCEDURE NOTE DATE OF PROCEDURE: 09/26/2023 PERFORMING PHYSICIAN: Dr. Rai Jay AUTO DISMANTLER: SAJI CONSENT: Patient NAME OF THE PROCEDURE: [...] Mapping was performed (more content not included)... [facility] 09-26-2023 Note Arterial Line: Date/Time: 09/26/2023 [...] 1 % SubQ, 0.5 mL Staffing Performed: resident/MANAGER EPIC/CAA Anesthesiologist: Damion Coronado MD Resident/MANAGER EPIC: Tameka Westbrook MD Performed by: Tameka Westbrook MD Authorized by: Damion Coronado MD [facility] 09-26-2023 Note Airway Date/Time: 09/26/2023 8:53 AM Urgency: elective Airway not difficult General Information and Staff Patient location during procedure: [place] Anesthesiologist: Damion Coronado MD Resident/MANAGER EPIC/CAA: Tameka Westbrook MD Performed: resident/MANAGER EPIC/CAA Indications and Patient Condition Indications for airway [...] 21 Number of attempts at approach: [address] [facility] 09-26-2023 Note Patient: Amparo evangelista Procedure Information Date/Time: 09/26/23 0830 Procedure: Ablation a-fib paroxysmal Location: [facility] MANNEQUIN MAKER 1 EP / [facility] (Cath) Providers: Rai Jay [...] Plan discussed with resident. Additional Equipment Requests [facility] 09-18-2023 Note PR Electrophysiology Note [facility] Reason for Consultation: Aflutter s/p [...] 07/2022, atrial fib (was intolerant of amiodarone) [id number] at least 5 for gender, hypertension, TIA, [...] hx TIA 2008. She was seen at [facility] ER with c/o palpitations and [...] on file Intimate Partner Violence: Unknown (08/09/2023) [place] Safety & Environment Fear of Current or [...] negative. Physical Exam: (more content not included)... [facility] 10-25-2021 History of Present illness Narrative Discharge instructions reviewed with patient. Had no sedation. Signed for self. To recovery. Denies pain complaints. Injection site clean and dry. BP 190/95. P 63. Oxygen 98%. Resp 18. updated on elevated pressure. documented in this encounter [employer] Phone: 10-25-2021 Hospital Discharge instructions Radha Estevez [...] a follow-up visit. documented in this encounter [employer] Phone: Evaluation note No assessment inform ation available [facility] Work Phone: Reason for visit Narrative Specialty Diagnoses / Procedures Referred By Contac t Referred To Contact Diagnoses LUMBAR SACRAL RAD LUMBAR RAD Procedures MA NJX DX/THER SBST INTRLMNR LMBR/SAC W/IMG GDN EPIDURAL STEROID INJECTION- L4-5 Annabel Lima MD [address] [place] [address] [employer] [address] [place] [address] Referral ID Status Reason Start Date Expiration Date Visits Re quested Visits Authorized 1 1 [employer] Phone: Summary Purpose Family History No Family [...] section and content) DATE CREATED AUTHOR 06/26/2018 [facility] DATE CREATED AUTHOR AUTHOR'S ORGANIZ ATION 07/13/2020 [facility] DATE CREATED AUTHOR AUTHOR'S ORGANIZ ATION 08/05/2020 [facility] DATE CREATED AUTHOR AUTHOR'S ORGANIZ ATION 10/26/2021 [facility] DATE CREATED AUTHOR AUTHOR'S ORGANIZ ATION 09/29/2022 [facility] DATE CREATED AUTHOR AUTHOR'S ORGANIZ ATION 01/18/2024 [facility] DATE CREATED AUTHOR AUTHOR'S ORGANIZ ATION 08/22/2024 [facility] DATE CREATED AUTHOR AUTHOR'S ORGANIZ ATION 09/04/2024 [facility] DATE CREATED AUTHOR AUTHOR'S ORGANIZ ATION 09/21/2024 [facility] PRN Active and Recently Administ ered [...] Care Teams (unrecognized sec tion and content) [employer] Web Developer Relationship Specialty Start Date End Date Kunal Patel MD [address] [place] [address] PCP - General Family Medicine 10/24/21 Team Status: Inactive Member Role Status Dates Jaci Kay PA-C Attending Provider Active Start: September 01, 2024 End: September 01, 2024 Goals (unrecognized section and content) Goals may be documented in a n alternate section FOR RECORDS PERTAINING TO PATIENTS WHO ARE [...] BE BASED ON THE PRIMARY CLINICAL RECORDS. [facility] [employer] [facility]. provides no warranty or guarantee of the accuracy or completeness of information in this document.
--- OUTSIDE RECORDS SUMMARY | 2025-03-13 09:03 | XMS_ITS | Encounter Summary ---
Author Organization The [facility] Address [address] [place] [address] Care Team Providers Care Kiln Door Builder Name Role Phone Humble Patel MD Primary Care Provider [phone] Reason for Visit * Reason Comments Med Refill Encounter Details Date Type Department Care Team (Late st Contact Info) Description 01/19/2023 Refill [facility] [address] [place] [address] Rai Jay MD [address] [place] [address] Paroxysmal atrial fibrillation (CMS/HCC) Social History Tobacco [...] Heterosexual or Straight 02/17 10:06 AM EDT COVID-19 Exposure Response Date Recorded In the last 10 days, have yo u been in contact with someone who was confirmed or suspected to have Coronavirus/COVID-19? No / Unsure 12/28/2022 6:28 AM EDT documented as of this encounter Plan of Treatment Not on file documented as of this encounter Visit Diagnoses Diagnosis Paroxysmal atrial fibrillation (CMS/HCC) Atrial fibrillation documented in this encounter Care Teams Kiln Door Builder Relationship Specialty Start Date End Date Humble Patel MD [address] [facility] [address] [address] PCP - General 02/08/22 documented as of this encounter
[2025-03-13 09:41] LABS: Cholesterol 142 mg/dL (<=200); HDL Cholesterol 48 mg/dL (40-60); Triglycerides 212 mg/dL (<=150); VLDL CHOLESTEROL 42.4 mg/dL
== END 2025-03-13 08:59 | disposition home or self-care (01) ==
LOC: LAB 08:59
PROVIDERS: PCP Family Medicine; Visit Provider Nurse Practitioner Family
DX: E78.2 Mixed hyperlipidemia (principal)
CPT/HCPCS: 36415; 80061

== ENCOUNTER 2025-03-18 04:37 | Outpatient (RCR) | payer MEDICARE, SELFPAY | END 2025-04-17 23:59 | disposition home or self-care (01) | LOC: MM 04:37 | PROVIDERS: PCP Family Medicine; Visit Provider Internal Medicine | DX: Z51.81 Encounter for therapeutic drug level monitoring (principal); Z79.01 Long term (current) use of anticoagulants; I48.91 Unspecified atrial fibrillation ==

== ENCOUNTER 2025-04-18 | Outpatient (RCR) | payer MEDICARE, SELFPAY | END 2025-05-17 23:59 | disposition home or self-care (01) | LOC: MM | PROVIDERS: PCP Family Medicine; Visit Provider Family Medicine | DX: Z51.81 Encounter for therapeutic drug level monitoring (principal); Z79.01 Long term (current) use of anticoagulants ==